=== PATIENT | female | born 1950 | race African-American/Black ===

== ENCOUNTER 2020-03-05 10:30 | Inpatient (IN) | payer MEDICARE ==
--- NOTE | 2020-03-06 10:52 | R.PREADM ---
SCREENING DATE AND TIME 03/05/2020 10:33 (CDT) ANTICIPATED REHAB ADMISSION DATE 03/07/2020 REFERRING FACILITY [facility] REFERRAL DATE AND TIME 03/04/2020 10:33 (CDT) REFERRAL ROOM# Z.SI02 ACUTE ADMIT DATE 02/15/2020 Previous Rehabilitation(s): No. 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 José Miguel Brennan M.D. [facility]# [id number] [id number] NAME SALINA SERRATO [address]ESS [address] [facility] [address] DATE OF 1950 AGE 69 SSN# [id number] GENDER female MARITAL STATUS RACE black PREF. LANGUAGE (IF NON-[place]) Telugu ADMIT FROM 01 - Home (private home/apt. board/care, assisted living, half-way, transitional living) PRE-HOSPITAL LIVING SETTING 01 - Home (private home/apt. board/care, assisted living, half-way, transitional living) HOME TYPE AND DETAILS Type of home: single family house # of steps within the residence: 0 # of levels in the residence: 1 # of steps to enter the residence: 0 PRE-HOSPITAL LIVING WITH Other FAMILY SUPPORT No PRIMARY FAMILY CONTACT NAME Idris Perez PRIMARY FAMILY CONTACT PHONE PRIMARY FAMILY CONTACT RELATIONSHIP u IS PRIMARY FAMILY CONTACT AUTH. REP.? no 1ST EMERGENCY CONTACT Idris Perez 1ST CONTACT PHONE 1ST CONTACT RELATIONSHIP u IS 1ST CONTACT AUTH. REP.? no PHONE 2ND CONTACT ON ADM.? no PATIENT EMPLOYMENT STATUS Retired (for age) PATIENT EMPLOYER No Employer PAYOR INFORMATION: 1ST PAYOR NAME [facility] Markus 1ST PAYOR PHONE 1ST PAYOR AUTHORIZATION# Pending #[id number] 1ST PAYOR INJURY/ILLNESS DUE TO ACCIDENT? No ANOTHER REPUBLICAN RESPONSIBLE? No PRIMARY REHAB/ACUTE DIAGNOSIS: CABG x 4 ONSET DATE 02/15/2020 REHAB IMPAIRMENT CATEGORY (ELLA): 14 Cardiac does NOT meet 60% rule PRIMARY DIAGNOSIS-RELATED SURGERIES: CABG X 4 SUMMARY OF ACUTE HOSPITALIZATION: Pt. is a 69 yo Right-handed black female. On 02/15/2020 she was admitted to [facility] with diagnosis CABG x 4. Her impairment category is Cardiac 09 - Cardiac Disorders (09). Pre-morbidly, Pt. was independent/mod-I in Transfers Control, Locomotion, and Self-Care; and she had good Balance, Social Cognition, Sphincter Control, and Communication. Currently, she has deficits of Transfers Control, Balance, Locomotion, Safety Awareness, and Self-Car e. Pt. is now referred to [facility] for acute in-patient rehabilitation in order to maximize patient's functional independence in activities of daily living, strength, ROM, and mobi lity. Patient has realistic goal of being discharged at assistance level 6-Geo to reside at Home with Nickolas katie. 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 Treatment - Per Physician's Orders. REVIEW OF SYSTEMS: - Gen Alert and awake Lying in bed No apparent distress Oriented to: person, time, and place - Vital Signs Vital signs stable, afebrile - CVS RRR VITAL SIGNS Temperature: 96.6 F SBP/DBP: 127/60 Pulse: 71 Resp: 11 Vital signs stable, afebrile MEDICATIONS/TREATMENT: Other- See attached MAR (Medication Administration Record). CURRENT SPHINCTER CONTROL: Pre-hospital bladder status: continent # of bladder accidents in the last 7 days prior to screenin Pre-hospital bowel status: continent # of bowel accidents in the last 7 days prior to screenin CURRENT LOCOMOTION STATUS: distance walked 20 feet DETAILED CURRENT FUNCTIONAL STATUS: - Walking score based on distance walked: 1(<=50ft) QI SCORES: - Self-Care A. Eating 05-Setup or clean-up assistance B. Oral hygiene 05-Setup or clean-up assistance C. Toileting hygiene 03-Partial/moderate assistance E. Shower/bathe self 10-Not attempted due to environmental limitations F. Upper body dressing 02-Substantial/maximal assistance G. Lower body dressing 01-Dependent H. Putting on/taking off footwear 01-Dependent - Mobility A. Roll left and right 02-Substantial/maximal assistance B. Sit to lying 02-Substantial/maximal assistance C. Lying to sitting on side of bed 02-Substantial/maximal assistance D. Sit to stand 04-Supervision or touching assistance E. Chair/mep-dw-cghbo transfer 04-Supervision or touching assistance F. Toilet transfer 04-Supervision or touching assistance G. Car transfer 88-Not attempted due to medical condition or safety concerns I. Walk 10 feet 02-Substantial/maximal assistance J. Walk 50 feet with two turns 88-Not attempted due to medical condition or safety concerns K. Walk 150 feet 88-Not attempted due to medical condition or safety concerns L. Walking 10 feet on uneven surfaces 88-Not attempted due to medical condition or safety concerns M. 1 step (curb) 88-Not attempted due to medical condition or safety concerns N. 4 steps 88-Not attempted due to medical condition or safety concerns O. 12 steps 88-Not attempted due to medical condition or safety concerns P. Picking up object 88-Not attempted due to medical condition or safety concerns R. Wheel 50 feet with two turns S. Wheel 150 feet - Bladder and Bowel Bladder continence 0-Always continent Bowel continence 0-Always continent - Endurance Poor - Balance Poor - Safety Awareness Poor CURRENT FUNC. DEFICITS: Self-Care, Mobility, Endurance, Balance, and Safety Awareness HISTORY OF FALLS. HAS THE PATIENT HAD TWO OR MORE FALLS IN THE PAST YEAR OR ANY FALL WITH INJURY IN T HE PAST YEAR?: No PRIOR SURGERY. DID THE PATIENT HAVE MAJOR SURGERY DURING THE 100 DAYS PRIOR TO ADMISSION?: No THERAPY NOTES FROM ACUTE CARE: Attached. SPECIAL NEEDS: - Safety Concerns Skin breakdown precautions needed due to skin breakdown risk PATIENT NEEDS ACTIVE AND ONGOING THERAPEUTIC INTERVENTION OF MULTIPLE THERAPY DISCIPLINES, INCLUDING: - Dietary and Nutrition Adequate Nutrition. Nutritional Education. Nutritional Supplements. PATIENT NEEDS CLOSE MEDICAL SUPERVISION BY A REHABILITATION PHYSICIAN FOR: Coordination of Treatment Team Wound Care PATIENT REQUIRES 24X7 REHAB NURSING FOR MEDICAL AND FUNCTIONAL MGT. OF THE FOLLOWING DEFICITS: Disease Management Medication Management Patient/Family Education Providing Safe Environment Skin Integrity PATIENT REQUIRES INTENSIVE, COORDINATED INTERDISCIPLINARY APPROACH TO REHAB: Arranging Home Equipment/Services Discharge Planning Family Intervention/Training Keg Varnisher/Case Management PATIENT REHAB POTENTIAL: Marshall SERRATO is able and expected to receive 3 hours of individualized therapy daily on at least 5 of ev casper 7 days Marshall SERRATO's prognosis for significant practical improvement within a reasonable period of time appear s Good Expected level of measurable improvement will be of a practical value to Marshall SERRATO's functional capac ity or adaptations to impairments Has a viable Discharge Plan Medically appropriate; condition is sufficiently stable to participate in intensive rehab program DISCHARGE PLAN: - Estimated Length of Stay (days) 10. - Consensus on plan Discharge plan has been discussed with primary caregiver. Patient/Family is in agreement with the sebastián n. - Patient/Family Goals Return home independently. RECOMMENDED CARE LEVEL: IRF RECOMMENDATION DETAILS: Recommended Admission to Comprehensive Rehabilitation Program to Increase Functional [place] SCREENER'S COMPLETENESS CONFIRMATION: - Screening Confirmation The patient data collection on this preadmission screening form is finished PHYSICIANS REVIEW AND ADMISSION DETERMINATION Admit - Based on my review of the Pre-Admission Screening results, in my medical judgment and experie nce, I concur with the findings and recommend admission to [facility], as this patient requires an IRF level of care. SIGNATURE PANEL: Elevator Pilot - [electronically] signed by Mavis Rubalcava Tip Bander on 03/05/2020 at 12:13 (CD T) Clinical Liaison - [electronically] signed by Audrey Talavera RN on 03/06/2020 at 10:48 (CDT) Physician Reviewer - [electronically] signed by Dr. José Miguel Brennan M.D. on 03/06/2020 at 10:51 (CDT )
[2020-03-06] MEDS ORDERED: D50W 25 GM/50 ML SYRINGE/VIAL IV PRN (20:56)
[2020-03-06] MEDS ORDERED: GLUCAGON 1 MG/VIAL IM PRN (20:56)
[2020-03-06] MEDS: INSULIN -REGULAR HUMAN 50 UNIT/0.5 ML ML SQ SCH (21:00)
--- OUTSIDE RECORDS SUMMARY | 2020-03-06 21:20 | XMS REPORT ---
:1950 Author Organization [facility] t Address [address] [place] [place] [address] Care Team Providers Name Role Phone Srinivas MACDONALD, Maxine Acosta Attending Clinician Pob, Lab Main Attending Clinician Unavailable Doctor Unassigned, Name Attending Clinician Unavailable Junior KERR M Attending Clinician Singer VELAZQUEZ Attending Clinician Aftab MACDONALD Attending Clinician Aftab MACDONALD Admitting Clinician Payers Payer Name Policy Type Policy Number Effective Date Expiration Date S ource Problems This patient has no known problems. Allergies, Adverse Reactions, Alerts Allergy Allergy Status Severity Reaction(s) Onset Inactive Treating Comm ents Source Name Type Date Date Clinician [place] DA Active SV 0 [facility] ins 02-27 [place] 00:00: [address] [place] DA Active SV [facility] ins 02-17 Clear 00:00: [address] [place] DA Active SV 2016-1 [facility] ins 10-12 Clear 00:00: [place] 00 [facility] ELECTROD DA Active U 2015- [facility] ES 10-12 Clear 00:00: [place] 00 [facility] FLU DA Active SV 2015-10 [facility] VACCINE 10-12 Clear 00:00: [place] 00 [facility] Medications This patient has no known medications. Procedures This patient has no known procedures. Encounters Start End Encounter Admission Attending Care Care Encounter Source Date/Time Date/Time Type Type Clinicians Facility Department ID 2020-02-14 2020-02-15 Emergency [facility] [id number] 19:56:15 00:58:00 Maxine Finn [id number] [place] 4.2.7.2.686 [place] [id number] [id number] 2019-12-13 2019-12-13 Exposure Machine Operator Margaux Quezada [facility] [id number] 13:20:41 13:35:41 Visit Lab Main Aakash [id number] [place] 4.2.7.2.686 Profess [id number] [address] 2019-12-13 2019-12-13 Orders Doctor JONY [id number] 00:00:00 00:00:00 Only Unassigned, KRISTINA [id number] [place] [facility] [id number] [id number] 2019-11-13 2019-11-13 Transition Bernardo Pacheco [id number] 00:00:00 00:00:00 of Care Delphine Vidal [id number] [place] 4.2.7.2.686 [id number] 2019-11-11 2019-11-11 Emergency Slade Sykes [facility] 1.2.840. [id number] 01:24:32 17:40:00 Pratima Ugalde 350.1.13.10 [place] 4.2.7.2.686 [place] [phone] [id number] Results Test Description Test Time Test Comments Results Result Comments Source GLUCOSE BEDSIDE TESTING 2020-03-06 16:36:00 Test Item Value Reference Range Interpretation Comme nts GLUCOSE BEDSIDE TESTING (test code = GLUBED) 158 MG/DL 60-99 H HGB [id number] 15:25:00 Test Item Value Reference Range Interpretation Comments HEMOGLOBIN (test code = HGB) 9.1 G/DL 11.2-14.9 L HEMATOCRIT (test code = HCT) 29.2 % 33.2-43.5 L Is this a LINE draw? NGLUCOSE BEDSIDE [id number] 12:18:00 Test Item Value Reference Range Interpretation Comments GLUCOSE BEDSIDE TESTING (test code 151 MG/DL 60-99 H = GLUBED) GLUCOSE BEDSIDE [id number] 12:18:00 Test Item Value Reference Range Interpretation Comments GLUCOSE BEDSIDE TESTING (test code 155 MG/DL 60-99 H = GLUBED) CBC W/AUTO [id number] 09:19:00 Test Item Value Reference Range Interpretation Comments WHITE BLOOD CELL (test code = 9.9 K/MM3 3.8-9.8 H WBC) RED BLOOD CELL (test code = 2.68 M/MM3 3.58-4.97 L RBC) HEMOGLOBIN (test code = HGB) 7.5 G/DL 11.2-14.9 L HEMATOCRIT (test code = HCT) 24.2 % 33.2-43.5 L MEAN CELL VOLUME (test code = 90 fL 80.7-99.1 N MCV) MEAN CELL HGB (test code = MCH) 28.0 pg 27.0-34.1 N MEAN CELL HGB CONCETRATION 31.0 % 32.2-35.7 L (test code = MCHC) RED CELL DISTRIBUTION WIDTH 15.1 % 12.1-15.2 N (test code = RDW) PLATELET COUNT (test code = 442 K/MM3 129-368 H PLT) MEAN PLATELET VOLUME (test code 9.0 fl 7.4-10.4 N = MPV) NEUTROPHIL % (test code = NT%) 80.4 % 43-75 H IMMATURE GRANULOCYTE % (test 0.7 % 0.0-2.0 N code = IG%) LYMPHOCYTE % (test code = LY%) 13.0 % 14-44 L MONOCYTE % (test code = MO%) 5.4 % 4-13 N EOSINOPHIL % (test code = EO%) 0.1 % 0-6 N BASOPHIL % (test code = BA%) 0.4 % 0-2 N NUCLEATED RBC % (test code = 0.0 % 0-1.0 N NRBC%) NEUTROPHIL # (test code = NT#) 7.97 K/mm3 2.0-7.6 H IMMATURE GRANULOCYTE # (test 0.07 x10 3/uL 0-0.03 H code = IG#) LYMPHOCYTE # (test code = LY#) 1.29 K/mm3 1.0-3.8 N MONOCYTE # (test code = MO#) 0.54 K/mm3 0.1-0.8 N EOSINOPHIL # (test code = EO#) 0.01 K/mm3 0.0-0.2 N BASOPHIL # (test code = BA#) 0.04 K/mm3 0.0-0.2 N NUCLEATED RBC # (test code = 0.00 K/mm3 0.0-0.1 N NRBC#) PATIENT IS A HARD STICK. UNABLE TO GET BLOOD SAMPLE.NOTIFIED PATIENT CARE STAFF: XENAON 03/06/20 AT 42 BY Z.LAB.MYJBASIC METABOLIC [id number] 09:06:00 Test Item Value Reference Range Interpretation Comments SODIUM (test code = 135 MMOL/L 137-145 L NA) POTASSIUM (test code = 4.3 MMOL/L 3.5-5.1 N K) CHLORIDE (test code = 102 MMOL/L 98-107 N CL) CARBON DIOXIDE (test 30 MMOL/L 22-30 N code = CO2) GLUCOSE (test code = 189 MG/DL 74-106 H GLU) BLOOD UREA NITROGEN 25 MG/DL 7-17 H (test code = BUN) GLOMERULAR FILTRATION 39 Report ing units: RATE (test code = GFR) ml/mi n/1.73 m2 (Modified MDRD Formula)Referen ce Range: > or = 6 0 ml/min/1.73 m2 CREATININE (test code 1.60 MG/DL 0.52-1.04 H = CREAT) CALCIUM (test code = 8.7 MG/DL 8.4-10.2 N CA) PATIENT IS A HARD STICK. UNABLE TO GET BLOOD SAMPLE.NOTIFIED PATIENT CARE STAFF: XENAON 03/06/20 AT 0742 BY Z.LAB.[id number] 09:06:00 Test Item Value Reference Range Interpretation Comments MAGNESIUM (test code = MAG) 1.9 MG/DL 1.6-2.3 N PATIENT IS A HARD STICK. UNABLE TO GET BLOOD SAMPLE.NOTIFIED PATIENT CARE STAFF: TEJA 03/06/20 AT 0742 BY Dee Dee.LAB.MYJBASI METABOLIC [id number] 09:05:00 Test Item Value Reference Range Interpretation Comments SODIUM (test code = 135 MMOL/L 137-145 L NA) POTASSIUM (test code = 4.3 MMOL/L 3.5-5.1 N K) CHLORIDE (test code = 102 MMOL/L 98-107 N CL) CARBON DIOXIDE (test MMOL/L 22-30 code = CO2) GLUCOSE (test code = MG/DL 74-106 GLU) BLOOD UREA NITROGEN MG/DL 7-17 (test code = BUN) GLOMERULAR FILTRATION 39 Report ing units: RATE (test code = GFR) ml/mi n/1.73 m2 (Modified MDRD Formula)Referen ce Range: > or = 6 0 ml/min/1.73 m2 CREATININE (test code 1.60 MG/DL 0.52-1.04 H = CREAT) CALCIUM (test code = MG/DL 8.7-9.7 CA) PATIENT IS A HARD STICK. UNABLE TO GET BLOOD SAMPLE.NOTIFIED PATIENT CARE STAFF: TEJA 03/06/20 AT 07 BY Z.LAB.[id number] 09:05:00 Test Item Value Reference Range Interpretation Comments MAGNESIUM (test code = MAG) MG/DL 1.6-2.3 PATIENT IS A HARD STICK. UNABLE TO GET BLOOD SAMPLE.NOTIFIED PATIENT CARE STAFF: TEJA 03/06/20 AT 0742 BY Z.LAB.MYJBASI METABOLIC [id number] 09:03:00 Test Item Value Reference Range Interpretation Comments SODIUM (test code = NA) 135 MMOL/L 137-145 L POTASSIUM (test code = K) 4.3 MMOL/L 3.5-5.1 N CHLORIDE (test code = CL) 102 MMOL/L 98-107 N CARBON DIOXIDE (test code = CO2) MMOL/L 22-30 GLUCOSE (test code = GLU) MG/DL 74-106 BLOOD UREA NITROGEN (test code = MG/DL 7-17 BUN) GLOMERULAR FILTRATION RATE (test code = GFR) CREATININE (test code = CREAT) MG/DL 0.52-1.04 CALCIUM (test code = CA) MG/DL 8.7-9.7 PATIENT IS A HARD STICK. UNABLE TO GET BLOOD SAMPLE.NOTIFIED PATIENT CARE STAFF: TEJA 03/06/20 AT 0742 BY Z.LAB.[id number] 09:03:00 Test Item Value Reference Range Interpretation Comments MAGNESIUM (test code = MAG) MG/DL 1.6-2.3 PATIENT IS A HARD STICK. UNABLE TO GET BLOOD SAMPLE.NOTIFIED PATIENT CARE STAFF: TEJA 03/06/20 AT 0742 BY Z.LAB.MYJGLUCOSE BEDSIDE [id number] 07:52:00 Test Item Value Reference Range Interpretation Comments GLUCOSE BEDSIDE TESTING (test code 156 MG/DL 60-99 H = GLUBED) GLUCOSE BEDSIDE [id number] 07:52:00 Test Item Value Reference Range Interpretation Comments GLUCOSE BEDSIDE TESTING (test code 258 MG/DL 60-99 H = GLUBED) GLUCOSE BEDSIDE [id number] 07:52:00 Test Item Value Reference Range Interpretation Comments GLUCOSE BEDSIDE TESTING (test code 169 MG/DL 60-99 H = GLUBED) GLUCOSE BEDSIDE [id number] 16:36:00 Test Item Value Reference Range Interpretation Comments GLUCOSE BEDSIDE TESTING (test code 169 MG/DL 60-99 H = GLUBED) GLUCOSE BEDSIDE [id number] 16:36:00 Test Item Value Reference Range Interpretation Comments GLUCOSE BEDSIDE TESTING (test code 137 MG/DL 60-99 H = GLUBED) COMPREHENSIVE METABOLIC [id number] 09:53:00 Test Item Value Reference Range Interpretation Comments SODIUM (test code = NA) 136 MMOL/L 137-145 L POTASSIUM (test code = 4.3 MMOL/L 3.5-5.1 N K) CHLORIDE (test code = 101 MMOL/L 98-107 N CL) CARBON DIOXIDE (test 29 MMOL/L 22-30 N code = CO2) GLUCOSE (test code = 172 MG/DL 74-106 H GLU) BLOOD UREA NITROGEN 24 MG/DL 7-17 H (test code = BUN) GLOMERULAR FILTRATION 42 Report ing units: RATE (test code = GFR) ml/mi n/1.73 m2 (Modified MDRD Formula)Referen ce Range: > or = 6 0 ml/min/1.73 m2 CREATININE (test code = 1.50 MG/DL 0.52-1.04 H CREAT) TOTAL PROTEIN (test 6.8 G/DL 6.3-8.2 N code = PROT) ALBUMIN (test code = 3.3 G/DL 3.5-5.0 L ALB) CALCIUM (test code = 8.9 MG/DL 8.4-10.2 N CA) BILIRUBIN TOTAL (test 0.7 MG/DL 0.2-1.3 N code = BILT) SGOT/AST (test code = 26 UNITS/L 14-36 N AST) SGPT/ALT (test code = 31 UNITS/L <35 ALT) ALKALINE PHOSPHATASE 84 UNITS/L 38-126 N (test code = ALKP) PATIENT IS A HARD STICK. UNABLE TO GET BLOOD SAMPLE.NOTIFIED PATIENT CARE STAFF: ATILIO 03/05/20 [id number] BY Z.LAB.[id number] 09:53:00 Test Item Value Reference Range Interpretation Comments MAGNESIUM (test code = MAG) 2.0 MG/DL 1.6-2.3 N PATIENT IS A HARD STICK. UNABLE TO GET BLOOD SAMPLE.NOTIFIED PATIENT CARE STAFF: ATILIO 03/05/20 [id number] BY Z.LAB.MYJCOMPREHENSIVE METABOLIC [id number] 09:30:00 Test Item Value Reference Range Interpretation Comments SODIUM (test code = NA) 136 MMOL/L 137-145 L POTASSIUM (test code = 4.3 MMOL/L 3.5-5.1 N K) CHLORIDE (test code = 101 MMOL/L 98-107 N CL) CARBON DIOXIDE (test 29 MMOL/L 22-30 N code = CO2) GLUCOSE (test code = MG/DL 74-106 GLU) BLOOD UREA NITROGEN MG/DL 7-17 (test code = BUN) GLOMERULAR FILTRATION 42 Report ing units: RATE (test code = GFR) ml/mi n/1.73 m2 (Modified MDRD Formula)Referen ce Range: > or = 6 0 ml/min/1.73 m2 CREATININE (test code = 1.50 MG/DL 0.52-1.04 H CREAT) TOTAL PROTEIN (test 6.8 G/DL 6.3-8.2 N code = PROT) ALBUMIN (test code = 3.3 G/DL 3.5-5.0 L ALB) CALCIUM (test code = MG/DL 8.7-9.7 CA) BILIRUBIN TOTAL (test 0.7 MG/DL 0.2-1.3 N code = BILT) SGOT/AST (test code = 26 UNITS/L 14-36 N AST) SGPT/ALT (test code = UNITS/L <35 ALT) ALKALINE PHOSPHATASE 84 UNITS/L 38-126 N (test code = ALKP) PATIENT IS A HARD STICK. UNABLE TO GET BLOOD SAMPLE.NOTIFIED PATIENT CARE STAFF: ATILIO 03/05/20 BY Z.LAB.[id number] 09:30:00 Test Item Value Reference Range Interpretation Comments MAGNESIUM (test code = MAG) MG/DL 1.6-2.3 PATIENT IS A HARD STICK. UNABLE TO GET BLOOD SAMPLE.NOTIFIED PATIENT CARE STAFF: ATILIO 03/05/20 BY Z.LAB.MYJCOMPREHENSIVE METABOLIC [id number] 09:28:00 Test Item Value Reference Range Interpretation Comments SODIUM (test code = NA) 136 MMOL/L 137-145 L POTASSIUM (test code = K) 4.3 MMOL/L 3.5-5.1 N CHLORIDE (test code = CL) 101 MMOL/L 98-107 N CARBON DIOXIDE (test code = CO2) MMOL/L 22-30 GLUCOSE (test code = GLU) MG/DL 74-106 BLOOD UREA NITROGEN (test code = MG/DL 7-17 BUN) GLOMERULAR FILTRATION RATE (test code = GFR) CREATININE (test code = CREAT) MG/DL 0.52-1.04 TOTAL PROTEIN (test code = PROT) G/DL 6.3-8.2 ALBUMIN (test code = ALB) 3.3 G/DL 3.5-5.0 L CALCIUM (test code = CA) MG/DL 8.7-9.7 BILIRUBIN TOTAL (test code = BILT) MG/DL 0.2-1.3 SGOT/AST (test code = AST) UNITS/L 15-37 SGPT/ALT (test code = ALT) UNITS/L <35 ALKALINE PHOSPHATASE (test code = UNITS/L 38-126 ALKP) PATIENT IS A HARD STICK. UNABLE TO GET BLOOD SAMPLE.NOTIFIED PATIENT CARE STAFF: ATILIO 03/05/20 BY Z.LAB.[id number] 09:28:00 Test Item Value Reference Range Interpretation Comments MAGNESIUM (test code = MAG) MG/DL 1.6-2.3 PATIENT IS A HARD STICK. UNABLE TO GET BLOOD SAMPLE.NOTIFIED PATIENT CARE STAFF: ATILIO 03/05/20 [id number] BY ShaqLAB.MYJCOMPREHENSIVE METABOLIC [id number] 09:27:00 Test Item Value Reference Range Interpretation Comments SODIUM (test code = NA) MMOL/L 137-145 POTASSIUM (test code = K) MMOL/L 3.5-5.1 CHLORIDE (test code = CL) MMOL/L 98-107 CARBON DIOXIDE (test code = CO2) MMOL/L 22-30 GLUCOSE (test code = GLU) MG/DL 74-106 BLOOD UREA NITROGEN (test code = MG/DL 7-17 BUN) GLOMERULAR FILTRATION RATE (test code = GFR) CREATININE (test code = CREAT) MG/DL 0.52-1.04 TOTAL PROTEIN (test code = PROT) G/DL 6.3-8.2 ALBUMIN (test code = ALB) 3.3 G/DL 3.5-5.0 L CALCIUM (test code = CA) MG/DL 8.7-9.7 BILIRUBIN TOTAL (test code = BILT) MG/DL 0.2-1.3 SGOT/AST (test code = AST) UNITS/L 15-37 SGPT/ALT (test code = ALT) UNITS/L <35 ALKALINE PHOSPHATASE (test code = UNITS/L 38-126 ALKP) PATIENT IS A HARD STICK. UNABLE TO GET BLOOD SAMPLE.NOTIFIED PATIENT CARE STAFF: ATILIO 03/05/20 [id number] BY Z.LAB.[id number] 09:27:00 Test Item Value Reference Range Interpretation Comments MAGNESIUM (test code = MAG) MG/DL 1.6-2.3 PATIENT IS A HARD STICK. UNABLE TO GET BLOOD SAMPLE.NOTIFIED PATIENT CARE STAFF: ATILIO 03/05/20 BY Z.LAB.MYJCBC W/AUTO [id number] 09:20:00 Test Item Value Reference Range Interpretation Comments WHITE BLOOD CELL (test code = 12.0 K/MM3 3.8-9.8 H WBC) RED BLOOD CELL (test code = 2.99 M/MM3 3.58-4.97 L RBC) HEMOGLOBIN (test code = HGB) 8.4 G/DL 11.2-14.9 L HEMATOCRIT (test code = HCT) 27.1 % 33.2-43.5 L MEAN CELL VOLUME (test code = 91 fL 80.7-99.1 N MCV) MEAN CELL HGB (test code = MCH) 28.1 pg 27.0-34.1 N MEAN CELL HGB CONCETRATION 31.0 % 32.2-35.7 L (test code = MCHC) RED CELL DISTRIBUTION WIDTH 15.2 % 12.1-15.2 N (test code = RDW) PLATELET COUNT (test code = 465 K/MM3 129-368 H PLT) MEAN PLATELET VOLUME (test code 9.0 fl 7.4-10.4 N = MPV) NEUTROPHIL % (test code = NT%) 80.7 % 43-75 H IMMATURE GRANULOCYTE % (test 0.4 % 0.0-2.0 N code = IG%) LYMPHOCYTE % (test code = LY%) 13.5 % 14-44 L MONOCYTE % (test code = MO%) 4.8 % 4-13 N EOSINOPHIL % (test code = EO%) 0.1 % 0-6 N BASOPHIL % (test code = BA%) 0.5 % 0-2 N NUCLEATED RBC % (test code = 0.0 % 0-1.0 N NRBC%) NEUTROPHIL # (test code = NT#) 9.71 K/mm3 2.0-7.6 H IMMATURE GRANULOCYTE # (test 0.05 x10 3/uL 0-0.03 H code = IG#) LYMPHOCYTE # (test code = LY#) 1.63 K/mm3 1.0-3.8 N MONOCYTE # (test code = MO#) 0.58 K/mm3 0.1-0.8 N EOSINOPHIL # (test code = EO#) 0.01 K/mm3 0.0-0.2 N BASOPHIL # (test code = BA#) 0.06 K/mm3 0.0-0.2 N NUCLEATED RBC # (test code = 0.00 K/mm3 0.0-0.1 N NRBC#) PATIENT IS A HARD STICK. UNABLE TO GET BLOOD SAMPLE.NOTIFIED PATIENT CARE STAFF: ATILIO 03/05/20 [id number] BY Z.LAB.MYNghiaGLUCOSE BEDSIDE [id number] 00:23:00 Test Item Value Reference Range Interpretation Comments GLUCOSE BEDSIDE TESTING (test code 195 MG/DL 60-99 H = GLUBED) GLUCOSE BEDSIDE [id number] 18:13:00 Test Item Value Reference Range Interpretation Comments GLUCOSE BEDSIDE TESTING (test code 164 MG/DL 60-99 H = GLUBED) GLUCOSE BEDSIDE [id number] 18:13:00 Test Item Value Reference Range Interpretation Comments GLUCOSE BEDSIDE TESTING (test code 150 MG/DL 60-99 H = GLUBED) GLUCOSE BEDSIDE [id number] 18:13:00 Test Item Value Reference Range Interpretation Comments GLUCOSE BEDSIDE TESTING (test code 148 MG/DL 60-99 H = GLUBED) - XR CHEST [id number] 08:19:00 Patient Name: SALINA SERRATO Unit No: [id number] EXAMS: CPT CODE: [id number] XR CHEST 1V [id number] REASON FOR EXAM: CABG. COMPARISON: February 28, 2020. C hest, portable single frontal view. The lungs are well-inflated with no acute infiltrates. Pulmonary vessels upper normal. CABG changes are seen. Trace effusions may be present. No detectable pneumothorax can be seen. Osseous structures appear to be intact. The right subclavian line has been removed. IMPRESSION: CABG changes with little change since the previous study. Pulmonary vessels appear to be intact. Location: 9 at 0819 Reported and signed by: ANURADHA NUÑEZ M.D. CC: Russel Hines; Sherri Ceja MD Technologist: RT Nithya(R) Transcrpt Date/Tm/Trnsp: 03/04/2020 (08) [email or web address] Orig Print D/T: S: 03/04/2020 (08) [facility] NAME: SALINA SERRATO [id number] PHYS: [place] [address] : 1950 AGE: 69 SEX: F LOC: Z.SI02 A PHONE #: [phone] EXAM DATE: 03/04/2020 STATUS: ADM IN FAX #: [phone] RADIOLOGY NO: PAGE 1 Signed ReportBASIC METABOLIC [id number] 06:39:00 Test Item Value Reference Range Interpretation Comments SODIUM (test code = 136 MMOL/L 137-145 L NA) POTASSIUM (test code = 4.0 MMOL/L 3.5-5.1 N K) CHLORIDE (test code = 102 MMOL/L 98-107 N CL) CARBON DIOXIDE (test 30 MMOL/L 22-30 N code = CO2) ANION GAP (test code = 8 MMOL/L 14-24 L GAP) GLUCOSE (test code = 162 MG/DL 74-106 H GLU) BLOOD UREA NITROGEN 26 MG/DL 7-17 H (test code = BUN) GLOMERULAR FILTRATION 42 Report ing units: RATE (test code = GFR) ml/mi n/1.73 m2 (Modified MDRD Formula)Referen ce Range: > or = 6 0 ml/min/1.73 m2 CREATININE (test code 1.50 MG/DL 0.52-1.04 H = CREAT) CALCIUM (test code = 8.3 MG/DL 8.4-10.2 L CA) [id number] 06:39:00 Test Item Value Reference Range Interpretation Comments MAGNESIUM (test code = MAG) 1.9 MG/DL 1.6-2.3 N BASIC METABOLIC [id number] 06:31:00 Test Item Value Reference Range Interpretation Comments SODIUM (test code = 136 MMOL/L 137-145 L NA) POTASSIUM (test code = 4.0 MMOL/L 3.5-5.1 N K) CHLORIDE (test code = 102 MMOL/L 98-107 N CL) CARBON DIOXIDE (test MMOL/L 22-30 code = CO2) GLUCOSE (test code = MG/DL 74-106 GLU) BLOOD UREA NITROGEN MG/DL 7-17 (test code = BUN) GLOMERULAR FILTRATION 42 Report ing units: RATE (test code = GFR) ml/mi n/1.73 m2 (Modified MDRD Formula)Referen ce Range: > or = 6 0 ml/min/1.73 m2 CREATININE (test code 1.50 MG/DL 0.52-1.04 H = CREAT) CALCIUM (test code = MG/DL 8.7-9.7 CA) [id number] 06:31:00 Test Item Value Reference Range Interpretation Comments MAGNESIUM (test code = MAG) MG/DL 1.6-2.3 BASIC METABOLIC [id number] 06:29:00 Test Item Value Reference Range Interpretation Comments SODIUM (test code = NA) 136 MMOL/L 137-145 L POTASSIUM (test code = K) 4.0 MMOL/L 3.5-5.1 N CHLORIDE (test code = CL) 102 MMOL/L 98-107 N CARBON DIOXIDE (test code = CO2) MMOL/L 22-30 GLUCOSE (test code = GLU) MG/DL 74-106 BLOOD UREA NITROGEN (test code = MG/DL 7-17 BUN) GLOMERULAR FILTRATION RATE (test code = GFR) CREATININE (test code = CREAT) MG/DL 0.52-1.04 CALCIUM (test code = CA) MG/DL 8.7-9.7 [id number] 06:29:00 Test Item Value Reference Range Interpretation Comments MAGNESIUM (test code = MAG) MG/DL 1.6-2.3 BASIC METABOLIC [id number] 06:28:00 Test Item Value Reference Range Interpretation Comments SODIUM (test code = NA) MMOL/L 137-145 POTASSIUM (test code = K) MMOL/L 3.5-5.1 CHLORIDE (test code = CL) 102 MMOL/L 98-107 N CARBON DIOXIDE (test code = CO2) MMOL/L 22-30 GLUCOSE (test code = GLU) MG/DL 74-106 BLOOD UREA NITROGEN (test code = MG/DL 7-17 BUN) GLOMERULAR FILTRATION RATE (test code = GFR) CREATININE (test code = CREAT) MG/DL 0.52-1.04 CALCIUM (test code = CA) MG/DL 8.7-9.7 [id number] 06:28:00 Test Item Value Reference Range Interpretation Comments MAGNESIUM (test code = MAG) MG/DL 1.6-2.3 CBC W/AUTO [id number] 06:17:00 Test Item Value Reference Range Interpretation Comments WHITE BLOOD CELL (test code = 10.6 K/MM3 3.8-9.8 H WBC) RED BLOOD CELL (test code = 2.74 M/MM3 3.58-4.97 L RBC) HEMOGLOBIN (test code = HGB) 7.7 G/DL 11.2-14.9 L HEMATOCRIT (test code = HCT) 24.5 % 33.2-43.5 L MEAN CELL VOLUME (test code = 89 fL 80.7-99.1 N MCV) MEAN CELL HGB (test code = MCH) 28.1 pg 27.0-34.1 N MEAN CELL HGB CONCETRATION 31.4 % 32.2-35.7 L (test code = MCHC) RED CELL DISTRIBUTION WIDTH 15.1 % 12.1-15.2 N (test code = RDW) PLATELET COUNT (test code = 399 K/MM3 129-368 H PLT) MEAN PLATELET VOLUME (test code 8.9 fl 7.4-10.4 N = MPV) NEUTROPHIL % (test code = NT%) 79.3 % 43-75 H IMMATURE GRANULOCYTE % (test 0.6 % 0.0-2.0 N code = IG%) LYMPHOCYTE % (test code = LY%) 13.4 % 14-44 L MONOCYTE % (test code = MO%) 6.2 % 4-13 N EOSINOPHIL % (test code = EO%) 0.0 % 0-6 N BASOPHIL % (test code = BA%) 0.5 % 0-2 N NUCLEATED RBC % (test code = 0.0 % 0-1.0 N NRBC%) NEUTROPHIL # (test code = NT#) 8.44 K/mm3 2.0-7.6 H IMMATURE GRANULOCYTE # (test 0.06 x10 3/uL 0-0.03 H code = IG#) LYMPHOCYTE # (test code = LY#) 1.43 K/mm3 1.0-3.8 N MONOCYTE # (test code = MO#) 0.66 K/mm3 0.1-0.8 N EOSINOPHIL # (test code = EO#) 0.00 K/mm3 0.0-0.2 N BASOPHIL # (test code = BA#) 0.05 K/mm3 0.0-0.2 N NUCLEATED RBC # (test code = 0.00 K/mm3 0.0-0.1 N NRBC#) GLUCOSE BEDSIDE [id number] 21:14:00 Test Item Value Reference Range Interpretation Comments GLUCOSE BEDSIDE TESTING (test code 172 MG/DL 60-99 H = GLUBED) GLUCOSE BEDSIDE [id number] 18:28:00 Test Item Value Reference Range Interpretation Comments GLUCOSE BEDSIDE TESTING (test code 196 MG/DL 60-99 H = GLUBED) GLUCOSE BEDSIDE [id number] 11:50:00 Test Item Value Reference Range Interpretation Comments GLUCOSE BEDSIDE TESTING (test code 176 MG/DL 60-99 H = GLUBED) GLUCOSE BEDSIDE [id number] 11:37:00 Test Item Value Reference Range Interpretation Comments GLUCOSE BEDSIDE TESTING (test code 137 MG/DL 60-99 H = GLUBED) GLUCOSE BEDSIDE [id number] 11:37:00 Test Item Value Reference Range Interpretation Comments GLUCOSE BEDSIDE TESTING (test code 132 MG/DL 60-99 H = GLUBED) GLUCOSE BEDSIDE [id number] 11:37:00 Test Item Value Reference Range Interpretation Comments GLUCOSE BEDSIDE TESTING (test code 123 MG/DL 60-99 H = GLUBED) GLUCOSE BEDSIDE [id number] 07:24:00 Test Item Value Reference Range Interpretation Comments GLUCOSE BEDSIDE TESTING (test code 127 MG/DL 60-99 H = GLUBED) GLUCOSE BEDSIDE [id number] 07:24:00 Test Item Value Reference Range Interpretation Comments GLUCOSE BEDSIDE TESTING (test code 147 MG/DL 60-99 H = GLUBED) GLUCOSE BEDSIDE [id number] 07:24:00 Test Item Value Reference Range Interpretation Comments GLUCOSE BEDSIDE TESTING (test code 122 MG/DL 60-99 H = GLUBED) GLUCOSE BEDSIDE [id number] 17:48:00 Test Item Value Reference Range Interpretation Comments GLUCOSE BEDSIDE TESTING (test code 224 MG/DL 60-99 H = GLUBED) GLUCOSE BEDSIDE [id number] 17:48:00 Test Item Value Reference Range Interpretation Comments GLUCOSE BEDSIDE TESTING (test code 159 MG/DL 60-99 H = GLUBED) BASIC METABOLIC [id number] 06:24:00 Test Item Value Reference Range Interpretation Comments SODIUM (test code = 135 MMOL/L 137-145 L NA) POTASSIUM (test code = 3.8 MMOL/L 3.5-5.1 N K) CHLORIDE (test code = 99 MMOL/L 98-107 N CL) CARBON DIOXIDE (test 30 MMOL/L 22-30 N code = CO2) ANION GAP (test code = 10 MMOL/L 14-24 L GAP) GLUCOSE (test code = 177 MG/DL 74-106 H GLU) BLOOD UREA NITROGEN 31 MG/DL 7-17 H (test code = BUN) GLOMERULAR FILTRATION 39 Report ing units: RATE (test code = GFR) ml/mi n/1.73 m2 (Modified MDRD Formula)Referen ce Range: > or = 6 0 ml/min/1.73 m2 CREATININE (test code 1.60 MG/DL 0.52-1.04 H = CREAT) CALCIUM (test code = 8.6 MG/DL 8.4-10.2 N CA) [id number] 06:24:00 Test Item Value Reference Range Interpretation Comments MAGNESIUM (test code = MAG) 1.9 MG/DL 1.6-2.3 N CBC W/AUTO [id number] 06:00:00 Test Item Value Reference Range Interpretation Comments WHITE BLOOD CELL (test code = 12.1 K/MM3 3.8-9.8 H WBC) RED BLOOD CELL (test code = 3.02 M/MM3 3.58-4.97 L RBC) HEMOGLOBIN (test code = HGB) 8.5 G/DL 11.2-14.9 L HEMATOCRIT (test code = HCT) 26.8 % 33.2-43.5 L MEAN CELL VOLUME (test code = 89 fL 80.7-99.1 N MCV) MEAN CELL HGB (test code = MCH) 28.1 pg 27.0-34.1 N MEAN CELL HGB CONCETRATION 31.7 % 32.2-35.7 L (test code = MCHC) RED CELL DISTRIBUTION WIDTH 15.2 % 12.1-15.2 N (test code = RDW) PLATELET COUNT (test code = 440 K/MM3 129-368 H PLT) MEAN PLATELET VOLUME (test code 9.0 fl 7.4-10.4 N = MPV) NEUTROPHIL % (test code = NT%) 82.3 % 43-75 H IMMATURE GRANULOCYTE % (test 0.8 % 0.0-2.0 N code = IG%) LYMPHOCYTE % (test code = LY%) 10.0 % 14-44 L MONOCYTE % (test code = MO%) 6.6 % 4-13 N EOSINOPHIL % (test code = EO%) 0.0 % 0-6 N BASOPHIL % (test code = BA%) 0.3 % 0-2 N NUCLEATED RBC % (test code = 0.0 % 0-1.0 N NRBC%) NEUTROPHIL # (test code = NT#) 9.92 K/mm3 2.0-7.6 H IMMATURE GRANULOCYTE # (test 0.10 x10 3/uL 0-0.03 H code = IG#) LYMPHOCYTE # (test code = LY#) 1.20 K/mm3 1.0-3.8 N MONOCYTE # (test code = MO#) 0.80 K/mm3 0.1-0.8 N EOSINOPHIL # (test code = EO#) 0.00 K/mm3 0.0-0.2 N BASOPHIL # (test code = BA#) 0.04 K/mm3 0.0-0.2 N NUCLEATED RBC # (test code = 0.00 K/mm3 0.0-0.1 N NRBC#) GLUCOSE BEDSIDE [id number] 21:30:00 Test Item Value Reference Range Interpretation Comments GLUCOSE BEDSIDE TESTING (test code 148 MG/DL 60-99 H = GLUBED) GLUCOSE BEDSIDE [id number] 17:30:00 Test Item Value Reference Range Interpretation Comments GLUCOSE BEDSIDE TESTING (test code 247 MG/DL 60-99 H = GLUBED) GLUCOSE BEDSIDE [id number] 21:14:00 Test Item Value Reference Range Interpretation Comments GLUCOSE BEDSIDE TESTING (test code 116 MG/DL 60-99 H = GLUBED) GLUCOSE BEDSIDE [id number] 13:31:00 Test Item Value Reference Range Interpretation Comments GLUCOSE BEDSIDE TESTING (test code 179 MG/DL 60-99 H = GLUBED) GLUCOSE BEDSIDE [id number] 07:38:00 Test Item Value Reference Range Interpretation Comments GLUCOSE BEDSIDE TESTING (test code = 66 MG/DL 60-99 N GLUBED) BASIC METABOLIC [id number] 07:12:00 Test Item Value Reference Range Interpretation Comments SODIUM (test code = 137 MMOL/L 137-145 N NA) POTASSIUM (test code = 3.8 MMOL/L 3.5-5.1 N K) CHLORIDE (test code = 99 MMOL/L 98-107 N CL) CARBON DIOXIDE (test 33 MMOL/L 22-30 H code = CO2) GLUCOSE (test code = 80 MG/DL 74-106 N GLU) BLOOD UREA NITROGEN 24 MG/DL 7-17 H (test code = BUN) GLOMERULAR FILTRATION 42 Report ing units: RATE (test code = GFR) ml/mi n/1.73 m2 (Modified MDRD Formula)Referen ce Range: > or = 6 0 ml/min/1.73 m2 CREATININE (test code 1.50 MG/DL 0.52-1.04 H = CREAT) CALCIUM (test code = 8.7 MG/DL 8.4-10.2 N CA) BASIC METABOLIC [id number] 07:11:00 Test Item Value Reference Range Interpretation Comments SODIUM (test code = 137 MMOL/L 137-145 N NA) POTASSIUM (test code = 3.8 MMOL/L 3.5-5.1 N K) CHLORIDE (test code = 99 MMOL/L 98-107 N CL) CARBON DIOXIDE (test MMOL/L 22-30 code = CO2) GLUCOSE (test code = MG/DL 74-106 GLU) BLOOD UREA NITROGEN MG/DL 7-17 (test code = BUN) GLOMERULAR FILTRATION 42 Report ing units: RATE (test code = GFR) ml/mi n/1.73 m2 (Modified MDRD Formula)Referen ce Range: > or = 6 0 ml/min/1.73 m2 CREATININE (test code 1.50 MG/DL 0.52-1.04 H = CREAT) CALCIUM (test code = MG/DL 8.7-9.7 CA) BASIC METABOLIC [id number] 07:09:00 Test Item Value Reference Range Interpretation Comments SODIUM (test code = NA) 137 MMOL/L 137-145 N POTASSIUM (test code = K) 3.8 MMOL/L 3.5-5.1 N CHLORIDE (test code = CL) 99 MMOL/L 98-107 N CARBON DIOXIDE (test code = CO2) MMOL/L 22-30 GLUCOSE (test code = GLU) MG/DL 74-106 BLOOD UREA NITROGEN (test code = MG/DL 7-17 BUN) GLOMERULAR FILTRATION RATE (test code = GFR) CREATININE (test code = CREAT) MG/DL 0.52-1.04 CALCIUM (test code = CA) MG/DL 8.7-9.7 BASIC METABOLIC [id number] 07:08:00 Test Item Value Reference Range Interpretation Comments SODIUM (test code = NA) MMOL/L 137-145 POTASSIUM (test code = K) MMOL/L 3.5-5.1 CHLORIDE (test code = CL) 99 MMOL/L 98-107 N CARBON DIOXIDE (test code = CO2) MMOL/L 22-30 GLUCOSE (test code = GLU) MG/DL 74-106 BLOOD UREA NITROGEN (test code = MG/DL 7-17 BUN) GLOMERULAR FILTRATION RATE (test code = GFR) CREATININE (test code = CREAT) MG/DL 0.52-1.04 CALCIUM (test code = CA) MG/DL 8.7-9.7 CBC W/AUTO [id number] 06:30:00 Test Item Value Reference Range Interpretation Comments WHITE BLOOD CELL (test code = 14.0 K/MM3 3.8-9.8 H WBC) RED BLOOD CELL (test code = 3.19 M/MM3 3.58-4.97 L RBC) HEMOGLOBIN (test code = HGB) 9.2 G/DL 11.2-14.9 L HEMATOCRIT (test code = HCT) 29.1 % 33.2-43.5 L MEAN CELL VOLUME (test code = 91 fL 80.7-99.1 N MCV) MEAN CELL HGB (test code = MCH) 28.8 pg 27.0-34.1 N MEAN CELL HGB CONCETRATION 31.6 % 32.2-35.7 L (test code = MCHC) RED CELL DISTRIBUTION WIDTH 15.5 % 12.1-15.2 H (test code = RDW) PLATELET COUNT (test code = 388 K/MM3 129-368 H PLT) MEAN PLATELET VOLUME (test code 9.2 fl 7.4-10.4 N = MPV) NEUTROPHIL % (test code = NT%) 81.3 % 43-75 H IMMATURE GRANULOCYTE % (test 0.9 % 0.0-2.0 N code = IG%) LYMPHOCYTE % (test code = LY%) 11.0 % 14-44 L MONOCYTE % (test code = MO%) 6.3 % 4-13 N EOSINOPHIL % (test code = EO%) 0.1 % 0-6 N BASOPHIL % (test code = BA%) 0.4 % 0-2 N NUCLEATED RBC % (test code = 0.0 % 0-1.0 N NRBC%) NEUTROPHIL # (test code = NT#) 11.42 K/mm3 2.0-7.6 H IMMATURE GRANULOCYTE # (test 0.12 x10 3/uL 0-0.03 H code = IG#) LYMPHOCYTE # (test code = LY#) 1.54 K/mm3 1.0-3.8 N MONOCYTE # (test code = MO#) 0.89 K/mm3 0.1-0.8 H EOSINOPHIL # (test code = EO#) 0.01 K/mm3 0.0-0.2 N BASOPHIL # (test code = BA#) 0.06 K/mm3 0.0-0.2 N NUCLEATED RBC # (test code = 0.00 K/mm3 0.0-0.1 N NRBC#) GLUCOSE BEDSIDE [id number] 00:02:00 Test Item Value Reference Range Interpretation Comments GLUCOSE BEDSIDE TESTING (test code = 94 MG/DL 60-99 N GLUBED) GLUCOSE BEDSIDE [id number] 00:02:00 Test Item Value Reference Range Interpretation Comments GLUCOSE BEDSIDE TESTING (test code 110 MG/DL 60-99 H = GLUBED) - XR CHEST [id number] 07:57:00 Patient Name: SALINA SERRATO Unit No: [id number] EXAMS: CPT CODE: [id number] XR CHEST 1V [id number] EXAMINATION: - XR CHEST 1V LOCATION: T18 INDICA TION/CLINICAL HISTORY: CABG - CHEST TUBE REMOVAL COMPARISON: 02/27/2020 TECHNIQUE: Frontal view of the chest. FINDINGS: Unchanged right subclavian central line. Cardiac silhouette is mildly enlarged. Postsurgical change of CABG are present. There is mild pulmonary venous congestion. There is unchanged left basilar atelectasis. Possible trace bilateral pleural effusions. Less than 5% right apical pneumothorax. IMPRESSION: No significant change including tiny right apical pneumothorax. at 0757 Reported and signed by: Jony Hernandez MD CC: Russel Hines; Sherri Ceja MD Technologist: Cecily Bill RT(R) Transcrpt Date/Tm/Trnsp: 02/28/2020 (075) [email or web address] Orig Print D/T: S: 02/28/2020 (0800) [facility] NAME: SALINA SERRATO [id number] [address] PHYS: [place] [address] : 1950 AGE: 69 SEX: F LOC: Z.SI02 A PHONE #: [phone] EXAM DATE: 02/28/2020 STATUS: ADM IN FAX #: [phone] RADIOLOGY NO: PAGE 1 Signed ReportGLUCOSE BEDSIDE [id number] 07:37:00 Test Item Value Reference Range Interpretation Comments GLUCOSE BEDSIDE TESTING (test code = 95 MG/DL 60-99 N GLUBED) BASIC METABOLIC [id number] 05:11:00 Test Item Value Reference Range Interpretation Comments SODIUM (test code = 136 MMOL/L 137-145 L NA) POTASSIUM (test code = 3.7 MMOL/L 3.5-5.1 N K) CHLORIDE (test code = 101 MMOL/L 98-107 N CL) CARBON DIOXIDE (test 33 MMOL/L 22-30 H code = CO2) GLUCOSE (test code = 124 MG/DL 74-106 H GLU) BLOOD UREA NITROGEN 27 MG/DL 7-17 H (test code = BUN) GLOMERULAR FILTRATION 50 Report ing units: RATE (test code = GFR) ml/mi n/1.73 m2 (Modified MDRD Formula)Referen ce Range: > or = 6 0 ml/min/1.73 m2 CREATININE (test code 1.30 MG/DL 0.52-1.04 H = CREAT) CALCIUM (test code = 8.5 MG/DL 8.4-10.2 N CA) [id number] 05:11:00 Test Item Value Reference Range Interpretation Comments MAGNESIUM (test code = MAG) 1.8 MG/DL 1.6-2.3 N BASIC METABOLIC [id number] 05:10:00 Test Item Value Reference Range Interpretation Comments SODIUM (test code = 136 MMOL/L 137-145 L NA) POTASSIUM (test code = 3.7 MMOL/L 3.5-5.1 N K) CHLORIDE (test code = 101 MMOL/L 98-107 N CL) CARBON DIOXIDE (test 33 MMOL/L 22-30 H code = CO2) GLUCOSE (test code = MG/DL 74-106 GLU) BLOOD UREA NITROGEN MG/DL 7-17 (test code = BUN) GLOMERULAR FILTRATION 50 Report ing units: RATE (test code = GFR) ml/mi n/1.73 m2 (Modified MDRD Formula)Referen ce Range: > or = 6 0 ml/min/1.73 m2 CREATININE (test code 1.30 MG/DL 0.52-1.04 H = CREAT) CALCIUM (test code = MG/DL 8.7-9.7 CA) [id number] 05:10:00 Test Item Value Reference Range Interpretation Comments MAGNESIUM (test code = MAG) MG/DL 1.6-2.3 BASIC METABOLIC [id number] 05:07:00 Test Item Value Reference Range Interpretation Comments SODIUM (test code = NA) 136 MMOL/L 137-145 L POTASSIUM (test code = K) 3.7 MMOL/L 3.5-5.1 N CHLORIDE (test code = CL) 101 MMOL/L 98-107 N CARBON DIOXIDE (test code = CO2) MMOL/L 22-30 GLUCOSE (test code = GLU) MG/DL 74-106 BLOOD UREA NITROGEN (test code = MG/DL 7-17 BUN) GLOMERULAR FILTRATION RATE (test code = GFR) CREATININE (test code = CREAT) MG/DL 0.52-1.04 CALCIUM (test code = CA) MG/DL 8.7-9.7 [id number] 05:07:00 Test Item Value Reference Range Interpretation Comments MAGNESIUM (test code = MAG) MG/DL 1.6-2.3 CBC W/AUTO [id number] 04:58:00 Test Item Value Reference Range Interpretation Comments WHITE BLOOD CELL (test code = 13.8 K/MM3 3.8-9.8 H WBC) RED BLOOD CELL (test code = 3.11 M/MM3 3.58-4.97 L RBC) HEMOGLOBIN (test code = HGB) 8.8 G/DL 11.2-14.9 L HEMATOCRIT (test code = HCT) 27.9 % 33.2-43.5 L MEAN CELL VOLUME (test code = 90 fL 80.7-99.1 N MCV) MEAN CELL HGB (test code = MCH) 28.3 pg 27.0-34.1 N MEAN CELL HGB CONCETRATION 31.5 % 32.2-35.7 L (test code = MCHC) RED CELL DISTRIBUTION WIDTH 15.4 % 12.1-15.2 H (test code = RDW) PLATELET COUNT (test code = 310 K/MM3 129-368 N PLT) MEAN PLATELET VOLUME (test code 9.7 fl 7.4-10.4 N = MPV) NEUTROPHIL % (test code = NT%) 81.6 % 43-75 H IMMATURE GRANULOCYTE % (test 0.7 % 0.0-2.0 N code = IG%) LYMPHOCYTE % (test code = LY%) 9.7 % 14-44 L MONOCYTE % (test code = MO%) 7.7 % 4-13 N EOSINOPHIL % (test code = EO%) 0.1 % 0-6 N BASOPHIL % (test code = BA%) 0.2 % 0-2 N NUCLEATED RBC % (test code = 0.0 % 0-1.0 N NRBC%) NEUTROPHIL # (test code = NT#) 11.24 K/mm3 2.0-7.6 H IMMATURE GRANULOCYTE # (test 0.10 x10 3/uL 0-0.03 H code = IG#) LYMPHOCYTE # (test code = LY#) 1.34 K/mm3 1.0-3.8 N MONOCYTE # (test code = MO#) 1.06 K/mm3 0.1-0.8 H EOSINOPHIL # (test code = EO#) 0.01 K/mm3 0.0-0.2 N BASOPHIL # (test code = BA#) 0.03 K/mm3 0.0-0.2 N NUCLEATED RBC # (test code = 0.00 K/mm3 0.0-0.1 N NRBC#) GLUCOSE BEDSIDE [id number] 21:14:00 Test Item Value Reference Range Interpretation Comments GLUCOSE BEDSIDE TESTING (test code 158 MG/DL 60-99 H = GLUBED) GLUCOSE BEDSIDE [id number] 16:49:00 Test Item Value Reference Range Interpretation Comments GLUCOSE BEDSIDE TESTING (test code 210 MG/DL 60-99 H = GLUBED) BASIC METABOLIC [id number] 12:16:00 Test Item Value Reference Range Interpretation Comments SODIUM (test code = 136 MMOL/L 137-145 L NA) POTASSIUM (test code = 3.6 MMOL/L 3.5-5.1 N K) CHLORIDE (test code = 100 MMOL/L 98-107 N CL) CARBON DIOXIDE (test 33 MMOL/L 22-30 H code = CO2) ANION GAP (test code = 7 MMOL/L 14-24 L GAP) GLUCOSE (test code = 128 MG/DL 74-106 H GLU) BLOOD UREA NITROGEN 28 MG/DL 7-17 H (test code = BUN) GLOMERULAR FILTRATION 42 Report ing units: RATE (test code = GFR) ml/mi n/1.73 m2 (Modified MDRD Formula)Referen ce Range: > or = 6 0 ml/min/1.73 m2 CREATININE (test code 1.50 MG/DL 0.52-1.04 H = CREAT) CALCIUM (test code = 8.9 MG/DL 8.4-10.2 N CA) GLUCOSE BEDSIDE [id number] 12:11:00 Test Item Value Reference Range Interpretation Comments GLUCOSE BEDSIDE TESTING (test code 113 MG/DL 60-99 H = GLUBED) BASIC METABOLIC [id number] 12:10:00 Test Item Value Reference Range Interpretation Comments SODIUM (test code = NA) 136 MMOL/L 137-145 L POTASSIUM (test code = K) 3.6 MMOL/L 3.5-5.1 N CHLORIDE (test code = CL) 100 MMOL/L 98-107 N CARBON DIOXIDE (test code = CO2) MMOL/L 22-30 GLUCOSE (test code = GLU) MG/DL 74-106 BLOOD UREA NITROGEN (test code = MG/DL 7-17 BUN) GLOMERULAR FILTRATION RATE (test code = GFR) CREATININE (test code = CREAT) MG/DL 0.52-1.04 CALCIUM (test code = CA) MG/DL 8.7-9.7 CBC W/AUTO [id number] 12:03:00 Test Item Value Reference Range Interpretation Comments WHITE BLOOD CELL (test code = 14.4 K/MM3 3.8-9.8 H WBC) RED BLOOD CELL (test code = 3.15 M/MM3 3.58-4.97 L RBC) HEMOGLOBIN (test code = HGB) 9.0 G/DL 11.2-14.9 L HEMATOCRIT (test code = HCT) 28.0 % 33.2-43.5 L MEAN CELL VOLUME (test code = 89 fL 80.7-99.1 N MCV) MEAN CELL HGB (test code = MCH) 28.6 pg 27.0-34.1 N MEAN CELL HGB CONCETRATION 32.1 % 32.2-35.7 L (test code = MCHC) RED CELL DISTRIBUTION WIDTH 15.6 % 12.1-15.2 H (test code = RDW) PLATELET COUNT (test code = 295 K/MM3 129-368 PLT) MEAN PLATELET VOLUME (test code 9.5 fl 7.4-10.4 N = MPV) NEUTROPHIL % (test code = NT%) 81.7 % 43-75 H IMMATURE GRANULOCYTE % (test 0.8 % 0.0-2.0 N code = IG%) LYMPHOCYTE % (test code = LY%) 8.8 % 14-44 L MONOCYTE % (test code = MO%) 8.2 % 4-13 N EOSINOPHIL % (test code = EO%) 0.2 % 0-6 N BASOPHIL % (test code = BA%) 0.3 % 0-2 N NUCLEATED RBC % (test code = 0.2 % 0-1.0 N NRBC%) NEUTROPHIL # (test code = NT#) 11.79 K/mm3 2.0-7.6 H IMMATURE GRANULOCYTE # (test 0.12 x10 3/uL 0-0.03 H code = IG#) LYMPHOCYTE # (test code = LY#) 1.27 K/mm3 1.0-3.8 N MONOCYTE # (test code = MO#) 1.18 K/mm3 0.1-0.8 H EOSINOPHIL # (test code = EO#) 0.03 K/mm3 0.0-0.2 N BASOPHIL # (test code = BA#) 0.04 K/mm3 0.0-0.2 N NUCLEATED RBC # (test code = 0.03 K/mm3 0.0-0.1 N NRBC#) GLUCOSE BEDSIDE [id number] 08:53:00 Test Item Value Reference Range Interpretation Comments GLUCOSE BEDSIDE TESTING (test code 121 MG/DL 60-99 H = GLUBED) - XR CHEST [id number] 06:10:00 Patient Name: SALINA SERRATO Unit No: [id number] EXAMS: CPT CODE: [id number] XR CHEST 1V [id number] EXAMINATION: - XR CHEST 1V LOCATION: H61 INDICAT ION/CLINICAL HISTORY: CABG - CHEST TUBE REMOVAL COMPARISON: 02/26/2020 TECHNIQUE: Frontal view of the chest. FINDINGS: Unchanged right subclavian centralline. Cardiac silhouette is mildly enlarged. Postsurgical change of CABG are present. Thereis mild pulmonary venous congestion. There is unchanged left basilar atelectasis. Possible trace bilateral pleural effusions. Right apical pneumothorax is less apparent. IMPRESSION: Less apparent small right apical pneumothorax. ElectronicallySigned by Ada Shankar MD on 02/27/2020 at 0610 Reported and signed by: Khai MACDONALD CC: Russel Hines; Sherri Ceja MD Technologist: Cecily Bill, RT(R) Transcrpt Date/Tm/Trnsp: 02/27/2020 (0610) [email or web address] Orig Print D/T: S: 02/27/2020 (0613) [facility] NAME: SALINA SERRATO [id number] [address] PHYS: [place] [address] : 1950 AGE: 69 SEX: F LOC: Z.SI02 A PHONE #: [phone] EXAM DATE: 02/27/2020 STATUS: ADM IN FAX #: [phone] RADIOLOGY NO: PAGE 1 Signed ReportGLUCOSE BEDSIDE [id number] 20:55:00 Test Item Value Reference Range Interpretation Comments GLUCOSE BEDSIDE TESTING (test code 291 MG/DL 60-99 H = GLUBED) GLUCOSE BEDSIDE [id number] 17:45:00 Test Item Value Reference Range Interpretation Comments GLUCOSE BEDSIDE TESTING (test code 162 MG/DL 60-99 H = GLUBED) GLUCOSE BEDSIDE [id number] 17:45:00 Test Item Value Reference Range Interpretation Comments GLUCOSE BEDSIDE TESTING (test code 145 MG/DL 60-99 H = GLUBED) GLUCOSE BEDSIDE [id number] 17:45:00 Test Item Value Reference Range Interpretation Comments GLUCOSE BEDSIDE TESTING (test code 154 MG/DL 60-99 H = GLUBED) GLUCOSE BEDSIDE [id number] 11:22:00 Test Item Value Reference Range Interpretation Comments GLUCOSE BEDSIDE TESTING (test code 222 MG/DL 60-99 H = GLUBED) - XR CHEST [id number] 08:02:00 Patient Name: SALINA SERRATO Unit No: [id number] EXAMS: CPT CODE: [id number] XR CHEST 1V [id number] EXAMINATION: - XR CHEST 1V. LOCATION: B2. HISTORY: CABG. COMPARISON: 02/25/2020. TECHNIQUE: Single AP view of the chest was obtained. FINDINGS: Right subclavian line is unchanged in position. Stable enlarged cardiac size. Trace right apical pneumothorax is unchanged. Mild persistent central pulmonary congestion and left basilar airspace disease. No large effusion or acute osseous abnormality is identified. IMPRESSION: Trace right apical pneumothorax, unchanged. Cardiomegaly with central pulmonary congestion and left airspace disease, edema or developing infiltrate. at 0802 Reported and signed by: Romana Rock MD CC: Russel Hines; Sherri Ceja MD Technologist: Cecily Bill, RT(R) Transcrpt Date/Tm/Trnsp: 02/26/2020 (801) [email or web address] Orig Print D/T: S: 02/26/2020 (804) [facility] NAME: SALINA SERRATO [id number] [address] PHYS: Anuradha Shelley MD [place], [place] [address]DYB: 1950 AGE: 69 SEX: F LOC:Z.SI02 A PHONE #: [phone] EXAM DATE: 02/26/2020 STATUS: ADM IN FAX #: [phone] RADIOLOGY NO: PAGE 1 Signed ReportCOMPREHENSIVE METABOLIC PANEL 2020-02-26 06:01:00 Test Item Value Reference Range Interpretation Comments SODIUM (test code = NA) 136 MMOL/L 137-145 L POTASSIUM (test code = 3.7 MMOL/L 3.5-5.1 N K) CHLORIDE (test code = 102 MMOL/L 98-107 N CL) CARBON DIOXIDE (test 30 MMOL/L 22-30 N code = CO2) GLUCOSE (test code = 169 MG/DL 74-106 H GLU) BLOOD UREA NITROGEN 37 MG/DL 7-17 H (test code = BUN) GLOMERULAR FILTRATION 39 Report ing units: RATE (test code = GFR) ml/mi n/1.73 m2 (Modified MDRD Formula)Referen ce Range: > or = 6 0 ml/min/1.73 m2 CREATININE (test code = 1.60 MG/DL 0.52-1.04 H CREAT) TOTAL PROTEIN (test 6.4 G/DL 6.3-8.2 N code = PROT) ALBUMIN (test code = 3.1 G/DL 3.5-5.0 L ALB) CALCIUM (test code = 8.4 MG/DL 8.4-10.2 N CA) BILIRUBIN TOTAL (test 0.7 MG/DL 0.2-1.3 N code = BILT) SGOT/AST (test code = 49 UNITS/L 14-36 H AST) SGPT/ALT (test code = 63 UNITS/L <35 ALT) ALKALINE PHOSPHATASE 84 UNITS/L 38-126 N (test code = ALKP) COMPREHENSIVE METABOLIC [id number] 06:00:00 Test Item Value Reference Range Interpretation Comments SODIUM (test code = NA) 136 MMOL/L 137-145 L POTASSIUM (test code = 3.7 MMOL/L 3.5-5.1 N K) CHLORIDE (test code = 102 MMOL/L 98-107 N CL) CARBON DIOXIDE (test 30 MMOL/L 22-30 N code = CO2) GLUCOSE (test code = MG/DL 74-106 GLU) BLOOD UREA NITROGEN MG/DL 7-17 (test code = BUN) GLOMERULAR FILTRATION 39 Report ing units: RATE (test code = GFR) ml/mi n/1.73 m2 (Modified MDRD Formula)Referen ce Range: > or = 6 0 ml/min/1.73 m2 CREATININE (test code = 1.60 MG/DL 0.52-1.04 H CREAT) TOTAL PROTEIN (test 6.4 G/DL 6.3-8.2 N code = PROT) ALBUMIN (test code = 3.1 G/DL 3.5-5.0 L ALB) CALCIUM (test code = MG/DL 8.7-9.7 CA) BILIRUBIN TOTAL (test 0.7 MG/DL 0.2-1.3 N code = BILT) SGOT/AST (test code = 49 UNITS/L 14-36 H AST) SGPT/ALT (test code = UNITS/L <35 ALT) ALKALINE PHOSPHATASE 84 UNITS/L 38-126 N (test code = ALKP) COMPREHENSIVE METABOLIC [id number] 05:58:00 Test Item Value Reference Range Interpretation Comments SODIUM (test code = NA) 136 MMOL/L 137-145 L POTASSIUM (test code = K) 3.7 MMOL/L 3.5-5.1 N CHLORIDE (test code = CL) 102 MMOL/L 98-107 N CARBON DIOXIDE (test code = CO2) MMOL/L 22-30 GLUCOSE (test code = GLU) MG/DL 74-106 BLOOD UREA NITROGEN (test code = MG/DL 7-17 BUN) GLOMERULAR FILTRATION RATE (test code = GFR) CREATININE (test code = CREAT) MG/DL 0.52-1.04 TOTAL PROTEIN (test code = PROT) G/DL 6.3-8.2 ALBUMIN (test code = ALB) 3.1 G/DL 3.5-5.0 L CALCIUM (test code = CA) MG/DL 8.7-9.7 BILIRUBIN TOTAL (test code = BILT) MG/DL 0.2-1.3 SGOT/AST (test code = AST) UNITS/L 15-37 SGPT/ALT (test code = ALT) UNITS/L <35 ALKALINE PHOSPHATASE (test code = UNITS/L 38-126 ALKP) COMPREHENSIVE METABOLIC [id number] 05:57:00 Test Item Value Reference Range Interpretation Comments SODIUM (test code = NA) MMOL/L 137-145 POTASSIUM (test code = K) MMOL/L 3.5-5.1 CHLORIDE (test code = CL) MMOL/L 98-107 CARBON DIOXIDE (test code = CO2) MMOL/L 22-30 GLUCOSE (test code = GLU) MG/DL 74-106 BLOOD UREA NITROGEN (test code = MG/DL 7-17 BUN) GLOMERULAR FILTRATION RATE (test code = GFR) CREATININE (test code = CREAT) MG/DL 0.52-1.04 TOTAL PROTEIN (test code = PROT) G/DL 6.3-8.2 ALBUMIN (test code = ALB) 3.1 G/DL 3.5-5.0 L CALCIUM (test code = CA) MG/DL 8.7-9.7 BILIRUBIN TOTAL (test code = BILT) MG/DL 0.2-1.3 SGOT/AST (test code = AST) UNITS/L 15-37 SGPT/ALT (test code = ALT) UNITS/L <35 ALKALINE PHOSPHATASE (test code = UNITS/L 38-126 ALKP) CBC W/AUTO [id number] 05:46:00 Test Item Value Reference Range Interpretation Comments WHITE BLOOD CELL (test code = 11.8 K/MM3 3.8-9.8 H WBC) RED BLOOD CELL (test code = 3.20 M/MM3 3.58-4.97 L RBC) HEMOGLOBIN (test code = HGB) 9.1 G/DL 11.2-14.9 L HEMATOCRIT (test code = HCT) 28.5 % 33.2-43.5 L MEAN CELL VOLUME (test code = 89 fL 80.7-99.1 N MCV) MEAN CELL HGB (test code = MCH) 28.4 pg 27.0-34.1 N MEAN CELL HGB CONCETRATION 31.9 % 32.2-35.7 L (test code = MCHC) RED CELL DISTRIBUTION WIDTH 15.7 % 12.1-15.2 H (test code = RDW) PLATELET COUNT (test code = 228 K/MM3 129-368 PLT) MEAN PLATELET VOLUME (test code 9.9 fl 7.4-10.4 N = MPV) NEUTROPHIL % (test code = NT%) 79.8 % 43-75 H IMMATURE GRANULOCYTE % (test 1.0 % 0.0-2.0 N code = IG%) LYMPHOCYTE % (test code = LY%) 10.7 % 14-44 L MONOCYTE % (test code = MO%) 7.1 % 4-13 N EOSINOPHIL % (test code = EO%) 1.1 % 0-6 N BASOPHIL % (test code = BA%) 0.3 % 0-2 N NUCLEATED RBC % (test code = 0.4 % 0-1.0 N NRBC%) NEUTROPHIL # (test code = NT#) 9.41 K/mm3 2.0-7.6 H IMMATURE GRANULOCYTE # (test 0.12 x10 3/uL 0-0.03 H code = IG#) LYMPHOCYTE # (test code = LY#) 1.26 K/mm3 1.0-3.8 N MONOCYTE # (test code = MO#) 0.84 K/mm3 0.1-0.8 H EOSINOPHIL # (test code = EO#) 0.13 K/mm3 0.0-0.2 N BASOPHIL # (test code = BA#) 0.04 K/mm3 0.0-0.2 N NUCLEATED RBC # (test code = 0.05 K/mm3 0.0-0.1 N NRBC#) GLUCOSE BEDSIDE [id number] 18:10:00 Test Item Value Reference Range Interpretation Comments GLUCOSE BEDSIDE TESTING (test code 148 MG/DL 60-99 H = GLUBED) GLUCOSE BEDSIDE [id number] 17:13:00 Test Item Value Reference Range Interpretation Comments GLUCOSE BEDSIDE TESTING (test code 186 MG/DL 60-99 H = GLUBED) ARTERIAL BLOOD [id number] 15:48:00 Test Item Value Reference Range Interpretation Comments ARTERIAL BLOOD GAS PH 7.35 mmHg 7.35-7.45 N (test code = PHA) ARTERIAL BLOOD GAS 38.6 mmHg 35.0-45.0 N PCO2 (test code = PCO2A) ARTERIAL BLOOD GAS PO2 61.4 mmol/L 80.0-100.0 L (test code = PO2A) BICARBONATE TOTAL HCO3 20.8 mmol/L 20.0-26.0 N (test code = HCO3) BASE EXCESS (test code -4.3 mmol/L -3.0-3.0 L = SRAVANI) ABG O2 SATURATION 90.6 % 95.0-100.0 L (test code = SATA) ABG DELIVERY (test VENTIMSK Previousl y reported code = JOHN) result: ABDON/SISI E dited by: CHRISTOPHEBGG o n 02/25/20:[id number] 0 1548: DELIVE RY previously repo rted as: VM/NC ABG TEMPERATURE (test 37.0 C >37 code = TEMPA) ABG SITE (test code = AL SITEA) ALLENS TEST (test code NA CHECK = ALLENS) FIO2 (test code = 28 % COHBGFFIO2) - XR CHEST [id number] 13:14:00 Patient Name: SALINA SERRATO Unit No: [id number] EXAMS: CPT CODE: [id number] XR CHEST 1V 04931 EXAMINATION: - XR CHEST 1V. LOCATION: B2. HISTORY: CHEST TUBE REMOVAL. COMPARISON: Radiograph of same day at 0525 hours.TECHNIQUE: Single AP view of the chest was obtained. FINDINGS: Right subclavian line is unchanged in position. There has been interval removal of the mediastinal drain and left chest tube. The heart is enlarged in size. Trace right apical pneumothorax isunchanged. There has been interval increase of central pulmonary congestion. No new osseous abnormality is identified. IMPRESSION: Trace right apical pneumothorax, unchanged. Cardiomegaly with interval increase of central pulmonary congestion. at 1314 Reportedand signed by: Lucía Rojas MD CC: Russel Hines; Sherri Ceja MD Technologist: Cinthya Carbajal, RT(R) Transcrpt Date/Tm/Trnsp: 02/25/2020(0914) [email or web address] Orig Print D/T: S: 02/25/2020 ([id number]) [facility] NAME: SALINA SERRATO [id number] PHYS: [place] [address] : 1950 AGE: 69 SEX: F LOC: [id number].[id number] A PHONE #: [phone] EXAM DATE: 02/25/2020 STATUS: ADM IN FAX #: [phone] RADIOLOGY NO: PAGE 1 Signed ReportGLUCOSE BEDSIDE [id number] 11:20:00 Test Item Value Reference Range Interpretation Comments GLUCOSE BEDSIDE TESTING (test code 342 MG/DL 60-99 HH = GLUBED) GLUCOSE BEDSIDE [id number] 11:20:00 Test Item Value Reference Range Interpretation Comments GLUCOSE BEDSIDE TESTING (test code 369 MG/DL 60-99 HH = GLUBED) ARTERY,[id number] 11:19:00 RUN DATE: 02/25/20 [facility] [place] [facility] RUN TIME: 1119 Specimen Inquiry RUN USER: INTERFACE PATIENT: SALINA SERRATO LOC: [facility] U #: [id number] AGE/SX: 69/F [facility]: Russel Hines MD : 54 BED: A DIS: STATUS: ADM IN TLOC: SPEC #: [id number] RECD: 02/22/20 STATUS: PASCUAL RE #: [id number] JARAD: 02/21/[address] [facility] [address]: Vanna Lockhart MD ENTERED: 02/22/20 SP TYPE: ARTERY, PL OTHR DR: Russel Hines MD, Salim F MD Garrett, Brett MD R1 Sabrina Rojas MD,Chandler Farah,Anuradha Larry,Brody MACDONALD R1 Fred Griggs MDORDERED: DECAL, SURG PATH LVL 3 CODES: [id number] - ARTERY, NOS [id number] - ARTERY, NOS PLAQUE, NOS [id number] - ARTERY, NOS ATHEROSCLEROSIS COPIES [place]: [place] [address] [place] [address] [email or web address] Sherri Ceja MD [address] [place] [address] [address] [place] [address] [email or web address] Cook MD R1 [address] [place] [address] Sabrina Rojas MD [address] [place] [address] [place] [address] [address] [id number] Chandler Espinoza MD [address] [facility] [address] [place] [address] CONTINUED ON NEXT PAGE RUN DATE: 02/25/20 [place] - LAB PAGE 2 RUN TIME: 1119 Specimen Inquiry RUN USER: INTERFACE SPEC #: [id number] PATIENT: SALINA SERRATO #[id number] (Continued)------- ----- COPIES TO: (Continued) [place] [address] [facility] [address] [place] [address] Brody Larry MD R1 [address] [place] [address] [place] [address] [facility] [address] [place] [address] ICD CODES: 440 - PROCEDURES: DECAL (02/22/20-1247) SURG PATH LVL 3 (02/22/20) TISSUES: A. ARTERY, NOS - RC PLAQUE CLINICAL HISTORY UNSTABLE ANGINA, MILD TROP LEAK CPT CODES CPT CODE(S): 11946 , 78372 , , , , , FINAL DIAGNOSIS Plaque, "RCA," enda rterectomy: SEVERE ATHEROSCLEROSIS, CALCIFIC AND OCCLUSIVE GROSS DESCRIPTION Right carotid artery plaque. Received is a segment of yellow plaque, measuring 4 x 0.3 x 0.2 cm. Sections submitted for decalcification as A1. /tc/nr MICROSCOPIC DESCRIPTION Right carotid artery plaque. Heavily calcified ovoid sclerotic nodule with foci of reorganization and stromal hemorrhage. No atypical features. /pdb CONTINUED ON NEXT PAGE --------- ---RUN DATE: 02/25/20 Sx[facility] PAGE 3 RUN TIME: 1119 Specimen Inquiry RUN USER: INTERFACE SPEC #: [id number] PATIENT: ROJELIOSALINA #[id number] ( Continued) Signed SIGNATURE ON FILE Se Moise 02/25/20 1119 END OF REPORT - XR CHEST [id number] 08:01:00 Patient Name: SALINA SERRATO Unit No: [id number] EXAMS: CPT CODE: [id number] XR CHEST 1V 91271 Clinical Information: Chest tube placement. CABG. Dictation Location: COMPARISON: I 2019 reported as stable. FINDINGS: Portable f rontal view of the chest taken at 0525 hours upright shows monitoring electrodes overlying thechest wall. Sternal wire sutures. Right subclavian central line. The heart is within normal limits in size. Mild central vascular interstitial prominence. No new consolidation or effusion. Degenerative change in the spine and shoulders. IMPRESSION: Similarto previous. at 0801 Reported and signed by: Damien Mauricio M.D. CC: Russel Hines; Sherri Ceja MD Technologist: Fran Ambrose, RT(R) Transcrpt Date/Tm/Trnsp: 02/25/2020 (800) [id number] Orig Print D/T: S: 02/25/2020 (803) [facility] NAME: SALINA SERRATO [id number] PHYS:[place] [address] : 1950 AGE: 69 SEX: F LOC: Z.SI02 A PHONE #: [phone] EXAM DATE: 02/25/2020 STATUS: ADM IN FAX #: [phone] RADIOLOGY NO: PAGE 1 Signed ReportGLUCOSE BEDSIDE [id number] 07:40:00 Test Item Value Reference Range Interpretation Comments GLUCOSE BEDSIDE TESTING (test code 175 MG/DL 60-99 H = GLUBED) BASIC METABOLIC [id number] 06:42:00 Test Item Value Reference Range Interpretation Comments SODIUM (test code = 137 MMOL/L 137-145 N NA) POTASSIUM (test code = 3.6 MMOL/L 3.5-5.1 N K) CHLORIDE (test code = 103 MMOL/L 98-107 N CL) CARBON DIOXIDE (test 29 MMOL/L 22-30 N code = CO2) GLUCOSE (test code = MG/DL 74-106 GLU) BLOOD UREA NITROGEN MG/DL 7-17 (test code = BUN) GLOMERULAR FILTRATION 39 Report ing units: RATE (test code = GFR) ml/mi n/1.73 m2 (Modified MDRD Formula)Referen ce Range: > or = 6 0 ml/min/1.73 m2 CREATININE (test code 1.60 MG/DL 0.52-1.04 H = CREAT) CALCIUM (test code = MG/DL 8.7-9.7 CA) [id number] 06:42:00 Test Item Value Reference Range Interpretation Comments MAGNESIUM (test code = MAG) MG/DL 1.6-2.3 BASIC METABOLIC [id number] 06:42:00 Test Item Value Reference Range Interpretation Comments SODIUM (test code = 137 MMOL/L 137-145 N NA) POTASSIUM (test code = 3.6 MMOL/L 3.5-5.1 N K) CHLORIDE (test code = 103 MMOL/L 98-107 N CL) CARBON DIOXIDE (test 29 MMOL/L 22-30 N code = CO2) GLUCOSE (test code = 85 MG/DL 74-106 N GLU) BLOOD UREA NITROGEN 39 MG/DL 7-17 H (test code = BUN) GLOMERULAR FILTRATION 39 Report ing units: RATE (test code = GFR) ml/mi n/1.73 m2 (Modified MDRD Formula)Referen ce Range: > or = 6 0 ml/min/1.73 m2 CREATININE (test code 1.60 MG/DL 0.52-1.04 H = CREAT) CALCIUM (test code = 8.2 MG/DL 8.4-10.2 L CA) [id number] 06:42:00 Test Item Value Reference Range Interpretation Comments MAGNESIUM (test code = MAG) 2.6 MG/DL 1.6-2.3 H BASIC METABOLIC [id number] 06:39:00 Test Item Value Reference Range Interpretation Comments SODIUM (test code = NA) 137 MMOL/L 137-145 N POTASSIUM (test code = K) MMOL/L 3.5-5.1 CHLORIDE (test code = CL) 103 MMOL/L 98-107 N CARBON DIOXIDE (test code = CO2) MMOL/L 22-30 GLUCOSE (test code = GLU) MG/DL 74-106 BLOOD UREA NITROGEN (test code = MG/DL 7-17 BUN) GLOMERULAR FILTRATION RATE (test code = GFR) CREATININE (test code = CREAT) MG/DL 0.52-1.04 CALCIUM (test code = CA) MG/DL 8.7-9.7 [id number] 06:39:00 Test Item Value Reference Range Interpretation Comments MAGNESIUM (test code = MAG) MG/DL 1.6-2.3 BASIC METABOLIC [id number] 06:39:00 Test Item Value Reference Range Interpretation Comments SODIUM (test code = NA) 137 MMOL/L 137-145 N POTASSIUM (test code = K) 3.6 MMOL/L 3.5-5.1 N CHLORIDE (test code = CL) 103 MMOL/L 98-107 N CARBON DIOXIDE (test code = CO2) MMOL/L 22-30 GLUCOSE (test code = GLU) MG/DL 74-106 BLOOD UREA NITROGEN (test code = MG/DL 7-17 BUN) GLOMERULAR FILTRATION RATE (test code = GFR) CREATININE (test code = CREAT) MG/DL 0.52-1.04 CALCIUM (test code = CA) MG/DL 8.7-9.7 [id number] 06:39:00 Test Item Value Reference Range Interpretation Comments MAGNESIUM (test code = MAG) MG/DL 1.6-2.3 PROTHROMBIN [id number] 05:49:00 Test Item Value Reference Range Interpretation Comments PROTHROMBIN TIME 12.4 SECONDS 9.4-12.5 N PATIENT (test code = PTP) INTERNATIONAL NORMAL 1.1 The INR is to be RATIO (test code = used only for INR) monitoring oral anticoagulantth erap y. INDICATION I NR VALUE ---- ---- ---- -------1. Prophylaxis, de ep venous thrombos is, including hig h risk surgery. 2.0 - 3.0 2. Prophylaxis, de ep venous thrombos is, hip surgery, treatment for d eep venous thrombosis or pulmonary prevention of systemic emboli sm in patients wit h valvular heart disease, atrial fibrillation, tissue heart va lve, or acute myocar dial infarction. 2.0 - 3 .0 3. Mechanical prosthesis hear t valves, recurrent syste rodriguez embolism. 3.0 - 4.5 PTT [id number] 05:49:00 Test Item Value Reference Range Interpretation Comments PTT ACTIVATED (test code = APTT) 29.6 SECONDS 25.1-36.5 N CBC W/AUTO [id number] 05:40:00 Test Item Value Reference Range Interpretation Comments WHITE BLOOD CELL (test code = 13.7 K/MM3 3.8-9.8 H WBC) RED BLOOD CELL (test code = 3.14 M/MM3 3.58-4.97 L RBC) HEMOGLOBIN (test code = HGB) 8.9 G/DL 11.2-14.9 L HEMATOCRIT (test code = HCT) 28.0 % 33.2-43.5 L MEAN CELL VOLUME (test code = 89 fL 80.7-99.1 N MCV) MEAN CELL HGB (test code = MCH) 28.3 pg 27.0-34.1 N MEAN CELL HGB CONCETRATION 31.8 % 32.2-35.7 L (test code = MCHC) RED CELL DISTRIBUTION WIDTH 15.7 % 12.1-15.2 H (test code = RDW) PLATELET COUNT (test code = 169 K/MM3 129-368 PLT) MEAN PLATELET VOLUME (test code 10.3 fl 7.4-10.4 N = MPV) NEUTROPHIL % (test code = NT%) 80.0 % 43-75 H IMMATURE GRANULOCYTE % (test 0.9 % 0.0-2.0 N code = IG%) LYMPHOCYTE % (test code = LY%) 10.4 % 14-44 L MONOCYTE % (test code = MO%) 6.9 % 4-13 N EOSINOPHIL % (test code = EO%) 1.5 % 0-6 N BASOPHIL % (test code = BA%) 0.3 % 0-2 N NUCLEATED RBC % (test code = 0.6 % 0-1.0 N NRBC%) NEUTROPHIL # (test code = NT#) 10.95 K/mm3 2.0-7.6 H IMMATURE GRANULOCYTE # (test 0.12 x10 3/uL 0-0.03 H code = IG#) LYMPHOCYTE # (test code = LY#) 1.43 K/mm3 1.0-3.8 N MONOCYTE # (test code = MO#) 0.94 K/mm3 0.1-0.8 H EOSINOPHIL # (test code = EO#) 0.21 K/mm3 0.0-0.2 H BASOPHIL # (test code = BA#) 0.04 K/mm3 0.0-0.2 N NUCLEATED RBC # (test code = 0.08 K/mm3 0.0-0.1 N NRBC#) GLUCOSE BEDSIDE [id number] 17:32:00 Test Item Value Reference Range Interpretation Comments GLUCOSE BEDSIDE TESTING (test code 270 MG/DL 60-99 H = GLUBED) GLUCOSE BEDSIDE [id number] 12:25:00 Test Item Value Reference Range Interpretation Comments GLUCOSE BEDSIDE TESTING (test code 185 MG/DL 60-99 H = GLUBED) GLUCOSE BEDSIDE [id number] 08:15:00 Test Item Value Reference Range Interpretation Comments GLUCOSE BEDSIDE TESTING (test code 151 MG/DL 60-99 H = GLUBED) GLUCOSE BEDSIDE [id number] 08:12:00 Test Item Value Reference Range Interpretation Comments GLUCOSE BEDSIDE TESTING 325 MG/DL 60-99 HH Noti fied Physician~ (test code = GLUBED) - XR CHEST [id number] 07:50:00 Patient Name: SALINA SERRATO Unit No: [id number] EXAMS: CPT CODE: [id number] XR CHEST 1V 82564 Single View Chest. Location: H9 Clinical Indication: 69-year-old with CABG Comparison: February 23, 2020 Findings: An AP view of the chest was obtained. A right subclavian central line is present. There is atelectasis ofthe right midlung. A mediastinal drain and left chest drain are again noted. No pneumothorax. Heart size is normal. No acute osseous abnormality. Impression: No significant interval change. at 0750 Reported and signed by: Anuradha Combs M.D. CC: Russel Hines; Sherri Ceja MD; Berta Tapia [employer] Technologist: Fran Ambrose, RT(R) Transcrpt Date/Tm/Trnsp: 02/24/2020 (0750) [id number].RB24 Orig Print D/T: S: 02/24/2020 (0754) [facility] NAME: SALINA SERRATO [address] PHYS: JASON. - Reg[place] [address] : [birth year] AGE: 69 SEX: F LOC: Z.SI02 A PHONE #: [phone] EXAM DATE: 02/24/2020 STATUS: ADM IN FAX #: [phone] RADIOLOGY NO: PAGE 1 Signed ReportBASIC METABOLIC PANEL 2020-02-24 06:02:00 Test Item Value Reference Range Interpretation Comments SODIUM (test code = 135 MMOL/L 137-145 L NA) POTASSIUM (test code = 4.3 MMOL/L 3.5-5.1 N K) CHLORIDE (test code = 103 MMOL/L 98-107 N CL) CARBON DIOXIDE (test 28 MMOL/L 22-30 N code = CO2) ANION GAP (test code = 8 MMOL/L 14-24 L GAP) GLUCOSE (test code = 187 MG/DL 74-106 H GLU) BLOOD UREA NITROGEN 38 MG/DL 7-17 H (test code = BUN) GLOMERULAR FILTRATION 36 Report ing units: RATE (test code = GFR) ml/mi n/1.73 m2 (Modified MDRD Formula)Referen ce Range: > or = 6 0 ml/min/1.73 m2 CREATININE (test code 1.70 MG/DL 0.52-1.04 H = CREAT) CALCIUM (test code = 8.5 MG/DL 8.4-10.2 N CA) [id number] 06:02:00 Test Item Value Reference Range Interpretation Comments MAGNESIUM (test code = MAG) 2.6 MG/DL 1.6-2.3 H BASIC METABOLIC [id number] 05:52:00 Test Item Value Reference Range Interpretation Comments SODIUM (test code = NA) 135 MMOL/L 137-145 L POTASSIUM (test code = K) MMOL/L 3.5-5.1 CHLORIDE (test code = CL) 103 MMOL/L 98-107 N CARBON DIOXIDE (test code = CO2) MMOL/L 22-30 GLUCOSE (test code = GLU) MG/DL 74-106 BLOOD UREA NITROGEN (test code = MG/DL 7-17 BUN) GLOMERULAR FILTRATION RATE (test code = GFR) CREATININE (test code = CREAT) MG/DL 0.52-1.04 CALCIUM (test code = CA) MG/DL 8.7-9.7 [id number] 05:52:00 Test Item Value Reference Range Interpretation Comments MAGNESIUM (test code = MAG) MG/DL 1.6-2.3 BASIC METABOLIC [id number] 05:52:00 Test Item Value Reference Range Interpretation Comments SODIUM (test code = NA) 135 MMOL/L 137-145 L POTASSIUM (test code = K) 4.3 MMOL/L 3.5-5.1 N CHLORIDE (test code = CL) 103 MMOL/L 98-107 N CARBON DIOXIDE (test code = CO2) MMOL/L 22-30 GLUCOSE (test code = GLU) MG/DL 74-106 BLOOD UREA NITROGEN (test code = MG/DL 7-17 BUN) GLOMERULAR FILTRATION RATE (test code = GFR) CREATININE (test code = CREAT) MG/DL 0.52-1.04 CALCIUM (test code = CA) MG/DL 8.7-9.7 [id number] 05:52:00 Test Item Value Reference Range Interpretation Comments MAGNESIUM (test code = MAG) MG/DL 1.6-2.3 PROTHROMBIN [id number] 05:48:00 Test Item Value Reference Range Interpretation Comments PROTHROMBIN TIME 12.0 SECONDS 9.4-12.5 N PATIENT (test code = PTP) INTERNATIONAL NORMAL 1.1 The INR is to be RATIO (test code = used only for INR) monitoring oral anticoagulantth erap y. INDICATION I NR VALUE ---- ---- ---- -------1. Prophylaxis, de ep venous thrombos is, including hig h risk surgery. 2.0 - 3.0 2. Prophylaxis, de ep venous thrombos is, hip surgery, treatment for d eep venous thrombosis or pulmonary prevention of systemic emboli sm in patients wit h valvular heart disease, atrial fibrillation, tissue heart va lve, or acute myocar dial infarction. 2.0 - 3 .0 3. Mechanical prosthesis hear t valves, recurrent syste rodriguez embolism. 3.0 - 4.5 PTT [id number] 05:48:00 Test Item Value Reference Range Interpretation Comments PTT ACTIVATED (test code = APTT) 26.9 SECONDS 25.1-36.5 N CBC W/AUTO [id number] 05:29:00 Test Item Value Reference Range Interpretation Comments WHITE BLOOD CELL (test code = 14.9 K/MM3 3.8-9.8 H WBC) RED BLOOD CELL (test code = 3.17 M/MM3 3.58-4.97 L RBC) HEMOGLOBIN (test code = HGB) 9.0 G/DL 11.2-14.9 L HEMATOCRIT (test code = HCT) 28.4 % 33.2-43.5 L MEAN CELL VOLUME (test code = 90 fL 80.7-99.1 N MCV) MEAN CELL HGB (test code = MCH) 28.4 pg 27.0-34.1 N MEAN CELL HGB CONCETRATION 31.7 % 32.2-35.7 L (test code = MCHC) RED CELL DISTRIBUTION WIDTH 15.7 % 12.1-15.2 H (test code = RDW) PLATELET COUNT (test code = 129 K/MM3 129-368 N PLT) MEAN PLATELET VOLUME (test code 10.6 fl 7.4-10.4 H = MPV) NEUTROPHIL % (test code = NT%) 83.4 % 43-75 H IMMATURE GRANULOCYTE % (test 0.7 % 0.0-2.0 N code = IG%) LYMPHOCYTE % (test code = LY%) 6.8 % 14-44 L MONOCYTE % (test code = MO%) 8.3 % 4-13 N EOSINOPHIL % (test code = EO%) 0.7 % 0-6 N BASOPHIL % (test code = BA%) 0.1 % 0-2 N NUCLEATED RBC % (test code = 0.2 % 0-1.0 N NRBC%) NEUTROPHIL # (test code = NT#) 12.41 K/mm3 2.0-7.6 H IMMATURE GRANULOCYTE # (test 0.11 x10 3/uL 0-0.03 H code = IG#) LYMPHOCYTE # (test code = LY#) 1.02 K/mm3 1.0-3.8 N MONOCYTE # (test code = MO#) 1.23 K/mm3 0.1-0.8 H EOSINOPHIL # (test code = EO#) 0.11 K/mm3 0.0-0.2 N BASOPHIL # (test code = BA#) 0.02 K/mm3 0.0-0.2 N NUCLEATED RBC # (test code = 0.03 K/mm3 0.0-0.1 N NRBC#) HGB [id number] 19:36:00 Test Item Value Reference Range Interpretation Comments HEMOGLOBIN (test code = HGB) 9.1 G/DL 11.2-14.9 L HEMATOCRIT (test code = HCT) 28.0 % 33.2-43.5 L GLUCOSE BEDSIDE [id number] 11:21:00 Test Item Value Reference Range Interpretation Comments GLUCOSE BEDSIDE TESTING 365 MG/DL 60-99 HH Noti fied Physician~ (test code = GLUBED) - XR CHEST [id number] 09:21:00 Patient Name: SALINA SERRATO Unit No: [id number] EXAMS: CPT CODE: [id number] XR CHEST 1V 14436 Single View Chest. Location: H9 Clinical Indication: 69-year-old with CABG Comparison: Prior day Findings: An AP view of the chest was obtained. The Beloit-Zuly catheter has been removed. Right subclavian central lineremains. Prior sternotomy. Enlargement of the cardiac silhouette is stable. There is p rominence of the central vasculature and there is some atelectasis of the right midlung, stable. No pneumothorax. No acute osseous abnormality. Mediastinal and left chest drains remain. Impression: Interval removal of the Beloit-Zuly catheter. Exam is otherwise unchanged. at 09 Reported and signed by: Anuradha Combs M.D. CC: Russel Hines; Sherri Ceja MD; Berta Tapia [employer] Technologist: Fran Ambrose, RT(R) Transcrpt Date/Tm/Trnsp: 02/23/2020 (920) [id number] Orig Print D/T: S: 02/23/2020 (924) [facility] NAME: SALINA SERRATO [id number] PHYS: [place] [address] : 1950 AGE: 69 SEX: F LOC: Z.SI02 A PHONE #: [phone] EXAM DATE: 02/23/2020 STATUS: ADM IN FAX #: [phone] RADIOLOGY NO: PAGE 1 Signed Report GLUCOSE BEDSIDE [id number] 07:57:00 Test Item Value Reference Range Interpretation Comments GLUCOSE BEDSIDE TESTING (test code 205 MG/DL 60-99 H = GLUBED) GLUCOSE BEDSIDE [id number] 07:56:00 Test Item Value Reference Range Interpretation Comments GLUCOSE BEDSIDE TESTING (test code 253 MG/DL 60-99 H = GLUBED) BASIC METABOLIC [id number] 06:54:00 Test Item Value Reference Range Interpretation Comments SODIUM (test code = 137 MMOL/L 137-145 N NA) POTASSIUM (test code = 4.4 MMOL/L 3.5-5.1 N K) CHLORIDE (test code = 107 MMOL/L 98-107 N CL) CARBON DIOXIDE (test 27 MMOL/L 22-30 N code = CO2) ANION GAP (test code = 7 MMOL/L 14-24 L GAP) GLUCOSE (test code = 228 MG/DL 74-106 H GLU) BLOOD UREA NITROGEN 33 MG/DL 7-17 H (test code = BUN) GLOMERULAR FILTRATION 36 Report ing units: RATE (test code = GFR) ml/mi n/1.73 m2 (Modified MDRD Formula)Referen ce Range: > or = 6 0 ml/min/1.73 m2 CREATININE (test code 1.70 MG/DL 0.52-1.04 H = CREAT) CALCIUM (test code = 8.6 MG/DL 8.4-10.2 N CA) [id number] 06:54:00 Test Item Value Reference Range Interpretation Comments MAGNESIUM (test code = MAG) 2.7 MG/DL 1.6-2.3 H PROTHROMBIN [id number] 06:45:00 Test Item Value Reference Range Interpretation Comments PROTHROMBIN TIME 11.9 SECONDS 9.4-12.5 N PATIENT (test code = PTP) INTERNATIONAL NORMAL 1.1 The INR is to be RATIO (test code = used only for INR) monitoring oral anticoagulantth erap y. INDICATION I NR VALUE ---- ---- ---- -------1. Prophylaxis, de ep venous thrombos is, including hig h risk surgery. 2.0 - 3.0 2. Prophylaxis, de ep venous thrombos is, hip surgery, treatment for d eep venous thrombosis or pulmonary prevention of systemic emboli sm in patients wit h valvular heart disease, atrial fibrillation, tissue heart va lve, or acute myocar dial infarction. 2.0 - 3 .0 3. Mechanical prosthesis hear t valves, recurrent syste rodriguez embolism. 3.0 - 4.5 PTT [id number] 06:45:00 Test Item Value Reference Range Interpretation Comments PTT ACTIVATED (test code = APTT) 27.2 SECONDS 25.1-36.5 N BASIC METABOLIC [id number] 06:38:00 Test Item Value Reference Range Interpretation Comments SODIUM (test code = 137 MMOL/L 137-145 N NA) POTASSIUM (test code = 4.4 MMOL/L 3.5-5.1 N K) CHLORIDE (test code = 107 MMOL/L 98-107 N CL) CARBON DIOXIDE (test MMOL/L 22-30 code = CO2) GLUCOSE (test code = MG/DL 74-106 GLU) BLOOD UREA NITROGEN MG/DL 7-17 (test code = BUN) GLOMERULAR FILTRATION 36 Report ing units: RATE (test code = GFR) ml/mi n/1.73 m2 (Modified MDRD Formula)Referen ce Range: > or = 6 0 ml/min/1.73 m2 CREATININE (test code 1.70 MG/DL 0.52-1.04 H = CREAT) CALCIUM (test code = MG/DL 8.7-9.7 CA) [id number] 06:38:00 Test Item Value Reference Range Interpretation Comments MAGNESIUM (test code = MAG) MG/DL 1.6-2.3 BASIC METABOLIC [id number] 06:36:00 Test Item Value Reference Range Interpretation Comments SODIUM (test code = NA) 137 MMOL/L 137-145 N POTASSIUM (test code = K) 4.4 MMOL/L 3.5-5.1 N CHLORIDE (test code = CL) 107 MMOL/L 98-107 N CARBON DIOXIDE (test code = CO2) MMOL/L 22-30 GLUCOSE (test code = GLU) MG/DL 74-106 BLOOD UREA NITROGEN (test code = MG/DL 7-17 BUN) GLOMERULAR FILTRATION RATE (test code = GFR) CREATININE (test code = CREAT) MG/DL 0.52-1.04 CALCIUM (test code = CA) MG/DL 8.7-9.7 [id number] 06:36:00 Test Item Value Reference Range Interpretation Comments MAGNESIUM (test code = MAG) MG/DL 1.6-2.3 CBC W/AUTO [id number] 06:29:00 Test Item Value Reference Range Interpretation Comments WHITE BLOOD CELL (test code = 13.8 K/MM3 3.8-9.8 H WBC) RED BLOOD CELL (test code = 2.67 M/MM3 3.58-4.97 L RBC) HEMOGLOBIN (test code = HGB) 7.5 G/DL 11.2-14.9 L HEMATOCRIT (test code = HCT) 24.2 % 33.2-43.5 L MEAN CELL VOLUME (test code = 91 fL 80.7-99.1 N MCV) MEAN CELL HGB (test code = MCH) 28.1 pg 27.0-34.1 N MEAN CELL HGB CONCETRATION 31.0 % 32.2-35.7 L (test code = MCHC) RED CELL DISTRIBUTION WIDTH 16.1 % 12.1-15.2 H (test code = RDW) PLATELET COUNT (test code = 117 K/MM3 129-368 L PLT) MEAN PLATELET VOLUME (test code 10.5 fl 7.4-10.4 H = MPV) NEUTROPHIL % (test code = NT%) 84.1 % 43-75 H IMMATURE GRANULOCYTE % (test 0.6 % 0.0-2.0 N code = IG%) LYMPHOCYTE % (test code = LY%) 6.5 % 14-44 L MONOCYTE % (test code = MO%) 8.3 % 4-13 N EOSINOPHIL % (test code = EO%) 0.3 % 0-6 N BASOPHIL % (test code = BA%) 0.2 % 0-2 N NUCLEATED RBC % (test code = 0.1 % 0-1.0 N NRBC%) NEUTROPHIL # (test code = NT#) 11.60 K/mm3 2.0-7.6 H IMMATURE GRANULOCYTE # (test 0.08 x10 3/uL 0-0.03 H code = IG#) LYMPHOCYTE # (test code = LY#) 0.90 K/mm3 1.0-3.8 L MONOCYTE # (test code = MO#) 1.14 K/mm3 0.1-0.8 H EOSINOPHIL # (test code = EO#) 0.04 K/mm3 0.0-0.2 N BASOPHIL # (test code = BA#) 0.03 K/mm3 0.0-0.2 N NUCLEATED RBC # (test code = 0.02 K/mm3 0.0-0.1 N NRBC#) GLUCOSE BEDSIDE [id number] 18:42:00 Test Item Value Reference Range Interpretation Comments GLUCOSE BEDSIDE TESTING 318 MG/DL 60-99 HH Noti fied Nurse~ (test code = GLUBED) ARTERIAL BLOOD [id number] 18:10:00 Test Item Value Reference Range Interpretation Comments ARTERIAL BLOOD GAS PH (test code 7.33 mmHg 7.35-7.45 L = PHA) ARTERIAL BLOOD GAS PCO2 (test 40.8 mmHg 35.0-45.0 N code = PCO2A) ARTERIAL BLOOD GAS PO2 (test code 74.6 mmol/L 80.0-100.0 L = PO2A) BICARBONATE TOTAL HCO3 (test code 20.9 mmol/L 20.0-26.0 N = HCO3) BASE EXCESS (test code = SRAVANI) -4.7 mmol/L -3.0-3.0 L ABG O2 SATURATION (test code = 94.1 % 95.0-100.0 L SATA) ABG DELIVERY (test code = JOHN) VENTIMSK ABG TEMPERATURE (test code = 37.0 C >37 TEMPA) ABG SITE (test code = SITEA) AL ALLENS TEST (test code = ALLENS) NA CHECK FIO2 (test code = COHBGFFIO2) 50 % GLUCOSE BEDSIDE [id number] 17:41:00 Test Item Value Reference Range Interpretation Comments GLUCOSE BEDSIDE TESTING (test code 206 MG/DL 60-99 H = GLUBED) GLUCOSE BEDSIDE [id number] 14:25:00 Test Item Value Reference Range Interpretation Comments GLUCOSE BEDSIDE TESTING (test code 101 MG/DL 60-99 H = GLUBED) GLUCOSE BEDSIDE [id number] 14:25:00 Test Item Value Reference Range Interpretation Comments GLUCOSE BEDSIDE TESTING (test code 186 MG/DL 60-99 H = GLUBED) GLUCOSE BEDSIDE [id number] 14:25:00 Test Item Value Reference Range Interpretation Comments GLUCOSE BEDSIDE TESTING (test code 148 MG/DL 60-99 H = GLUBED) GLUCOSE BEDSIDE [id number] 12:16:00 Test Item Value Reference Range Interpretation Comments GLUCOSE BEDSIDE TESTING (test code 314 MG/DL 60-99 HH = GLUBED) GLUCOSE BEDSIDE [id number] 12:14:00 Test Item Value Reference Range Interpretation Comments GLUCOSE BEDSIDE TESTING (test code 136 MG/DL 60-99 H = GLUBED) GLUCOSE BEDSIDE [id number] 12:14:00 Test Item Value Reference Range Interpretation Comments GLUCOSE BEDSIDE TESTING (test code 145 MG/DL 60-99 H = GLUBED) GLUCOSE BEDSIDE [id number] 12:13:00 Test Item Value Reference Range Interpretation Comments GLUCOSE BEDSIDE TESTING (test code 130 MG/DL 60-99 H = GLUBED) GLUCOSE BEDSIDE [id number] 12:13:00 Test Item Value Reference Range Interpretation Comments GLUCOSE BEDSIDE TESTING (test code 263 MG/DL 60-99 H = GLUBED) ARTERIAL BLOOD [id number] 08:42:00 Test Item Value Reference Range Interpretation Comments ARTERIAL BLOOD GAS PH (test code 7.35 mmHg 7.35-7.45 N = PHA) ARTERIAL BLOOD GAS PCO2 (test 38.6 mmHg 35.0-45.0 N code = PCO2A) ARTERIAL BLOOD GAS PO2 (test code 61.4 mmol/L 80.0-100.0 L = PO2A) BICARBONATE TOTAL HCO3 (test code 20.8 mmol/L 20.0-26.0 N = HCO3) BASE EXCESS (test code = SRAVANI) -4.3 mmol/L -3.0-3.0 L ABG O2 SATURATION (test code = 90.6 % 95.0-100.0 L SATA) ABG DELIVERY (test code = JOHN) VM/NC ABG TEMPERATURE (test code = 37.0 C >37 TEMPA) ABG SITE (test code = SITEA) AL ALLENS TEST (test code = ALLENS) NA CHECK FIO2 (test code = COHBGFFIO2) 28 % - XR CHEST [id number] 07:57:00 Patient Name: SALINA SERRATO Unit No: [id number] EXAMS: CPT CODE: [id number] XR CHEST 1V [id number] Clinical Information: Status post CABG. Unstable angina Dictation Location: J9 COMPARISON: 02/21/2020 reported pulmonary vascular congestion. FINDINGS: Portable frontal view of the chest taken at 0511 hours semierect shows monitoring electrodes overlying the chest wall. Sternal wire sutures. Cardiomegaly with central vascular interstitial prominence and midlung atelectasis. No new consolidation or effusion.Support tubes and lines appear stable and unchanged. No apparent pneumothorax. Bones unchanged. IMPRESSION: Changes in the chest could be from cardiac decompensation or fluid overload, and are essentially unchanged. at 0757 Reported and signed by: Damien Mauricio M.D. CC: Russel Hines; Sherri Ceja MD; Berta Tapia NP Technologist: RT Mike(R) Transcrpt Date/Tm/Trnsp: 02/22/2020 (0757) [email or web address] Orig Print D/T: S: 02/22/2020 (0801) [facility] NAME: SALINA SERRATO [id number] [address] PHYS: [email or web address] [place] [address] : 1950 AGE: 69 SEX: F LOC: [id number] Raina PHONE #: [phone] EXAM DATE: 02/22/2020 STATUS: ADM IN FAX #: [phone] RADIOLOGY NO: PAGE 1 Signed ReportGLUCOSE BEDSIDE [id number] 07:55:00 Test Item Value Reference Range Interpretation Comments GLUCOSE BEDSIDE TESTING (test code 118 MG/DL 60-99 H = GLUBED) ARTERIAL BLOOD [id number] 05:15:00 Test Item Value Reference Range Interpretation Comments ARTERIAL BLOOD GAS PH 7.40 mmHg 7.35-7.45 N (test code = PHA) ARTERIAL BLOOD GAS PCO2 40.5 mmHg 35.0-45.0 N (test code = PCO2A) ARTERIAL BLOOD GAS PO2 61.6 mmol/L 80.0-100.0 L (test code = PO2A) BICARBONATE TOTAL HCO3 24.5 mmol/L 20.0-26.0 N (test code = HCO3) BASE EXCESS (test code -0.2 mmol/L -3.0-3.0 N = SRAVANI) ABG O2 SATURATION (test 91.7 % 95.0-100.0 L All critical values code = SATA) report to and readback by Ivonne GUILLAUME by CHRISTOPHE VICTOR at 02/22/2020 5:11:52 AM ABG L/M (test code = 6 L/MIN L/M) ABG DELIVERY (test code N/C = JOHN) ABG TEMPERATURE (test 37.0 C >37 code = TEMPA) ABG SITE (test code = AL SITEA) ALLENS TEST (test code NA CHECK = ALLENS) FIO2 (test code = 44 % COHBGFFIO2) PROTHROMBIN [id number] 04:56:00 Test Item Value Reference Range Interpretation Comments PROTHROMBIN TIME 12.3 SECONDS 9.4-12.5 N PATIENT (test code = PTP) INTERNATIONAL NORMAL 1.1 The INR is to be RATIO (test code = used only for INR) monitoring oral anticoagulantth erap y. INDICATION I NR VALUE ---- ---- ---- -------1. Prophylaxis, de ep venous thrombos is, including hig h risk surgery. 2.0 - 3.0 2. Prophylaxis, de ep venous thrombos is, hip surgery, treatment for d eep venous thrombosis or pulmonary prevention of systemic emboli sm in patients wit h valvular heart disease, atrial fibrillation, tissue heart va lve, or acute myocar dial infarction. 2.0 - 3 .0 3. Mechanical prosthesis hear t valves, recurrent syste rodriguez embolism. 3.0 - 4.5 PTT [id number] 04:56:00 Test Item Value Reference Range Interpretation Comments PTT ACTIVATED (test code = APTT) 28.1 SECONDS 25.1-36.5 N GLUCOSE BEDSIDE [id number] 04:50:00 Test Item Value Reference Range Interpretation Comments GLUCOSE BEDSIDE TESTING (test code 130 MG/DL 60-99 H = GLUBED) BASIC METABOLIC [id number] 04:50:00 Test Item Value Reference Range Interpretation Comments SODIUM (test code = 139 MMOL/L 137-145 N NA) POTASSIUM (test code = 4.8 MMOL/L 3.5-5.1 N K) CHLORIDE (test code = 111 MMOL/L 98-107 H CL) CARBON DIOXIDE (test 28 MMOL/L 22-30 N code = CO2) ANION GAP (test code = 5 MMOL/L 14-24 L GAP) GLUCOSE (test code = 125 MG/DL 74-106 H GLU) BLOOD UREA NITROGEN 28 MG/DL 7-17 H (test code = BUN) GLOMERULAR FILTRATION 50 Report ing units: RATE (test code = GFR) ml/mi n/1.73 m2 (Modified MDRD Formula)Referen ce Range: > or = 6 0 ml/min/1.73 m2 CREATININE (test code 1.30 MG/DL 0.52-1.04 H = CREAT) CALCIUM (test code = 8.4 MG/DL 8.4-10.2 N CA) [id number] 04:50:00 Test Item Value Reference Range Interpretation Comments MAGNESIUM (test code = MAG) 2.9 MG/DL 1.6-2.3 H GLUCOSE BEDSIDE [id number] 04:50:00 Test Item Value Reference Range Interpretation Comments GLUCOSE BEDSIDE TESTING (test code 149 MG/DL 60-99 H = GLUBED) GLUCOSE BEDSIDE [id number] 04:50:00 Test Item Value Reference Range Interpretation Comments GLUCOSE BEDSIDE TESTING (test code 194 MG/DL 60-99 H = GLUBED) GLUCOSE BEDSIDE [id number] 04:50:00 Test Item Value Reference Range Interpretation Comments GLUCOSE BEDSIDE TESTING (test code 264 MG/DL 60-99 H = GLUBED) GLUCOSE BEDSIDE [id number] 04:50:00 Test Item Value Reference Range Interpretation Comments GLUCOSE BEDSIDE TESTING (test code 278 MG/DL 60-99 H = GLUBED) GLUCOSE BEDSIDE [id number] 04:50:00 Test Item Value Reference Range Interpretation Comments GLUCOSE BEDSIDE TESTING 322 MG/DL 60-99 HH Noti fied Nurse~ (test code = GLUBED) BASIC METABOLIC [id number] 04:49:00 Test Item Value Reference Range Interpretation Comments SODIUM (test code = 139 MMOL/L 137-145 N NA) POTASSIUM (test code = 4.8 MMOL/L 3.5-5.1 N K) CHLORIDE (test code = 111 MMOL/L 98-107 H CL) CARBON DIOXIDE (test MMOL/L 22-30 code = CO2) GLUCOSE (test code = MG/DL 74-106 GLU) BLOOD UREA NITROGEN MG/DL 7-17 (test code = BUN) GLOMERULAR FILTRATION 50 Report ing units: RATE (test code = GFR) ml/mi n/1.73 m2 (Modified MDRD Formula)Referen ce Range: > or = 6 0 ml/min/1.73 m2 CREATININE (test code 1.30 MG/DL 0.52-1.04 H = CREAT) CALCIUM (test code = MG/DL 8.7-9.7 CA) [id number] 04:49:00 Test Item Value Reference Range Interpretation Comments MAGNESIUM (test code = MAG) MG/DL 1.6-2.3 BASIC METABOLIC [id number] 04:47:00 Test Item Value Reference Range Interpretation Comments SODIUM (test code = NA) 139 MMOL/L 137-145 N POTASSIUM (test code = K) 4.8 MMOL/L 3.5-5.1 N CHLORIDE (test code = CL) 111 MMOL/L 98-107 H CARBON DIOXIDE (test code = CO2) MMOL/L 22-30 GLUCOSE (test code = GLU) MG/DL 74-106 BLOOD UREA NITROGEN (test code = MG/DL 7-17 BUN) GLOMERULAR FILTRATION RATE (test code = GFR) CREATININE (test code = CREAT) MG/DL 0.52-1.04 CALCIUM (test code = CA) MG/DL 8.7-9.7 [id number] 04:47:00 Test Item Value Reference Range Interpretation Comments MAGNESIUM (test code = MAG) MG/DL 1.6-2.3 BASIC METABOLIC [id number] 04:46:00 Test Item Value Reference Range Interpretation Comments SODIUM (test code = NA) MMOL/L 137-145 POTASSIUM (test code = K) MMOL/L 3.5-5.1 CHLORIDE (test code = CL) 111 MMOL/L 98-107 H CARBON DIOXIDE (test code = CO2) MMOL/L 22-30 GLUCOSE (test code = GLU) MG/DL 74-106 BLOOD UREA NITROGEN (test code = MG/DL 7-17 BUN) GLOMERULAR FILTRATION RATE (test code = GFR) CREATININE (test code = CREAT) MG/DL 0.52-1.04 CALCIUM (test code = CA) MG/DL 8.7-9.7 [id number] 04:46:00 Test Item Value Reference Range Interpretation Comments MAGNESIUM (test code = MAG) MG/DL 1.6-2.3 CBC W/AUTO [id number] 04:45:00 Test Item Value Reference Range Interpretation Comments WHITE BLOOD CELL (test code = 12.3 K/MM3 3.8-9.8 H WBC) RED BLOOD CELL (test code = 3.07 M/MM3 3.58-4.97 L RBC) HEMOGLOBIN (test code = HGB) 8.7 G/DL 11.2-14.9 L HEMATOCRIT (test code = HCT) 26.6 % 33.2-43.5 L MEAN CELL VOLUME (test code = 87 fL 80.7-99.1 N MCV) MEAN CELL HGB (test code = MCH) 28.3 pg 27.0-34.1 N MEAN CELL HGB CONCETRATION 32.7 % 32.2-35.7 N (test code = MCHC) RED CELL DISTRIBUTION WIDTH 15.6 % 12.1-15.2 H (test code = RDW) PLATELET COUNT (test code = 113 K/MM3 129-368 L PLT) MEAN PLATELET VOLUME (test code 10.1 fl 7.4-10.4 N = MPV) NEUTROPHIL % (test code = NT%) 88.3 % 43-75 H IMMATURE GRANULOCYTE % (test 0.3 % 0.0-2.0 N code = IG%) LYMPHOCYTE % (test code = LY%) 4.8 % 14-44 L MONOCYTE % (test code = MO%) 6.4 % 4-13 N EOSINOPHIL % (test code = EO%) 0.0 % 0-6 N BASOPHIL % (test code = BA%) 0.2 % 0-2 N NUCLEATED RBC % (test code = 0.0 % 0-1.0 N NRBC%) NEUTROPHIL # (test code = NT#) 10.83 K/mm3 2.0-7.6 H IMMATURE GRANULOCYTE # (test 0.04 x10 3/uL 0-0.03 H code = IG#) LYMPHOCYTE # (test code = LY#) 0.59 K/mm3 1.0-3.8 L MONOCYTE # (test code = MO#) 0.78 K/mm3 0.1-0.8 N EOSINOPHIL # (test code = EO#) 0.00 K/mm3 0.0-0.2 N BASOPHIL # (test code = BA#) 0.02 K/mm3 0.0-0.2 N NUCLEATED RBC # (test code = 0.00 K/mm3 0.0-0.1 N NRBC#) ARTERIAL BLOOD [id number] 04:44:00 Test Item Value Reference Range Interpretation Comments ARTERIAL BLOOD GAS PH 7.37 mmHg 7.35-7.45 N (test code = PHA) ARTERIAL BLOOD GAS PCO2 44.6 mmHg 35.0-45.0 N (test code = PCO2A) ARTERIAL BLOOD GAS PO2 63.5 mmol/L 80.0-100.0 L (test code = PO2A) BICARBONATE TOTAL HCO3 24.9 mmol/L 20.0-26.0 N (test code = HCO3) BASE EXCESS (test code -0.7 mmol/L -3.0-3.0 N = SRAVANI) ABG O2 SATURATION (test 91.5 % 95.0-100.0 L All critical values code = SATA) report to and readback by Ivonne GUILLAUME by CHRISTOPHE VICTOR at 02/22/2020 4:28:34 AM ABG DELIVERY (test code N/C = JOHN) ABG TEMPERATURE (test 37.0 C >37 code = TEMPA) ABG SITE (test code = AL SITEA) ALLENS TEST (test code NA CHECK = ALLENS) FIO2 (test code = 36 % COHBGFFIO2) BASIC METABOLIC [id number] 20:31:00 Test Item Value Reference Range Interpretation Comments SODIUM (test code = 139 MMOL/L 137-145 N NA) POTASSIUM (test code = 4.7 MMOL/L 3.5-5.1 N K) CHLORIDE (test code = 110 MMOL/L 98-107 H CL) CARBON DIOXIDE (test 27 MMOL/L 22-30 N code = CO2) ANION GAP (test code = 7 MMOL/L 14-24 L GAP) GLUCOSE (test code = 248 MG/DL 74-106 H GLU) BLOOD UREA NITROGEN 25 MG/DL 7-17 H (test code = BUN) GLOMERULAR FILTRATION 50 Report ing units: RATE (test code = GFR) ml/mi n/1.73 m2 (Modified MDRD Formula)Referen ce Range: > or = 6 0 ml/min/1.73 m2 CREATININE (test code 1.30 MG/DL 0.52-1.04 H = CREAT) CALCIUM (test code = 9.0 MG/DL 8.4-10.2 CA) [id number] 20:31:00 Test Item Value Reference Range Interpretation Comments MAGNESIUM (test code = MAG) 3.2 MG/DL 1.6-2.3 H BASIC METABOLIC [id number] 20:25:00 Test Item Value Reference Range Interpretation Comments SODIUM (test code = NA) 139 MMOL/L 137-145 N POTASSIUM (test code = K) 4.7 MMOL/L 3.5-5.1 N CHLORIDE (test code = CL) 110 MMOL/L 98-107 H CARBON DIOXIDE (test code = CO2) MMOL/L 22-30 GLUCOSE (test code = GLU) MG/DL 74-106 BLOOD UREA NITROGEN (test code = MG/DL 7-17 BUN) GLOMERULAR FILTRATION RATE (test code = GFR) CREATININE (test code = CREAT) MG/DL 0.52-1.04 CALCIUM (test code = CA) MG/DL 8.7-9.7 [id number] 20:25:00 Test Item Value Reference Range Interpretation Comments MAGNESIUM (test code = MAG) MG/DL 1.6-2.3 PLATELET [id number] 19:05:00 Test Item Value Reference Range Interpretation Comments PLATELET COUNT (test code = PLT) 86 K/MM3 129-368 L PROTHROMBIN [id number] 18:24:00 Test Item Value Reference Range Interpretation Comments PROTHROMBIN TIME 13.9 SECONDS 9.4-12.5 H PATIENT (test code = PTP) INTERNATIONAL NORMAL 1.3 The INR is to be RATIO (test code = used only for INR) monitoring oral anticoagulantth erap y. INDICATION I NR VALUE ---- ---- ---- -------1. Prophylaxis, de ep venous thrombos is, including hig h risk surgery. 2.0 - 3.0 2. Prophylaxis, de ep venous thrombos is, hip surgery, treatment for d eep venous thrombosis or pulmonary prevention of systemic emboli sm in patients wit h valvular heart disease, atrial fibrillation, tissue heart va lve, or acute myocar dial infarction. 2.0 - 3 .0 3. Mechanical prosthesis hear t valves, recurrent syste rodriguez embolism. 3.0 - 4.5 PTT [id number] 18:24:00 Test Item Value Reference Range Interpretation Comments PTT ACTIVATED (test code = APTT) 31.1 SECONDS 25.1-36.5 N HGB [id number] 18:15:00 Test Item Value Reference Range Interpretation Comments HEMOGLOBIN (test code = HGB) 8.5 G/DL 11.2-14.9 L HEMATOCRIT (test code = HCT) 25.8 % 33.2-43.5 L CBC W/AUTO [id number] 17:39:00 Test Item Value Reference Range Interpretation Comments WHITE BLOOD CELL (test 7.9 K/MM3 3.8-9.8 N code = WBC) RED BLOOD CELL (test 2.27 M/MM3 3.58-4.97 L code = RBC) HEMOGLOBIN (test code 6.5 G/DL 11.2-14.9 LL CALLED TO ROZ Mistry = HGB) & READBACK ON 02/21/20 AT 162 7 BY Isacc Gallego HEMATOCRIT (test code 20.7 % 33.2-43.5 L = HCT) MEAN CELL VOLUME (test 91 fL 80.7-99.1 N code = MCV) MEAN CELL HGB (test 28.6 pg 27.0-34.1 code = MCH) MEAN CELL HGB 31.4 % 32.2-35.7 L CONCETRATION (test code = MCHC) RED CELL DISTRIBUTION 15.9 % 12.1-15.2 H WIDTH (test code = RDW) PLATELET COUNT (test 28 K/MM3 129-368 LL CALLED TO ROZ Mistry code = PLT) & READBACK ON 02/21/20 AT 162 7 BY Isacc Gallego MEAN PLATELET VOLUME 9.3 fl 7.4-10.4 N (test code = MPV) NEUTROPHIL % (test 81.1 % 43-75 H code = NT%) IMMATURE GRANULOCYTE % 0.6 % 0.0-2.0 N (test code = IG%) LYMPHOCYTE % (test 14.2 % 14-44 N code = LY%) MONOCYTE % (test code 2.9 % 4-13 L = MO%) EOSINOPHIL % (test 0.9 % 0-6 N code = EO%) BASOPHIL % (test code 0.3 % 0-2 N = BA%) NUCLEATED RBC % (test 0.6 % 0-1.0 N code = NRBC%) NEUTROPHIL # (test 6.43 K/mm3 2.0-7.6 N code = NT#) IMMATURE GRANULOCYTE # 0.05 x10 3/uL 0-0.03 H (test code = IG#) LYMPHOCYTE # (test 1.13 K/mm3 1.0-3.8 N code = LY#) MONOCYTE # (test code 0.23 K/mm3 0.1-0.8 N = MO#) EOSINOPHIL # (test 0.07 K/mm3 0.0-0.2 N code = EO#) BASOPHIL # (test code 0.02 K/mm3 0.0-0.2 N = BA#) NUCLEATED RBC # (test 0.05 K/mm3 0.0-0.1 N code = NRBC#) NUCLEATED RED BLOOD 1 0-0 H CELL (test code = NRBC) DIFFERENTIAL [id number] 17:39:00 Test Item Value Reference Range Interpretation Comments RBC MORPHOLOGY REQUIRED (test code NORMAL = RBCM) POIKILOCYTOSIS (test code = POIK) FEW NONE PLATELET ESTIMATE (test code = DECREASED ADEQUATE PLTEST) PLATELET MORPHOLOGY (test code = NORMAL NORMAL PLTMORPH) PROTHROMBIN [id number] 17:21:00 Test Item Value Reference Range Interpretation Comments PROTHROMBIN TIME 21.3 SECONDS 9.4-12.5 H PATIENT (test code = PTP) INTERNATIONAL NORMAL 1.9 The INR is to be RATIO (test code = used only for INR) monitoring oral anticoagulantth erap y. INDICATION I NR VALUE ---- ---- ---- -------1. Prophylaxis, de ep venous thrombos is, including hig h risk surgery. 2.0 - 3.0 2. Prophylaxis, de ep venous thrombos is, hip surgery, treatment for d eep venous thrombosis or pulmonary prevention of systemic emboli sm in patients wit h valvular heart disease, atrial fibrillation, tissue heart va lve, or acute myocar dial infarction. 2.0 - 3 .0 3. Mechanical prosthesis hear t valves, recurrent syste rodriguez embolism. 3.0 - 4.5 PTT [id number] 17:21:00 Test Item Value Reference Range Interpretation Comments PTT ACTIVATED (test code = APTT) 60.3 SECONDS 25.1-36.5 H BASIC METABOLIC [id number] 17:16:00 Test Item Value Reference Range Interpretation Comments SODIUM (test code = 134 MMOL/L 137-145 L NA) POTASSIUM (test code = 5.5 MMOL/L 3.5-5.1 H K) CHLORIDE (test code = 114 MMOL/L 98-107 H CL) CARBON DIOXIDE (test 21 MMOL/L 22-30 L code = CO2) ANION GAP (test code = 5 MMOL/L 14-24 L GAP) GLUCOSE (test code = 312 MG/DL 74-106 HH CALLED TO ROZ EDenia DIEHL) READBACK ON AT 1716 BY Vianey Briseno BLOOD UREA NITROGEN 25 MG/DL 7-17 H (test code = BUN) GLOMERULAR FILTRATION 60 Report ing units: RATE (test code = GFR) ml/mi n/1.73 m2 (Modified MDRD Formula)Referen ce Range: > or = 6 0 ml/min/1.73 m2 CREATININE (test code 1.10 MG/DL 0.52-1.04 H = CREAT) CALCIUM (test code = 7.8 MG/DL 8.4-10.2 L CA) [id number] 17:16:00 Test Item Value Reference Range Interpretation Comments MAGNESIUM (test code = MAG) MG/DL 1.6-2.3 BASIC METABOLIC [id number] 17:16:00 Test Item Value Reference Range Interpretation Comments SODIUM (test code = 134 MMOL/L 137-145 L NA) POTASSIUM (test code = 5.5 MMOL/L 3.5-5.1 H K) CHLORIDE (test code = 114 MMOL/L 98-107 H CL) CARBON DIOXIDE (test 21 MMOL/L 22-30 L code = CO2) ANION GAP (test code = 5 MMOL/L 14-24 L GAP) GLUCOSE (test code = 312 MG/DL 74-106 HH CALLED TO ROZ E& GLU) READBACK ON AT 1716 BY Vianey Briseno BLOOD UREA NITROGEN 25 MG/DL 7-17 H (test code = BUN) GLOMERULAR FILTRATION 60 Report ing units: RATE (test code = GFR) ml/mi n/1.73 m2 (Modified MDRD Formula)Referen ce Range: > or = 6 0 ml/min/1.73 m2 CREATININE (test code 1.10 MG/DL 0.52-1.04 H = CREAT) CALCIUM (test code = 7.8 MG/DL 8.4-10.2 L CA) [id number] 17:16:00 Test Item Value Reference Range Interpretation Comments MAGNESIUM (test code = MAG) 3.2 MG/DL 1.6-2.3 H BASIC METABOLIC [id number] 17:15:00 Test Item Value Reference Range Interpretation Comments SODIUM (test code = NA) 134 MMOL/L 137-145 L POTASSIUM (test code = K) 5.5 MMOL/L 3.5-5.1 H CHLORIDE (test code = CL) 114 MMOL/L 98-107 H CARBON DIOXIDE (test code = CO2) MMOL/L 22-30 GLUCOSE (test code = GLU) MG/DL 74-106 BLOOD UREA NITROGEN (test code = MG/DL 7-17 BUN) GLOMERULAR FILTRATION RATE (test code = GFR) CREATININE (test code = CREAT) MG/DL 0.52-1.04 CALCIUM (test code = CA) 7.8 MG/DL 8.4-10.2 L [id number] 17:15:00 Test Item Value Reference Range Interpretation Comments MAGNESIUM (test code = MAG) MG/DL 1.6-2.3 CBC W/AUTO [id number] 17:15:00 Test Item Value Reference Range Interpretation Comments WHITE BLOOD CELL (test 17.8 K/MM3 3.8-9.8 H code = WBC) RED BLOOD CELL (test 3.52 M/MM3 3.58-4.97 L code = RBC) HEMOGLOBIN (test code 10.0 G/DL 11.2-14.9 L = HGB) HEMATOCRIT (test code 31.1 % 33.2-43.5 L = HCT) MEAN CELL VOLUME (test 88 fL 80.7-99.1 N code = MCV) MEAN CELL HGB (test 28.4 pg 27.0-34.1 N code = MCH) MEAN CELL HGB 32.2 % 32.2-35.7 N CONCETRATION (test code = MCHC) RED CELL DISTRIBUTION 15.9 % 12.1-15.2 H WIDTH (test code = RDW) PLATELET COUNT (test 28 K/MM3 129-368 LL CALLED TO GIL code = PLT) M & READBACK ON 02/21/20 AT 171 3 BY Isacc Gallego MEAN PLATELET VOLUME 10.8 fl 7.4-10.4 H (test code = MPV) NEUTROPHIL % (test 74.0 % 43-75 N code = NT%) IMMATURE GRANULOCYTE % 1.0 % 0.0-2.0 N (test code = IG%) LYMPHOCYTE % (test 16.3 % 14-44 N code = LY%) MONOCYTE % (test code 7.1 % 4-13 N = MO%) EOSINOPHIL % (test 1.3 % 0-6 N code = EO%) BASOPHIL % (test code 0.3 % 0-2 N = BA%) NUCLEATED RBC % (test 0.4 % 0-1.0 N code = NRBC%) NEUTROPHIL # (test 13.18 K/mm3 2.0-7.6 H code = NT#) IMMATURE GRANULOCYTE # 0.17 x10 3/uL 0-0.03 H (test code = IG#) LYMPHOCYTE # (test 2.90 K/mm3 1.0-3.8 N code = LY#) MONOCYTE # (test code 1.26 K/mm3 0.1-0.8 H = MO#) EOSINOPHIL # (test 0.24 K/mm3 0.0-0.2 H code = EO#) BASOPHIL # (test code 0.06 K/mm3 0.0-0.2 N = BA#) NUCLEATED RBC # (test 0.08 K/mm3 0.0-0.1 N code = NRBC#) BASIC METABOLIC [id number] 17:12:00 Test Item Value Reference Range Interpretation Comments SODIUM (test code = NA) 134 MMOL/L 137-145 L POTASSIUM (test code = K) 5.5 MMOL/L 3.5-5.1 H CHLORIDE (test code = CL) 114 MMOL/L 98-107 H CARBON DIOXIDE (test code = CO2) MMOL/L 22-30 GLUCOSE (test code = GLU) MG/DL 74-106 BLOOD UREA NITROGEN (test code = MG/DL 7-17 BUN) GLOMERULAR FILTRATION RATE (test code = GFR) CREATININE (test code = CREAT) MG/DL 0.52-1.04 CALCIUM (test code = CA) MG/DL 8.7-9.7 [id number] 17:12:00 Test Item Value Reference Range Interpretation Comments MAGNESIUM (test code = MAG) MG/DL 1.6-2.3 - XR CHEST [id number] 16:59:00 Patient Name: SALINA SERRATO Unit No: [id number] EXAMS: CPT CODE: [id number] XR CHEST 1V [id number] EXAM: - XR CHEST 1V Location code:B2 HISTORY: Sta tus post CABG COMPARISON: 02/21/2020 FINDINGS: Frontal viewof the chest is submitted. Patient is rotated to the left, thus limiting evaluation. Lines and tubes: An ET tube is present with tip approximately 1 centimeter above the level of the chris. A right IJ CVC is present with tip overlying the cavoatrial junction. Right approach Beloit-Zuly catheter is present with tip overlying the pulmonary outflow tract. Mediastinal drain are present. Stable cardiomediastinal silhouette with post mediansternotomy changes noted. There is mild pulmonary vascular congestion. No appreciable pneumothorax or large effusion. No acute osseous pathology. IMPRESSION Status post CABG with moderate pulmonary vascular congestion. Lines and tubes as above. ETT is slightly low in position, approximately 1 cm above the chris. at 1659 Reported and signed by: Romana Rock MD CC: Russel Hines; Sherri Ceja MD; Berta Tapia NP Technologist: RT Sandrine(R) Transcrpt Date/Tm/Trnsp: 02/21/2020 (1658) [id number] Orig Print D/T: S: 02/21/2020 (170) [facility] NAME: SALINA SERRATO [id number] PHYS: JASON.[place] [address] : 1950 AGE: 69 SEX: F LOC: [id number] A PHONE #: [phone] EXAM DATE: 02/21/2020 STATUS: ADM IN FAX #: [phone] RADIOLOGY NO: PAGE 1 S[facility] W/AUTO [id number] 16:29:00 Test Item Value Reference Range Interpretation Comments WHITE BLOOD CELL (test 7.9 K/MM3 3.8-9.8 N code = WBC) RED BLOOD CELL (test 2.27 M/MM3 3.58-4.97 L code = RBC) HEMOGLOBIN (test code 6.5 G/DL 11.2-14.9 LL CALLED TO ROZ Mistry = HGB) & READBACK ON 02/21/20 AT 162 7 BY Isacc Gallego HEMATOCRIT (test code 20.7 % 33.2-43.5 L = HCT) MEAN CELL VOLUME (test 91 fL 80.7-99.1 N code = MCV) MEAN CELL HGB (test 28.6 pg 27.0-34.1 code = MCH) MEAN CELL HGB 31.4 % 32.2-35.7 L CONCETRATION (test code = MCHC) RED CELL DISTRIBUTION 15.9 % 12.1-15.2 H WIDTH (test code = RDW) PLATELET COUNT (test 28 K/MM3 129-368 LL CALLED TO ROZ Mistry code = PLT) & READBACK ON 02/21/20 AT 162 7 BY Isacc Gallego MEAN PLATELET VOLUME 9.3 fl 7.4-10.4 N (test code = MPV) NEUTROPHIL % (test 81.1 % 43-75 H code = NT%) IMMATURE GRANULOCYTE % 0.6 % 0.0-2.0 N (test code = IG%) LYMPHOCYTE % (test 14.2 % 14-44 N code = LY%) MONOCYTE % (test code 2.9 % 4-13 L = MO%) EOSINOPHIL % (test 0.9 % 0-6 N code = EO%) BASOPHIL % (test code 0.3 % 0-2 N = BA%) NUCLEATED RBC % (test 0.6 % 0-1.0 N code = NRBC%) NEUTROPHIL # (test 6.43 K/mm3 2.0-7.6 N code = NT#) IMMATURE GRANULOCYTE # 0.05 x10 3/uL 0-0.03 H (test code = IG#) LYMPHOCYTE # (test 1.13 K/mm3 1.0-3.8 N code = LY#) MONOCYTE # (test code 0.23 K/mm3 0.1-0.8 N = MO#) EOSINOPHIL # (test 0.07 K/mm3 0.0-0.2 N code = EO#) BASOPHIL # (test code 0.02 K/mm3 0.0-0.2 N = BA#) NUCLEATED RBC # (test 0.05 K/mm3 0.0-0.1 N code = NRBC#) DIFFERENTIAL [id number] 16:29:00 Test Item Value Reference Range Interpretation Comments RBC MORPHOLOGY REQUIRED (test code = RBCM) PLATELET ESTIMATE (test code = PLTEST) ADEQUATE PLATELET MORPHOLOGY (test code = NORMAL PLTMORPH) CBC W/AUTO [id number] 16:29:00 Test Item Value Reference Range Interpretation Comments WHITE BLOOD CELL (test 7.9 K/MM3 3.8-9.8 N code = WBC) RED BLOOD CELL (test 2.27 M/MM3 3.58-4.97 L code = RBC) HEMOGLOBIN (test code 6.5 G/DL 11.2-14.9 LL CALLED TO ROZ Mistry = HGB) & READBACK ON 02/21/20 AT 162 7 BY Isacc Gallego HEMATOCRIT (test code 20.7 % 33.2-43.5 L = HCT) MEAN CELL VOLUME (test 91 fL 80.7-99.1 N code = MCV) MEAN CELL HGB (test 28.6 pg 27.0-34.1 code = MCH) MEAN CELL HGB 31.4 % 32.2-35.7 L CONCETRATION (test code = MCHC) RED CELL DISTRIBUTION 15.9 % 12.1-15.2 H WIDTH (test code = RDW) PLATELET COUNT (test 28 K/MM3 129-368 LL CALLED TO ROZ Mistry code = PLT) & READBACK ON 02/21/20 AT 162 7 BY Isacc Gallego MEAN PLATELET VOLUME 9.3 fl 7.4-10.4 N (test code = MPV) NEUTROPHIL % (test 81.1 % 43-75 H code = NT%) IMMATURE GRANULOCYTE % 0.6 % 0.0-2.0 N (test code = IG%) LYMPHOCYTE % (test 14.2 % 14-44 N code = LY%) MONOCYTE % (test code 2.9 % 4-13 L = MO%) EOSINOPHIL % (test 0.9 % 0-6 N code = EO%) BASOPHIL % (test code 0.3 % 0-2 N = BA%) NUCLEATED RBC % (test 0.6 % 0-1.0 N code = NRBC%) NEUTROPHIL # (test 6.43 K/mm3 2.0-7.6 N code = NT#) IMMATURE GRANULOCYTE # 0.05 x10 3/uL 0-0.03 H (test code = IG#) LYMPHOCYTE # (test 1.13 K/mm3 1.0-3.8 N code = LY#) MONOCYTE # (test code 0.23 K/mm3 0.1-0.8 N = MO#) EOSINOPHIL # (test 0.07 K/mm3 0.0-0.2 N code = EO#) BASOPHIL # (test code 0.02 K/mm3 0.0-0.2 N = BA#) NUCLEATED RBC # (test 0.05 K/mm3 0.0-0.1 N code = NRBC#) DIFFERENTIAL [id number] 16:29:00 Test Item Value Reference Range Interpretation Comments RBC MORPHOLOGY REQUIRED (test code = RBCM) PLATELET ESTIMATE (test code = PLTEST) ADEQUATE PLATELET MORPHOLOGY (test code = NORMAL PLTMORPH) PROTHROMBIN [id number] 16:22:00 Test Item Value Reference Range Interpretation Comments PROTHROMBIN TIME 28.2 SECONDS 9.4-12.5 H PATIENT (test code = PTP) INTERNATIONAL NORMAL 2.5 The INR is to be RATIO (test code = used only for INR) monitoring oral anticoagulantth erap y. INDICATION I NR VALUE ---- ---- ---- -------1. Prophylaxis, de ep venous thrombos is, including hig h risk surgery. 2.0 - 3.0 2. Prophylaxis, de ep venous thrombos is, hip surgery, treatment for d eep venous thrombosis or pulmonary prevention of systemic emboli sm in patients wit h valvular heart disease, atrial fibrillation, tissue heart va lve, or acute myocar dial infarction. 2.0 - 3 .0 3. Mechanical prosthesis hear t valves, recurrent syste rodriguez embolism. 3.0 - 4.5 PTT [id number] 16:22:00 Test Item Value Reference Range Interpretation Comments PTT ACTIVATED (test 64.5 SECONDS 25.1-36.5 CALLED Ofe Mistry & code = APTT) READBACK ON AT 1620 BY Fede Gallego ARTERIAL BLOOD [id number] 16:20:00 Test Item Value Reference Range Interpretation Comments ARTERIAL BLOOD GAS PH (test code 7.34 mmHg 7.35-7.45 L = PHA) ARTERIAL BLOOD GAS PCO2 (test 38.3 mmHg 35.0-45.0 N code = PCO2A) ARTERIAL BLOOD GAS PO2 (test 131.5 mmol/L 80.0-100.0 H code = PO2A) BICARBONATE TOTAL HCO3 (test 20.4 mmol/L 20.0-26.0 N code = HCO3) BASE EXCESS (test code = SRAVANI) -4.8 mmol/L -3.0-3.0 L ABG O2 SATURATION (test code = 98.5 % 95.0-100.0 N SATA) ABG DELIVERY (test code = JOHN) VENT ABG VENT MODE (test code = A/C MODEA) ABG VENT RESP RATE (test code = 16.0 /MIN RRA) ABG TIDAL VOLUME (test code = 500 ml TVA) ABG PEEP (test code = PEEPA) 5.0 cmH2O ABG TEMPERATURE (test code = 37.0 C >37 TEMPA) ABG SITE (test code = SITEA) AL ALLENS TEST (test code = ALLENS) N CHECK FIO2 (test code = COHBGFFIO2) 50 % BASIC METABOLIC [id number] 15:52:00 Test Item Value Reference Range Interpretation Comments SODIUM (test code = 135 MMOL/L 137-145 L NA) POTASSIUM (test code = 5.5 MMOL/L 3.5-5.1 H K) CHLORIDE (test code = 112 MMOL/L 98-107 H CL) CARBON DIOXIDE (test 22 MMOL/L 22-30 N code = CO2) ANION GAP (test code = 7 MMOL/L 14-24 L GAP) GLUCOSE (test code = 310 MG/DL 74-[address] FARAH GLU) & READBACK ON 02/21/20 AT 155 1 BY Vianey Briseno BLOOD UREA NITROGEN 25 MG/DL 7-17 H (test code = BUN) GLOMERULAR FILTRATION 60 Report ing units: RATE (test code = GFR) ml/mi n/1.73 m2 (Modified MDRD Formula)Referen ce Range: > or = 6 0 ml/min/1.73 m2 CREATININE (test code 1.10 MG/DL 0.52-1.04 H = CREAT) CALCIUM (test code = 6.8 MG/DL 8.4-10.2 L CA) BASIC METABOLIC [id number] 15:49:00 Test Item Value Reference Range Interpretation Comments SODIUM (test code = 135 MMOL/L 137-145 L NA) POTASSIUM (test code = 5.5 MMOL/L 3.5-5.1 H K) CHLORIDE (test code = 112 MMOL/L 98-107 H CL) CARBON DIOXIDE (test 22 MMOL/L 22-30 N code = CO2) ANION GAP (test code = 7 MMOL/L 14-24 L GAP) GLUCOSE (test code = MG/DL 74-106 GLU) BLOOD UREA NITROGEN MG/DL 7-17 (test code = BUN) GLOMERULAR FILTRATION 60 Report ing units: RATE (test code = GFR) ml/mi n/1.73 m2 (Modified MDRD Formula)Referen ce Range: > or = 6 0 ml/min/1.73 m2 CREATININE (test code 1.10 MG/DL 0.52-1.04 H = CREAT) CALCIUM (test code = MG/DL 8.7-9.7 CA) BASIC METABOLIC [id number] 15:49:00 Test Item Value Reference Range Interpretation Comments SODIUM (test code = 135 MMOL/L 137-145 L NA) POTASSIUM (test code = 5.5 MMOL/L 3.5-5.1 H K) CHLORIDE (test code = 112 MMOL/L 98-107 H CL) CARBON DIOXIDE (test 22 MMOL/L 22-30 N code = CO2) ANION GAP (test code = 7 MMOL/L 14-24 L GAP) GLUCOSE (test code = MG/DL 74-106 GLU) BLOOD UREA NITROGEN 25 MG/DL 7-17 H (test code = BUN) GLOMERULAR FILTRATION 60 Report ing units: RATE (test code = GFR) ml/mi n/1.73 m2 (Modified MDRD Formula)Referen ce Range: > or = 6 0 ml/min/1.73 m2 CREATININE (test code 1.10 MG/DL 0.52-1.04 H = CREAT) CALCIUM (test code = MG/DL 8.7-9.7 CA) BASIC METABOLIC [id number] 15:47:00 Test Item Value Reference Range Interpretation Comments SODIUM (test code = NA) 135 MMOL/L 137-145 L POTASSIUM (test code = K) 5.5 MMOL/L 3.5-5.1 H CHLORIDE (test code = CL) 112 MMOL/L 98-107 H CARBON DIOXIDE (test code = CO2) MMOL/L 22-30 GLUCOSE (test code = GLU) MG/DL 74-106 BLOOD UREA NITROGEN (test code = MG/DL 7-17 BUN) GLOMERULAR FILTRATION RATE (test code = GFR) CREATININE (test code = CREAT) MG/DL 0.52-1.04 CALCIUM (test code = CA) MG/DL 8.7-9.7 BASIC METABOLIC [id number] 15:46:00 Test Item Value Reference Range Interpretation Comments SODIUM (test code = NA) MMOL/L 137-145 POTASSIUM (test code = K) MMOL/L 3.5-5.1 CHLORIDE (test code = CL) 112 MMOL/L 98-107 H CARBON DIOXIDE (test code = CO2) MMOL/L 22-30 GLUCOSE (test code = GLU) MG/DL 74-106 BLOOD UREA NITROGEN (test code = MG/DL 7-17 BUN) GLOMERULAR FILTRATION RATE (test code = GFR) CREATININE (test code = CREAT) MG/DL 0.52-1.04 CALCIUM (test code = CA) MG/DL 8.7-9.7 [id number] 13:59:00 Test Item Value Reference Range Interpretation Comments POTASSIUM (test code = K) 5.6 MMOL/L 3.5-5.1 H PLEASE CALL RESULTS TO PHONE #: [phone] [id number] 13:59:00 Test Item Value Reference Range Interpretation Comments GLUCOSE (test code = GLU) 265 MG/DL 74-106 H PLEASE CALL RESULTS TO PHONE #: [phone] [id number] 13:56:00 Test Item Value Reference Range Interpretation Comments POTASSIUM (test code = K) 5.6 MMOL/L 3.5-5.1 H PLEASE CALL RESULTS TO PHONE #: [phone] [id number] 13:56:00 Test Item Value Reference Range Interpretation Comments GLUCOSE (test code = GLU) MG/DL 74-106 PLEASE CALL RESULTS TO PHONE #: [phone] STATHGB [id number] 13:42:00 Test Item Value Reference Range Interpretation Comments HEMOGLOBIN (test code = 6.4 G/DL 11.2-14.9 LL CALL ED TO [facility] H & HGB) READBACK ON AT 1342 BY Fede Gallego HEMATOCRIT (test code = 20.1 % 33.2-43.5 L CALL ED TO [facility] H & HCT) READBACK ON AT 1342 BY Fede Gallego PLEASE CALL RESULTS TO PHONE #: [phone] [id number] 13:09:00 Test Item Value Reference Range Interpretation Comments POTASSIUM (test code = K) 4.9 MMOL/L 3.5-5.1 [place] [id number] 13:09:00 Test Item Value Reference Range Interpretation Comments GLUCOSE (test code = GLU) 257 MG/DL 74-106 H [place] X [id number] ASAPDIFFERENTIAL [id number] 13:06:00 Test Item Value Reference Range Interpretation Comments RBC MORPHOLOGY REQUIRED (test code = RBCM) PLATELET ESTIMATE (test code = PLTEST) ADEQUATE PLATELET MORPHOLOGY (test code = NORMAL PLTMORPH) [place] X 41928 ASAPHGB [id number] 13:06:00 Test Item Value Reference Range Interpretation Comments HEMOGLOBIN (test code = 4.3 G/DL 11.2-14.9 LL CALL ED TO [place] S & HGB) READBACK ON AT 1302 BY Fede Gallego carmen HEMATOCRIT (test code = 14.2 % 33.2-43.5 LL CALL ED TO [place] S & HCT) READBACK ON AT 1302 BY Fede Gallego carmen [place] X [address] ASAPDIFFERENTIAL [id number] 13:06:00 Test Item Value Reference Range Interpretation Comments RBC MORPHOLOGY REQUIRED (test code = RBCM) PLATELET ESTIMATE (test code = PLTEST) ADEQUATE PLATELET MORPHOLOGY (test code = NORMAL PLTMORPH) [place] X [address]13 ASAPHGB [id number] 13:06:00 Test Item Value Reference Range Interpretation Comments HEMOGLOBIN (test code = 4.3 G/DL 11.2-14.9 LL CALL ED TO [place] S & HGB) READBACK ON AT 1302 BY Fede Gallego carmen HEMATOCRIT (test code = 14.2 % 33.2-43.5 LL CALL ED TO [place] S & HCT) READBACK ON AT 1302 BY Fede Gallego car[place] [address] [id number] 13:01:00 Test Item Value Reference Range Interpretation Comments POTASSIUM (test code = K) 4.9 MMOL/L 3.5-5.1 N CALL RESULTS X 19992 [id number] 13:01:00 Test Item Value Reference Range Interpretation Comments GLUCOSE (test code = GLU) MG/DL 74-106 [place] X [id number] ASAPGLUCOSE BEDSIDE [id number] 12:17:00 Test Item Value Reference Range Interpretation Comments GLUCOSE BEDSIDE TESTING (test code 185 MG/DL 60-99 H = GLUBED) BASIC METABOLIC [id number] 10:13:00 Test Item Value Reference Range Interpretation Comments SODIUM (test code = NA) 135 MMOL/L 137-145 L POTASSIUM (test code = K) 4.1 MMOL/L 3.5-5.1 N CHLORIDE (test code = CL) 102 MMOL/L 98-107 N CARBON DIOXIDE (test code = CO2) MMOL/L 22-30 GLUCOSE (test code = GLU) 208 MG/DL 74-106 H BLOOD UREA NITROGEN (test code = MG/DL 7-17 BUN) GLOMERULAR FILTRATION RATE (test code = GFR) CREATININE (test code = CREAT) MG/DL 0.52-1.04 CALCIUM (test code = CA) 10.2 MG/DL 8.4-10.2 N BASIC METABOLIC [id number] 10:13:00 Test Item Value Reference Range Interpretation Comments SODIUM (test code = 135 MMOL/L 137-145 L NA) POTASSIUM (test code = 4.1 MMOL/L 3.5-5.1 N K) CHLORIDE (test code = 102 MMOL/L 98-107 N CL) CARBON DIOXIDE (test 31 MMOL/L 22-30 H code = CO2) ANION GAP (test code = 6 MMOL/L 14-24 L GAP) GLUCOSE (test code = 208 MG/DL 74-106 H GLU) BLOOD UREA NITROGEN 35 MG/DL 7-17 H (test code = BUN) GLOMERULAR FILTRATION 39 Report ing units: RATE (test code = GFR) ml/mi n/1.73 m2 (Modified MDRD Formula)Referen ce Range: > or = 6 0 ml/min/1.73 m2 CREATININE (test code 1.60 MG/DL 0.52-1.04 H = CREAT) CALCIUM (test code = 10.2 MG/DL 8.4-10.2 N CA) CBC W/AUTO [id number] 10:12:00 Test Item Value Reference Range Interpretation Comments WHITE BLOOD CELL (test code = 12.5 K/MM3 3.8-9.8 H WBC) RED BLOOD CELL (test code = 3.21 M/MM3 3.58-4.97 L RBC) HEMOGLOBIN (test code = HGB) 8.2 G/DL 11.2-14.9 L HEMATOCRIT (test code = HCT) 26.5 % 33.2-43.5 L MEAN CELL VOLUME (test code = 83 fL 80.7-99.1 N MCV) MEAN CELL HGB (test code = MCH) 25.5 pg 27.0-34.1 L MEAN CELL HGB CONCETRATION 30.9 % 32.2-35.7 L (test code = MCHC) RED CELL DISTRIBUTION WIDTH 16.7 % 12.1-15.2 H (test code = RDW) PLATELET COUNT (test code = 270 K/MM3 129-368 N PLT) MEAN PLATELET VOLUME (test code 9.6 fl 7.4-10.4 N = MPV) NEUTROPHIL % (test code = NT%) 62.5 % 43-75 N IMMATURE GRANULOCYTE % (test 0.9 % 0.0-2.0 N code = IG%) LYMPHOCYTE % (test code = LY%) 25.2 % 14-44 N MONOCYTE % (test code = MO%) 6.6 % 4-13 N EOSINOPHIL % (test code = EO%) 4.2 % 0-6 N BASOPHIL % (test code = BA%) 0.6 % 0-2 N NUCLEATED RBC % (test code = 0.3 % 0-1.0 N NRBC%) NEUTROPHIL # (test code = NT#) 7.82 K/mm3 2.0-7.6 H IMMATURE GRANULOCYTE # (test 0.11 x10 3/uL 0-0.03 H code = IG#) LYMPHOCYTE # (test code = LY#) 3.16 K/mm3 1.0-3.8 N MONOCYTE # (test code = MO#) 0.83 K/mm3 0.1-0.8 H EOSINOPHIL # (test code = EO#) 0.53 K/mm3 0.0-0.2 H BASOPHIL # (test code = BA#) 0.07 K/mm3 0.0-0.2 N NUCLEATED RBC # (test code = 0.04 K/mm3 0.0-0.1 N NRBC#) BASIC METABOLIC [id number] 10:10:00 Test Item Value Reference Range Interpretation Comments SODIUM (test code = NA) 135 MMOL/L 137-145 L POTASSIUM (test code = K) 4.1 MMOL/L 3.5-5.1 N CHLORIDE (test code = CL) 102 MMOL/L 98-107 N CARBON DIOXIDE (test code = CO2) MMOL/L 22-30 GLUCOSE (test code = GLU) MG/DL 74-106 BLOOD UREA NITROGEN (test code = MG/DL 7-17 BUN) GLOMERULAR FILTRATION RATE (test code = GFR) CREATININE (test code = CREAT) MG/DL 0.52-1.04 CALCIUM (test code = CA) MG/DL 8.7-9.7 - XR CHEST [id number] 07:22:00 Patient Name: SALINA SERRATO Unit No: [id number] EXAMS: CPT CODE: [id number] XR CHEST 1V [id number] HISTORY: Cardiac surgery Location: C3 COMPARISON:02/19/2020 FINDINGS: Aortic calcifications are noted. Heart size and vascularity are within normal limits. The lungs are clear of focal consolidation. No effusion, pneumothorax, or acute osseous abnormality. IMPRESSION: 1. No focal consolidation. No other acute abnormalities. at 0722 Reported and signed by: Anuradha Portillo MD CC: Russel Hines; Sherri Ceja MD; Berta Tapia [employer] Technologist: Mary Page RT(R) Transcrpt Date/Tm/Trnsp: 02/21/2020 (0722) [id number] Print D/T: S: 02/21/2020 (0725) [facility] NAME: SALINA SERRATO [id number] [address] PHYS: [place] [address] : 1950 AGE: 69 SEX: F LOC: [id number].[id number] PHONE #: [phone] EXAM DATE: 02/21/2020 STATUS: ADM IN FAX #: [phone] RADIOLOGY NO: PAGE 1 Signed Report PROTHROMBIN [id number] 04:55:00 Test Item Value Reference Range Interpretation Comments PROTHROMBIN TIME 11.2 SECONDS 9.4-12.5 N PATIENT (test code = PTP) INTERNATIONAL NORMAL 1.0 The INR is to be RATIO (test code = used only for INR) monitoring oral anticoagulantth erap y. INDICATION I NR VALUE ---- ---- ---- -------1. Prophylaxis, de ep venous thrombos is, including hig h risk surgery. 2.0 - 3.0 2. Prophylaxis, de ep venous thrombos is, hip surgery, treatment for d eep venous thrombosis or pulmonary prevention of systemic emboli sm in patients wit h valvular heart disease, atrial fibrillation, tissue heart va lve, or acute myocar dial infarction. 2.0 - 3 .0 3. Mechanical prosthesis hear t valves, recurrent syste rodriguez embolism. 3.0 - 4.5 PTT [id number] 04:55:00 Test Item Value Reference Range Interpretation Comments PTT ACTIVATED (test code = APTT) 33.8 SECONDS 25.1-36.5 N CBC W/AUTO [id number] 04:53:00 Test Item Value Reference Range Interpretation Comments WHITE BLOOD CELL (test code = 11.4 K/MM3 3.8-9.8 H WBC) RED BLOOD CELL (test code = 3.78 M/MM3 3.58-4.97 RBC) HEMOGLOBIN (test code = HGB) 9.7 G/DL 11.2-14.9 L HEMATOCRIT (test code = HCT) 31.5 % 33.2-43.5 L MEAN CELL VOLUME (test code = 83 fL 80.7-99.1 N MCV) MEAN CELL HGB (test code = MCH) 25.7 pg 27.0-34.1 L MEAN CELL HGB CONCETRATION 30.8 % 32.2-35.7 L (test code = MCHC) RED CELL DISTRIBUTION WIDTH 16.5 % 12.1-15.2 H (test code = RDW) PLATELET COUNT (test code = 226 K/MM3 129-368 N PLT) MEAN PLATELET VOLUME (test code 9.2 fl 7.4-10.4 N = MPV) NEUTROPHIL % (test code = NT%) 66.5 % 43-75 N IMMATURE GRANULOCYTE % (test 0.6 % 0.0-2.0 N code = IG%) LYMPHOCYTE % (test code = LY%) 22.2 % 14-44 N MONOCYTE % (test code = MO%) 6.7 % 4-13 N EOSINOPHIL % (test code = EO%) 3.6 % 0-6 N BASOPHIL % (test code = BA%) 0.4 % 0-2 N NUCLEATED RBC % (test code = 0.3 % 0-1.0 N NRBC%) NEUTROPHIL # (test code = NT#) 7.59 K/mm3 2.0-7.6 N IMMATURE GRANULOCYTE # (test 0.07 x10 3/uL 0-0.03 H code = IG#) LYMPHOCYTE # (test code = LY#) 2.54 K/mm3 1.0-3.8 N MONOCYTE # (test code = MO#) 0.77 K/mm3 0.1-0.8 N EOSINOPHIL # (test code = EO#) 0.41 K/mm3 0.0-0.2 H BASOPHIL # (test code = BA#) 0.05 K/mm3 0.0-0.2 N NUCLEATED RBC # (test code = 0.04 K/mm3 0.0-0.1 N NRBC#) BASIC METABOLIC [id number] 04:52:00 Test Item Value Reference Range Interpretation Comments SODIUM (test code = 137 MMOL/L 137-145 N NA) POTASSIUM (test code = 4.0 MMOL/L 3.5-5.1 N K) CHLORIDE (test code = 99 MMOL/L 98-107 N CL) CARBON DIOXIDE (test 35 MMOL/L 22-30 H code = CO2) ANION GAP (test code = 7 MMOL/L 14-24 L GAP) GLUCOSE (test code = 189 MG/DL 74-106 H GLU) BLOOD UREA NITROGEN 40 MG/DL 7-17 H (test code = BUN) GLOMERULAR FILTRATION 36 Report ing units: RATE (test code = GFR) ml/mi n/1.73 m2 (Modified MDRD Formula)Referen ce Range: > or = 6 0 ml/min/1.73 m2 CREATININE (test code 1.70 MG/DL 0.52-1.04 H = CREAT) CALCIUM (test code = 9.4 MG/DL 8.4-10.2 N CA) [id number] 04:52:00 Test Item Value Reference Range Interpretation Comments MAGNESIUM (test code = MAG) 2.1 MG/DL 1.6-2.3 N BASIC METABOLIC [id number] 04:51:00 Test Item Value Reference Range Interpretation Comments SODIUM (test code = 137 MMOL/L 137-145 N NA) POTASSIUM (test code = 4.0 MMOL/L 3.5-5.1 N K) CHLORIDE (test code = 99 MMOL/L 98-107 N CL) CARBON DIOXIDE (test MMOL/L 22-30 code = CO2) GLUCOSE (test code = MG/DL 74-106 GLU) BLOOD UREA NITROGEN MG/DL 7-17 (test code = BUN) GLOMERULAR FILTRATION 36 Report ing units: RATE (test code = GFR) ml/mi n/1.73 m2 (Modified MDRD Formula)Referen ce Range: > or = 6 0 ml/min/1.73 m2 CREATININE (test code 1.70 MG/DL 0.52-1.04 H = CREAT) CALCIUM (test code = MG/DL 8.7-9.7 CA) [id number] 04:51:00 Test Item Value Reference Range Interpretation Comments MAGNESIUM (test code = MAG) MG/DL 1.6-2.3 BASIC METABOLIC [id number] 04:49:00 Test Item Value Reference Range Interpretation Comments SODIUM (test code = NA) 137 MMOL/L 137-145 N POTASSIUM (test code = K) 4.0 MMOL/L 3.5-5.1 N CHLORIDE (test code = CL) 99 MMOL/L 98-107 N CARBON DIOXIDE (test code = CO2) MMOL/L 22-30 GLUCOSE (test code = GLU) MG/DL 74-106 BLOOD UREA NITROGEN (test code = MG/DL 7-17 BUN) GLOMERULAR FILTRATION RATE (test code = GFR) CREATININE (test code = CREAT) MG/DL 0.52-1.04 CALCIUM (test code = CA) MG/DL 8.7-9.7 [id number] 04:49:00 Test Item Value Reference Range Interpretation Comments MAGNESIUM (test code = MAG) MG/DL 1.6-2.3 BASIC METABOLIC [id number] 04:48:00 Test Item Value Reference Range Interpretation Comments SODIUM (test code = NA) MMOL/L 137-145 POTASSIUM (test code = K) MMOL/L 3.5-5.1 CHLORIDE (test code = CL) 99 MMOL/L 98-107 N CARBON DIOXIDE (test code = CO2) MMOL/L 22-30 GLUCOSE (test code = GLU) MG/DL 74-106 BLOOD UREA NITROGEN (test code = MG/DL 7-17 BUN) GLOMERULAR FILTRATION RATE (test code = GFR) CREATININE (test code = CREAT) MG/DL 0.52-1.04 CALCIUM (test code = CA) MG/DL 8.7-9.7 [id number] 04:48:00 Test Item Value Reference Range Interpretation Comments MAGNESIUM (test code = MAG) MG/DL 1.6-2.3 GLUCOSE BEDSIDE [id number] 22:40:00 Test Item Value Reference Range Interpretation Comments GLUCOSE BEDSIDE TESTING (test code 214 MG/DL 60-99 H = GLUBED) PROTHROMBIN [id number] 22:34:00 Test Item Value Reference Range Interpretation Comments PROTHROMBIN TIME 11.8 SECONDS 9.4-12.5 N PATIENT (test code = PTP) INTERNATIONAL NORMAL 1.1 The INR is to be RATIO (test code = used only for INR) monitoring oral anticoagulantth erap y. INDICATION I NR VALUE ---- ---- ---- -------1. Prophylaxis, de ep venous thrombos is, including hig h risk surgery. 2.0 - 3.0 2. Prophylaxis, de ep venous thrombos is, hip surgery, treatment for d eep venous thrombosis or pulmonary prevention of systemic emboli sm in patients wit h valvular heart disease, atrial fibrillation, tissue heart va lve, or acute myocar dial infarction. 2.0 - 3 .0 3. Mechanical prosthesis hear t valves, recurrent syste rodriguez embolism. 3.0 - 4.5 Comments to Lan/Wan Engineer:HGB [id number] 21:00:00 Test Item Value Reference Range Interpretation Comments HEMOGLOBIN (test code = HGB) 8.8 G/DL 11.2-14.9 L HEMATOCRIT (test code = HCT) 29.0 % 33.2-43.5 L GLUCOSE BEDSIDE [id number] 17:08:00 Test Item Value Reference Range Interpretation Comments GLUCOSE BEDSIDE TESTING (test code 239 MG/DL 60-99 H = GLUBED) CBC W/AUTO [id number] 16:40:00 Test Item Value Reference Range Interpretation Comments WHITE BLOOD CELL (test code = 9.7 K/MM3 3.8-9.8 N WBC) RED BLOOD CELL (test code = 3.13 M/MM3 3.58-4.97 L RBC) HEMOGLOBIN (test code = HGB) 7.8 G/DL 11.2-14.9 L HEMATOCRIT (test code = HCT) 26.0 % 33.2-43.5 L MEAN CELL VOLUME (test code = 83 fL 80.7-99.1 N MCV) MEAN CELL HGB (test code = MCH) 24.9 pg 27.0-34.1 L MEAN CELL HGB CONCETRATION 30.0 % 32.2-35.7 L (test code = MCHC) RED CELL DISTRIBUTION WIDTH 17.1 % 12.1-15.2 H (test code = RDW) PLATELET COUNT (test code = 235 K/MM3 129-368 N PLT) MEAN PLATELET VOLUME (test code 9.3 fl 7.4-10.4 N = MPV) NEUTROPHIL % (test code = NT%) 66.9 % 43-75 N IMMATURE GRANULOCYTE % (test 0.6 % 0.0-2.0 N code = IG%) LYMPHOCYTE % (test code = LY%) 21.1 % 14-44 N MONOCYTE % (test code = MO%) 7.1 % 4-13 N EOSINOPHIL % (test code = EO%) 3.9 % 0-6 N BASOPHIL % (test code = BA%) 0.4 % 0-2 N NUCLEATED RBC % (test code = 0.0 % 0-1.0 N NRBC%) NEUTROPHIL # (test code = NT#) 6.50 K/mm3 2.0-7.6 N IMMATURE GRANULOCYTE # (test 0.06 x10 3/uL 0-0.03 H code = IG#) LYMPHOCYTE # (test code = LY#) 2.05 K/mm3 1.0-3.8 N MONOCYTE # (test code = MO#) 0.69 K/mm3 0.1-0.8 N EOSINOPHIL # (test code = EO#) 0.38 K/mm3 0.0-0.2 H BASOPHIL # (test code = BA#) 0.04 K/mm3 0.0-0.2 N NUCLEATED RBC # (test code = 0.00 K/mm3 0.0-0.1 N NRBC#) GLUCOSE BEDSIDE [id number] 15:34:00 Test Item Value Reference Range Interpretation Comments GLUCOSE BEDSIDE TESTING (test code 258 MG/DL 60-99 H = GLUBED) GLUCOSE BEDSIDE [id number] 12:15:00 Test Item Value Reference Range Interpretation Comments GLUCOSE BEDSIDE TESTING (test code 256 MG/DL 60-99 H = GLUBED) PROTHROMBIN [id number] 11:06:00 Test Item Value Reference Range Interpretation Comments PROTHROMBIN TIME 11.8 SECONDS 9.4-12.5 N PATIENT (test code = PTP) INTERNATIONAL NORMAL 1.1 The INR is to be RATIO (test code = used only for INR) monitoring oral anticoagulantth erap y. INDICATION I NR VALUE ---- ---- ---- -------1. Prophylaxis, de ep venous thrombos is, including hig h risk surgery. 2.0 - 3.0 2. Prophylaxis, de ep venous thrombos is, hip surgery, treatment for d eep venous thrombosis or pulmonary prevention of systemic emboli sm in patients wit h valvular heart disease, atrial fibrillation, tissue heart va lve, or acute myocar dial infarction. 2.0 - 3 .0 3. Mechanical prosthesis hear t valves, recurrent syste rodriguez embolism. 3.0 - 4.5 Comments to Lan/Wan Engineer: ALREADY COLLECTED BY LABARTERIAL BLOOD [id number] 08:13:00 Test Item Value Reference Range Interpretation Comments ARTERIAL BLOOD GAS PH 7.36 mmHg 7.35-7.45 N (test code = PHA) ARTERIAL BLOOD GAS PCO2 58.6 mmHg 35.0-45.0 HH (test code = PCO2A) ARTERIAL BLOOD GAS PO2 86.3 mmol/L 80.0-100.0 N (test code = PO2A) BICARBONATE TOTAL HCO3 32.3 mmol/L 20.0-26.0 H (test code = HCO3) BASE EXCESS (test code 5.0 mmol/L -3.0-3.0 H = SRAVANI) ABG O2 SATURATION (test 96.0 % 95.0-100.0 N All critical values code = SATA) report to and readback by NIKO JUAREZ RN by DAVID at 02/20/2020 8:13: 12 AM ABG DELIVERY (test code N/C = JOHN) ABG TEMPERATURE (test 37.0 C >37 code = TEMPA) ABG SITE (test code = AL SITEA) ALLENS TEST (test code NA CHECK = ALLENS) FIO2 (test code = 26 % COHBGFFIO2) - CT HEAD/BRAIN W/O [id number] 07:17:00 Patient Name: SALINA SERRATO Unit No: [id number] EXAMS: CPT CODE: [id number] CT HEAD/BRAIN W/O CONT [id number] EXAM: - CT HEAD/BRAIN W/O CONT Location code:C3 HISTORY: 69 years -old Female with Altered mental status/confusion TECHNIQUE: Axial CT images from the skull base to the vertex without intravenous contrast. Coronal and sagittal reformatted images were created from the data set. One or more of the following dose red uction techniques were used: Automated exposure control, adjustment of the mA and/or kV according to patient size, and/or utilization of iterative reconstruction technique. 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 No evidence of acute infarction, intracranial hemorrhage, mass or mass effect,or abnormal extra-axial fluid collection. The ventricular system and sulci are mildly prominent compatible cerebral volume loss. There is mild diminished attenuation involving the periventricular and subcortical white matter compatible with mild microvascular chronicischemic changes. The density in the larger dural sinuses is grossly normal. Vascular calcifications are present. Bones: There is no evidence of acute displaced calvarial fracture. Sinuses: The visualized portions of the paranasal sinuses demonstrate no significant opacification.The mastoid air cells are clear. Orbits/Soft Tissues: The visualized orbits show no significant abnormalities. The visualized soft tissues are unre markable. IMPRESSION: 1. No intracranial hemorrhage. No acute intracranial abnormality. at 0717 Reported and signed by: Anuradha Portillo MD CC: Russel Hines; Sherri corral MD; [facility] Laron MACDONALD Technologist: Librado Rosales, RT(R)(CT) CTDI: DLP: Trnscrpt: 02/20/2020 (0717) [email or web address] RAMIRO Quezada NAME: SALINA SERRATO [id number] PHYS: [place] [address] : 1950 AGE: 69 SEX: F LOC: [id number] A PHONE #: [phone] EXAM DATE: 02/20/2020 STATUS: ADM IN FAX #: [phone] RAD #: D/C DT PAGE 1 Signed Report Patient Name: SALINA SERRATO Unit No: [id number] EXAMS: CPT CODE: [id number] CT HEAD/BRAIN W/O CONT [id number] <Continued> Orig Print D/T: S: 02/20/2020 (0720) RAMIRO Quezada NAME: SALINA SERRATO PHYS: [place] [address] : 1950 AGE: 69 SEX: F LOC: [id number] A PHONE #: [phone] EXAM DATE: 02/20/2020 STATUS: ADM IN FAX #: [phone] RAD #: D/C DT PAGE 2 Signed ReportPROTHROMBIN [id number] 06:42:00 Test Item Value Reference Range Interpretation Comments PROTHROMBIN TIME 11.0 SECONDS 9.4-12.5 N PATIENT (test code = PTP) INTERNATIONAL NORMAL 1.0 The INR is to be RATIO (test code = used only for INR) monitoring oral anticoagulantth erap y. INDICATION I NR VALUE ---- ---- ---- -------1. Prophylaxis, de ep venous thrombos is, including hig h risk surgery. 2.0 - 3.0 2. Prophylaxis, de ep venous thrombos is, hip surgery, treatment for d eep venous thrombosis or pulmonary prevention of systemic emboli sm in patients wit h valvular heart disease, atrial fibrillation, tissue heart va lve, or acute myocar dial infarction. 2.0 - 3 .0 3. Mechanical prosthesis hear t valves, recurrent syste rodriguez embolism. 3.0 - 4.5 Comments to Lan/Wan Engineer: ALREADY COLLECTED BY LABCOMPREHENSIVE METABOLIC PANEL 2020-02-20 06:20:00 Test Item Value Reference Range Interpretation Comments SODIUM (test code = NA) 136 MMOL/L 137-145 L POTASSIUM (test code = 3.8 MMOL/L 3.5-5.1 N K) CHLORIDE (test code = 98 MMOL/L 98-107 N CL) CARBON DIOXIDE (test 33 MMOL/L 22-30 H code = CO2) GLUCOSE (test code = 245 MG/DL 74-106 H GLU) BLOOD UREA NITROGEN 46 MG/DL 7-17 H (test code = BUN) GLOMERULAR FILTRATION 32 Report ing units: RATE (test code = GFR) ml/mi n/1.73 m2 (Modified MDRD Formula)Referen ce Range: > or = 6 0 ml/min/1.73 m2 CREATININE (test code = 1.90 MG/DL 0.52-1.04 H CREAT) TOTAL PROTEIN (test 7.2 G/DL 6.3-8.2 N code = PROT) ALBUMIN (test code = 3.6 G/DL 3.5-5.0 N ALB) CALCIUM (test code = 8.9 MG/DL 8.4-10.2 N CA) BILIRUBIN TOTAL (test 0.3 MG/DL 0.2-1.3 N code = BILT) SGOT/AST (test code = 27 UNITS/L 14-36 N AST) SGPT/ALT (test code = 15 UNITS/L <35 ALT) ALKALINE PHOSPHATASE 78 UNITS/L 38-126 N (test code = ALKP) Specimen comments: if not done in the last 72 hoursCOMPREHENSIVE METABOLIC [id number] 06:19:00 Test Item Value Reference Range Interpretation Comments SODIUM (test code = NA) 136 MMOL/L 137-145 L POTASSIUM (test code = 3.8 MMOL/L 3.5-5.1 N K) CHLORIDE (test code = 98 MMOL/L 98-107 N CL) CARBON DIOXIDE (test 33 MMOL/L 22-30 H code = CO2) GLUCOSE (test code = MG/DL 74-106 GLU) BLOOD UREA NITROGEN MG/DL 7-17 (test code = BUN) GLOMERULAR FILTRATION 32 Report ing units: RATE (test code = GFR) ml/mi n/1.73 m2 (Modified MDRD Formula)Referen ce Range: > or = 6 0 ml/min/1.73 m2 CREATININE (test code = 1.90 MG/DL 0.52-1.04 H CREAT) TOTAL PROTEIN (test G/DL 6.3-8.2 code = PROT) ALBUMIN (test code = 3.6 G/DL 3.5-5.0 N ALB) CALCIUM (test code = MG/DL 8.7-9.7 CA) BILIRUBIN TOTAL (test 0.3 MG/DL 0.2-1.3 N code = BILT) SGOT/AST (test code = UNITS/L 15-37 AST) SGPT/ALT (test code = UNITS/L <35 ALT) ALKALINE PHOSPHATASE UNITS/L 38-126 (test code = ALKP) Specimen comments: if not done in the last 72 hoursCOMPREHENSIVE METABOLIC [id number] 06:17:00 Test Item Value Reference Range Interpretation Comments SODIUM (test code = NA) 136 MMOL/L 137-145 L POTASSIUM (test code = K) 3.8 MMOL/L 3.5-5.1 N CHLORIDE (test code = CL) 98 MMOL/L 98-107 N CARBON DIOXIDE (test code = CO2) MMOL/L 22-30 GLUCOSE (test code = GLU) MG/DL 74-106 BLOOD UREA NITROGEN (test code = MG/DL 7-17 BUN) GLOMERULAR FILTRATION RATE (test code = GFR) CREATININE (test code = CREAT) MG/DL 0.52-1.04 TOTAL PROTEIN (test code = PROT) G/DL 6.3-8.2 ALBUMIN (test code = ALB) 3.6 G/DL 3.5-5.0 N CALCIUM (test code = CA) MG/DL 8.7-9.7 BILIRUBIN TOTAL (test code = BILT) MG/DL 0.2-1.3 SGOT/AST (test code = AST) UNITS/L 15-37 SGPT/ALT (test code = ALT) UNITS/L <35 ALKALINE PHOSPHATASE (test code = UNITS/L 38-126 ALKP) Specimen comments: if not done in the [facility] [id number] 06:12:00 Test Item Value Reference Range Interpretation Comments WHITE BLOOD CELL (test code = 12.2 K/MM3 3.8-9.8 H WBC) RED BLOOD CELL (test code = 3.23 M/MM3 3.58-4.97 L RBC) HEMOGLOBIN (test code = HGB) 8.0 G/DL 11.2-14.9 L HEMATOCRIT (test code = HCT) 26.6 % 33.2-43.5 L MEAN CELL VOLUME (test code = 82 fL 80.7-99.1 N MCV) MEAN CELL HGB (test code = MCH) 24.8 pg 27.0-34.1 L MEAN CELL HGB CONCETRATION 30.1 % 32.2-35.7 L (test code = MCHC) RED CELL DISTRIBUTION WIDTH 16.9 % 12.1-15.2 H (test code = RDW) PLATELET COUNT (test code = 270 K/MM3 129-368 PLT) MEAN PLATELET VOLUME (test code 9.8 fl 7.4-10.4 N = MPV) NEUTROPHIL % (test code = NT%) 67.0 % 43-75 N IMMATURE GRANULOCYTE % (test 0.6 % 0.0-2.0 N code = IG%) LYMPHOCYTE % (test code = LY%) 22.5 % 14-44 N MONOCYTE % (test code = MO%) 6.5 % 4-13 N EOSINOPHIL % (test code = EO%) 2.9 % 0-6 N BASOPHIL % (test code = BA%) 0.5 % 0-2 N NUCLEATED RBC % (test code = 0.0 % 0-1.0 N NRBC%) NEUTROPHIL # (test code = NT#) 8.18 K/mm3 2.0-7.6 H IMMATURE GRANULOCYTE # (test 0.07 x10 3/uL 0-0.03 H code = IG#) LYMPHOCYTE # (test code = LY#) 2.75 K/mm3 1.0-3.8 N MONOCYTE # (test code = MO#) 0.79 K/mm3 0.1-0.8 N EOSINOPHIL # (test code = EO#) 0.35 K/mm3 0.0-0.2 H BASOPHIL # (test code = BA#) 0.06 K/mm3 0.0-0.2 N NUCLEATED RBC # (test code = 0.00 K/mm3 0.0-0.1 N NRBC#) Specimen comments: if not done in the last 72 hoursPROTHROMBIN TIME 2020-02-19 22:53:00 Test Item Value Reference Range Interpretation Comments PROTHROMBIN TIME 11.3 SECONDS 9.4-12.5 N PATIENT (test code = PTP) INTERNATIONAL NORMAL 1.0 The INR is to be RATIO (test code = used only for INR) monitoring oral anticoagulantth erap y. INDICATION I NR VALUE ---- ---- ---- -------1. Prophylaxis, de ep venous thrombos is, including hig h risk surgery. 2.0 - 3.0 2. Prophylaxis, de ep venous thrombos is, hip surgery, treatment for d eep venous thrombosis or pulmonary prevention of systemic emboli sm in patients wit h valvular heart disease, atrial fibrillation, tissue heart va lve, or acute myocar dial infarction. 2.0 - 3 .0 3. Mechanical prosthesis hear t valves, recurrent syste rodriguez embolism. 3.0 - 4.5 GLUCOSE BEDSIDE [id number] 19:55:00 Test Item Value Reference Range Interpretation Comments GLUCOSE BEDSIDE TESTING (test code 281 MG/DL 60-99 H = GLUBED) URINALYSIS [id number] 19:06:00 Test Item Value Reference Range Interpretation Comments UA COLOR (test code = YELLOW YELLOW COLU) UA APPEARANCE (test code CLEAR CLEAR = APPU) UA GLUCOSE DIPSTICK (test 100 MG/DL NORMAL A code = DGLUU) UA BILIRUBIN DIPSTICK NEGATIVE MG/DL NEGATIVE (test code = BILU) UA KETONE DIPSTICK (test NEGATIVE MG/DL NEGATIVE code = KETU) UA SPECIFIC GRAVITY (test 1.030 1.003-1.030 N code = SGU) UA BLOOD DIPSTICK (test NEGATIVE Tito/mm3 NEGATIVE code = DENISE) UA PH DIPSTICK (test code 5.0 5.0-9.0 N = ESTEBAN) UA PROTEIN DIPSTICK (test 100 MG/DL NEGATIVE A code = PROU) UA UROBILINIOGEN DIPSTICK NORMAL MG/DL NORMAL (test code = URO) UA NITRITE DIPSTICK (test NEGATIVE NEGATIVE code = TIBURCIO) UA LEUKOCYTE ESTERASE NEGATIVE /mm3 NEGATIVE DIPSTICK (test code = LEUU) UA CULTURE NEEDED? (test NEGATIVE, NO CULTURE Culture Chk code = UACULT) Criteria SOURCE OF URINE: CLEAN CATCHUA [id number] 19:06:00 Test Item Value Reference Range Interpretation Comments UA RBC (test code = RBCU) 0-3 RBC/HPF 0-3 UA WBC (test code = XWBCU) NONE WBC/HPF 0-5 UA GLITTER CELLS (test code = NONE #/HPF NONE GLITU) UA EPITHELIAL CELLS (test code = FEW EPI/HPF FEW EPIU) UA SQUAMOUS CELLS (test code = NONE #/HPF FEW/HPF SQU) UA TRANSITIONAL CELLS (test code NONE #/HPF FEW/HPF = TRANU) UA RENAL CELLS (test code = NONE #/HPF RARE/HPF SONIA) UA CRYSTALS OTHER (test code = NONE #/HPF 0-3 CRYU) UA CALCIUM OXALATE CRYSTALS NONE #/HPF NONE (test code = CAOXU) UA URIC ACID CRYSTALS (test code NONE #/HPF NONE = URIU) UA TRIPLE PHOSPHATE CRYSTALS NONE #/HPF NONE (test code = TRPHOSU) UA BACTERIA (test code = XBACU) FEW NONE UA CASTS OTHER (test code = NONE #/LPF NONE CASTU) UA HYALINE CAST (test code = NONE 0-2/HPF HYALU) UA FINE GRANULAR CAST (test code NONE /LPF NONE = FINEU) UA COARSE GRANULAR CAST (test NONE /LPF NONE code = CGU) UA WAXY CAST (test code = WAXYU) NONE #/LPF NONE UA RED BLOOD CELL CAST (test NONE #/LPF NONE code = RBCCU) UA WHITE BLOOD CELL CAST (test NONE #/LPF NONE code = WBCCU) UA MUCUS (test code = MUCU) NONE #/LPF NONE UA AMORPHOUS SEDIMENT (test code FEW NONE A = AMORU) UA OTHER (test code = OTHERU) NONE UA TRICHOMONAS (test code = NONE NONE TRICHU) UA YEAST (test code = YEASTU) NONE #/HPF NONE UA SPERM (test code = SPERMU) NONE NONE UA OVAL FAT BODY (test code = NONE #/HPF NONE OFBU) SOURCE OF URINE: CLEAN CATCHURINALYSIS [id number] 18:33:00 Test Item Value Reference Range Interpretation Comments UA COLOR (test code = COLU) YELLOW YELLOW UA APPEARANCE (test code = CLEAR CLEAR APPU) UA GLUCOSE DIPSTICK (test 100 MG/DL NORMAL A code = DGLUU) UA BILIRUBIN DIPSTICK (test NEGATIVE MG/DL NEGATIVE code = BILU) UA KETONE DIPSTICK (test NEGATIVE MG/DL NEGATIVE code = KETU) UA SPECIFIC GRAVITY (test 1.030 1.003-1.030 N code = SGU) UA BLOOD DIPSTICK (test code NEGATIVE Tito/mm3 NEGATIVE = DENISE) UA PH DIPSTICK (test code = 5.0 5.0-9.0 N ESTEBAN) UA PROTEIN DIPSTICK (test 100 MG/DL NEGATIVE A code = PROU) UA UROBILINIOGEN DIPSTICK NORMAL MG/DL NORMAL (test code = URO) UA NITRITE DIPSTICK (test NEGATIVE NEGATIVE code = TIBURCIO) UA LEUKOCYTE ESTERASE NEGATIVE /mm3 NEGATIVE DIPSTICK (test code = LEUU) UA CULTURE NEEDED? (test Criteria Culture Chk code = UACULT) SOURCE OF URINE: CLEAN CATCHUA [id number] 18:33:00 Test Item Value Reference Range Interpretation Comments UA RBC (test code = RBCU) RBC/HPF 0-3 UA WBC (test code = XWBCU) WBC/HPF 0-5 UA EPITHELIAL CELLS (test code = EPI/HPF FEW EPIU) UA BACTERIA (test code = XBACU) NONE SOURCE OF URINE: CLEAN CATCHURINALYSIS [id number] 18:33:00 Test Item Value Reference Range Interpretation Comments UA COLOR (test code = COLU) YELLOW YELLOW UA APPEARANCE (test code = CLEAR CLEAR APPU) UA GLUCOSE DIPSTICK (test 100 MG/DL NORMAL A code = DGLUU) UA BILIRUBIN DIPSTICK (test NEGATIVE MG/DL NEGATIVE code = BILU) UA KETONE DIPSTICK (test NEGATIVE MG/DL NEGATIVE code = KETU) UA SPECIFIC GRAVITY (test 1.030 1.003-1.030 N code = SGU) UA BLOOD DIPSTICK (test code NEGATIVE Tito/mm3 NEGATIVE = DENISE) UA PH DIPSTICK (test code = 5.0 5.0-9.0 N ESTEBAN) UA PROTEIN DIPSTICK (test 100 MG/DL NEGATIVE A code = PROU) UA UROBILINIOGEN DIPSTICK NORMAL MG/DL NORMAL (test code = URO) UA NITRITE DIPSTICK (test NEGATIVE NEGATIVE code = TIBURCIO) UA LEUKOCYTE ESTERASE NEGATIVE /mm3 NEGATIVE DIPSTICK (test code = LEUU) UA CULTURE NEEDED? (test Criteria Culture Chk code = UACULT) SOURCE OF URINE: CLEAN CATCHUA [id number] 18:33:00 Test Item Value Reference Range Interpretation Comments UA RBC (test code = RBCU) RBC/HPF 0-3 UA WBC (test code = XWBCU) WBC/HPF 0-5 UA EPITHELIAL CELLS (test code = EPI/HPF FEW EPIU) UA BACTERIA (test code = XBACU) NONE SOURCE OF URINE: CLEAN CATCHPROTHROMBIN [id number] 17:16:00 Test Item Value Reference Range Interpretation Comments PROTHROMBIN TIME 11.9 SECONDS 9.4-12.5 N PATIENT (test code = PTP) INTERNATIONAL NORMAL 1.1 The INR is to be RATIO (test code = used only for INR) monitoring oral anticoagulantth erap y. INDICATION I NR VALUE ---- ---- ---- -------1. Prophylaxis, de ep venous thrombos is, including hig h risk surgery. 2.0 - 3.0 2. Prophylaxis, de ep venous thrombos is, hip surgery, treatment for d eep venous thrombosis or pulmonary prevention of systemic emboli sm in patients wit h valvular heart disease, atrial fibrillation, tissue heart va lve, or acute myocar dial infarction. 2.0 - 3 .0 3. Mechanical prosthesis hear t valves, recurrent syste rodriguez embolism. 3.0 - 4.5 Comments to Lan/Wan Engineer: ALREADY COLLECTED BY LABPLT RESPONSE TO PLAVIX 2020-02-19 16:38:00 Test Item Value Reference Range Interpretation Comments PLT RESPONSE TO 407 PRU 194-418 N P2Y12 Result s PLAVIX (test code = Interpre tation: Test PLAVRES) results are in P2Y12 Reaction Units (PRU). Pre-Drug Refe rence Range is 194-41 8. Pre-drug platel et function estima robin the total possible platelet aggregation independent of P2Y12 inhibitor drugs . Values <194 cou ld be due to low HCT, low platelet count, or p resence of IIb/IIIa inhibi tors. Post-Drug Resu lts: Lower PRU levels are associated with expec amelie antiplatelet ef fect. Values may be b elow the stated refe rence range. Studies show that patients wi th <230 PRU had fewer a dverse events. UNABLE TO DRAW BLOOD, REASON: PAT GETTING ULTRASONDNOTIFIED PATIENT CARE STAFF: CAMILLA 02/19/20 AT 1407 BY Amna Nowak- US RETROPERITONEAL COM 2020-02-19 15:08:00 Patient Name: SALINA SERRATO Unit No: [id number] EXAMS: CPT CODE: [id number] US RETROPERITONEAL COM [id number] EXAMINATION: - US RETROPERITONEAL COM. LOCATION: B2. HISTORY: CKD. COMPARISON: None. TECHNIQUE: Routine renal ultrasoundwas performed. FINDINGS: The right kidney measures 9.5 cm, and the left kidney measures 8.4 cm in length. Cortical echogenicity is increased bilaterally. There is no evidence of renal mass, hydronephrosis or urolithiasis. The urinary bladder appears normal for degree of distention. IMPRESSION: Increased bilateral renal cortical echogenicity consistent with medical renal disease. Small-sized left kidney. at 1508 Reported and signed by: Lucía Rojas MD CC: Russel Hines; Sherri Ceja MD; Sabrina Rojas Technologist: Adrienne Claros RDMS(AB) Transcrpt Date/Tm/Trnsp: 02/19/2020 (1508) t.SDR.PR7 Orig Print D/T: S: 02/19/2020 (1511) [facility] NAME: SALINA SERRATO [id number] PHYS: [place] [address] : 1949 AGE: 69 SEX: F LOC: Z.SI07 A PHONE #: [phone] EXAM DATE: 02/19/2020 STATUS: ADM IN FAX #: [phone] RADIOLOGY NO: PAGE 1 Signed ReportHIV 12 AB DIFFERENTIATION 2020-02-19 12:59:00 Test Item Value Reference Range Interpretation Comments HIV 1 2 COMBO AG/AB SCREEN AB/AG NON REACTIVE NONREACTIVE (test code = [id number]) GLUCOSE BEDSIDE [id number] 12:46:00 Test Item Value Reference Range Interpretation Comments GLUCOSE BEDSIDE TESTING (test code 265 MG/DL 60-99 H = GLUBED) LIPID PROFILE (CORONARY RISK)2020-02-19 12:31:00 Test Item Value Reference Range Interpretation Comments TRIGLYCERIDES (test 154 MG/DL TRIGLYCE RIDES code = TRIG) REFERENCE RANGE:Normal: < 150 mg/dLBorderline High: 150-199 mg/dLHi gh: 200-499 mg/dLVe ry High: >=500 mg/ dL CHOLESTEROL (test code 168 MG/DL <200 = CHOL) HDL CHOLESTEROL (test 48 MG/DL 40-59 N code = HDL) LIPOPROTEIN LDL (test 88 MG/DL 0-99 N code = LDL) OPTIMAL........ .<100 mg/dLNEAR OPTIMAL/ABOVE OPTIMAL........ .100-12 9 mg/dL BORDERLINE HIGH.........13 0-159 mg/dL HIGH.........16 0-189 mg/dL VERY HIGH...... ...>/= 190 mg/dL GLYCOSYLATED HEMOGLOBIN [id number] 12:17:00 Test Item Value Reference Range Interpretation Comments GLYCOSYLATED 10.8 % 4.8-5.9 H Any condition t hat HEMOGLOBIN (HA1C) shortens e rythocyte (test code = survival or dec reasesmean GLYHGB) erythrocyte age (e.g., recovery from a cute blood loss,hemolytic anemia) will falsely lo wer HGBA1c resultsregardle ss of the method used. H GBA1c results from [facility] HbSS, HbCC, and HbSc must be interpreted with cautiongiven th e pathological pr ocesses, including anemia,increase d red cell turnover, trans fusion requirements, thatadversely i mpact HGBA1c as a mar ker of long-term glycemiccontrol . Alternative for ms of testing such as fructosaminesho uld be considered for these patients. MEAN BLOOD GLUCOSE 263 MG/DL 70-110 H (test code = MBG) GLUCOSE BEDSIDE [id number] 12:10:00 Test Item Value Reference Range Interpretation Comments GLUCOSE BEDSIDE TESTING (test code 307 MG/DL 60-99 HH = GLUBED) GLUCOSE BEDSIDE [id number] 12:09:00 Test Item Value Reference Range Interpretation Comments GLUCOSE BEDSIDE TESTING (test code 255 MG/DL 60-99 H = GLUBED) LIPID PROFILE (CORONARY RISK)2020-02-19 12:09:00 Test Item Value Reference Range Interpretation Comments TRIGLYCERIDES (test 154 MG/DL TRIGLYCE RIDES code = TRIG) REFERENCE RANGE:Normal: < 150 mg/dLBorderline High: 150-199 mg/dLHi gh: 200-499 mg/dLVe ry High: >=500 mg/ dL CHOLESTEROL (test code 168 MG/DL <200 = CHOL) HDL CHOLESTEROL (test 48 MG/DL 40-59 N code = HDL) LIPOPROTEIN LDL (test MG/DL 0-99 code = LDL) GLUCOSE BEDSIDE [id number] 12:09:00 Test Item Value Reference Range Interpretation Comments GLUCOSE BEDSIDE TESTING (test code 275 MG/DL 60-99 H = GLUBED) - XR CHEST [id number] 10:49:00 Patient Name: SALINA SERRATO Unit No: [id number] EXAMS: CPT CODE: [id number] XR CHEST 1V 14525 Location of dictation: B2 Portable chest one view. HISTORY: Cardiac/Heart Surgery COMMENT: Compared to one day prior. Lung volumes remain low. There is mild diffuse interstitial prominence with no new consolidation, pneumothorax or effusion. Visualized soft tissues and skeletal structures are unremarkable. There has been no significant changes. IMPRESSION: No active disease in the chest. at 1049 Reported and signed by: Meagan Potter M.D. CC: Russel Hines; Sherri Ceja MD; Berta Tapia NP Technologist: Chante Hawkins RT (R) Transcrpt Date/Tm/Trnsp: 02/19/2020 (1446) t.SDR.PXC Orig Print D/T: S: 02/19/2020 (1059) [facility] NAME: SALINA SERRATO [address] PHYS: [place] [address] : 1950 AGE: 69 SEX: F LOC: [place] PHONE #: [phone] EXAM DATE: 02/19/2020 STATUS: ADM IN FAX #: [phone] RADIOLOGY NO: PAGE 1 Signed ReportPTT [id number] 08:34:00 Test Item Value Reference Range Interpretation Comments PTT ACTIVATED (test 93.7 SECONDS 25.1-36.5 HH CALLED T O JOHN B& code = APTT) READBACK ON 09/28 AT 0834 BY James Nash not sent. informed babita. of lab - rb PATIENT IS A HARD STICK. UNABLE TO GET BLOOD SAMPLE.NOTIFIED PATIENT CARE STAFF: DOMINGO 02/19/20 AT 0706 [facility] [id number] 06:13:00 Test Item Value Reference Range Interpretation Comments SODIUM (test code = 132 MMOL/L 137-145 L NA) POTASSIUM (test code = 4.4 MMOL/L 3.5-5.1 N K) CHLORIDE (test code = 98 MMOL/L 98-107 N CL) CARBON DIOXIDE (test 27 MMOL/L 22-30 N code = CO2) ANION GAP (test code = 11 MMOL/L 14-24 L GAP) GLUCOSE (test code = 245 MG/DL 74-106 H GLU) BLOOD UREA NITROGEN 48 MG/DL 7-17 H (test code = BUN) GLOMERULAR FILTRATION 28 Report ing units: RATE (test code = GFR) ml/mi n/1.73 m2 (Modified MDRD Formula)Referen ce Range: > or = 6 0 ml/min/1.73 m2 CREATININE (test code 2.10 MG/DL 0.52-1.04 H = CREAT) CALCIUM (test code = 8.5 MG/DL 8.4-10.2 N CA) [id number] 06:13:00 Test Item Value Reference Range Interpretation Comments PHOSPHOROUS (test code = PHOS) 3.6 MG/DL 2.5-4.5 N [id number] 06:13:00 Test Item Value Reference Range Interpretation Comments MAGNESIUM (test code = MAG) 2.0 MG/DL 1.6-2.3 N BASIC METABOLIC [id number] 06:12:00 Test Item Value Reference Range Interpretation Comments SODIUM (test code = 132 MMOL/L 137-145 L NA) POTASSIUM (test code = 4.4 MMOL/L 3.5-5.1 N K) CHLORIDE (test code = 98 MMOL/L 98-107 N CL) CARBON DIOXIDE (test 27 MMOL/L 22-30 N code = CO2) ANION GAP (test code = 11 MMOL/L 14-24 L GAP) GLUCOSE (test code = 245 MG/DL 74-106 H GLU) BLOOD UREA NITROGEN 48 MG/DL 7-17 H (test code = BUN) GLOMERULAR FILTRATION 28 Report ing units: RATE (test code = GFR) ml/mi n/1.73 m2 (Modified MDRD Formula)Referen ce Range: > or = 6 0 ml/min/1.73 m2 CREATININE (test code 2.10 MG/DL 0.52-1.04 H = CREAT) CALCIUM (test code = 8.5 MG/DL 8.4-10.2 N CA) [id number] 06:12:00 Test Item Value Reference Range Interpretation Comments PHOSPHOROUS (test code = PHOS) 3.6 MG/DL 2.5-4.5 N [id number] 06:12:00 Test Item Value Reference Range Interpretation Comments MAGNESIUM (test code = MAG) MG/DL 1.6-2.3 BASIC METABOLIC [id number] 06:11:00 Test Item Value Reference Range Interpretation Comments SODIUM (test code = 132 MMOL/L 137-145 L NA) POTASSIUM (test code = 4.4 MMOL/L 3.5-5.1 N K) CHLORIDE (test code = 98 MMOL/L 98-107 N CL) CARBON DIOXIDE (test MMOL/L 22-30 code = CO2) GLUCOSE (test code = MG/DL 74-106 GLU) BLOOD UREA NITROGEN MG/DL 7-17 (test code = BUN) GLOMERULAR FILTRATION 28 Report ing units: RATE (test code = GFR) ml/mi n/1.73 m2 (Modified MDRD Formula)Referen ce Range: > or = 6 0 ml/min/1.73 m2 CREATININE (test code 2.10 MG/DL 0.52-1.04 H = CREAT) CALCIUM (test code = MG/DL 8.7-9.7 CA) [id number] 06:11:00 Test Item Value Reference Range Interpretation Comments PHOSPHOROUS (test code = PHOS) MG/DL 2.5-4.5 [id number] 06:11:00 Test Item Value Reference Range Interpretation Comments MAGNESIUM (test code = MAG) MG/DL 1.6-2.3 BASIC METABOLIC [id number] 06:09:00 Test Item Value Reference Range Interpretation Comments SODIUM (test code = NA) 132 MMOL/L 137-145 L POTASSIUM (test code = K) 4.4 MMOL/L 3.5-5.1 N CHLORIDE (test code = CL) 98 MMOL/L 98-107 N CARBON DIOXIDE (test code = CO2) MMOL/L 22-30 GLUCOSE (test code = GLU) MG/DL 74-106 BLOOD UREA NITROGEN (test code = MG/DL 7-17 BUN) GLOMERULAR FILTRATION RATE (test code = GFR) CREATININE (test code = CREAT) MG/DL 0.52-1.04 CALCIUM (test code = CA) MG/DL 8.7-9.7 [id number] 06:09:00 Test Item Value Reference Range Interpretation Comments PHOSPHOROUS (test code = PHOS) MG/DL 2.5-4.5 [id number] 06:09:00 Test Item Value Reference Range Interpretation Comments MAGNESIUM (test code = MAG) MG/DL 1.6-2.3 CBC W/AUTO [id number] 06:01:00 Test Item Value Reference Range Interpretation Comments WHITE BLOOD CELL (test code = 11.7 K/MM3 3.8-9.8 H WBC) RED BLOOD CELL (test code = 3.35 M/MM3 3.58-4.97 L RBC) HEMOGLOBIN (test code = HGB) 8.3 G/DL 11.2-14.9 L HEMATOCRIT (test code = HCT) 27.2 % 33.2-43.5 L MEAN CELL VOLUME (test code = 81 fL 80.7-99.1 N MCV) MEAN CELL HGB (test code = MCH) 24.8 pg 27.0-34.1 L MEAN CELL HGB CONCETRATION 30.5 % 32.2-35.7 L (test code = MCHC) RED CELL DISTRIBUTION WIDTH 16.7 % 12.1-15.2 H (test code = RDW) PLATELET COUNT (test code = 167 K/MM3 129-368 PLT) MEAN PLATELET VOLUME (test code 10.4 fl 7.4-10.4 N = MPV) NEUTROPHIL % (test code = NT%) 77.8 % 43-75 H IMMATURE GRANULOCYTE % (test 0.9 % 0.0-2.0 N code = IG%) LYMPHOCYTE % (test code = LY%) 14.0 % 14-44 N MONOCYTE % (test code = MO%) 5.4 % 4-13 N EOSINOPHIL % (test code = EO%) 1.6 % 0-6 N BASOPHIL % (test code = BA%) 0.3 % 0-2 N NUCLEATED RBC % (test code = 0.0 % 0-1.0 N NRBC%) NEUTROPHIL # (test code = NT#) 9.15 K/mm3 2.0-7.6 H IMMATURE GRANULOCYTE # (test 0.10 x10 3/uL 0-0.03 H code = IG#) LYMPHOCYTE # (test code = LY#) 1.64 K/mm3 1.0-3.8 N MONOCYTE # (test code = MO#) 0.63 K/mm3 0.1-0.8 N EOSINOPHIL # (test code = EO#) 0.19 K/mm3 0.0-0.2 N BASOPHIL # (test code = BA#) 0.03 K/mm3 0.0-0.2 N NUCLEATED RBC # (test code = 0.00 K/mm3 0.0-0.1 N NRBC#) GLUCOSE BEDSIDE [id number] 05:27:00 Test Item Value Reference Range Interpretation Comments GLUCOSE BEDSIDE TESTING (test code 232 MG/DL 60-99 H = GLUBED) PTT [id number] 23:14:00 Test Item Value Reference Range Interpretation Comments PTT ACTIVATED (test 94.5 SECONDS 25.1-36.5 HH CALLED Ofe LEYVA code = APTT) B.& READBACK ON 02/18/20 AT 231 4 BY Mildred Caldera Comments to Lan/Wan Engineer: USE RIGHT HANDUNABLE TO DRAW BLOOD, REASON: HARDSTICKNOTIFIED PATIENT CARESTAFF: SATHYA 02/18/20 AT 1934 BY Amna Nowak AnGLYCOSYLATED HEMOGLOBIN [id number] 16:54:00 Test Item Value Reference Range Interpretation Comments GLYCOSYLATED 10.2 % 4.8-5.9 H Any condition t hat HEMOGLOBIN (HA1C) shortens e rythocyte (test code = survival or dec reasesmean GLYHGB) erythrocyte age (e.g., recovery from a cute blood loss,hemolytic anemia) will falsely lo wer HGBA1c resultsregardle ss of the method used. H GBA1c results from [facility] HbSS, HbCC, and HbSc must be interpreted with cautiongiven th e pathological pr ocesses, including anemia,increase d red cell turnover, trans fusion requirements, thatadversely i mpact HGBA1c as a mar ker of long-term glycemiccontrol . Alternative for ms of testing such as fructosaminesho uld be considered for these patients. MEAN BLOOD GLUCOSE 246 MG/DL 70-110 H (test code = MBG) Comments to Lan/Wan Engineer: on blood in labPLT RESPONSE TO [id number] 14:00:00 Test Item Value Reference Range Interpretation Comments PLT RESPONSE TO 307 PRU 194-418 N P2Y12 Result s PLAVIX (test code = Interpre tation: Test PLAVRES) results are in P2Y12 Reaction Units (PRU). Pre-Drug Refe rence Range is 194-41 8. Pre-drug platel et function estima robin the total possible platelet aggregation independent of P2Y12 inhibitor drugs . Values <194 cou ld be due to low HCT, low platelet count, or p resence of IIb/IIIa inhibi tors. Post-Drug Resu lts: Lower PRU levels are associated with expec amelie antiplatelet ef fect. Values may be b elow the stated refe rence range. Studies show that patients wi th <230 PRU had fewer a dverse events. IS PATIENT ON ANTICOAGULANTS: YLIST ANTICOAGULANTS: HeparinPROTHROMBIN TIME 2020-02-18 13:35:00 Test Item Value Reference Range Interpretation Comments PROTHROMBIN TIME 11.9 SECONDS 9.4-12.5 N PATIENT (test code = PTP) INTERNATIONAL NORMAL 1.1 The INR is to be RATIO (test code = used only for INR) monitoring oral anticoagulantth erap y. INDICATION I NR VALUE ---- ---- ---- -------1. Prophylaxis, de ep venous thrombos is, including hig h risk surgery. 2.0 - 3.0 2. Prophylaxis, de ep venous thrombos is, hip surgery, treatment for d eep venous thrombosis or pulmonary prevention of systemic emboli sm in patients wit h valvular heart disease, atrial fibrillation, tissue heart va lve, or acute myocar dial infarction. 2.0 - 3 .0 3. Mechanical prosthesis hear t valves, recurrent syste rodriguez embolism. 3.0 - 4.5 PTT [id number] 13:35:00 Test Item Value Reference Range Interpretation Comments PTT ACTIVATED (test 127.5 SECONDS 25.1-36.5 HH CALLED TO MUMTAZ Gallegos& code = APTT) READBACK ON 02/18/20 AT 133 5 BY Isacc Gallego BASIC METABOLIC [id number] 13:34:00 Test Item Value Reference Range Interpretation Comments SODIUM (test code = 133 MMOL/L 137-145 L NA) POTASSIUM (test code = 4.3 MMOL/L 3.5-5.1 N K) CHLORIDE (test code = 95 MMOL/L 98-107 L CL) CARBON DIOXIDE (test 32 MMOL/L 22-30 H code = CO2) ANION GAP (test code = 10 MMOL/L 14-24 L GAP) GLUCOSE (test code = 326 MG/DL 74-106 HH CALLED TO BRENNON.B& GLU) READBACK ON 08/29 AT 1334 BY Lynnette Tam BLOOD UREA NITROGEN 42 MG/DL 7-17 H (test code = BUN) GLOMERULAR FILTRATION 22 Report ing units: RATE (test code = GFR) ml/mi n/1.73 m2 (Modified MDRD Formula)Referen ce Range: > or = 6 0 ml/min/1.73 m2 CREATININE (test code 2.60 MG/DL 0.52-1.04 H = CREAT) CALCIUM (test code = 8.5 MG/DL 8.4-10.2 N CA) [id number] 13:34:00 Test Item Value Reference Range Interpretation Comments MAGNESIUM (test code = MAG) 2.1 MG/DL 1.6-2.3 N BASIC METABOLIC [id number] 13:24:00 Test Item Value Reference Range Interpretation Comments SODIUM (test code = 133 MMOL/L 137-145 L NA) POTASSIUM (test code = 4.3 MMOL/L 3.5-5.1 N K) CHLORIDE (test code = 95 MMOL/L 98-107 L CL) CARBON DIOXIDE (test MMOL/L 22-30 code = CO2) GLUCOSE (test code = MG/DL 74-106 GLU) BLOOD UREA NITROGEN MG/DL 7-17 (test code = BUN) GLOMERULAR FILTRATION 22 Report ing units: RATE (test code = GFR) ml/mi n/1.73 m2 (Modified MDRD Formula)Referen ce Range: > or = 6 0 ml/min/1.73 m2 CREATININE (test code 2.60 MG/DL 0.52-1.04 H = CREAT) CALCIUM (test code = MG/DL 8.7-9.7 CA) [id number] 13:24:00 Test Item Value Reference Range Interpretation Comments MAGNESIUM (test code = MAG) MG/DL 1.6-2.3 BASIC METABOLIC [id number] 13:22:00 Test Item Value Reference Range Interpretation Comments SODIUM (test code = NA) 133 MMOL/L 137-145 L POTASSIUM (test code = K) 4.3 MMOL/L 3.5-5.1 N CHLORIDE (test code = CL) 95 MMOL/L 98-107 L CARBON DIOXIDE (test code = CO2) MMOL/L 22-30 GLUCOSE (test code = GLU) MG/DL 74-106 BLOOD UREA NITROGEN (test code = MG/DL 7-17 BUN) GLOMERULAR FILTRATION RATE (test code = GFR) CREATININE (test code = CREAT) MG/DL 0.52-1.04 CALCIUM (test code = CA) MG/DL 8.7-9.7 [id number] 13:22:00 Test Item Value Reference Range Interpretation Comments MAGNESIUM (test code = MAG) MG/DL 1.6-2.3 BASIC METABOLIC [id number] 13:21:00 Test Item Value Reference Range Interpretation Comments SODIUM (test code = NA) MMOL/L 137-145 POTASSIUM (test code = K) MMOL/L 3.5-5.1 CHLORIDE (test code = CL) 95 MMOL/L 98-107 L CARBON DIOXIDE (test code = CO2) MMOL/L 22-30 GLUCOSE (test code = GLU) MG/DL 74-106 BLOOD UREA NITROGEN (test code = MG/DL 7-17 BUN) GLOMERULAR FILTRATION RATE (test code = GFR) CREATININE (test code = CREAT) MG/DL 0.52-1.04 CALCIUM (test code = CA) MG/DL 8.7-9.7 [id number] 13:21:00 Test Item Value Reference Range Interpretation Comments MAGNESIUM (test code = MAG) MG/DL 1.6-2.3 CBC W/AUTO [id number] 13:05:00 Test Item Value Reference Range Interpretation Comments WHITE BLOOD CELL (test code = 14.6 K/MM3 3.8-9.8 H WBC) RED BLOOD CELL (test code = 3.70 M/MM3 3.58-4.97 N RBC) HEMOGLOBIN (test code = HGB) 9.3 G/DL 11.2-14.9 L HEMATOCRIT (test code = HCT) 32.0 % 33.2-43.5 L MEAN CELL VOLUME (test code = 87 fL 80.7-99.1 N MCV) MEAN CELL HGB (test code = MCH) 25.1 pg 27.0-34.1 L MEAN CELL HGB CONCETRATION 29.1 % 32.2-35.7 L (test code = MCHC) RED CELL DISTRIBUTION WIDTH 17.1 % 12.1-15.2 H (test code = RDW) PLATELET COUNT (test code = 235 K/MM3 129-368 N PLT) MEAN PLATELET VOLUME (test code 9.9 fl 7.4-10.4 N = MPV) NEUTROPHIL % (test code = NT%) 76.2 % 43-75 H IMMATURE GRANULOCYTE % (test 0.6 % 0.0-2.0 N code = IG%) LYMPHOCYTE % (test code = LY%) 14.1 % 14-44 N MONOCYTE % (test code = MO%) 6.5 % 4-13 N EOSINOPHIL % (test code = EO%) 2.3 % 0-6 N BASOPHIL % (test code = BA%) 0.3 % 0-2 N NUCLEATED RBC % (test code = 0.0 % 0-1.0 N NRBC%) NEUTROPHIL # (test code = NT#) 11.11 K/mm3 2.0-7.6 H IMMATURE GRANULOCYTE # (test 0.09 x10 3/uL 0-0.03 H code = IG#) LYMPHOCYTE # (test code = LY#) 2.06 K/mm3 1.0-3.8 N MONOCYTE # (test code = MO#) 0.95 K/mm3 0.1-0.8 H EOSINOPHIL # (test code = EO#) 0.33 K/mm3 0.0-0.2 H BASOPHIL # (test code = BA#) 0.05 K/mm3 0.0-0.2 N NUCLEATED RBC # (test code = 0.00 K/mm3 0.0-0.1 N NRBC#) - XR CHEST [id number] 12:38:00 Patient Name: SALINA SERRATO Unit No: [id number] EXAMS: CPT CODE: [id number] XR CHEST 1V [id number] EXAM: Portable chest one view. Location code:J9 DE STORY: CABG preoperative COMPARISON: None available. COMMENT: . Mildly prominent interstitial lung markings. No focal consolidation. No pleural effusion or pneumothorax. The aorta, pulmonary vasculature and mediastinum are within normal limits. Cardiac silhouette is normal in size and contour. Visualized skeletal structures are unremarkable. IMPRESSION: No active disease in the chest. at 1238 Reported and signed by: Nikos Castro M.D. CC: Russel Hines; Sherri Ceja MD Technologist: Hugo Rodrigez, RT(R) Transcrpt Date/Tm/Trnsp: 02/18/2020 (1238) [id number] Print D/T: S: 02/18/2020 (4237) [facility] NAME: SALINA SERRATO [id number] [address] PHYS: [place] [address] : 1950 AGE: 69 SEX: F LOC: Z.SI06 A PHONE #: [phone] EXAM DATE: 02/18/2020 STATUS: ADM IN FAX #: [phone] RADIOLOGY NO: PAGE 1 Signed ReportGLUCOSE BEDSIDE [id number] 12:37:00 Test Item Value Reference Range Interpretation Comments GLUCOSE BEDSIDE TESTING (test code 234 MG/DL 60-99 H = GLUBED) GLUCOSE BEDSIDE [id number] 12:37:00 Test Item Value Reference Range Interpretation Comments GLUCOSE BEDSIDE TESTING (test code 247 MG/DL 60-99 H = GLUBED) GLUCOSE BEDSIDE [id number] 12:36:00 Test Item Value Reference Range Interpretation Comments GLUCOSE BEDSIDE TESTING (test code 201 MG/DL 60-99 H = GLUBED) GLUCOSE BEDSIDE [id number] 12:36:00 Test Item Value Reference Range Interpretation Comments GLUCOSE BEDSIDE TESTING (test code 288 MG/DL 60-99 H = GLUBED) GLUCOSE BEDSIDE [id number] 12:36:00 Test Item Value Reference Range Interpretation Comments GLUCOSE BEDSIDE TESTING (test code 130 MG/DL 60-99 H = GLUBED) GLUCOSE BEDSIDE [id number] 11:27:00 Test Item Value Reference Range Interpretation Comments GLUCOSE BEDSIDE TESTING (test code 215 MG/DL 60-99 H = GLUBED) GLUCOSE BEDSIDE [id number] 11:27:00 Test Item Value Reference Range Interpretation Comments GLUCOSE BEDSIDE TESTING 335 MG/DL 60-99 HH Noti fied Nurse~ (test code = GLUBED) GLUCOSE BEDSIDE [id number] 11:27:00 Test Item Value Reference Range Interpretation Comments GLUCOSE BEDSIDE TESTING (test code 243 MG/DL 60-99 H = GLUBED) Novel Coronavirus 2019 [id number] 06:26:00 Test Item Value Reference Range Interpretation Comments Novel Coronavirus 2019 Inhouse (test Negative Negative code = COVNONPUI) Novel Coronavirus 2019 [id number] 06:25:00 Test Item Value Reference Range Interpretation Comments Novel Coronavirus 2019 Inhouse (test Negative Negative code = COVNONPUI) PTT [id number] 02:44:00 Test Item Value Reference Range Interpretation Comments PTT ACTIVATED (test 135.0 SECONDS 25.1-36.5 HH CALLED TO CHERRIE Hyman& code = APTT) READBACK ON 02/18/20 AT 024 4 BY Roberto [id number] 16:24:00 Test Item Value Reference Range Interpretation Comments TROPONIN-I (test 0.748 NG/ML 0.012-0.033 HH CALLED TO Patricia Gonzalez& code = TROPI) READBACK ON AT 1624 BY Nghia Caldera [id number] 16:24:00 Test Item Value Reference Range Interpretation Comments TROPONIN-I (test 0.625 NG/ML 0.012-0.033 HH CALLED TO Patricia Gonzalez& code = TROPI) READBACK ON AT 1624 BY Nghia Caldera PTT [id number] 15:57:00 Test Item Value Reference Range Interpretation Comments PTT ACTIVATED (test code = APTT) 56.2 SECONDS 25.1-36.5 H [id number] 14:11:00 Test Item Value Reference Range Interpretation Comments TROPONIN-I (test 0.614 NG/ML 0.012-0.033 HH CALLED TO ISELA Flowers& code = TROPI) READBACK ON AT 1411 BY Tiny Morrison BASIC METABOLIC [id number] 09:19:00 Test Item Value Reference Range Interpretation Comments SODIUM (test code = 137 MMOL/L 137-145 N NA) POTASSIUM (test code = 4.4 MMOL/L 3.5-5.1 N K) CHLORIDE (test code = 97 MMOL/L 98-107 L CL) CARBON DIOXIDE (test 35 MMOL/L 22-30 H code = CO2) ANION GAP (test code = 9 MMOL/L 14-24 L GAP) GLUCOSE (test code = 321 MG/DL 74-106 HH CALLED TO ISAAC Watson GLU) READBACK ON 07/29 AT 0919 BY Tiny Morrison BLOOD UREA NITROGEN 32 MG/DL 7-17 H (test code = BUN) GLOMERULAR FILTRATION 28 Report ing units: RATE (test code = GFR) ml/mi n/1.73 m2 (Modified MDRD Formula)Referen ce Range: > or = 6 0 ml/min/1.73 m2 CREATININE (test code 2.10 MG/DL 0.52-1.04 H = CREAT) CALCIUM (test code = 9.0 MG/DL 8.4-10.2 N CA) PLT RESPONSE TO [id number] 08:27:00 Test Item Value Reference Range Interpretation Comments PLT RESPONSE TO 309 PRU 194-418 N P2Y12 Result s PLAVIX (test code = Interpre tation: Test PLAVRES) results are in P2Y12 Reaction Units (PRU). Pre-Drug Refe rence Range is 194-41 8. Pre-drug platel et function estima robin the total possible platelet aggregation independent of P2Y12 inhibitor drugs . Values <194 cou ld be due to low HCT, low platelet count, or p resence of IIb/IIIa inhibi tors. Post-Drug Resu lts: Lower PRU levels are associated with expec amelie antiplatelet ef fect. Values may be b elow the stated refe rence range. Studies show that patients wi th <230 PRU had fewer a dverse events. IS PATIENT ON ANTICOAGULANTS: YCBC W/AUTO [id number] 08:03:00 Test Item Value Reference Range Interpretation Comments WHITE BLOOD CELL (test code = 11.8 K/MM3 3.8-9.8 H WBC) RED BLOOD CELL (test code = 3.88 M/MM3 3.58-4.97 N RBC) HEMOGLOBIN (test code = HGB) 9.6 G/DL 11.2-14.9 L HEMATOCRIT (test code = HCT) 32.7 % 33.2-43.5 L MEAN CELL VOLUME (test code = 84 fL 80.7-99.1 N MCV) MEAN CELL HGB (test code = MCH) 24.7 pg 27.0-34.1 L MEAN CELL HGB CONCETRATION 29.4 % 32.2-35.7 L (test code = MCHC) RED CELL DISTRIBUTION WIDTH 17.1 % 12.1-15.2 H (test code = RDW) PLATELET COUNT (test code = 278 K/MM3 129-368 N PLT) MEAN PLATELET VOLUME (test code 9.2 fl 7.4-10.4 N = MPV) NEUTROPHIL % (test code = NT%) 76.4 % 43-75 H IMMATURE GRANULOCYTE % (test 0.6 % 0.0-2.0 N code = IG%) LYMPHOCYTE % (test code = LY%) 15.5 % 14-44 N MONOCYTE % (test code = MO%) 4.9 % 4-13 N EOSINOPHIL % (test code = EO%) 2.3 % 0-6 N BASOPHIL % (test code = BA%) 0.3 % 0-2 N NUCLEATED RBC % (test code = 0.0 % 0-1.0 N NRBC%) NEUTROPHIL # (test code = NT#) 9.05 K/mm3 2.0-7.6 H IMMATURE GRANULOCYTE # (test 0.07 x10 3/uL 0-0.03 H code = IG#) LYMPHOCYTE # (test code = LY#) 1.83 K/mm3 1.0-3.8 N MONOCYTE # (test code = MO#) 0.58 K/mm3 0.1-0.8 N EOSINOPHIL # (test code = EO#) 0.27 K/mm3 0.0-0.2 H BASOPHIL # (test code = BA#) 0.04 K/mm3 0.0-0.2 N NUCLEATED RBC # (test code = 0.00 K/mm3 0.0-0.1 N NRBC#) BASIC METABOLIC [id number] 07:57:00 Test Item Value Reference Range Interpretation Comments SODIUM (test code = 137 MMOL/L 137-145 N NA) POTASSIUM (test code = 4.4 MMOL/L 3.5-5.1 N K) CHLORIDE (test code = 97 MMOL/L 98-107 L CL) CARBON DIOXIDE (test MMOL/L 22-30 code = CO2) GLUCOSE (test code = MG/DL 74-106 GLU) BLOOD UREA NITROGEN MG/DL 7-17 (test code = BUN) GLOMERULAR FILTRATION 28 Report ing units: RATE (test code = GFR) ml/mi n/1.73 m2 (Modified MDRD Formula)Referen ce Range: > or = 6 0 ml/min/1.73 m2 CREATININE (test code 2.10 MG/DL 0.52-1.04 H = CREAT) CALCIUM (test code = MG/DL 8.7-9.7 CA) GLUCOSE BEDSIDE [id number] 22:32:00 Test Item Value Reference Range Interpretation Comments GLUCOSE BEDSIDE TESTING (test code 227 MG/DL 60-99 H = GLUBED) PTT [id number] 21:50:00 Test Item Value Reference Range Interpretation Comments PTT ACTIVATED (test code = APTT) 36.9 SECONDS 25.1-36.5 H PROTHROMBIN [id number] 14:26:00 Test Item Value Reference Range Interpretation Comments PROTHROMBIN TIME 11.3 SECONDS 9.4-12.5 N PATIENT (test code = PTP) INTERNATIONAL NORMAL 1.0 The INR is to be RATIO (test code = used only for INR) monitoring oral anticoagulantth erap y. INDICATION I NR VALUE ---- ---- ---- -------1. Prophylaxis, de ep venous thrombos is, including hig h risk surgery. 2.0 - 3.0 2. Prophylaxis, de ep venous thrombos is, hip surgery, treatment for d eep venous thrombosis or pulmonary prevention of systemic emboli sm in patients wit h valvular heart disease, atrial fibrillation, tissue heart va lve, or acute myocar dial infarction. 2.0 - 3 .0 3. Mechanical prosthesis hear t valves, recurrent syste rodriguez embolism. 3.0 - 4.5 PATIENT IS A HARD STICK. UNABLE TO GET BLOOD SAMPLE.NOTIFIED PATIENT CARE STAFF: ISELA STEWART 02/16/20 AT 1113 BY [facility].PTT [id number] 14:26:00 Test Item Value Reference Range Interpretation Comments PTT ACTIVATED (test code = APTT) 36.6 SECONDS 25.1-36.5 H PATIENT IS A HARD STICK. UNABLE TO GET BLOOD SAMPLE.NOTIFIED PATIENT CARE STAFF: ISELA STEWART 02/16/20 AT 1113 BY [facility].[id number] 14:26:00 Test Item Value Reference Range Interpretation Comments FIBRINOGEN (test code = FIB) 532 mg/dL 200-393 H PATIENT IS A HARD STICK. UNABLE TO GET BLOOD SAMPLE.NOTIFIED PATIENT CARE STAFF: ISELA STEWART 02/16/20 AT 1113 BY [facility].TBS-[id number] 14:26:00 Test Item Value Reference Range Interpretation Comments D-DIMER (test 863 ng/mLFEU 0-499 H Negative Predi ctive Value code = DDIMER) cutoff for DV T & PE: < 500 ng/mL FEUInterp retation: A value of < 500 ng/mL FEU has a NegativeP redictive Value in ruling out a DVT or PE diagnosis .A value of 500 ng/mL or gr eater is considered Positive.Positi ve result cannot be used for the diagnosis of DV T andPE without using o f standard radiological pr ocedures. PATIENT IS A HARD STICK. UNABLE TO GET BLOOD SAMPLE.NOTIFIED PATIENT CARE STAFF: ISELA STEWART 02/16/20 AT 1113 [facility] [id number] 14:21:00 Test Item Value Reference Range Interpretation Comments WHITE BLOOD CELL (test code = 12.4 K/MM3 3.8-9.8 H WBC) RED BLOOD CELL (test code = 3.89 M/MM3 3.58-4.97 N RBC) HEMOGLOBIN (test code = HGB) 9.7 G/DL 11.2-14.9 L HEMATOCRIT (test code = HCT) 32.5 % 33.2-43.5 L MEAN CELL VOLUME (test code = 84 fL 80.7-99.1 N MCV) MEAN CELL HGB (test code = MCH) 24.9 pg 27.0-34.1 L MEAN CELL HGB CONCETRATION 29.8 % 32.2-35.7 L (test code = MCHC) RED CELL DISTRIBUTION WIDTH 17.2 % 12.1-15.2 H (test code = RDW) PLATELET COUNT (test code = 294 K/MM3 129-368 N PLT) NEUTROPHIL # (test code = NT#) 9.91 K/mm3 2.0-7.6 H IMMATURE GRANULOCYTE # (test 0.06 x10 3/uL 0-0.03 H code = IG#) LYMPHOCYTE # (test code = LY#) 1.60 K/mm3 1.0-3.8 N MONOCYTE # (test code = MO#) 0.69 K/mm3 0.1-0.8 N EOSINOPHIL # (test code = EO#) 0.07 K/mm3 0.0-0.2 N BASOPHIL # (test code = BA#) 0.04 K/mm3 0.0-0.2 N NUCLEATED RBC # (test code = 0.00 K/mm3 0.0-0.1 N NRBC#) [id number] 13:10:00 Test Item Value Reference Range Interpretation Comments TROPONIN-I (test 1.240 NG/ML 0.012-0.033 HH CALLED TO Patricia Gonzalez & code = TROPI) READBACK ON AT 1309 Jaky Lopez PATIENT IS A HARD STICK. UNABLE TO GET BLOOD SAMPLE.NOTIFIED PATIENT CARE STAFF: ISELA STEWART 02/16/20 AT 1112 BY ShaqLABDenisseCOMPREHENSIVE METABOLIC [id number] 12:24:00 Test Item Value Reference Range Interpretation Comments SODIUM (test code = NA) 135 MMOL/L 137-145 L POTASSIUM (test code = 4.4 MMOL/L 3.5-5.1 N K) CHLORIDE (test code = 97 MMOL/L 98-107 L CL) CARBON DIOXIDE (test 29 MMOL/L 22-30 N code = CO2) GLUCOSE (test code = 307 MG/DL 74-106 HH CALLED TO ISELA Gonzalez & GLU) READBACK ON 06/29 AT 1224 Jaky Lopez BLOOD UREA NITROGEN 30 MG/DL 7-17 H (test code = BUN) GLOMERULAR FILTRATION 32 Report ing units: RATE (test code = GFR) ml/mi n/1.73 m2 (Modified MDRD Formula)Referen ce Range: > or = 6 0 ml/min/1.73 m2 CREATININE (test code = 1.90 MG/DL 0.52-1.04 H CREAT) TOTAL PROTEIN (test 7.3 G/DL 6.3-8.2 N code = PROT) ALBUMIN (test code = 4.0 G/DL 3.5-5.0 N ALB) CALCIUM (test code = 8.8 MG/DL 8.4-10.2 N CA) BILIRUBIN TOTAL (test 0.3 MG/DL 0.2-1.3 N code = BILT) SGOT/AST (test code = 22 UNITS/L 14-36 N AST) SGPT/ALT (test code = 14 UNITS/L <35 ALT) ALKALINE PHOSPHATASE 83 UNITS/L 38-126 N (test code = ALKP) PATIENT IS A HARD STICK. UNABLE TO GET BLOOD SAMPLE.NOTIFIED PATIENT CARE STAFF: ISELA STEWART 02/16/20 AT 1112 BY [facility].[id number] 12:24:00 Test Item Value Reference Range Interpretation Comments PHOSPHOROUS (test code = PHOS) 5.7 MG/DL 2.5-4.5 H PATIENT IS A HARD STICK. UNABLE TO GET BLOOD SAMPLE.NOTIFIED PATIENT CARE STAFF: ISELA STEWART 02/16/20 AT 1112 BY Z.LAB.[id number] 12:24:00 Test Item Value Reference Range Interpretation Comments MAGNESIUM (test code = MAG) 1.7 MG/DL 1.6-2.3 N PATIENT IS A HARD STICK. UNABLE TO GET BLOOD SAMPLE.NOTIFIED PATIENT CARE STAFF: ISELA STEWART 02/16/20 AT 1112 BY Z.LAB.DHCOMPREHENSIVE METABOLIC [id number] 12:12:00 Test Item Value Reference Range Interpretation Comments SODIUM (test code = NA) 135 MMOL/L 137-145 L POTASSIUM (test code = 4.4 MMOL/L 3.5-5.1 N K) CHLORIDE (test code = 97 MMOL/L 98-107 L CL) CARBON DIOXIDE (test 29 MMOL/L 22-30 N code = CO2) GLUCOSE (test code = MG/DL 74-106 GLU) BLOOD UREA NITROGEN 30 MG/DL 7-17 H (test code = BUN) GLOMERULAR FILTRATION 32 Report ing units: RATE (test code = GFR) ml/mi n/1.73 m2 (Modified MDRD Formula)Referen ce Range: > or = 6 0 ml/min/1.73 m2 CREATININE (test code = 1.90 MG/DL 0.52-1.04 H CREAT) TOTAL PROTEIN (test 7.3 G/DL 6.3-8.2 N code = PROT) ALBUMIN (test code = 4.0 G/DL 3.5-5.0 N ALB) CALCIUM (test code = MG/DL 8.7-9.7 CA) BILIRUBIN TOTAL (test 0.3 MG/DL 0.2-1.3 N code = BILT) SGOT/AST (test code = 22 UNITS/L 14-36 N AST) SGPT/ALT (test code = 14 UNITS/L <35 ALT) ALKALINE PHOSPHATASE 83 UNITS/L 38-126 N (test code = ALKP) PATIENT IS A HARD STICK. UNABLE TO GET BLOOD SAMPLE.NOTIFIED PATIENT CARE STAFF: ISELA STEWART 02/16/20 AT 1112 BY Z.LAB.[id number] 12:12:00 Test Item Value Reference Range Interpretation Comments PHOSPHOROUS (test code = PHOS) MG/DL 2.5-4.5 PATIENT IS A HARD STICK. UNABLE TO GET BLOOD SAMPLE.NOTIFIED PATIENT CARE STAFF: ISELA STEWART 02/16/20 AT 1112 BY Z.LAB.[id number] 12:12:00 Test Item Value Reference Range Interpretation Comments MAGNESIUM (test code = MAG) MG/DL 1.6-2.3 PATIENT IS A HARD STICK. UNABLE TO GET BLOOD SAMPLE.NOTIFIED PATIENT CARE STAFF: ISELA STEWART 02/16/20 AT 1112 BY Z.LAB.COMPREHENSIVE METABOLIC [id number] 12:10:00 Test Item Value Reference Range Interpretation Comments SODIUM (test code = NA) 135 MMOL/L 137-145 L POTASSIUM (test code = K) 4.4 MMOL/L 3.5-5.1 N CHLORIDE (test code = CL) 97 MMOL/L 98-107 L CARBON DIOXIDE (test code = CO2) MMOL/L 22-30 GLUCOSE (test code = GLU) MG/DL 74-106 BLOOD UREA NITROGEN (test code = MG/DL 7-17 BUN) GLOMERULAR FILTRATION RATE (test code = GFR) CREATININE (test code = CREAT) MG/DL 0.52-1.04 TOTAL PROTEIN (test code = PROT) G/DL 6.3-8.2 ALBUMIN (test code = ALB) 4.0 G/DL 3.5-5.0 N CALCIUM (test code = CA) MG/DL 8.7-9.7 BILIRUBIN TOTAL (test code = BILT) MG/DL 0.2-1.3 SGOT/AST (test code = AST) UNITS/L 15-37 SGPT/ALT (test code = ALT) UNITS/L <35 ALKALINE PHOSPHATASE (test code = UNITS/L 38-126 ALKP) PATIENT IS A HARD STICK. UNABLE TO GET BLOOD SAMPLE.NOTIFIED PATIENT CARE STAFF: ISELA STEWART 02/16/20 AT 1112 BY Z.LAB.[id number] 12:10:00 Test Item Value Reference Range Interpretation Comments PHOSPHOROUS (test code = PHOS) MG/DL 2.5-4.5 PATIENT IS A HARD STICK. UNABLE TO GET BLOOD SAMPLE.NOTIFIED PATIENT CARE STAFF: ISELA KERRLEILANI 02/16/20 AT 1112 BY Z.LAB.[id number] 12:10:00 Test Item Value Reference Range Interpretation Comments MAGNESIUM (test code = MAG) MG/DL 1.6-2.3 PATIENT IS A HARD STICK. UNABLE TO GET BLOOD SAMPLE.NOTIFIED PATIENT CARE STAFF: ISELA PAT 02/16/20 AT 1112 BY Z.LAB.COMPREHENSIVE METABOLIC [id number] 12:09:00 Test Item Value Reference Range Interpretation Comments SODIUM (test code = NA) MMOL/L 137-145 POTASSIUM (test code = K) MMOL/L 3.5-5.1 CHLORIDE (test code = CL) MMOL/L 98-107 CARBON DIOXIDE (test code = CO2) MMOL/L 22-30 GLUCOSE (test code = GLU) MG/DL 74-106 BLOOD UREA NITROGEN (test code = MG/DL 7-17 BUN) GLOMERULAR FILTRATION RATE (test code = GFR) CREATININE (test code = CREAT) MG/DL 0.52-1.04 TOTAL PROTEIN (test code = PROT) G/DL 6.3-8.2 ALBUMIN (test code = ALB) 4.0 G/DL 3.5-5.0 N CALCIUM (test code = CA) MG/DL 8.7-9.7 BILIRUBIN TOTAL (test code = BILT) MG/DL 0.2-1.3 SGOT/AST (test code = AST) UNITS/L 15-37 SGPT/ALT (test code = ALT) UNITS/L <35 ALKALINE PHOSPHATASE (test code = UNITS/L 38-126 ALKP) PATIENT IS A HARD STICK. UNABLE TO GET BLOOD SAMPLE.NOTIFIED PATIENT CARE STAFF: ISELA STEWART 02/16/20 AT 1112 BY Z.LAB.[id number] 12:09:00 Test Item Value Reference Range Interpretation Comments PHOSPHOROUS (test code = PHOS) MG/DL 2.5-4.5 PATIENT IS A HARD STICK. UNABLE TO GET BLOOD SAMPLE.NOTIFIED PATIENT CARE STAFF: ISELA PAT 02/16/20 AT 1112 BY Z.LAB.[id number] 12:09:00 Test Item Value Reference Range Interpretation Comments MAGNESIUM (test code = MAG) MG/DL 1.6-2.3 PATIENT IS A HARD STICK. UNABLE TO GET BLOOD SAMPLE.NOTIFIED PATIENT CARE STAFF: ISELA STEWART 02/16/20 AT 1112 BY ShaqLABDenisseDHCREATINE KINASE (CK)2020-02-16 10:49:00 Test Item Value Reference Range Interpretation Comments CREATINE KINASE (CK) (test code = 114 UNITS/L 30-135 N CK) ADD ONBASIC METABOLIC [id number] 09:15:00 Test Item Value Reference Range Interpretation Comments SODIUM (test code = 134 MMOL/L 137-145 L NA) POTASSIUM (test code = 4.7 MMOL/L 3.5-5.1 N K) CHLORIDE (test code = 94 MMOL/L 98-107 L CL) CARBON DIOXIDE (test 34 MMOL/L 22-30 H code = CO2) ANION GAP (test code = 11 MMOL/L 14-24 L GAP) GLUCOSE (test code = 327 MG/DL 74-106 HH CALLED TO ISELA Gonzalez & GLU) READBACK ON 06/29 AT 0906 BYJaky Alas BLOOD UREA NITROGEN 31 MG/DL 7-17 H (test code = BUN) GLOMERULAR FILTRATION 34 Report ing units: RATE (test code = GFR) ml/mi n/1.73 m2 (Modified MDRD Formula)Referen ce Range: > or = 6 0 ml/min/1.73 m2 CREATININE (test code 1.80 MG/DL 0.52-1.04 H = CREAT) CALCIUM (test code = 9.1 MG/DL 8.4-10.2 N CA) RECOLLECTION NEEDED ON 02/16/20 AT 0648 BY ShaqLABDenisseCKREASON: SPECIMEN HEMOLYZEDNOTIFIED PATIENT CARE STAFF: NARGIS HymanLIPID PROFILE (CORONARY RISK) 2020-02-16 09:15:00 Test Item Value Reference Range Interpretation Comments TRIGLYCERIDES (test 152 MG/DL TRIGLYCE RIDES code = TRIG) REFERENCE RANGE:Normal: < 150 mg/dLBorderline High: 150-199 mg/dLHi gh: 200-499 mg/dLVe ry High: >=500 mg/ dL CHOLESTEROL (test code 210 MG/DL <200 = CHOL) HDL CHOLESTEROL (test 47 MG/DL 40-59 N code = HDL) LIPOPROTEIN LDL (test 116 MG/DL 0-99 H code = LDL) OPTIMAL........ .<100 mg/dLNEAR OPTIMAL/ABOVE OPTIMAL........ .100-12 9 mg/dL BORDERLINE HIGH.........13 0-159 mg/dL HIGH.........16 0-189 mg/dL VERY HIGH...... ...>/= 190 mg/dL RECOLLECTION NEEDED ON 02/16/20 AT 0648 BY SAIMACKREASON: SPECIMEN HEMOLYZEDNOTIFIED PATIENT CARE STAFF: NARGIS [id number] 09:15:00 Test Item Value Reference Range Interpretation Comments TROPONIN-I (test 1.380 NG/ML 0.012-0.033 HH CALLED TO Patricia Gonzalez & code = TROPI) READBACK ON AT 0914 Jaky Lopez RECOLLECTION NEEDED ON 02/16/20 AT 0648 BY SAIMACKREASON: SPECIMEN HEMOLYZEDNOTIFIED PATIENT CARE STAFF: NARGIS HymanBASIC METABOLIC [id number] 09:09:00 Test Item Value Reference Range Interpretation Comments SODIUM (test code = 134 MMOL/L 137-145 L NA) POTASSIUM (test code = 4.7 MMOL/L 3.5-5.1 N K) CHLORIDE (test code = 94 MMOL/L 98-107 L CL) CARBON DIOXIDE (test 34 MMOL/L 22-30 H code = CO2) ANION GAP (test code = 11 MMOL/L 14-24 L GAP) GLUCOSE (test code = 327 MG/DL 74-106 HH CALLED TO ISELA Gonzalez & GLU) READBACK ON 06/29 AT 0906 Jaky Lopez BLOOD UREA NITROGEN 31 MG/DL 7-17 H (test code = BUN) GLOMERULAR FILTRATION 34 Report ing units: RATE (test code = GFR) ml/mi n/1.73 m2 (Modified MDRD Formula)Referen ce Range: > or = 6 0 ml/min/1.73 m2 CREATININE (test code 1.80 MG/DL 0.52-1.04 H = CREAT) CALCIUM (test code = 9.1 MG/DL 8.4-10.2 N CA) RECOLLECTION NEEDED ON 02/16/20 AT 0648 BY Z.LAB.CKREASON: SPECIMEN HEMOLYZEDNOTIFIED PATIENT CARE STAFF: NARGIS HymanLIPID PROFILE (CORONARY RISK) 2020-02-16 09:09:00 Test Item Value Reference Range Interpretation Comments TRIGLYCERIDES (test 152 MG/DL TRIGLYCE RIDES code = TRIG) REFERENCE RANGE:Normal: < 150 mg/dLBorderline High: 150-199 mg/dLHi gh: 200-499 mg/dLVe ry High: >=500 mg/ dL CHOLESTEROL (test code 210 MG/DL <200 = CHOL) HDL CHOLESTEROL (test 47 MG/DL 40-59 N code = HDL) LIPOPROTEIN LDL (test 116 MG/DL 0-99 H code = LDL) OPTIMAL........ .<100 mg/dLNEAR OPTIMAL/ABOVE OPTIMAL........ .100-12 9 mg/dL BORDERLINE HIGH.........13 0-159 mg/dL HIGH.........16 0-189 mg/dL VERY HIGH...... ...>/= 190 mg/dL RECOLLECTION NEEDED ON 02/16/20 AT 0648 BY Z.LAB.CKREASON: SPECIMEN HEMOLYZEDNOTIFIED PATIENT CARE STAFF: NARGIS [id number] 09:09:00 Test Item Value Reference Range Interpretation Comments TROPONIN-I (test code = TROPI) NG/ML 0.0-0.045 RECOLLECTION NEEDED ON 02/16/20 AT 0648 BY Z.LAB.CKREASON: SPECIMEN HEMOLYZEDNOTIFIED PATIENT CARE STAFF: NARGIS HymanBASIC METABOLIC [id number] 09:07:00 Test Item Value Reference Range Interpretation Comments SODIUM (test code = 134 MMOL/L 137-145 L NA) POTASSIUM (test code = 4.7 MMOL/L 3.5-5.1 N K) CHLORIDE (test code = 94 MMOL/L 98-107 L CL) CARBON DIOXIDE (test 34 MMOL/L 22-30 H code = CO2) ANION GAP (test code = 11 MMOL/L 14-24 L GAP) GLUCOSE (test code = 327 MG/DL 74-106 HH CALLED TO ISELA Gonzalez & SHANITA) READBACK ON 06/29 AT 0906 BYJaky Alas BLOOD UREA NITROGEN 31 MG/DL 7-17 H (test code = BUN) GLOMERULAR FILTRATION 34 Report ing units: RATE (test code = GFR) ml/mi n/1.73 m2 (Modified MDRD Formula)Referen ce Range: > or = 6 0 ml/min/1.73 m2 CREATININE (test code 1.80 MG/DL 0.52-1.04 H = CREAT) CALCIUM (test code = 9.1 MG/DL 8.4-10.2 N CA) RECOLLECTION NEEDED ON 02/16/20 AT 0648 BY Z.LAB.CKREASON: SPECIMEN HEMOLYZEDNOTIFIED PATIENT CARE STAFF: NARGIS HymanLIPID PROFILE (CORONARY RISK) 2020-02-16 09:07:00 Test Item Value Reference Range Interpretation Comments TRIGLYCERIDES (test 152 MG/DL TRIGLYCE RIDES code = TRIG) REFERENCE RANGE:Normal: < 150 mg/dLBorderline High: 150-199 mg/dLHi gh: 200-499 mg/dLVe ry High: >=500 mg/ dL CHOLESTEROL (test code 210 MG/DL <200 = CHOL) HDL CHOLESTEROL (test 47 MG/DL 40-59 N code = HDL) LIPOPROTEIN LDL (test MG/DL 0-99 code = LDL) RECOLLECTION NEEDED ON 02/16/20 AT 0648 BY Z.LAB.CKREASON: SPECIMEN HEMOLYZEDNOTIFIED PATIENT CARE STAFF: NARGIS HymanUWYWSLLS-[id number] 09:07:00 Test Item Value Reference Range Interpretation Comments TROPONIN-I (test code = TROPI) NG/ML 0.0-0.045 RECOLLECTION NEEDED ON 02/16/20 AT 0648 BY FAREED.CKREASON: SPECIMEN HEMOLYZEDNOTIFIED PATIENT CARE STAFF: NARGIS HymanBASIC METABOLIC [id number] 08:58:00 Test Item Value Reference Range Interpretation Comments SODIUM (test code = 134 MMOL/L 137-145 L NA) POTASSIUM (test code = 4.7 MMOL/L 3.5-5.1 N K) CHLORIDE (test code = 94 MMOL/L 98-107 L CL) CARBON DIOXIDE (test 34 MMOL/L 22-30 H code = CO2) ANION GAP (test code = 11 MMOL/L 14-24 L GAP) GLUCOSE (test code = MG/DL 74-106 GLU) BLOOD UREA NITROGEN 31 MG/DL 7-17 H (test code = BUN) GLOMERULAR FILTRATION 34 Report ing units: RATE (test code = GFR) ml/mi n/1.73 m2 (Modified MDRD Formula)Referen ce Range: > or = 6 0 ml/min/1.73 m2 CREATININE (test code 1.80 MG/DL 0.52-1.04 H = CREAT) CALCIUM (test code = MG/DL 8.7-9.7 CA) RECOLLECTION NEEDED ON 02/16/20 AT 0648 BY Z.LAB.CKREASON: SPECIMEN HEMOLYZEDNOTIFIED PATIENT CARE STAFF: NARGIS HymanLIPID PROFILE (CORONARY RISK) 2020-02-16 08:58:00 Test Item Value Reference Range Interpretation Comments TRIGLYCERIDES (test code = TRIG) MG/DL CHOLESTEROL (test code = CHOL) 210 MG/DL <200 HDL CHOLESTEROL (test code = HDL) MG/DL 40-59 LIPOPROTEIN LDL (test code = LDL) MG/DL 0-99 RECOLLECTION NEEDED ON 02/16/20 AT 0648 BY Z.LAB.CKREASON: SPECIMEN HEMOLYZEDNOTIFIED PATIENT CARE STAFF: NARGIS [id number] 08:58:00 Test Item Value Reference Range Interpretation Comments TROPONIN-I (test code = TROPI) NG/ML 0.0-0.045 RECOLLECTION NEEDED ON 02/16/20 AT 0648 BY Z.LAB.CKREASON: SPECIMEN HEMOLYZEDNOTIFIED PATIENT CARE STAFF: NARGIS HymanBASIC METABOLIC [id number] 08:55:00 Test Item Value Reference Range Interpretation Comments SODIUM (test code = NA) 134 MMOL/L 137-145 L POTASSIUM (test code = K) 4.7 MMOL/L 3.5-5.1 N CHLORIDE (test code = CL) 94 MMOL/L 98-107 L CARBON DIOXIDE (test code = CO2) MMOL/L 22-30 GLUCOSE (test code = GLU) MG/DL 74-106 BLOOD UREA NITROGEN (test code = MG/DL 7-17 BUN) GLOMERULAR FILTRATION RATE (test code = GFR) CREATININE (test code = CREAT) MG/DL 0.52-1.04 CALCIUM (test code = CA) MG/DL 8.7-9.7 RECOLLECTION NEEDED ON 02/16/20 AT 0648 BY Z.LAB.CKREASON: SPECIMEN HEMOLYZEDNOTIFIED PATIENT CARE STAFF: NARGIS HymanLIPID PROFILE (CORONARY RISK) 2020-02-16 08:55:00 Test Item Value Reference Range Interpretation Comments TRIGLYCERIDES (test code = TRIG) MG/DL CHOLESTEROL (test code = CHOL) MG/DL <200 HDL CHOLESTEROL (test code = HDL) MG/DL 40-59 LIPOPROTEIN LDL (test code = LDL) MG/DL 0-99 RECOLLECTION NEEDED ON 02/16/20 AT 0648 BY ShaqLAB.CKREASON: SPECIMEN HEMOLYZEDNOTIFIED PATIENT CARE STAFF: NARGIS HymanSOTYDQGA-[id number] 08:55:00 Test Item Value Reference Range Interpretation Comments TROPONIN-I (test code = TROPI) NG/ML 0.0-0.045 RECOLLECTION NEEDED ON 02/16/20 AT 0648 BY FAREED.CKREASON: SPECIMEN HEMOLYZEDNOTIFIED PATIENT CARE STAFF: NARGIS HymanBASIC METABOLIC [id number] 01:23:00 Test Item Value Reference Range Interpretation Comments SODIUM (test code = 137 MMOL/L 137-145 N NA) POTASSIUM (test code = 3.7 MMOL/L 3.5-5.1 N K) CHLORIDE (test code = 96 MMOL/L 98-107 L CL) CARBON DIOXIDE (test 34 MMOL/L 22-30 H code = CO2) ANION GAP (test code = 11 MMOL/L 14-24 L GAP) GLUCOSE (test code = 337 MG/DL 74-106 HH CALLED TO NARGIS Hyman& GLU) READBACK ON 06/29 AT 0115 BY Adonis Matos er BLOOD UREA NITROGEN 28 MG/DL 7-17 H (test code = BUN) GLOMERULAR FILTRATION 34 Report ing units: RATE (test code = GFR) ml/mi n/1.73 m2 (Modified MDRD Formula)Referen ce Range: > or = 6 0 ml/min/1.73 m2 CREATININE (test code 1.80 MG/DL 0.52-1.04 H = CREAT) CALCIUM (test code = 9.4 MG/DL 8.4-10.2 N CA) [id number] 01:23:00 Test Item Value Reference Range Interpretation Comments MAGNESIUM (test code = MAG) 1.6 MG/DL 1.6-2.3 N [id number] 01:23:00 Test Item Value Reference Range Interpretation Comments TROPONIN-I (test 1.460 NG/ML 0.012-0.033 HH CALLED TO Samra Hyman& code = TROPI) READBACK ON AT 0123 BY Adonis Matos BASIC METABOLIC [id number] 01:15:00 Test Item Value Reference Range Interpretation Comments SODIUM (test code = 137 MMOL/L 137-145 N NA) POTASSIUM (test code = 3.7 MMOL/L 3.5-5.1 N K) CHLORIDE (test code = 96 MMOL/L 98-107 L CL) CARBON DIOXIDE (test 34 MMOL/L 22-30 H code = CO2) ANION GAP (test code = 11 MMOL/L 14-24 L GAP) GLUCOSE (test code = 337 MG/DL 74-106 HH CALLED TO NARGIS Hyman& GLU) READBACK ON 06/29 AT 0115 BY Adonis Matos er BLOOD UREA NITROGEN 28 MG/DL 7-17 H (test code = BUN) GLOMERULAR FILTRATION 34 Report ing units: RATE (test code = GFR) ml/mi n/1.73 m2 (Modified MDRD Formula)Referen ce Range: > or = 6 0 ml/min/1.73 m2 CREATININE (test code 1.80 MG/DL 0.52-1.04 H = CREAT) CALCIUM (test code = 9.4 MG/DL 8.4-10.2 N CA) [id number] 01:15:00 Test Item Value Reference Range Interpretation Comments MAGNESIUM (test code = MAG) 1.6 MG/DL 1.6-2.3 N [id number] 01:15:00 Test Item Value Reference Range Interpretation Comments TROPONIN-I (test code = TROPI) NG/ML 0.0-0.045 PTT [id number] 01:15:00 Test Item Value Reference Range Interpretation Comments PTT ACTIVATED (test 66.0 SECONDS 25.1-36.5 HH CALLED T Jaden Hyman & code = APTT) READBACK ON 06/29 AT 0114 BY Roberto Covington CBC W/AUTO [id number] 01:02:00 Test Item Value Reference Range Interpretation Comments WHITE BLOOD CELL (test code = 12.3 K/MM3 3.8-9.8 H WBC) RED BLOOD CELL (test code = 4.47 M/MM3 3.58-4.97 N RBC) HEMOGLOBIN (test code = HGB) 11.1 G/DL 11.2-14.9 L HEMATOCRIT (test code = HCT) 36.4 % 33.2-43.5 N MEAN CELL VOLUME (test code = 81 fL 80.7-99.1 N MCV) MEAN CELL HGB (test code = MCH) 24.8 pg 27.0-34.1 L MEAN CELL HGB CONCETRATION 30.5 % 32.2-35.7 L (test code = MCHC) RED CELL DISTRIBUTION WIDTH 17.1 % 12.1-15.2 H (test code = RDW) PLATELET COUNT (test code = 325 K/MM3 129-368 N PLT) MEAN PLATELET VOLUME (test code 9.3 fl 7.4-10.4 N = MPV) NEUTROPHIL % (test code = NT%) 76.3 % 43-75 H IMMATURE GRANULOCYTE % (test 0.4 % 0.0-2.0 N code = IG%) LYMPHOCYTE % (test code = LY%) 15.0 % 14-44 N MONOCYTE % (test code = MO%) 5.0 % 4-13 N EOSINOPHIL % (test code = EO%) 2.9 % 0-6 N BASOPHIL % (test code = BA%) 0.4 % 0-2 N NUCLEATED RBC % (test code = 0.0 % 0-1.0 N NRBC%) NEUTROPHIL # (test code = NT#) 9.38 K/mm3 2.0-7.6 H IMMATURE GRANULOCYTE # (test 0.05 x10 3/uL 0-0.03 H code = IG#) LYMPHOCYTE # (test code = LY#) 1.84 K/mm3 1.0-3.8 N MONOCYTE # (test code = MO#) 0.62 K/mm3 0.1-0.8 N EOSINOPHIL # (test code = EO#) 0.36 K/mm3 0.0-0.2 H BASOPHIL # (test code = BA#) 0.05 K/mm3 0.0-0.2 N NUCLEATED RBC # (test code = 0.00 K/mm3 0.0-0.1 N NRBC#) BASIC METABOLIC [id number] 01:01:00 Test Item Value Reference Range Interpretation Comments SODIUM (test code = NA) 137 MMOL/L 137-145 N POTASSIUM (test code = K) 3.7 MMOL/L 3.5-5.1 N CHLORIDE (test code = CL) 96 MMOL/L 98-107 L CARBON DIOXIDE (test code = CO2) MMOL/L 22-30 GLUCOSE (test code = GLU) MG/DL 74-106 BLOOD UREA NITROGEN (test code = MG/DL 7-17 BUN) GLOMERULAR FILTRATION RATE (test code = GFR) CREATININE (test code = CREAT) MG/DL 0.52-1.04 CALCIUM (test code = CA) MG/DL 8.7-9.7 [id number] 01:01:00 Test Item Value Reference Range Interpretation Comments MAGNESIUM (test code = MAG) MG/DL 1.6-2.3 [id number] 01:01:00 Test Item Value Reference Range Interpretation Comments TROPONIN-I (test code = TROPI) NG/ML 0.0-0.045 GLUCOSE BEDSIDE [id number] 21:29:00 Test Item Value Reference Range Interpretation Comments GLUCOSE BEDSIDE TESTING (test code 255 MG/DL 60-99 H = GLUBED) [id number] 19:17:00 Test Item Value Reference Range Interpretation Comments TROPONIN-I (test 3.080 NG/ML 0.012-0.033 HH CALLED TO Yari Sanchez& code = TROPI) READBACK ON AT 1917 BY Nghia Caldera PTT [id number] 19:04:00 Test Item Value Reference Range Interpretation Comments PTT ACTIVATED (test code = APTT) 59.1 SECONDS 25.1-36.5 H [id number] 15:25:00 Test Item Value Reference Range Interpretation Comments TROPONIN-I (test 3.080 NG/ML 0.012-0.033 HH CALLED TO Yari PIMENTEL& code = TROPI) READBACK ON AT 1525 BY Lynnette Tam LIPOPROTEIN LDL [id number] 13:05:00 Test Item Value Reference Range Interpretation Comments LIPOPROTEIN LDL DIRECT 141 mg/dL 100-129 H ===== (test code = LDLDIR) ======= ====R eference Interv al: mg/dL mmol/L-------- ----- ----- ----- ------Optimal < 100 <2.6Near/above optimal 100-129 2.6-3.3Borderli ne High 130-159 3.4-4.1High 160-189 4.1-4.9Very Hig h >=190 >=4.9========= This LDL result is a direct measurement.=== ===== = [id number] 13:05:00 Test Item Value Reference Range Interpretation Comments TROPONIN-I (test 2.370 NG/ML 0.012-0.033 HH CALLED TO Patricia VILLAR& code = TROPI) READBACK ON AT 1228 BY Mohinder Wilkinson GLUCOSE BEDSIDE [id number] 12:46:00 Test Item Value Reference Range Interpretation Comments GLUCOSE BEDSIDE TESTING (test code 285 MG/DL 60-99 H = GLUBED) LIPOPROTEIN LDL [id number] 12:28:00 Test Item Value Reference Range Interpretation Comments LIPOPROTEIN LDL DIRECT (test code = mg/dL 100-129 LDLDIR) [id number] 12:28:00 Test Item Value Reference Range Interpretation Comments TROPONIN-I (test 2.370 NG/ML 0.012-0.033 HH CALLED TO Patricia VILLAR& code = TROPI) READBACK ON AT 1228 BY Mohinder Wilkinson BASIC METABOLIC [id number] 07:31:00 Test Item Value Reference Range Interpretation Comments SODIUM (test code = 137 MMOL/L 137-145 N NA) POTASSIUM (test code = 4.1 MMOL/L 3.5-5.1 N K) CHLORIDE (test code = 100 MMOL/L 98-107 N CL) CARBON DIOXIDE (test 32 MMOL/L 22-30 H code = CO2) GLUCOSE (test code = 245 MG/DL 74-106 H GLU) BLOOD UREA NITROGEN 19 MG/DL 7-17 H (test code = BUN) GLOMERULAR FILTRATION 42 Report ing units: RATE (test code = GFR) ml/mi n/1.73 m2 (Modified MDRD Formula)Referen ce Range: > or = 6 0 ml/min/1.73 m2 CREATININE (test code 1.50 MG/DL 0.52-1.04 H = CREAT) CALCIUM (test code = 9.2 MG/DL 8.4-10.2 N CA) BASIC METABOLIC [id number] 07:30:00 Test Item Value Reference Range Interpretation Comments SODIUM (test code = 137 MMOL/L 137-145 N NA) POTASSIUM (test code = 4.1 MMOL/L 3.5-5.1 N K) CHLORIDE (test code = 100 MMOL/L 98-107 N CL) CARBON DIOXIDE (test 32 MMOL/L 22-30 H code = CO2) GLUCOSE (test code = 245 MG/DL 74-106 H GLU) BLOOD UREA NITROGEN 19 MG/DL 7-17 H (test code = BUN) GLOMERULAR FILTRATION 42 Report ing units: RATE (test code = GFR) ml/mi n/1.73 m2 (Modified MDRD Formula)Referen ce Range: > or = 6 0 ml/min/1.73 m2 CREATININE (test code 1.50 MG/DL 0.52-1.04 H = CREAT) CALCIUM (test code = MG/DL 8.7-9.7 CA) BASIC METABOLIC [id number] 07:27:00 Test Item Value Reference Range Interpretation Comments SODIUM (test code = NA) 137 MMOL/L 137-145 N POTASSIUM (test code = K) 4.1 MMOL/L 3.5-5.1 N CHLORIDE (test code = CL) 100 MMOL/L 98-107 N CARBON DIOXIDE (test code = CO2) MMOL/L 22-30 GLUCOSE (test code = GLU) MG/DL 74-106 BLOOD UREA NITROGEN (test code = MG/DL 7-17 BUN) GLOMERULAR FILTRATION RATE (test code = GFR) CREATININE (test code = CREAT) MG/DL 0.52-1.04 CALCIUM (test code = CA) MG/DL 8.7-9.7 PROTHROMBIN [id number] 06:44:00 Test Item Value Reference Range Interpretation Comments PROTHROMBIN TIME 11.3 SECONDS 9.4-12.5 N PATIENT (test code = PTP) INTERNATIONAL NORMAL 1.0 The INR is to be RATIO (test code = used only for INR) monitoring oral anticoagulantth erap y. INDICATION I NR VALUE ---- ---- ---- -------1. Prophylaxis, de ep venous thrombos is, including hig h risk surgery. 2.0 - 3.0 2. Prophylaxis, de ep venous thrombos is, hip surgery, treatment for d eep venous thrombosis or pulmonary prevention of systemic emboli sm in patients wit h valvular heart disease, atrial fibrillation, tissue heart va lve, or acute myocar dial infarction. 2.0 - 3 .0 3. Mechanical prosthesis hear t valves, recurrent syste rodriguez embolism. 3.0 - 4.5 PTT [id number] 06:44:00 Test Item Value Reference Range Interpretation Comments PTT ACTIVATED (test code = APTT) 35.7 SECONDS 25.1-36.5 N CBC W/AUTO [id number] 06:38:00 Test Item Value Reference Range Interpretation Comments WHITE BLOOD CELL (test code = 10.2 K/MM3 3.8-9.8 H WBC) RED BLOOD CELL (test code = 4.21 M/MM3 3.58-4.97 N RBC) HEMOGLOBIN (test code = HGB) 10.3 G/DL 11.2-14.9 L HEMATOCRIT (test code = HCT) 34.5 % 33.2-43.5 N MEAN CELL VOLUME (test code = 82 fL 80.7-99.1 N MCV) MEAN CELL HGB (test code = MCH) 24.5 pg 27.0-34.1 L MEAN CELL HGB CONCETRATION 29.9 % 32.2-35.7 L (test code = MCHC) RED CELL DISTRIBUTION WIDTH 17.2 % 12.1-15.2 H (test code = RDW) PLATELET COUNT (test code = 275 K/MM3 129-368 N PLT) MEAN PLATELET VOLUME (test code 8.8 fl 7.4-10.4 N = MPV) NEUTROPHIL % (test code = NT%) 70.4 % 43-75 N IMMATURE GRANULOCYTE % (test 0.4 % 0.0-2.0 N code = IG%) LYMPHOCYTE % (test code = LY%) 19.7 % 14-44 N MONOCYTE % (test code = MO%) 5.5 % 4-13 N EOSINOPHIL % (test code = EO%) 3.3 % 0-6 N BASOPHIL % (test code = BA%) 0.7 % 0-2 N NUCLEATED RBC % (test code = 0.0 % 0-1.0 N NRBC%) NEUTROPHIL # (test code = NT#) 7.14 K/mm3 2.0-7.6 N IMMATURE GRANULOCYTE # (test 0.04 x10 3/uL 0-0.03 H code = IG#) LYMPHOCYTE # (test code = LY#) 2.00 K/mm3 1.0-3.8 N MONOCYTE # (test code = MO#) 0.56 K/mm3 0.1-0.8 N EOSINOPHIL # (test code = EO#) 0.34 K/mm3 0.0-0.2 H BASOPHIL # (test code = BA#) 0.07 K/mm3 0.0-0.2 N NUCLEATED RBC # (test code = 0.00 K/mm3 0.0-0.1 N NRBC#) GLUCOSE BEDSIDE [id number] 04:03:00 Test Item Value Reference Range Interpretation Comments GLUCOSE BEDSIDE TESTING (test code 201 MG/DL 60-99 H = GLUBED)
--- OUTSIDE RECORDS SUMMARY | 2020-03-06 21:21 | XMS REPORT | Summary of Care ---
:1950 Author Organization [facility] Address [address] [place] [id number] Care Team Providers Name Role Phone MD Johnny Primary Care Provider Reason for Referral (Routine) Status Reason Specialty Diagnoses / Referred By Referred To Procedures Contact Contact New Request Procedures Maxine Espino UNILATERAL VENOUS DUPLEX UPPER BY [address] [facility] [place] [id number] Radiology Services (STAT) Status Reason Specialty Diagnoses / Referred By Referred To Procedures Contact Contact New Request Diagnostic Diagnoses Chest pain, unspecified type Maxine Espino Radiology Procedures XR CHEST 1 LETI Acosta MD [address] [place] [id number] Reason for Visit Reason Comments Chest Pain Auth/Cert Status Reason Specialty Diagnoses / Referred By Referred To Procedures Contact Contact Emergency Medicine [facility] [address] [place] [address] [place] [phone] Fax: Encounter Details Date Type Department Care Team Description 02/14/2020 - Emergency [facility] Maxine Espino NSTEMI (n on-ST elevated myocardial infarction) (Primary Dx); 02/15/2020 Department Chest pain, unspecified type; [address] Edema, unspecified type; [place] [address] [id number] Uncontrolled type 2 diabetes mellitus wi th hyperglycemia; [phone] JESSICAJESS SIMPSON Chronic kidney disease, unspecified CKD stage; [address] Chronic anemia; [phone] Abnormal serum lipase level Allergies Active Allergy Reactions Severity Noted Date Comments Influenza Virus Vaccine [facility] 2011- Other - See comments Medium 04/23/2015 Blisters (18+) Cell Micky Penicillins Hives 06/02/2015 documented as of this encounter (statuses as of 02/15/2020) Medications Medication Sig Dispensed Refills Start Date End Date Status CLOPIDOGREL 75 MG ORAL 1 Tab Oral 30 2 02/16/2006 Active TAB DAILY HYDROCHLOROTHIAZIDE 25 1 Tab Oral 30 2 02/16/2006 Active MG ORAL TAB DAILY ASPIRIN 81 MG ORAL CHEW 1 Tab Oral 30 2 02/16/2006 Active DAILY ENALAPRIL MALEATE 20 MG 1 Tab Oral 1 month 2 02/16/2006 Active ORAL TAB bid amitriptyline (ELAVIL) Take 50 mg 0 Active 50 mg tablet by mouth at bedtime. baclofen (LIORESAL) 10 Take 10 mg 0 Active mg tablet by mouth daily. carvedilol (COREG) 25 mg Take 25 mg 0 Active tablet by mouth 2 (two) times daily. cloniDINE (CATAPRES) 0.1 Take 0.1 mg 0 Active mg tablet by mouth 3 (three) times daily. insulin lispro (HUMALOG inject 5 0 Active KWIKPEN) 100 unit/mL pen Units under injector the skin 3 (three) times daily. hydralAZINE (APRESOLINE) Take 25 mg 0 Active 25 mg tablet by mouth 3 (three) times daily. Insulin Glargine (LANTUS inject 40 0 Active SOLOSTAR) 100 unit/mL (3 Units under mL) InPn the skin at bedtime. LORazepam (ATIVAN) 1 mg Take 1 mg by 0 Active tablet mouth daily. losartan (COZAAR) 100 mg Take 100 mg 0 Active tablet by mouth daily. pravastatin (PRAVACHOL) Take 40 mg 0 Active 40 mg tablet by mouth daily. linagliptin (TRADJENTA) Take 5 mg by 0 Active 5 mg Tab mouth daily. zolpidem (AMBIEN) 10 mg Take 10 mg 0 Active tablet by mouth at bedtime. famotidine (PEPCID) 20 Take 1 Tab 30 Tab 2 06/04/2015 Active mg tablet by mouth at bedtime. isosorbide dinitrate Take 1 Tab 60 Tab 2 06/04/2015 Active (ISORDIL) 20 mg tablet by mouth 2 (two) times daily. METFORMIN 500 MG ORAL 1 Tab Oral 60 2 02/16/2006 Discontinued TAB BID MEALS 20 Ferrous Sulfate, Dried Take 1 Tab 0 Discontinued (SLOW RELEASE IRON) 160 by mouth 20 mg (50 mg iron) TbSR daily. nystatin-triamcinolone Apply to 0 0 Discontinued (MYCOLOG) cream area(s) at [address] 1 Tab 25 Bottle 3 06/04/2015 02/14/20 Dis continued (NITROSTAT) 0.4 mg under the 20 sublingual tablet tongue every 5 (five) minutes as needed for Chest pain. documented as of this encounter (statuses as of 02/15/2020) Active Problems Problem Noted Date Altered mental status 11/11/2019 Morbid obesity with body mass index of 40.0-49.9 11/11 Morbid obesity with body mass index of 50 or higher Diabetes 11/11/2016 Chest pain at rest 06/03/2015 documented as of this encounter (statuses as of 02/15/2020) Social History Tobacco Use Types Packs/Day Years Used Date Passive Smoke Exposure - Never Smoker Smokeless Tobacco: Never Used Alcohol Use Drinks/Week oz/Week Comments No Sex Assigned at Date Recorded Not on file Job Start Date Occupation Industry Not on file Not on file Not on file Travel History Travel Start Travel End No recent travel history available. COVID-19 Exposure Response Date Recorded In the last month, have you been in contact with No / Unsure 02/14/2020 8:59 PM CDT someone who was confirmed or suspected to have Coronavirus / COVID-19? documented as of this encounter Last Filed Vital Signs Vital Sign Reading Time Taken Comments Blood Pressure 194/81 02/14/2020 11:00 PM CDT Pulse 73 02/14/2020 11:00 PM CDT Temperature 37 C (98.6 F) 02/14/2020 7:59 PM CDT Respiratory Rate 17 02/14/2020 11:00 PM CDT Oxygen Saturation 100% 02/14/2020 11:00 PM CDT Inhaled Oxygen Concentration - - Weight 104.3 kg (230 lb) 02/14/2020 7:59 PM CDT Height 157.5 cm (5' 2") 02/14/2020 7:59 PM CDT Body Mass Index 42.07 02/14/2020 7:59 PM CDT documented in this encounter Plan of Treatment Health Maintenance Due Date Last Done Comments HEPATITIS C (HCV) SCREEN 1950 EYE EXAM 1962 DTaP,Tdap,and Td Vaccines (1 - 1963 Tdap) FOOT EXAM 1970 COLONOSCOPY 2002 Zoster Recombinant Vaccine 2002 (SHINGRIX) (1 of 2) URINE MICROALBUMIN 05/13/2005 05/13/2004 LDL-C 05/29/2016 05/29/2015, 02/21/2006, 05/13/2004 Medicare Wellness Visit 2017 PNEUMOCOCCAL VACCINES 65+ (1 of 2 2017 - PCV13) Breast Cancer Screening 04/09/2020 04/09/2019 (MAMMOGRAM) HgA1C 05/11/2020 11/11/2019, 05/29/2015, 02/21/2006 INFLUENZA VACCINE (Season Ended) 2020 CREATININE (SERUM) 12/12/2020 12/13/2019, 11/11/2019, 11/12/2016, Additional history exists Osteoporosis Screening 04/09/2029 04/09/2019 documented as of this encounter Implants Implanted Type Area Cane Weigher Helper Device Shelf Model / Serial Identifier Expiration / Lot Date Lens LENS Right: Javier 09/08/2019 [id number] / Implanted: Qty: 1 on 05/01/2015 by Hugo Laguerre MD at [facility] Eye 7 [id number] / [id number] Lens LENS Left: Eye Javier 02/07/2019 [id number] / Implanted: Qty: 1 on 07/24/2015 by Hugo Laguerre MD at [facility] 3 [id number] / [id number] documented as of this encounter Procedures Procedure Name Priority Date/Time Associated Diagnosis Comme nts CRITICAL CARE Routine 02/14/2020 11:29 Results fo r this PM CDT procedure are i n the results section. TROPONIN I STAT 02/14/2020 9:46 Chest pain, Results for this PM CDT unspecified type procedure a re in the results section. UNILATERAL VENOUS Routine 02/14/2020 9:11 DUPLEX UPPER BY PM CDT VASCULAR LAB XR CHEST 1 VW STAT 02/14/2020 8:43 Chest pain, Results fo r this PM CDT unspecified type procedure a re in the results section. CORONAVIRUS COVID-19 STAT 02/14/2020 8:07 Chest pain, Res ults for this TESTING PM CDT unspecified type procedure a re in the results section. CBC WITH DIFFERENTIAL STAT 02/14/2020 8:03 Chest pain, Re sults for this PM CDT unspecified type procedure a re in the results section. N-TERMINAL PRO-BNP STAT 02/14/2020 8:03 Chest pain, Resul ts for this PM CDT unspecified type procedure a re in the results section. PROTHROMBIN TIME / STAT 02/14/2020 8:03 Chest pain, Resul ts for this INR PM CDT unspecified type procedure a re in the results section. CBC WITH DIFFERENTIAL STAT 02/14/2020 8:03 Chest pain, Re sults for this PM CDT unspecified type procedure a re in the results section. COMP. METABOLIC PANEL STAT 02/14/2020 8:03 Chest pain, Re sults for this (40162) PM CDT unspecified type procedure a re in the results section. TROPONIN I STAT 02/14/2020 8:03 Chest pain, Results for this PM CDT unspecified type procedure a re in the results section. LIPASE STAT 02/14/2020 8:03 Chest pain, Results for this PM CDT unspecified type procedure a re in the results section. EKG-12 LEAD Routine 02/14/2020 8:01 PM CDT documented in this encounter Results Critical Care (02/14/2020 11:29 PM CDT) Narrative Performed At Maxine Espino MD 02/14/2020 11:3 0 PM Critical Care Performed by: Maxine Espino MD Authorized by: Maxine Espino MD Critical care provider statement: Critical care end time: 02/14/2020 11 :29 PM Critical care time was exclusive of: Separately b illable procedures and treating other patients and teaching maverick florentino Critical care was necessary to treat or prevent imminent or life-threatening deterioration of the fo llowing conditions: Cardiac failure Critical care was time spent personal ly by me on the following activities: Development of treatment p janessa with patient or surrogate, discussions with consultants, evaluation of patient's response to treatment, examination of patient, inter pretation of cardiac output measurements, obtaining history from pat ient or surrogate, ordering and performing treatments and interventions, ordering and review of laboratory studies, ordering and review of radiogra phic studies, pulse oximetry, re-evaluation of patient's condition and review of old charts I assumed direction of critical care for this patient from another provider in my specialty: no TROPONIN I (02/14/2020 9:46 PM CDT) Pathologist Sig nature TROPONIN I 0.071 (H) <=0.034 ng/mL [facility] Specimen Blood - VENOUS Narrative Performed At Equal or Less than 0.034 ng/ml---Normal [facility] Note: Cardiac troponin begins to rise 3-4 hours after the onset of ischemia. Repeat in 4-6 hours if the sample was drawn within 3-4 hours of the onset of the symptom and found normal. Between 0.035 and 0.120 ng/mL--- Borderline. Questionable myocardial injury or necros is Note: Serial measurement may be necessary to confirm or exclude the diagnosis of myocardial injury or necrosis; Clinical correlation (symptoms, EKGs, imaging studies, and others) required; Repeat in 4-6 hours if clinically indicated. Equal or Higher than 0.121 ng/mL---Abnormal. Myocardial Injury or Necrosis Likely Biotin has been reported to cause a negative bias, interpret results relative to patient's use of biotin. Performing Organization Address City/State/Zipcode Phone Number [facility] CLIA: [id number], [address] [place], [place] [address] XR CHEST 1 VW (02/14/2020 8:43 PM CDT) Specimen Impressions Performed At PACS/VR/DOSE Mild cardiomegaly. Mild pulmonary vascular congestion. Preliminary Report Dictated by Resident: nAdreas Chung I, Sherif Stephens MD., have reviewed thi s study and agree with the above report. Narrative Performed At EXAM: XR CHEST 1 VW PACS/VR/DOSE HISTORY: Chest Pain COMPARISON: Chest radiograph 11/11/2019 FINDINGS: Mild pulmonary vascular congestion is present. Subsegm ental atelectasis in the left lung base is noted. No pleural effusion or pneumothorax is identified. The heart is mildly enlarged. Atheroscle rotic calcifications are seen in the aortic arc. No acute bony abnormalities are noted. Degenerative ch anges are seen in the thoracic spine. Procedure Note [facility], Radiant Results Inft User - 2019 9:25 PM CDT EXAM: XR CHEST 1 VW HISTORY: Chest Pain COMPARISON: Chest radiograph 11/11/2019 FINDINGS: Mild pulmonary vascular congestion is pr esent. Subsegmental atelectasis in the left lung base is noted. No pleural effusion or pneumothorax is identified. The heart is mildly enlarged. Atheroscle rotic calcifications are seen in the aortic arc. No acute bony abnormalities are noted. D egenerative changes are seen in the thoracic spine. IMPRESSION Mild cardiomegaly. Mild pulmonary vascular congestion. Preliminary Report Dictated by Resident: Andreas Chung I, Sherif Stephens MD., have reviewed this study and agree with the above report. Performing Organization Address [facility] Phone Number PACS/VR/DOSE CORONAVIRUS COVID-19 TESTING (02/14/2020 8:07 PM CDT) Pathologist Sig nature SARS-CoV-2 Not Detected Not Detected [facility] Specimen Swab - NASOPHARYNGEAL SWAB Narrative Performed At ID NOW COVID-19 Assay is an isothermal nucleic [facility] acid amplification test intended for the qualitative detection of nucleic acid from SARS-CoV-2 viral RNA in nasopharyngeal (FIELD SERVICE TECHNICIAN) specimens. It is used under Emergency Use Authorization (EUA) by FDA. The limit of detection (LOD) of the assay is 125 Genome Equivalents/mL. A positive result is indicative of the presence of SARS-CoV-2 RNA. Clinical correlation with patient history and other diagnostic information is necessary to determine patient infection status. A negative (Not Detected) result does not preclude SARS-CoV-2 infection. Clinical correlation with patient history and other diagnostic information should be used in patient management decisions. Invalid: Please collect a new specimen for repeat patient testing if clinically indicated. Performing Organization Address [facility]/Zipcode Phone Number [facility] CLIA: [id number], [address] [place] [address] CBC WITH DIFFERENTIAL (02/14/2020 8:03 PM CDT) [facility] WBC 9.26 4.30 - 11.10 [facility] 10*3/L [facility] RBC 4.29 3.93 - 5.25 [facility] 10*6/L [facility] HGB 10.8 (L) 11.6 - 15.0 [facility] g/dL [facility] HCT 34.5 (L) 35.7 - 45.2 % [facility] MCV 80.4 (L) 80.6 - 95.5 fL [facility] MCH 25.2 (L) 25.9 - 32.8 pg [facility] MCHC 31.3 (L) 31.6 - 35.1 [facility] g/dL [facility] RDW-SD 48.4 39.0 - 49.9 fL [facility] RDW-CV 16.9 (H) 12.0 - 15.5 % [facility] PLT 316 166 - 358 [facility] 10*3/L [facility] MPV 8.9 (L) 9.5 - 12.9 fL [facility] NRBC/100 WBC 0.0 0.0 - 10.0 /100 [facility] WBCs [facility] NRBC x10^3 <0.01 10*3/L [facility] GRAN MAT (NEUT) % 69.5 % [facility] IMM GRAN % 0.60 % [facility] LYMPH % 20.5 % [facility] MONO % 5.2 % [facility] EOS % 3.8 % [facility] BASO % 0.4 % [facility] GRAN MAT x10^3(ANC) 6.43 1.88 - 7.09 [facility] 10*3/uL [facility] IMM GRAN x10^3 0.06 0.00 - 0.06 [facility] 10*3/uL HOSPITAL LABORATORY LYMPH x10^3 1.90 1.32 - 3.29 [facility] 10*3/uL HOSPITAL LABORATORY MONO x10^3 0.48 0.33 - 0.92 [facility] 10*3/uL HOSPITAL LABORATORY EOS x10^3 0.35 0.03 - 0.39 [facility] 10*3/uL HOSPITAL LABORATORY BASO x10^3 0.04 0.01 - 0.07 [facility] 10*3/uL [facility] Specimen Blood - ARM, RIGHT Performing Organization Address [facility] Phone Number [facility] CLIA: [id number], [address] [place] [address] N-TERMINAL PRO-BNP (02/14/2020 8:03 PM CDT) Pathologist Sig nature NT-proBNP 961 (H) <=125 pg/mL [facility] Specimen Blood - ARM, RIGHT Narrative Performed At Biotin has been reported to cause a negative [facility] bias, interpret results relative to patient's use of biotin. Performing Organization Address [facility] Phone Number [facility] CLIA: [id number], [address] [place] [address] PROTHROMBIN TIME / INR (02/14/2020 8:03 PM CDT) PROTIME PATIENT 12.6 12.0 - 14.7 [facility] LABORATORY INR 1.0Comment: Normal [facility] INR <1.1; Warfarin [facility] Therapeutic range LABORATORY 2.0 to 3.0 or 2.5 to 3.5, depending upon the indications. Specimen Blood - ARM, RIGHT Performing Organization Address [facility] Phone Number [facility] CLIA: [id number], [address] [place] [address] TROPONIN I (02/14/2020 8:03 PM CDT) Pathologist Sig nature TROPONIN I <0.012 <=0.034 ng/mL [facility] Specimen Blood - ARM, RIGHT Narrative Performed At Equal or Less than 0.034 ng/ml---Normal [facility] Note: Cardiac troponin begins to rise 3-4 hours after the onset of ischemia. Repeat in 4-6 hours if the sample was drawn within 3-4 hours of the onset of the symptom and found normal. Between 0.035 and 0.120 ng/mL--- Borderline. Questionable myocardial injury or necros is Note: Serial measurement may be necessary to confirm or exclude the diagnosis of myocardial injury or necrosis; Clinical correlation (symptoms, EKGs, imaging studies, and others) required; Repeat in 4-6 hours if clinically indicated. Equal or Higher than 0.121 ng/mL---Abnormal. Myocardial Injury or Necrosis Likely Biotin has been reported to cause a negative bias, interpret results relative to patient's use of biotin. Performing Organization Address City/[facility] Phone Number [facility] CLIA: [id number], [address] [place], [place] [address] LIPASE (02/14/2020 8:03 PM CDT) Pathologist Sig nature LIPASE 587 (H) 0 - 220 U/L [facility] Specimen Blood - ARM, RIGHT Performing Organization Address [facility] Phone Number [facility] CLIA: [id number], [address] [place] [address] COMP. METABOLIC PANEL (59450) (02/14/2020 8:03 PM CDT) NA 142 135 - 145 [facility] mmol/L [facility] K 4.2 3.5 - 5.0 [facility] mmol/L [facility] CL 101 98 - 108 mmol/L [facility] CO2 TOTAL 31 23 - 31 mmol/L [facility] AGAP 10 2 - 16 [facility] BUN 22 7 - 23 mg/dL [facility] GLUCOSE 188 (H) 70 - 110 mg/dL [facility] CREATININE 1.51 (H) 0.50 - 1.04 [facility] mg/dL [facility] TOTAL BILI 0.3 0.1 - 1.1 mg/dL [facility] CALCIUM 10.0 8.6 - 10.6 [facility] mg/dL [facility] T PROTEIN 8.3 (H) 6.3 - 8.2 g/dL [facility] ALBUMIN 4.6 3.5 - 5.0 g/dL [facility] ALK PHOS 117 34 - 122 U/L [facility] ALTv 14 5 - 35 U/L [facility] AST(SGOT) 24 13 - 40 U/L [facility] eGFR Calculation 34.4 mL/min/1.73m2 [facility] [place]) eGFR Calculation 41.7 mL/min/1.73m2 [facility] () [facility] Specimen Blood - ARM, RIGHT Narrative Performed At [facility] of Glomerular Filtration Rate (GFR) [facility] LAB[facility] and Staging of Kidney Disease* + + +- + | GFR (mL/min/1.73 m2) | With Kidney Damage | Without Kidney Damage + + +- + | >90 | Stage one | Normal + + +- + | 60-89 | Stage two | Decreased GFR + + +- + | 30-59 | Stage three | Stage three + + +- + | 15-29 | Stage four | Stage four + + +- + | <15 (or dialysis) | Stage five | Stage five + + +- + *Each stage assumes the associated GFR level has been in effect for at least three months. Stages 1 to 5, with or without kidney disease, indicate chronic kidney disease. Notes: Determination of stages one and two (with eGFR >59mL/min/1.73 m2) requires estimation of kidney damage for at least three months as defined by structural or functional abnormalities of the kidney, manifested by either: Pathological abnormalities or Markers of kidney damage (including abnormalities in the composition of the blood or urine or abnormalities in imaging tests). Performing Organization Address City/State/Zipcode Phone Number [facility] CLIA: [id number], [address] [place], [place] [address] documented in this encounter Visit Diagnoses Diagnosis NSTEMI (non-ST elevated myocardial infar ction) - Primary Acute myocardial infarction, subendocard ial infarction, episode of care unspecified Chest pain, unspecified type Edema, unspecified type Uncontrolled type 2 diabetes mellitus wi th hyperglycemia Chronic kidney disease, unspecified CKD stage Chronic anemia Anemia, unspecified Abnormal serum lipase level Other nonspecific abnormal serum enzyme levels documented in this encounter Administered Medications Medication Order MAR Action Action Date Dose Rate Site aspirin chewable tablet 162 mg Given 02/14/2020 8:27 PM CDT 162 mg 162 mg, Oral, DAILY, First dose on Tue02/15/20 at 0900, Until Discontinued, Routine heparin (1,000 unit/mL, 10 mL vial) for Rebolusing FOR REBOLUSING, Starting Katie 02/14/20 at 2 306, Until Discontinued, Routine, Dosing based on aPTT testing parameters (refer to continuous heparin drip order)., heparin 25,000 unit/250 mL New Bag 02/14/2020 11:10 PM CDT 1,0 00 Units/hr 10 mL/hr (Premixed Bag) in NaCl 0.45 % weight based dosing ACS protocol 1,000 Units/hr (10 mL/hr), IV Infusion, CONTINUOUS, Starting Tue02/15/20 at 0015, Until Discontinued Medication Order MAR Action Action Date Dose Rate Site FENTanyl PF (SUBLIMAZE (PF)) Given 02/14/2020 8:28 PM CDT 50 mc g injection 50 mcg 50 mcg, Slow IV Push, ONCE, 1 dose, Katie 02/14/20 at 2130, Routine heparin 1000 unit/mL injection Soln Given 02/14/2020 11:11 PM CD T 4,000 Units 4,000 Units 4,000 Units, IV Push, ONCE, 1 dose, Katie 02/14/20 at 2315, Routine nitroglycerin (NITROSTAT) sublingual tablet Given 04/2020 8:27 PM CDT 0.4 mg 0.4 mg 0.4 mg, Sublingual, ONCE, 1 dose, Katie 02/14/20 at 2130, JUSTYNA ondansetron (ZOFRAN (PF)) injection 4 mg Given 02/14/2020 8:28 PM CDT 4 mg 4 mg, Slow IV Push, ONCE, 1 dose, Katie 02/14/20 at 2130, JUSTYNA documented in this encounter Insurance Payer Benefit Plan / Subscriber ID Effective Phone Address T ype Group Dates [facility] [id number] 2019-[place] Formerly [facility] - MEDICARE HMO MANAGED MEDICARE ADVANTAGE [phone] [id number] (Work) documented as of this encounter
[2020-03-06] MEDS: cloNIDine HCL 0.1 MG TAB PO SCH (21:53)
[2020-03-06] MEDS: GABAPENTIN 100 MG CAP PO SCH (21:53)
[2020-03-06] MEDS: HYDROCODONE/APAP 5/325 MG TAB PO PRN (21:54)
[2020-03-06] MEDS: ATORVASTATIN 40 MG TAB PO SCH (21:54)
[2020-03-07 02:04] LABS: Urine Appearance CLOUDY; Urine Bilirubin NEGATIVE (NEG); Urine Blood NEGATIVE (NEG); Urine Color YELLOW; Urine Glucose NEGATIVE (NEG); Urine Protein 3+ (NEG); Urine pH 6.5 (5.0-7.0)
[2020-03-07 02:54] LABS: Urine Bacteria 20-50 /HPF (<20)
[2020-03-07 02:55] LABS: Urine Culture Reflex Order NOT NEEDED; Urine Mucus 1+ /HPF (NONE SEEN)
[2020-03-07] MEDS: cloNIDine HCL 0.1 MG TAB PO SCH ×3 (05:17→19:59)
[2020-03-07 06:07] LABS: Absolute Lymphocytes (CBC) 1.2 K/uL (0.7-4.9); Basophils % 0.8 % (0-1.3); Lymphocytes % 12.7 % (15.3-44.8); RBC Red Blood Cell Count 3.34 M/uL (3.86-4.86)
[2020-03-07 06:52] LABS: Albumin 2.6 g/dL (3.4-5.0); Magnesium 2.1 mg/dL (1.8-2.4); Potassium 4.1 mmol/L (3.5-5.1); Prealbumin 14.9 mg/dL (20-40)
[2020-03-07] MEDS: INSULIN -REGULAR HUMAN 50 UNIT/0.5 ML ML SQ SCH ×4 (07:11→20:25)
[2020-03-07] MEDS ORDERED: RANITIDINE 150 MG TABLET PO SCH (08:00)
[2020-03-07] MEDS: LOSARTAN POTASSIUM 50 MG TABLET PO SCH ×2 (08:20→20:00)
[2020-03-07] MEDS: FUROSEMIDE 20 MG/ 2ML VIAL IV SCH (08:20)
[2020-03-07] MEDS: HYDROCODONE/APAP 5/325 MG TAB PO PRN ×2 (08:21→22:51)
[2020-03-07] MEDS: INSULIN GLARGINE 100 UNITS/ML SQ SCH (08:22)
[2020-03-07] MEDS: GABAPENTIN 100 MG CAP PO SCH ×2 (08:23→13:07)
[2020-03-07] MEDS: FERROUS SULFATE 325 MG TAB PO SCH (08:23)
[2020-03-07] MEDS: DOCUSATE NA 100 MG CAP PO SCH ×2 (08:23→19:59)
[2020-03-07] MEDS: ASPIRIN EC 81 MG TAB PO SCH (08:23)
[2020-03-07] MEDS: NIFEDIPINE XL 30 MG TABLET PO SCH ×2 (08:23→20:00)
[2020-03-07] MEDS: CLOPIDOGREL 75 MG TABLET PO SCH (08:24)
[2020-03-07] MEDS: ENOXAPARIN 30 MG/0.3 ML SQ SCH (08:24)
[2020-03-07] MEDS: VITAMIN D 5,000 UNIT CAP PO SCH (08:26)
[2020-03-07] MEDS: carvediloL 12.5 MG TAB PO SCH ×2 (09:26→19:59)
--- NOTE | 2020-03-07 09:43 | P.RH.PN ---
Estimated Length of Stay: 14 Expected Discharge Date: 02/22/20 Discharge Disposition Plan: Home Family Support: Yes Alf Goal: Mobility, Transfers, Self Care Vital Signs: Last Vital Signs Temp 97.0 F 03/07/20 07:08 Pulse 72 03/07/20 09:26 Resp 18 03/07/20 09:21 BP 134/62 03/07/20 09:26 Pulse Ox 95 03/07/20 09:21 Laboratory: Laboratory Last Values WBC 9.2 K/uL (4.3-10.9) 03/07/20 05:39 RBC 3.34 M/uL (3.86-4.86) L 03/07/20 05:39 Hgb 9.5 g/dL (12.0-15.0) L 03/07/20 05:39 Hct 28.0 % (36.0-45.0) L 03/07/20 05:39 MCV 83.9 fL (80-100) D 03/07/20 05:39 MCH 28.5 pg (27.0-35.0) D 03/07/20 05:39 MCHC 33.9 g/dL (32.0-36.0) 03/07/20 05:39 RDW 16.0 % (12.1-15.2) H 03/07/20 05:39 Plt Count 488 K/uL (152-406) H 03/07/20 05:39 MPV 7.0 fL (7.6-11.3) L 03/07/20 05:39 Neutrophils % 79.5 % (41.7-73.7) H 03/07/20 05:39 Lymphocytes % 12.7 % (15.3-44.8) L 03/07/20 05:39 Monocytes % 6.9 % (3.3-12.3) 03/07/20 05:39 Eosinophils % 0.1 % (0-4.4) 03/07/20 05:39 Basophils % 0.8 % (0-1.3) 03/07/20 05:39 Absolute Neutrophils 7.4 K/uL (1.8-8.0) 03/07/20 05:39 Absolute Lymphocytes 1.2 K/uL (0.7-4.9) 03/07/20 05:39 Absolute Monocytes 0.6 K/uL (0.1-1.3) 03/07/20 05:39 Absolute Eosinophils 0.0 K/uL (0-0.5) 03/07/20 05:39 Absolute Basophils 0.1 K/uL (0-0.5) 03/07/20 05:39 Sodium 141 mmol/L (136-145) 03/07/20 05:39 Potassium 4.1 mmol/L (3.5-5.1) 03/07/20 05:39 Chloride 106 mmol/L (98-107) 03/07/20 05:39 Carbon Dioxide 27 mmol/L (21-32) 03/07/20 05:39 BUN 20 mg/dL (7-18) H 03/07/20 05:39 Creatinine 1.54 mg/dL (0.55-1.3) H 03/07/20 05:39 Estimated GFR 41 mL/min (=/>90) L 03/07/20 05:39 Glucose 163 mg/dL (74-106) H 03/07/20 05:39 POC Glucose 146 mg/dL (65-120) H 03/07/20 07:01 Calcium 8.5 mg/dL (8.5-10.1) 03/07/20 05:39 Magnesium 2.1 mg/dL (1.8-2.4) 03/07/20 05:39 Albumin 2.6 g/dL (3.4-5.0) L 03/07/20 05:39 Prealbumin 14.9 mg/dL (20-40) L 03/07/20 05:39 Urine Color Yellow 03/07/20 01:07 Urine Appearance Cloudy 03/07/20 01:07 Urine pH 6.5 (5.0-7.0) 03/07/20 01:07 Ur Specific [place] 1.020 (1.005-1.030) 03/07/20 01:07 Glucose (UA)(Auto) Negative (NEG) 03/07/20 01:07 Urine Ketones Negative (NEG) 03/07/20 01:07 Urine Blood Negative (NEG) 03/07/20 01:07 Urine Nitrite Negative (NEG) 03/07/20 01:07 Urine Bilirubin Negative (NEG) 03/07/20 01:07 Urine Urobilinogen 1.0 mg/dL (0.2-1.0) 03/07/20 01:07 Ur Leukocyte Esterase Negative (NEG) 03/07/20 01:07 Urine RBC 5-10 /HPF (NONE SEEN) H 03/07/20 01:07 Urine WBC 10-20 /HPF (<5) H 03/07/20 01:07 Ur Squamous Epith Cells 10-20 /HPF (NONE SEEN) H 03/07/20 01:07 Urine Bacteria 20-50 /HPF (<20) H 03/07/20 01:07 Urine Mucus 1+ /HPF (NONE SEEN) 03/07/20 01:07 Urine Culture Reflexed Not needed 03/07/20 01:07 Urine Total Protein 3+ (NEG) H 03/07/20 01:07 Weight: 224 lb 6.4 oz Physician Update: 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 She walked 40' feet minimum assistance. She has a lot of pain at the chest and legs. Hgb 9.5 after receiving 2 units of PRBCs. She is on hemocyte plus and ferrous sulfate. Will repeat Hgb on Tuesday. Summary: Patient's care plan and shelter goals have been reviewed and revised as necessary. Please see the Rehabilitation Signature page for all necessary signatures.
--- NOTE | 2020-03-07 12:26 | FAST ---
SHIFT START DATE/TIME: 03/07/2020 07:00 (CDT) SHIFT END DATE/TIME: 03/07/2020 19:00 (CDT) NAME SALINA SERRATO DATE OF : 1950 DATE OF ADMISSION: 03/06/2020 18:55 (CDT) PHONE: AGE: 69 N# [id number] GENDER: Female ENCOUNTER PHYSICIAN: Dr. José Miguel Brennan M.D. ADMISSION DIAGNOSIS: - Cardiac 09 - Cardiac Disorders (09) CABG x 4. EATING: EATING - STEP 1: Does the patient complete the activity by him/herself with no assistance (physical, verbal/nonverbal cueing, setup/clean-up)? No. EATING - STEP 2: Does the patient need only setup/clean-up assistance from one helper? No. EATING - STEP 3: Does the patient need only verbal/nonverbal cueing or touching/steadying/contact guard assistance fro m one helper? Yes. 1. [id number] ADMISSION PERFORMANCE: Supervision or touching assistance CODE: 04 ORAL HYGIENE: ORAL HYGIENE - STEP 1: Does the patient complete the activity by him/herself with no assistance (physical, verbal/nonverbal cueing, setup/clean-up)? No. ORAL HYGIENE - STEP 2: Does the patient need only setup/clean-up assistance from one helper? No. ORAL HYGIENE - STEP 3: Does the patient need only verbal/nonverbal cueing or touching/steadying/contact guard assistance fro m one helper? Yes. 1. [id number] ADMISSION PERFORMANCE: Supervision or touching assistance CODE: 04 TOILETING HYGIENE: TOILETING HYGIENE - STEP 1: Does the patient complete the activity by him/herself with no assistance (physical, verbal/nonverbal cueing, setup/clean-up)? No. TOILETING HYGIENE - STEP 2: Does the patient need only setup/clean-up assistance from one helper? No. TOILETING HYGIENE - STEP 3: Does the patient need only verbal/nonverbal cueing or touching/steadying/contact guard assistance fro m one helper? Yes. 1. [id number] ADMISSION PERFORMANCE: Supervision or touching assistance CODE: 04 BATHING: SHOWER/BATHE SELF - STEP 1: Does the patient complete the activity by him/herself with no assistance (physical, verbal/nonverbal cueing, setup/clean-up)? No. SHOWER/BATHE SELF - STEP 2: Does the patient need only setup/clean-up assistance from one helper? No. SHOWER/BATHE SELF - STEP 3: Does the patient need only verbal/nonverbal cueing or touching/steadying/contact guard assistance fro m one helper? Yes. 1. [id number] ADMISSION PERFORMANCE: Supervision or touching assistance CODE: 04 DRESSING - UPPER BODY: Not assessed/no information CODE: - DRESSING - LOWER BODY: Not assessed/no information CODE: - PUTTING ON/TAKING OFF FOOTWEAR: Not assessed/no information CODE: - ROLL LEFT AND RIGHT: Not assessed/no information CODE: - SIT TO LYING: Not assessed/no information CODE: - LYING TO SITTING: Not assessed/no information CODE: - SIT TO STAND: SIT TO STAND - STEP 1: Does the patient complete the activity by him/herself with no assistance (physical, verbal/nonverbal cueing, setup/clean-up)? No. SIT TO STAND - STEP 2: Does the patient need only setup/clean-up assistance from one helper? No. SIT TO STAND - STEP 3: Does the patient need only verbal/nonverbal cueing or touching/steadying/contact guard assistance fro m one helper? Yes. 1. [id number] ADMISSION PERFORMANCE: Supervision or touching assistance CODE: 04 TRANSFERS: BED, CHAIR: CHAIR/[id number] TRANSFER - STEP 1: Does the patient complete the activity by him/herself with no assistance (physical, verbal/nonverbal cueing, setup/clean-up)? No. CHAIR/[id number] TRANSFER - STEP 2: Does the patient need only setup/clean-up assistance from one helper? No. CHAIR/[id number] TRANSFER - STEP 3: Does the patient need only verbal/nonverbal cueing or touching/steadying/contact guard assistance fro m one helper? No. CHAIR/[id number] TRANSFER - STEP 4: Does the patient need physical assistance - for example lifting or trunk support from one helper - wi th the helper providing less than half of the effort? Yes. 1. [id number] ADMISSION PERFORMANCE: Partial/moderate assistance CODE: 03 TRANSFER TOILET: TOILET TRANSFER - STEP 1: Does the patient complete the activity by him/herself with no assistance (physical, verbal/nonverbal cueing, setup/clean-up)? No. TOILET TRANSFER - STEP 2: Does the patient need only setup/clean-up assistance from one helper? No. TOILET TRANSFER - STEP 3: Does the patient need only verbal/nonverbal cueing or touching/steadying/contact guard assistance fro m one helper? No. TOILET TRANSFER - STEP 4: Does the patient need physical assistance - for example lifting or trunk support from one helper - wi th the helper providing less than half of the effort? Yes. 1. [id number] ADMISSION PERFORMANCE: Partial/moderate assistance CODE: 03 TRANSFERS: CAR: Not assessed/no information CODE: - WALK 10 FEET: Not assessed/no information CODE: - 1 STEP (CURB): Not assessed/no information CODE: - PICKING UP OBJECT: Not assessed/no information CODE: - DOES THE PATIENT USE A WHEELCHAIR/SCOOTER? CODE: EXPR WHEEL 50 FEET WITH TWO TURNS: Not assessed/no information CODE: - INDICATE THE TYPE OF WHEELCHAIR/SCOOTER USED: CODE: EXPR WHEEL 150 FEET: Not assessed/no information CODE: - INDICATE THE TYPE OF WHEELCHAIR/SCOOTER USED: CODE: EXPR BLADDER AND BOWEL: H350. BLADDER CONTINENCE (3-DAY ASSESSMENT PERIOD): Always continent (no documented incontinence) CODE: 0 H400. BOWEL CONTINENCE (3-DAY ASSESSMENT PERIOD): Always continent CODE: 0 SIGNATURE PANEL: The following modified sections: 1. [id number] Admission Performance, 1. [id number] Admission Performance, 1. [id number] Admission Performance, 1. [id number] Admission Performance, 1. [id number] Admission Performance, 1. [id number] Admission Performance, 1. [id number] Admission Performance, 1. [id number] Admission Performance , 1. [id number] Admission Performance, Code, H350. Bladder Continence (3-day assessment period), H400. B owel Continence (3-day assessment period) were [electronically] signed by Will Nickerson on TueMarch 07 20 20 12:26:04 GMT-0500 (Central Daylight Time)
[2020-03-07] MEDS: LIDOCAINE 4% PATCH TOP SCH (13:07)
[2020-03-07] MEDS ORDERED: GABAPENTIN 300 MG CAP PO SCH ×2 (14:00→21:00)
--- NOTE | 2020-03-07 14:20 | RAD REPORT ---
EXAM DESCRIPTION: USExtrem Venous W Compress Bil03/07/2020 2:08 pm CLINICAL HISTORY: Leg pain COMPARISON: none FINDINGS: The common femoral, superficial femoral, popliteal and left posterior tibial veins bilater ally are compressible and demonstrate augmentation. Right posterior tibial vein was not imaged Doppler demonstrates good flow. Two fluid collections are present within the inter right thigh largest measuring 4.5 centimeters IMPRESSION: No evidence of deep venous thrombosis involving either lower extremity. Two fluid collections within the inner right thigh probably hematomas
[2020-03-07] MEDS ORDERED: GABAPENTIN 100 MG CAP PO SCH (15:00)
--- NOTE | 2020-03-07 15:18 | R.HP ---
FACILITY: [facility] ENCOUNTER DATE AND TIME: 03/07/2020 15:06 (CDT) MR#: [id number] NAME SALINA SERRATO ADDRESS: [address] [place] [address]: [place] ZIP [address] PHONE: DATE OF : 1950 AGE: 69 SSN# [id number] GENDER: Female DEXTERITY Right-handed MARITAL STATUS RACE Black PRE-HOSPITAL LIVING SETTING 01 - Home (private home/apt. board/care, assisted living, custodial, transitional living) PRE-HOSPITAL LIVING WITH Other ENCOUNTER PHYSICIAN: Dr. José Miguel Brennan M.D. REFERRING DOCTOR: Dr Russel Hinse DATE OF ADMISSION: 03/06/2020 18:55 (CDT) REFERRING FACILITY [facility] HOME TYPE AND DETAILS: Type of home: single family house # of steps within the residence: 0 # of levels in the residence: 1 # of steps to enter the residence: 0 ONSET DATE: 02/15/2020 PRIMARY DIAGNOSIS-RELATED SURGERIES: CABG X 4 HISTORY OF PRESENT ILLNESS (HPI): Pt. is a 69 yo Right-handed black female. On 02/15/2020 she was admitted to [facility] with diagnosis CABG x 4. Her impairment category is Cardiac 09 - Cardiac Disorders (09). Pre-morbidly, Pt. was independent/mod-I in Transfers Control, Locomotion, and Self-Care; and she had good Balance, Social Cognition, Sphincter Control, and Communication. Currently, she has deficits of Transfers Control, Balance, Locomotion, Safety Awareness, and Self-Car e. Pt. is now referred to [facility] for acute in-patient rehabilitation in order to maximize patient's functional independence in activities of daily living, strength, ROM, and mobi lity. Patient has realistic goal of being discharged at assistance level 6-Geo to reside at Home with Nickolas wilson. 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 REVIEW OF SYSTEMS: - Gen No Chills Fatigue No Fever - Eyes No Double Vision No itchiness - ENMT No Difficulty Swallowing - CVS No Chest Discomfort No Chest Pain Fatigue No Weight Gain - Resp No Cough No Shortness of Breath - GI Continent No Abdominal Pain No Constipation No Diarrhea - Continent No Kidney Pain No Painful Urination No Urinary Urgency - MSK No Joint Pain Muscle Cramps Stiffness - Skin No Itching No Rash No Suspicious Lesions - Neuro Coordination Difficulty No Difficulty with Concentration No Memory Loss No Seizures Weakness - Psych No Anxiety No Depression No HIV Exposure No Persistent Infections No Seasonal Allergies - Endo No Cold/Heat Intolerance No Excessive Hunger No Excessive Thirst No Excessive Urination PHYSICAL EXAM - Gen Alert and awake Lying in bed No apparent distress Oriented to: person, time, and place - Skin Right and left medial leg vein harvest sites have good hemostasis without drainage. Will apply wet to dry dressing changes 2-3 times daily as needed. Normacephalic - Eyes No abnormalities - ENMT No abnormalities - Neck No abnormalities - CVS RRR - Chest Chest incision is healing with good hemostasis. - Resp Clear to auscultation - Abd Soft - GI Non distended Deferred - No abnormalities - Ext No significant edema - MSK 4+/5 weakness in both lower extremities. - Neuro 4/5 strength bilaterally lower extremities. - Psych No abnormalities VITAL SIGNS Temperature: 97.0 F SBP/DBP: 143/64 Pulse: 70 Resp: 14 NURSING: - Shower allowing shower ACTIVITIES OOB only with supervision QI SCORES: - Self-Care A. Eating 05-Setup or clean-up assistance B. Oral hygiene 05-Setup or clean-up assistance C. Toileting hygiene 03-Partial/moderate assistance E. Shower/bathe self 10-Not attempted due to environmental limitations F. Upper body dressing 02-Substantial/maximal assistance G. Lower body dressing 01-Dependent H. Putting on/taking off footwear 01-Dependent - Mobility A. Roll left and right 02-Substantial/maximal assistance B. Sit to lying 02-Substantial/maximal assistance C. Lying to sitting on side of bed 02-Substantial/maximal assistance D. Sit to stand 04-Supervision or touching assistance E. Chair/prt-hx-eykwf transfer 04-Supervision or touching assistance F. Toilet transfer 04-Supervision or touching assistance G. Car transfer 88-Not attempted due to medical condition or safety concerns I. Walk 10 feet 02-Substantial/maximal assistance J. Walk 50 feet with two turns 88-Not attempted due to medical condition or safety concerns K. Walk 150 feet 88-Not attempted due to medical condition or safety concerns L. Walking 10 feet on uneven surfaces 88-Not attempted due to medical condition or safety concerns M. 1 step (curb) 88-Not attempted due to medical condition or safety concerns N. 4 steps 88-Not attempted due to medical condition or safety concerns O. 12 steps 88-Not attempted due to medical condition or safety concerns P. Picking up object 88-Not attempted due to medical condition or safety concerns R. Wheel 50 feet with two turns S. Wheel 150 feet - Bladder and Bowel Bladder continence 0-Always continent Bowel continence 0-Always continent - Endurance Poor - Balance Poor - Safety Awareness Poor CURRENT FUNC. DEFICITS: Self-Care, Mobility, Endurance, Balance, and Safety Awareness MEDICATIONS: - Other See attached MAR (Medication Administration Record) ASSESSMENT: Pt. is a 69 yo Right-handed black female.On 02/15/2020 she was admitted to [facility] with diagnosis CABG x 4.Her impairment category is Cardiac 09 - Cardiac Disorders (09).Pre-morbidly, Pt. was independent/m od-I in Transfers Control, Locomotion, and Self-Care; and she had good Balance, Social Cognition, Sph incter Control, and Communication.Currently, she has deficits of Transfers Control, Balance, Locomoti on, Safety Awareness, and Self-Care.Pt. is now referred to [facility] for acut e in-patient rehabilitation in order to maximize patient's functional independence in activities of d aily living, strength, ROM, and mobility.- Rehab Goal Patient has realistic goal of being discharged at assistance level 6-Geo to reside at Home with Nickolas wilson. REHAB PLAN: - Physical Therapy Gait dysfunction - to improve, our physical therapists will perform initial evaluation of pt's status upon admission and devise an individualized program for Gait Training, and Wheel Chair mobility Inability to transfer - to improve, our physical therapists will perform initial evaluation of pt's s tatus upon admission and devise an individualized program for Bed mobility Need for home safety evaluation - to improve, our physical therapists will perform initial evaluation of pt's status upon admission and devise an individualized program for Home Evaluation Need in caregiver upon discharge - to improve, our physical therapists will perform initial evaluatio n of pt's status upon admission and devise an individualized program for Caregiver Training Edema - to improve, our physical therapists will perform initial evaluation of pt's status upon admi ssion and devise an individualized program for Elevation Training, and Lymphedema Therapy New precaution - to improve, our physical therapists will perform initial evaluation of pt's status u pernell admission and devise an individualized program for Patient precaution education Poor balance - to improve, our physical therapists will perform initial evaluation of pt's status upo n admission and devise an individualized program for Balance Training Weakness - to improve, our physical therapists will perform initial evaluation of pt's status upon ad mission and devise an individualized program for Aquatic Therapy, Neuromuscular Reeducation, and Stre ngthening Achieving independence - to improve, our physical therapists will perform initial evaluation of pt's status upon admission and devise an individualized program for Community Reintegration Activities - Occupational Therapy ADL deficits - to improve, our occupation therapists will perform initial evaluation of pt's status u pernell admission and devise an individualized program for Bathing, Bed mobility, Community Reintegration , Cooking, Dressing, Eating, Fine Motor Skills, Grooming, Homemaking, Kitchen Mobility, Laundry, Yoko ent Education, Safety Awareness, Splinting - Positioning, Transfers(Toilet, Tub, Shower), and Wheel C hair Management Need for care team coordinator scheduler - to improve, our occupation therapists will perform initial evaluation of pt's s tatus upon admission and devise an individualized program for Caregiver Training Weakness - to improve, our occupation therapists will perform initial evaluation of pt's status upon admission and devise an individualized program for Aquatic Therapy, Balance, Endurance, UE ROM, and U E strengthening MEDICAL PLAN: - Diet Type Start Regular - Diet - Liquid Texture Start Regular - Tube Feed Start N/A - Other See attached MAR (Medication Administration Record) - Diet - Solid Texture Regular - Shower shower DISCHARGE PLAN: - Estimated Length of Stay (days) 10. - Consensus on plan Discharge plan has been discussed with primary caregiver. Patient/Family is in agreement with the sebastián n. - Patient/Family Goals Return home independently. SIGNATURE PANEL: (CDT)
--- NOTE | 2020-03-07 15:19 | PAPE ---
PATIENT: [facility] MR# [id number] REFERRING DOCTOR Dr Russel Hines EVALUATION DATE AND TIME 03/07/2020 15:18 (CDT) NAME SALINA SERRATO DATE OF 1950 AGE 69 PHONE SSN# [id number] GENDER female EVALUATING PHYSICIAN Dr. José Miguel Brennan M.D. ADMISSION DIAGNOSIS: CABG x 4 ONSET DATE 02/15/2020 POST-ADMISSION FUNCTIONAL/MEDICAL STATUS: - Walking Same score based on distance walked: 1(<=50ft) - Wheelchair Same STATUS CHANGE EVALUATION: No change in Functional or Medical Status is identified compared with Pre-Admission screening. PATIENT NEEDS CLOSE MEDICAL SUPERVISION BY A REHABILITATION PHYSICIAN FOR: Coordination of Treatment Team Wound Care PATIENT REQUIRES 24X7 REHAB NURSING FOR MEDICAL AND FUNCTIONAL MGT. OF THE FOLLOWING DEFICITS: Disease Management Medication Management Patient/Family Education Providing Safe Environment Skin Integrity PATIENT REQUIRES INTENSIVE, COORDINATED INTERDISCIPLINARY APPROACH TO REHAB: Arranging Home Equipment/Services Discharge Planning Family Intervention/Training Barrel Finisher/Case Management LIST OF IDENTIFIED AND POTENTIAL PROBLEMS: Alteration in leisure activities Infection, Actual or Potential Mobility Impaired Pain, Alteration in Comfort Self Care Deficit Skin Integrity, Actual or Potential Urinary Tract Infection (UTI), Actual or Potential PATIENT COULD BE AT RISK FOR COMPLICATIONS FROM ADVERSE MEDICAL CONDITIONS DUE TO HIS/HER COMORBIDITI ES AND THE RIGORS OF THE INTENSIVE REHABILLITATION PROGRAM. METHODS OR INTERVENTIONS TO AVOID COMPLIC ATIONS INCLUDE: - Bleeding Assess lab values and manage abnormalities. Nursing to teach precautions for anti-coagulation therapy . Wound to be assessed every shift. - Infection Clinical staff to assess and manage the signs and symptoms of infection including fever, redness, war mth, etc. - Urinary Tract Infection - Falls Patient will be evaluated for Fall Precautions and will be placed on Fall Precautions as indicated pe r protocol. - Skin Breakdown Nursing will assess skin daily using assessment tool and will place on Skin Breakdown Precautions as indicated per protocol. - Pain Clinical staff may employ non-medication methods such as massage, distraction, decrease stimulus, etc . as needed. Clinical staff will assess patient's pain level every shift per protocol to assess and e nsure pain management effectiveness. Medications will be given and the pain level re-assessed. PRELIMINARY PLAN OF CARE: - Physical Therapy Patient needs Physical Therapy for a daily minimum of 1.5 hours at least 5 out of 7 days, to improve: Mobility, Strengthening, Transfers, Stretching, ROM, Endurance, Ability to manage stairs, Gait, and Balance. - Speech Therapy Patient needs Speech Therapy for a daily minimum of 0.5 hours at least 5 out of 7 days, to improve: S wallowing, Cognition, Language Skills, and Compensatory Strategies. - Rehabilitation Nursing Patient requires 24x7 Rehabilitation Nursing for: Pain Issues, Identifying and preventing risk factor s, Monitoring and reporting current medical conditions, Assisting with ambulation and transfer, Yoav ting with all ADL-s, Teaching patients about disease process and medications, Family teaching, Provid ing safe environment, Bowel and Bladder Issues, Skin Integrity, and Medication Management. Patient needs Barrel Finisher and/or Case Management for: Discharge Planning, Arranging Home Equipmen t or Services, and Family Interventions. - Dietary and Nutrition Services Patient needs Dietary and Nutrition Services for: Adequate Nutrition, Nutritional Supplements, and Nu tritional Education. - Occupational Therapy Patient needs Occupational Therapy for a daily minimum of 1.5 hours at least 5 out of 7 days, to impr ove Activities of Daily Living, including: Eating, Grooming, Bathing, Dressing, Toileting, Toilet Tra nsfers, Community Reintegration, Higher functional activities, Adaptive Equipment, Splinting, Househo ld Tasks, and Other activities as determined. QI SCORES: - Self-Care A. Eating 05-Setup or clean-up assistance B. Oral hygiene 05-Setup or clean-up assistance C. Toileting hygiene 03-Partial/moderate assistance E. Shower/bathe self 10-Not attempted due to environmental limitations F. Upper body dressing 02-Substantial/maximal assistance G. Lower body dressing 01-Dependent H. Putting on/taking off footwear 01-Dependent - Mobility A. Roll left and right 02-Substantial/maximal assistance B. Sit to lying 02-Substantial/maximal assistance C. Lying to sitting on side of bed 02-Substantial/maximal assistance D. Sit to stand 04-Supervision or touching assistance E. Chair/[id number] transfer 04-Supervision or touching assistance F. Toilet transfer 04-Supervision or touching assistance G. Car transfer 88-Not attempted due to medical condition or safety concerns I. Walk 10 feet 02-Substantial/maximal assistance J. Walk 50 feet with two turns 88-Not attempted due to medical condition or safety concerns K. Walk 150 feet 88-Not attempted due to medical condition or safety concerns L. Walking 10 feet on uneven surfaces 88-Not attempted due to medical condition or safety concerns M. 1 step (curb) 88-Not attempted due to medical condition or safety concerns N. 4 steps 88-Not attempted due to medical condition or safety concerns O. 12 steps 88-Not attempted due to medical condition or safety concerns P. Picking up object 88-Not attempted due to medical condition or safety concerns R. Wheel 50 feet with two turns S. Wheel 150 feet - Bladder and Bowel Bladder continence 0-Always continent Bowel continence 0-Always continent - Endurance Poor - Balance Poor - Safety Awareness Poor POTENTIAL FUNCTIONAL GOALS FOR PATIENT TO ACHIEVE BY DISCHARGE: - Safety Precaution Patient will remain free from falls or injury at time of discharge. - Bed Mobility Patient will perform bed mobility at 4-Camila level of assistance. - Transfers Patient will complete transfers from bed to chair at 4-Camila level of assistance. - Mobility Patient will ambulate 150 ft with 4-Camila level of assistance with RW. PATIENT REHAB POTENTIAL Marshall SERRATO is able and expected to receive 3 hours of individualized therapy daily on at least 5 of ev casper 7 days Marshall SERRATO's prognosis for significant practical improvement within a reasonable period of time appear s Good Expected level of measurable improvement will be of a practical value to Marshall SERRATO's functional capac ity or adaptations to impairments Has a viable Discharge Plan Medically appropriate; condition is sufficiently stable to participate in intensive rehab program DISCHARGE PLAN: - Estimated Length of Stay (days) 10. - Consensus on plan Discharge plan has been discussed with primary caregiver. Patient/Family is in agreement with the sebastián n. - Patient/Family Goals Return home independently. CONCLUSION ON REHABILITATION NECESSITY: I have evaluated patient's pre-admission functional status and, comparing it to the patient's post-ad mission functional status now, I conclude that the pre-admission assessment was accurate. Patient's c ondition on admission supports the medical necessity of admission to IRF. It is safe to proceed with patient's therapy program. SIGNATURE PANEL: (CDT)
[2020-03-07] MEDS: GABAPENTIN 300 MG CAP PO SCH (20:00)
[2020-03-07] MEDS: CRANBERRY FRUIT EXTRACT 200 MG CAP PO SCH (20:00)
[2020-03-07] MEDS: ATORVASTATIN 40 MG TAB PO SCH (20:00)
[2020-03-07] MEDS: NYSTATIN PWDR 100000 UNIT/GM TOP SCH (20:01)
[2020-03-07] MEDS: PROMOD 30 ML DOSE PO SCH (20:01)
--- NOTE | 2020-03-08 02:06 | FAST ---
SHIFT START DATE/TIME: 03/07/2020 19:00 (CDT) SHIFT END DATE/TIME: 03/08/2020 07:00 (CDT) NAME SALINA SERRATO DATE OF : 1950 DATE OF ADMISSION: 03/06/2020 18:55 (CDT) PHONE: AGE: 69 N# [id number] GENDER: Female ENCOUNTER PHYSICIAN: Dr. José Miguel Brennan M.D. ADMISSION DIAGNOSIS: - Cardiac 09 - Cardiac Disorders (09) CABG x 4. EATING: Not assessed/no information CODE: - ORAL HYGIENE: Not assessed/no information CODE: - TOILETING HYGIENE: TOILETING HYGIENE - STEP 1: Does the patient complete the activity by him/herself with no assistance (physical, verbal/nonverbal cueing, setup/clean-up)? No. TOILETING HYGIENE - STEP 2: Does the patient need only setup/clean-up assistance from one helper? No. TOILETING HYGIENE - STEP 3: Does the patient need only verbal/nonverbal cueing or touching/steadying/contact guard assistance fro m one helper? Yes. 1. [id number] ADMISSION PERFORMANCE: Supervision or touching assistance CODE: 04 BATHING: Not assessed/no information CODE: - DRESSING - UPPER BODY: Not assessed/no information CODE: - DRESSING - LOWER BODY: Not assessed/no information CODE: - PUTTING ON/TAKING OFF FOOTWEAR: Not assessed/no information CODE: - ROLL LEFT AND RIGHT: ROLL LEFT AND RIGHT - STEP 1: Does the patient complete the activity by him/herself with no assistance (physical, verbal/nonverbal cueing, setup/clean-up)? No. ROLL LEFT AND RIGHT - STEP 2: Does the patient need only setup/clean-up assistance from one helper? No. ROLL LEFT AND RIGHT - STEP 3: Does the patient need only verbal/nonverbal cueing or touching/steadying/contact guard assistance fro m one helper? Yes. 1. [id number] ADMISSION PERFORMANCE: Supervision or touching assistance CODE: 04 SIT TO LYING: SIT TO LYING - STEP 1: Does the patient complete the activity by him/herself with no assistance (physical, verbal/nonverbal cueing, setup/clean-up)? No. SIT TO LYING - STEP 2: Does the patient need only setup/clean-up assistance from one helper? No. SIT TO LYING - STEP 3: Does the patient need only verbal/nonverbal cueing or touching/steadying/contact guard assistance fro m one helper? No. SIT TO LYING - STEP 4: Does the patient need physical assistance - for example lifting or trunk support from one helper - wi th the helper providing less than half of the effort? Yes. 1. [id number] ADMISSION PERFORMANCE: Partial/moderate assistance CODE: 03 LYING TO SITTING: LYING TO SITTING ON SIDE OF BED - STEP 1: Does the patient complete the activity by him/herself with no assistance (physical, verbal/nonverbal cueing, setup/clean-up)? No. LYING TO SITTING ON SIDE OF BED - STEP 2: Does the patient need only setup/clean-up assistance from one helper? No. LYING TO SITTING ON SIDE OF BED - STEP 3: Does the patient need only verbal/nonverbal cueing or touching/steadying/contact guard assistance fro m one helper? No. LYING TO SITTING ON SIDE OF BED - STEP 4: Does the patient need physical assistance - for example lifting or trunk support from one helper - wi th the helper providing less than half of the effort? Yes. 1. [id number] ADMISSION PERFORMANCE: Partial/moderate assistance CODE: 03 SIT TO STAND: SIT TO STAND - STEP 1: Does the patient complete the activity by him/herself with no assistance (physical, verbal/nonverbal cueing, setup/clean-up)? No. SIT TO STAND - STEP 2: Does the patient need only setup/clean-up assistance from one helper? No. SIT TO STAND - STEP 3: Does the patient need only verbal/nonverbal cueing or touching/steadying/contact guard assistance fro m one helper? Yes. 1. [id number] ADMISSION PERFORMANCE: Supervision or touching assistance CODE: 04 TRANSFERS: BED, CHAIR: CHAIR/[id number] TRANSFER - STEP 1: Does the patient complete the activity by him/herself with no assistance (physical, verbal/nonverbal cueing, setup/clean-up)? No. CHAIR/[id number] TRANSFER - STEP 2: Does the patient need only setup/clean-up assistance from one helper? No. CHAIR/[id number] TRANSFER - STEP 3: Does the patient need only verbal/nonverbal cueing or touching/steadying/contact guard assistance fro m one helper? Yes. 1. [id number] ADMISSION PERFORMANCE: Supervision or touching assistance CODE: 04 TRANSFER TOILET: TOILET TRANSFER - STEP 1: Does the patient complete the activity by him/herself with no assistance (physical, verbal/nonverbal cueing, setup/clean-up)? No. TOILET TRANSFER - STEP 2: Does the patient need only setup/clean-up assistance from one helper? No. TOILET TRANSFER - STEP 3: Does the patient need only verbal/nonverbal cueing or touching/steadying/contact guard assistance fro m one helper? Yes. 1. [id number] ADMISSION PERFORMANCE: Supervision or touching assistance CODE: 04 TRANSFERS: CAR: Not assessed/no information CODE: - WALK 10 FEET: Not assessed/no information CODE: - 1 STEP (CURB): Not assessed/no information CODE: - PICKING UP OBJECT: Not assessed/no information CODE: - DOES THE PATIENT USE A WHEELCHAIR/SCOOTER? CODE: EXPR WHEEL 50 FEET WITH TWO TURNS: Not assessed/no information CODE: - INDICATE THE TYPE OF WHEELCHAIR/SCOOTER USED: CODE: EXPR WHEEL 150 FEET: Not assessed/no information CODE: - INDICATE THE TYPE OF WHEELCHAIR/SCOOTER USED: CODE: EXPR BLADDER AND BOWEL: H350. BLADDER CONTINENCE (3-DAY ASSESSMENT PERIOD): Always continent (no documented incontinence) CODE: 0 H400. BOWEL CONTINENCE (3-DAY ASSESSMENT PERIOD): Always continent CODE: 0
[2020-03-08] MEDS: cloNIDine HCL 0.1 MG TAB PO SCH ×3 (04:44→21:47)
[2020-03-08] MEDS: ENOXAPARIN 30 MG/0.3 ML SQ SCH (07:16)
[2020-03-08] MEDS: INSULIN -REGULAR HUMAN 50 UNIT/0.5 ML ML SQ SCH ×4 (07:30→21:46)
[2020-03-08] MEDS: HYDROCODONE/APAP 5/325 MG TAB PO PRN ×2 (08:59→23:35)
[2020-03-08] MEDS: CRANBERRY FRUIT EXTRACT 200 MG CAP PO SCH ×2 (09:01→19:56)
[2020-03-08] MEDS: LIDOCAINE 4% PATCH TOP SCH (09:01)
[2020-03-08] MEDS: GABAPENTIN 300 MG CAP PO SCH ×2 (09:02→19:59)
[2020-03-08] MEDS: FERROUS SULFATE 325 MG TAB PO SCH (09:03)
[2020-03-08] MEDS: LOSARTAN POTASSIUM 50 MG TABLET PO SCH ×2 (09:03→19:58)
[2020-03-08] MEDS: ASPIRIN EC 81 MG TAB PO SCH (09:03)
[2020-03-08] MEDS: CLOPIDOGREL 75 MG TABLET PO SCH (09:03)
[2020-03-08] MEDS: VITAMIN D 5,000 UNIT CAP PO SCH (09:04)
[2020-03-08] MEDS: DOCUSATE NA 100 MG CAP PO SCH ×2 (09:04→19:57)
[2020-03-08] MEDS: FAMOTIDINE 20 MG TAB PO SCH (09:04)
[2020-03-08] MEDS: INSULIN GLARGINE 100 UNITS/ML SQ SCH (09:04)
[2020-03-08] MEDS: NIFEDIPINE XL 30 MG TABLET PO SCH (09:42)
[2020-03-08] MEDS: NYSTATIN PWDR 100000 UNIT/GM TOP SCH ×2 (09:43→19:59)
[2020-03-08] MEDS: carvediloL 12.5 MG TAB PO SCH ×2 (11:00→19:59)
[2020-03-08] MEDS: PROMOD 30 ML DOSE PO SCH ×2 (11:01→20:00)
[2020-03-08] MEDS: FUROSEMIDE 20 MG/ 2ML VIAL IV SCH (12:08)
--- NOTE | 2020-03-08 16:37 | FAST ---
SHIFT START DATE/TIME: 03/08/2020 07:00 (CDT) SHIFT END DATE/TIME: 03/08/2020 19:00 (CDT) NAME SALINA SERRATO DATE OF : 1950 DATE OF ADMISSION: 03/06/2020 18:55 (CDT) PHONE: AGE: 69 N# [id number] GENDER: Female ENCOUNTER PHYSICIAN: Dr. José Miguel Brennan M.D. ADMISSION DIAGNOSIS: - Cardiac 09 - Cardiac Disorders (09) CABG x 4. EATING: EATING - STEP 1: Does the patient complete the activity by him/herself with no assistance (physical, verbal/nonverbal cueing, setup/clean-up)? No. EATING - STEP 2: Does the patient need only setup/clean-up assistance from one helper? Yes. 1. [id number] ADMISSION PERFORMANCE: Setup or clean-up assistance CODE: 05 ORAL HYGIENE: ORAL HYGIENE - STEP 1: Does the patient complete the activity by him/herself with no assistance (physical, verbal/nonverbal cueing, setup/clean-up)? No. ORAL HYGIENE - STEP 2: Does the patient need only setup/clean-up assistance from one helper? No. ORAL HYGIENE - STEP 3: Does the patient need only verbal/nonverbal cueing or touching/steadying/contact guard assistance fro m one helper? Yes. 1. [id number] ADMISSION PERFORMANCE: Supervision or touching assistance CODE: 04 TOILETING HYGIENE: TOILETING HYGIENE - STEP 1: Does the patient complete the activity by him/herself with no assistance (physical, verbal/nonverbal cueing, setup/clean-up)? No. TOILETING HYGIENE - STEP 2: Does the patient need only setup/clean-up assistance from one helper? No. TOILETING HYGIENE - STEP 3: Does the patient need only verbal/nonverbal cueing or touching/steadying/contact guard assistance fro m one helper? Yes. 1. [id number] ADMISSION PERFORMANCE: Supervision or touching assistance CODE: 04 BATHING: Not assessed/no information CODE: - DRESSING - UPPER BODY: Not assessed/no information CODE: - DRESSING - LOWER BODY: Not assessed/no information CODE: - PUTTING ON/TAKING OFF FOOTWEAR: Not assessed/no information CODE: - ROLL LEFT AND RIGHT: ROLL LEFT AND RIGHT - STEP 1: Does the patient complete the activity by him/herself with no assistance (physical, verbal/nonverbal cueing, setup/clean-up)? No. ROLL LEFT AND RIGHT - STEP 2: Does the patient need only setup/clean-up assistance from one helper? No. ROLL LEFT AND RIGHT - STEP 3: Does the patient need only verbal/nonverbal cueing or touching/steadying/contact guard assistance fro m one helper? Yes. 1. [id number] ADMISSION PERFORMANCE: Supervision or touching assistance CODE: 04 SIT TO LYING: SIT TO LYING - STEP 1: Does the patient complete the activity by him/herself with no assistance (physical, verbal/nonverbal cueing, setup/clean-up)? No. SIT TO LYING - STEP 2: Does the patient need only setup/clean-up assistance from one helper? No. SIT TO LYING - STEP 3: Does the patient need only verbal/nonverbal cueing or touching/steadying/contact guard assistance fro m one helper? No. SIT TO LYING - STEP 4: Does the patient need physical assistance - for example lifting or trunk support from one helper - wi th the helper providing less than half of the effort? Yes. 1. [id number] ADMISSION PERFORMANCE: Partial/moderate assistance CODE: 03 LYING TO SITTING: LYING TO SITTING ON SIDE OF BED - STEP 1: Does the patient complete the activity by him/herself with no assistance (physical, verbal/nonverbal cueing, setup/clean-up)? No. LYING TO SITTING ON SIDE OF BED - STEP 2: Does the patient need only setup/clean-up assistance from one helper? No. LYING TO SITTING ON SIDE OF BED - STEP 3: Does the patient need only verbal/nonverbal cueing or touching/steadying/contact guard assistance fro m one helper? No. LYING TO SITTING ON SIDE OF BED - STEP 4: Does the patient need physical assistance - for example lifting or trunk support from one helper - wi th the helper providing less than half of the effort? Yes. 1. [id number] ADMISSION PERFORMANCE: Partial/moderate assistance CODE: 03 SIT TO STAND: SIT TO STAND - STEP 1: Does the patient complete the activity by him/herself with no assistance (physical, verbal/nonverbal cueing, setup/clean-up)? No. SIT TO STAND - STEP 2: Does the patient need only setup/clean-up assistance from one helper? No. SIT TO STAND - STEP 3: Does the patient need only verbal/nonverbal cueing or touching/steadying/contact guard assistance fro m one helper? Yes. 1. [id number] ADMISSION PERFORMANCE: Supervision or touching assistance CODE: 04 TRANSFERS: BED, CHAIR: CHAIR/[id number] TRANSFER - STEP 1: Does the patient complete the activity by him/herself with no assistance (physical, verbal/nonverbal cueing, setup/clean-up)? No. CHAIR/[id number] TRANSFER - STEP 2: Does the patient need only setup/clean-up assistance from one helper? No. CHAIR/[id number] TRANSFER - STEP 3: Does the patient need only verbal/nonverbal cueing or touching/steadying/contact guard assistance fro m one helper? Yes. 1. [id number] ADMISSION PERFORMANCE: Supervision or touching assistance CODE: TRANSFER TOILET: TOILET TRANSFER - STEP 1: Does the patient complete the activity by him/herself with no assistance (physical, verbal/nonverbal cueing, setup/clean-up)? No. TOILET TRANSFER - STEP 2: Does the patient need only setup/clean-up assistance from one helper? No. TOILET TRANSFER - STEP 3: Does the patient need only verbal/nonverbal cueing or touching/steadying/contact guard assistance fro m one helper? Yes. 1. [id number] ADMISSION PERFORMANCE: Supervision or touching assistance CODE: 04 TRANSFERS: CAR: Not assessed/no information CODE: - WALK 10 FEET: Not assessed/no information CODE: - 1 STEP (CURB): Not assessed/no information CODE: - PICKING UP OBJECT: Not assessed/no information CODE: - DOES THE PATIENT USE A WHEELCHAIR/SCOOTER? CODE: EXPR WHEEL 50 FEET WITH TWO TURNS: Not assessed/no information CODE: - INDICATE THE TYPE OF WHEELCHAIR/SCOOTER USED: RR1. INDICATE THE TYPE OF WHEELCHAIR/SCOOTER USED.: Manual CODE: 1 WHEEL 150 FEET: Not assessed/no information CODE: - INDICATE THE TYPE OF WHEELCHAIR/SCOOTER USED: SS1. INDICATE THE TYPE OF WHEELCHAIR/SCOOTER USED.: Manual CODE: 1 BLADDER AND BOWEL: H350. BLADDER CONTINENCE (3-DAY ASSESSMENT PERIOD): Always continent (no documented incontinence) CODE: 0 H400. BOWEL CONTINENCE (3-DAY ASSESSMENT PERIOD): Always continent CODE: 0 SIGNATURE PANEL: The following modified sections: 1. [id number] Admission Performance, 1. [id number] Admission Performance, 1. [id number] Admission Performance, 1. [id number] Admission Performance, 1. [id number] Admission Performance, 1. [id number] Admission Performance, 1. [id number] Admission Performance, 1. [id number] Admission Performance , 1. [id number] Admission Performance, 1. [id number] Admission Performance, RR1. Indicate the type of wheel chair/scooter used., Code, SS1. Indicate the type of wheelchair/scooter used., H350. Bladder Continen ce (3-day assessment period), H400. Bowel Continence (3-day assessment period) were [electronically] signed by Joelle Carl C.N.ADenisse on TueMar 08 2020 16:35:57 [facility]-0500 (Central Daylight Time)
[2020-03-08] MEDS: DOCUSATE NA/SENNA CONC 1 TAB PO PRN (19:57)
[2020-03-08] MEDS: ATORVASTATIN 40 MG TAB PO SCH (19:57)
[2020-03-08] MEDS ORDERED: NIFEDIPINE XL 30 MG TABLET PO SCH (20:00)
[2020-03-09] MEDS: cloNIDine HCL 0.1 MG TAB PO SCH ×3 (05:00→21:00)
[2020-03-09 06:22] LABS: Potassium 4.2 mmol/L (3.5-5.1)
[2020-03-09] MEDS: ENOXAPARIN 30 MG/0.3 ML SQ SCH (08:01)
[2020-03-09] MEDS: NIFEDIPINE XL 30 MG TABLET PO SCH (08:02)
[2020-03-09] MEDS: LOSARTAN POTASSIUM 50 MG TABLET PO SCH ×2 (08:05→19:41)
[2020-03-09] MEDS: DOCUSATE NA 100 MG CAP PO SCH ×2 (08:06→19:43)
[2020-03-09] MEDS: ASPIRIN EC 81 MG TAB PO SCH (08:06)
[2020-03-09] MEDS: VITAMIN D 5,000 UNIT CAP PO SCH (08:06)
[2020-03-09] MEDS: FUROSEMIDE 20 MG TABLET PO SCH (08:06)
[2020-03-09] MEDS: FERROUS SULFATE 325 MG TAB PO SCH (08:07)
[2020-03-09] MEDS: CLOPIDOGREL 75 MG TABLET PO SCH (08:07)
[2020-03-09] MEDS: GABAPENTIN 300 MG CAP PO SCH ×2 (08:07→19:42)
[2020-03-09] MEDS: FAMOTIDINE 20 MG TAB PO SCH (08:07)
[2020-03-09] MEDS: NYSTATIN PWDR 100000 UNIT/GM TOP SCH ×2 (08:08→19:43)
[2020-03-09] MEDS: CRANBERRY FRUIT EXTRACT 200 MG CAP PO SCH ×2 (08:08→19:41)
[2020-03-09] MEDS: INSULIN -REGULAR HUMAN 50 UNIT/0.5 ML ML SQ SCH ×4 (08:09→21:00)
[2020-03-09] MEDS: LIDOCAINE 4% PATCH TOP SCH (08:10)
[2020-03-09] MEDS: INSULIN GLARGINE 100 UNITS/ML SQ SCH (08:10)
[2020-03-09] MEDS: carvediloL 12.5 MG TAB PO SCH ×2 (10:15→19:39)
[2020-03-09] MEDS: PROMOD 30 ML DOSE PO SCH ×2 (10:16→19:43)
[2020-03-09] MEDS ORDERED: BISACODYL E.C. 5 MG TAB PO PRN (10:53)
[2020-03-09] MEDS ORDERED: POLYETHYL GLY 3350 17 GM/DOSE PO PRN (10:53)
[2020-03-09] MEDS: MAGNESIUM HYDROXIDE 8% 30 ML PO PRN (12:14)
[2020-03-09] MEDS ORDERED: FLEET ENEMA ADULT PR PRN (13:12)
[2020-03-09] MEDS: DOCUSATE NA/SENNA CONC 1 TAB PO PRN (19:42)
[2020-03-09] MEDS: ATORVASTATIN 40 MG TAB PO SCH (19:42)
[2020-03-10] MEDS: cloNIDine HCL 0.1 MG TAB PO SCH ×3 (05:00→20:29)
[2020-03-10 05:56] LABS: Absolute Lymphocytes (CBC) 1.4 K/uL (0.7-4.9); Basophils % 1.1 % (0-1.3); Lymphocytes % 18.5 % (15.3-44.8); MPV 7.1 fL (7.6-11.3); RBC Red Blood Cell Count 3.21 M/uL (3.86-4.86)
[2020-03-10] MEDS: ENOXAPARIN 30 MG/0.3 ML SQ SCH (07:08)
[2020-03-10] MEDS: LOSARTAN POTASSIUM 50 MG TABLET PO SCH ×2 (07:55→20:29)
[2020-03-10] MEDS: FAMOTIDINE 20 MG TAB PO SCH (07:56)
[2020-03-10] MEDS: NIFEDIPINE XL 30 MG TABLET PO SCH (07:56)
[2020-03-10] MEDS: CRANBERRY FRUIT EXTRACT 200 MG CAP PO SCH ×2 (07:56→20:28)
[2020-03-10] MEDS: ASPIRIN EC 81 MG TAB PO SCH (07:57)
[2020-03-10] MEDS: GABAPENTIN 300 MG CAP PO SCH ×2 (07:58→20:28)
[2020-03-10] MEDS: CLOPIDOGREL 75 MG TABLET PO SCH (07:58)
[2020-03-10] MEDS: FERROUS SULFATE 325 MG TAB PO SCH (07:58)
[2020-03-10] MEDS: FUROSEMIDE 20 MG TABLET PO SCH (07:58)
[2020-03-10] MEDS: VITAMIN D 5,000 UNIT CAP PO SCH (07:58)
[2020-03-10] MEDS: DOCUSATE NA 100 MG CAP PO SCH ×2 (07:58→20:28)
[2020-03-10] MEDS: INSULIN -REGULAR HUMAN 50 UNIT/0.5 ML ML SQ SCH ×4 (07:59→20:30)
[2020-03-10] MEDS: INSULIN GLARGINE 100 UNITS/ML SQ SCH (07:59)
[2020-03-10] MEDS: PROMOD 30 ML DOSE PO SCH ×2 (08:00→20:29)
[2020-03-10] MEDS: carvediloL 12.5 MG TAB PO SCH ×2 (09:53→20:32)
[2020-03-10] MEDS: LIDOCAINE 4% PATCH TOP SCH (10:26)
[2020-03-10] MEDS: NYSTATIN PWDR 100000 UNIT/GM TOP SCH ×2 (10:26→20:30)
[2020-03-10] MEDS: TRAMADOL HCL 50 MG TAB PO PRN (17:09)
--- NOTE | 2020-03-10 18:59 | R.PN ---
ENCOUNTER DATE AND TIME: 03/10/2020 18:44 (CDT) NAME SALINA SERRATO DATE OF : 1950 DATE OF ADMISSION: 03/06/2020 18:55 (CDT) CABG x 4CHIEF COMPLAINT: Cardiac debility, status post 4 vessel CABG. SUBJECTIVE: Pt denied any Shortness of Breath. Pt denied any depression. She ambulated 250' with contact guard assistance without an assistive device. WBC 7.7, Hgb 8.8, PLT 467, glucose 166 to 219. Will increase Lantus insulin to 25 units in the mornni ng. 5 VITAL SIGNS Temperature: 97.0 F SBP/DBP: 149/67 Pulse: 70 Resp: 14 MEDICATION ALLERGIES: No Known Drug Allergies (NKDA) ENVIRONMENTAL ALLERGIES: None Known - Substance Allergies None Known - Other Allergies None Known NURSING: - Shower allowing shower ACTIVITIES OOB only with supervision THERAPIES: - Dietary and Nutrition Adequate Nutrition. Nutritional Education. Nutritional Supplements. PHYSICAL EXAM - Gen Alert and awake Lying in bed No apparent distress Oriented to: person, time, and place - Skin Right and left medial leg vein harvest sites have good hemostasis without drainage. Will apply wet to dry dressing changes 2-3 times daily as needed. Normacephalic - Eyes No abnormalities - ENMT No abnormalities - Neck No abnormalities - CVS RRR - Chest Chest incision is healing with good hemostasis. - Resp Clear to auscultation - Abd Soft - GI Non distended Deferred - No abnormalities - Ext No significant edema - MSK 4+/5 weakness in both lower extremities. - Neuro 4/5 strength bilaterally lower extremities. - Psych No abnormalities ASSESSMENT: Pt. is a 69 yo Right-handed black female.On 02/15/2020 she was admitted to [facility] with diagnosis CABG x 4.Her impairment category is Cardiac 09 - Cardiac Disorders (09).Pre-morbidly, Pt. was independent/m od-I in Transfers Control, Locomotion, and Self-Care; and she had good Balance, Social Cognition, Sph incter Control, and Communication.Currently, she has deficits of Transfers Control, Balance, Locomoti on, Safety Awareness, and Self-Care.Pt. is now referred to [facility] for acut e in-patient rehabilitation in order to maximize patient's functional independence in activities of d aily living, strength, ROM, and mobility.- Rehab Goal Patient has realistic goal of being discharged at assistance level 6-Geo to reside at Home with Nickolas katie. MDM/PLAN: - Physical Therapy Gait dysfunction - to improve, our physical therapists will perform initial evaluation of pt's statu s upon admission and devise an individualized program for Gait Training, and Wheel Chair mobility Inability to transfer - to improve, our physical therapists will perform initial evaluation of pt's status upon admission and devise an individualized program for Bed mobility Need for home safety evaluation - to improve, our physical therapists will perform initial evaluatio n of pt's status upon admission and devise an individualized program for Home Evaluation Need in caregiver upon discharge - to improve, our physical therapists will perform initial evaluati on of pt's status upon admission and devise an individualized program for Caregiver Training Edema - to improve, our physical therapists will perform initial evaluation of pt's status upon admis jo and devise an individualized program for Elevation Training, and Lymphedema Therapy New precaution - to improve, our physical therapists will perform initial evaluation of pt's status upon admission and devise an individualized program for Patient precaution education Poor balance - to improve, our physical therapists will perform initial evaluation of pt's status up on admission and devise an individualized program for Balance Training Weakness - to improve, our physical therapists will perform initial evaluation of pt's status upon a dmission and devise an individualized program for Aquatic Therapy, Neuromuscular Reeducation, and Str engthening Achieving independence - to improve, our physical therapists will perform initial evaluation of pt's status upon admission and devise an individualized program for Community Reintegration Activities - Occupational Therapy ADL deficits - to improve, our occupation therapists will perform initial evaluation of pt's status upon admission and devise an individualized program for Bathing, Bed mobility, Community Reintegratio n, Cooking, Dressing, Eating, Fine Motor Skills, Grooming, Homemaking, Kitchen Mobility, Laundry, Pat ient Education, Safety Awareness, Splinting - Positioning, Transfers(Toilet, Tub, Shower), and Wheel Chair Management Need for child care giver - to improve, our occupation therapists will perform initial evaluation of pt's status upon admission and devise an individualized program for Caregiver Training Weakness - to improve, our occupation therapists will perform initial evaluation of pt's status upon admission and devise an individualized program for Aquatic Therapy, Balance, Endurance, UE ROM, and UE strengthening - Other See attached MAR (Medication Administration Record) - Diet Type Continue Regular - Diet - Liquid Texture Continue Regular - Tube Feed Continue N/A - Diet - Solid Texture Continue Regular - Shower allowing shower FUNCTIONAL STATUS: UPDATED AT WEEKLY TEAM CONFERENCE - Walking Same score based on distance walked: 1(<=50ft) - Wheelchair Same FUNCTIONAL STATUS: - Self-Care A. Eating Geo B. Grooming Geo C. Bathing sup D. Dressing - Upper Geo E. Dressing - Lower sup F. Toileting sup - Sphincter Control G. Bladder control Geo H. Bowel control sup - Transfers Control I. Bed/Chair/Wheelchair sup J. Toilet sup K. Tub/Shower Camila - Locomotion L. Walk/Wheelchair (B) sup M. Stairs modA - Communication N. Comprehension (B) sup O. Expression (B) sup - Social Cognition P. Social Interaction sup Q. Problem Solving Camila R. Memory Camila - Endurance Good - Balance Good - Safety Awareness Fair QI SCORES: - Self-Care A. Eating 05-Setup or clean-up assistance B. Oral hygiene 05-Setup or clean-up assistance C. Toileting hygiene 03-Partial/moderate assistance E. Shower/bathe self 10-Not attempted due to environmental limitations F. Upper body dressing 02-Substantial/maximal assistance G. Lower body dressing 01-Dependent H. Putting on/taking off footwear 01-Dependent - Mobility A. Roll left and right 02-Substantial/maximal assistance B. Sit to lying 02-Substantial/maximal assistance C. Lying to sitting on side of bed 02-Substantial/maximal assistance D. Sit to stand 04-Supervision or touching assistance E. Chair/bda-jv-awlds transfer 04-Supervision or touching assistance F. Toilet transfer 04-Supervision or touching assistance G. Car transfer 88-Not attempted due to medical condition or safety concerns I. Walk 10 feet 02-Substantial/maximal assistance J. Walk 50 feet with two turns 88-Not attempted due to medical condition or safety concerns K. Walk 150 feet 88-Not attempted due to medical condition or safety concerns L. Walking 10 feet on uneven surfaces 88-Not attempted due to medical condition or safety concerns M. 1 step (curb) 88-Not attempted due to medical condition or safety concerns N. 4 steps 88-Not attempted due to medical condition or safety concerns O. 12 steps 88-Not attempted due to medical condition or safety concerns P. Picking up object 88-Not attempted due to medical condition or safety concerns R. Wheel 50 feet with two turns S. Wheel 150 feet - Bladder and Bowel Bladder continence 0-Always continent Bowel continence 0-Always continent - Endurance Poor - Balance Poor - Safety Awareness Poor CURRENT FUNC. DEFICITS: Self-Care, Mobility, Endurance, Balance, and Safety Awareness SIGNATURE PANEL: (CDT)
[2020-03-10] MEDS: ATORVASTATIN 40 MG TAB PO SCH (20:29)
[2020-03-10] MEDS: HYDROCODONE/APAP 5/325 MG TAB PO PRN (20:30)
[2020-03-10] MEDS: SMZ./TMP. 800/160 MG TABLET PO SCH (20:32)
[2020-03-11] MEDS: TRAMADOL HCL 50 MG TAB PO PRN ×2 (00:11→08:24)
[2020-03-11] MEDS: cloNIDine HCL 0.1 MG TAB PO SCH ×3 (05:14→21:00)
[2020-03-11] MEDS: ENOXAPARIN 30 MG/0.3 ML SQ SCH (08:15)
[2020-03-11] MEDS: NYSTATIN PWDR 100000 UNIT/GM TOP SCH ×2 (08:16→20:50)
[2020-03-11] MEDS: LIDOCAINE 4% PATCH TOP SCH (08:16)
[2020-03-11] MEDS: LOSARTAN POTASSIUM 50 MG TABLET PO SCH ×2 (08:17→20:53)
[2020-03-11] MEDS: VITAMIN D 5,000 UNIT CAP PO SCH (08:21)
[2020-03-11] MEDS: NIFEDIPINE XL 30 MG TABLET PO SCH (08:22)
[2020-03-11] MEDS: GABAPENTIN 300 MG CAP PO SCH ×2 (08:22→20:51)
[2020-03-11] MEDS: CLOPIDOGREL 75 MG TABLET PO SCH (08:22)
[2020-03-11] MEDS: FAMOTIDINE 20 MG TAB PO SCH (08:22)
[2020-03-11] MEDS: FUROSEMIDE 20 MG TABLET PO SCH (08:23)
[2020-03-11] MEDS: ASPIRIN EC 81 MG TAB PO SCH (08:23)
[2020-03-11] MEDS: FERROUS SULFATE 325 MG TAB PO SCH (08:23)
[2020-03-11] MEDS: FE SULF/FA/VIT B COMP & C TAB PO SCH (08:23)
[2020-03-11] MEDS: SMZ./TMP. 800/160 MG TABLET PO SCH ×2 (08:23→20:53)
[2020-03-11] MEDS: CRANBERRY FRUIT EXTRACT 200 MG CAP PO SCH ×2 (08:24→20:51)
[2020-03-11] MEDS: INSULIN -REGULAR HUMAN 50 UNIT/0.5 ML ML SQ SCH ×4 (08:29→20:54)
[2020-03-11] MEDS: INSULIN GLARGINE 100 UNITS/ML SQ SCH (08:29)
[2020-03-11] MEDS: DOCUSATE NA 100 MG CAP PO SCH ×2 (11:21→20:53)
[2020-03-11] MEDS: carvediloL 12.5 MG TAB PO SCH ×2 (11:21→20:52)
[2020-03-11] MEDS: PROMOD 30 ML DOSE PO SCH ×2 (11:22→20:51)
[2020-03-11 12:09] LABS: Absolute Lymphocytes (CBC) 1.2 K/uL (0.7-4.9); Hematocrit 25.4 % (36.0-45.0); Lymphocytes % 15.2 % (15.3-44.8); RBC Red Blood Cell Count 3.02 M/uL (3.86-4.86)
[2020-03-11 12:24] LABS: Potassium 4.3 mmol/L (3.5-5.1)
--- NOTE | 2020-03-11 17:07 | R.PN ---
ENCOUNTER DATE AND TIME: 03/11/2020 16:58 (CDT) NAME SALINA SERRATO DATE OF : 1950 DATE OF ADMISSION: 03/06/2020 18:55 (CDT) CABG x 4CHIEF COMPLAINT: Cardiac debility, status post 4 vessel CABG. SUBJECTIVE: Pt denied any Shortness of Breath. Pt denied any depression. She ambulated 250' with contact guard assistance without an assistive device. Therapeutic exercises d one with minimum assistance. WBC 8.0, Hgb 8.5, PLT 471. She is on hemocyte plus. Will do guaiac for blood in the stool. Glucose 16 6 to 219. Lantus insulin 25 units in the morning. 5 VITAL SIGNS Temperature: 97.6 F SBP/DBP: 137/64 Pulse: 66 Resp: 16 MEDICATION ALLERGIES: No Known Drug Allergies (NKDA) ENVIRONMENTAL ALLERGIES: None Known - Substance Allergies None Known - Other Allergies None Known NURSING: - Shower allowing shower ACTIVITIES OOB only with supervision THERAPIES: - Dietary and Nutrition Adequate Nutrition. Nutritional Education. Nutritional Supplements. PHYSICAL EXAM - Gen Alert and awake Lying in bed No apparent distress Oriented to: person, time, and place - Skin Right and left medial leg vein harvest sites have good hemostasis without drainage. Will apply wet to dry dressing changes 2-3 times daily as needed. Normacephalic - Eyes No abnormalities - ENMT No abnormalities - Neck No abnormalities - CVS RRR - Chest Chest incision is healing with good hemostasis. - Resp Clear to auscultation - Abd Soft - GI Non distended Deferred - No abnormalities - Ext No significant edema - MSK 4+/5 weakness in both lower extremities. - Neuro 4/5 strength bilaterally lower extremities. - Psych No abnormalities ASSESSMENT: Pt. is a 69 yo Right-handed black female.On 02/15/2020 she was admitted to [facility] with diagnosis CABG x 4.Her impairment category is Cardiac 09 - Cardiac Disorders ().Pre-morbidly, Pt. was independent/m od-I in Transfers Control, Locomotion, and Self-Care; and she had good Balance, Social Cognition, Sph incter Control, and Communication.Currently, she has deficits of Transfers Control, Balance, Locomoti on, Safety Awareness, and Self-Care.Pt. is now referred to [facility] for acut e in-patient rehabilitation in order to maximize patient's functional independence in activities of d aily living, strength, ROM, and mobility.- Rehab Goal Patient has realistic goal of being discharged at assistance level 6-Geo to reside at Home with Nickolasmaria del carmen wilson. MDM/PLAN: - Physical Therapy Gait dysfunction - to improve, our physical therapists will perform initial evaluation of pt's statu s upon admission and devise an individualized program for Gait Training, and Wheel Chair mobility Inability to transfer - to improve, our physical therapists will perform initial evaluation of pt's status upon admission and devise an individualized program for Bed mobility Need for home safety evaluation - to improve, our physical therapists will perform initial evaluatio n of pt's status upon admission and devise an individualized program for Home Evaluation Need in caregiver upon discharge - to improve, our physical therapists will perform initial evaluati on of pt's status upon admission and devise an individualized program for Caregiver Training Edema - to improve, our physical therapists will perform initial evaluation of pt's status upon admi ssion and devise an individualized program for Elevation Training, and Lymphedema Therapy New precaution - to improve, our physical therapists will perform initial evaluation of pt's status upon admission and devise an individualized program for Patient precaution education Poor balance - to improve, our physical therapists will perform initial evaluation of pt's status up on admission and devise an individualized program for Balance Training Weakness - to improve, our physical therapists will perform initial evaluation of pt's status upon a dmission and devise an individualized program for Aquatic Therapy, Neuromuscular Reeducation, and Str engthening Achieving independence - to improve, our physical therapists will perform initial evaluation of pt's status upon admission and devise an individualized program for Community Reintegration Activities - Occupational Therapy ADL deficits - to improve, our occupation therapists will perform initial evaluation of pt's status upon admission and devise an individualized program for Bathing, Bed mobility, Community Reintegratio n, Cooking, Dressing, Eating, Fine Motor Skills, Grooming, Homemaking, Kitchen Mobility, Laundry, Pat ient Education, Safety Awareness, Splinting - Positioning, Transfers(Toilet, Tub, Shower), and Wheel Chair Management Need for manager home healthcare - to improve, our occupation therapists will perform initial evaluation of pt's status upon admission and devise an individualized program for Caregiver Training Weakness - to improve, our occupation therapists will perform initial evaluation of pt's status upon admission and devise an individualized program for Aquatic Therapy, Balance, Endurance, UE ROM, and UE strengthening - Other See attached MAR (Medication Administration Record) - Diet Type Continue Regular - Diet - Liquid Texture Continue Regular - Tube Feed Continue N/A - Diet - Solid Texture Continue Regular - Shower allowing shower FUNCTIONAL STATUS: UPDATED AT WEEKLY TEAM CONFERENCE - Walking Same score based on distance walked: 1(<=50ft) - Wheelchair Same FUNCTIONAL STATUS: - Self-Care A. Eating Geo B. Grooming Geo C. Bathing sup D. Dressing - Upper Geo E. Dressing - Lower sup F. Toileting sup - Sphincter Control G. Bladder control Geo H. Bowel control sup - Transfers Control I. Bed/Chair/Wheelchair sup J. Toilet sup K. Tub/Shower Camila - Locomotion L. Walk/Wheelchair (B) sup M. Stairs modA - Communication N. Comprehension (B) sup O. Expression (B) sup - Social Cognition P. Social Interaction sup Q. Problem Solving Camila R. Memory Camila - Endurance Good - Balance Good - Safety Awareness Fair QI SCORES: - Self-Care A. Eating 05-Setup or clean-up assistance B. Oral hygiene 05-Setup or clean-up assistance C. Toileting hygiene 03-Partial/moderate assistance E. Shower/bathe self 10-Not attempted due to environmental limitations F. Upper body dressing 02-Substantial/maximal assistance G. Lower body dressing 01-Dependent H. Putting on/taking off footwear 01-Dependent - Mobility A. Roll left and right 02-Substantial/maximal assistance B. Sit to lying 02-Substantial/maximal assistance C. Lying to sitting on side of bed 02-Substantial/maximal assistance D. Sit to stand 04-Supervision or touching assistance E. Chair/wrm-fn-ajysu transfer 04-Supervision or touching assistance F. Toilet transfer 04-Supervision or touching assistance G. Car transfer 88-Not attempted due to medical condition or safety concerns I. Walk 10 feet 02-Substantial/maximal assistance J. Walk 50 feet with two turns 88-Not attempted due to medical condition or safety concerns K. Walk 150 feet 88-Not attempted due to medical condition or safety concerns L. Walking 10 feet on uneven surfaces 88-Not attempted due to medical condition or safety concerns M. 1 step (curb) 88-Not attempted due to medical condition or safety concerns N. 4 steps 88-Not attempted due to medical condition or safety concerns O. 12 steps 88-Not attempted due to medical condition or safety concerns P. Picking up object 88-Not attempted due to medical condition or safety concerns R. Wheel 50 feet with two turns S. Wheel 150 feet - Bladder and Bowel Bladder continence 0-Always continent Bowel continence 0-Always continent - Endurance Poor - Balance Poor - Safety Awareness Poor CURRENT FUNC. DEFICITS: Self-Care, Mobility, Endurance, Balance, and Safety Awareness SIGNATURE PANEL: (CDT)
[2020-03-11] MEDS: ATORVASTATIN 40 MG TAB PO SCH (20:50)
[2020-03-11] MEDS: MELATONIN 3 MG TABLET PO PRN (20:51)
[2020-03-11] MEDS: HYDROCODONE/APAP 5/325 MG TAB PO PRN (20:54)
[2020-03-12] MEDS: cloNIDine HCL 0.1 MG TAB PO SCH ×3 (05:38→20:07)
[2020-03-12] MEDS: ENOXAPARIN 30 MG/0.3 ML SQ SCH (07:25)
[2020-03-12] MEDS: INSULIN -REGULAR HUMAN 50 UNIT/0.5 ML ML SQ SCH ×4 (07:30→20:09)
[2020-03-12] MEDS: NYSTATIN PWDR 100000 UNIT/GM TOP SCH ×2 (08:00→20:07)
[2020-03-12] MEDS: PROMOD 30 ML DOSE PO SCH ×2 (08:00→20:09)
[2020-03-12] MEDS: INSULIN GLARGINE 100 UNITS/ML SQ SCH (08:31)
[2020-03-12] MEDS: TRAMADOL HCL 50 MG TAB PO PRN ×3 (08:33→23:23)
[2020-03-12] MEDS: CRANBERRY FRUIT EXTRACT 200 MG CAP PO SCH ×2 (08:34→20:06)
[2020-03-12] MEDS: FERROUS SULFATE 325 MG TAB PO SCH (08:34)
[2020-03-12] MEDS: VITAMIN D 5,000 UNIT CAP PO SCH (08:34)
[2020-03-12] MEDS: DOCUSATE NA 100 MG CAP PO SCH ×2 (08:34→20:07)
[2020-03-12] MEDS: FE SULF/FA/VIT B COMP & C TAB PO SCH (08:35)
[2020-03-12] MEDS: FAMOTIDINE 20 MG TAB PO SCH (08:35)
[2020-03-12] MEDS: ASPIRIN EC 81 MG TAB PO SCH (08:35)
[2020-03-12] MEDS: GABAPENTIN 300 MG CAP PO SCH ×2 (08:36→20:08)
[2020-03-12] MEDS: NIFEDIPINE XL 30 MG TABLET PO SCH (08:36)
[2020-03-12] MEDS: LOSARTAN POTASSIUM 50 MG TABLET PO SCH ×2 (08:36→20:07)
[2020-03-12] MEDS: CLOPIDOGREL 75 MG TABLET PO SCH (08:37)
[2020-03-12] MEDS: SMZ./TMP. 800/160 MG TABLET PO SCH ×2 (08:37→20:05)
[2020-03-12] MEDS: FUROSEMIDE 20 MG TABLET PO SCH (08:37)
[2020-03-12] MEDS: LIDOCAINE 4% PATCH TOP SCH (09:59)
[2020-03-12] MEDS: carvediloL 12.5 MG TAB PO SCH ×2 (09:59→20:08)
--- NOTE | 2020-03-12 17:28 | R.PN ---
ENCOUNTER DATE AND TIME: 03/12/2020 17:20 (CDT) NAME SALINA SERRATO DATE OF : 1950 DATE OF ADMISSION: 03/06/2020 18:55 (CDT) CABG x 4CHIEF COMPLAINT: Cardiac debility, status post 4 vessel CABG. SUBJECTIVE: Pt denied any Shortness of Breath. Pt denied any depression. She ambulated 380' with contact guard assistance without an assistive device. Therapeutic exercises d one with minimum assistance. WBC 8.0, Hgb 8.5, PLT 471, Manager Database 1.77. She is on hemocyte plus. Will do guaiac for blood in the stool. Glucose 119 to 189. Lantus insulin 25 units in the morning. Doppler studies of the lower extremities are negative for DVTs. VITAL SIGNS Temperature: 98.4 F SBP/DBP: 119/58 Pulse: 71 Resp: 16 MEDICATION ALLERGIES: No Known Drug Allergies (NKDA) ENVIRONMENTAL ALLERGIES: None Known - Substance Allergies None Known - Other Allergies None Known NURSING: - Shower allowing shower ACTIVITIES OOB only with supervision THERAPIES: - Dietary and Nutrition Adequate Nutrition. Nutritional Education. Nutritional Supplements. PHYSICAL EXAM - Gen Alert and awake Lying in bed No apparent distress Oriented to: person, time, and place - Skin Right and left medial leg vein harvest sites have good hemostasis without drainage. Will apply wet to dry dressing changes 2-3 times daily as needed. Normacephalic - Eyes No abnormalities - ENMT No abnormalities - Neck No abnormalities - CVS RRR - Chest Chest incision is healing with good hemostasis. - Resp Clear to auscultation - Abd Soft - GI Non distended Deferred - No abnormalities - Ext No significant edema - MSK 4+/5 weakness in both lower extremities. - Neuro 4/5 strength bilaterally lower extremities. - Psych No abnormalities ASSESSMENT: Pt. is a 69 yo Right-handed black female.On 02/15/2020 she was admitted to [facility] with diagnosis CABG x 4.Her impairment category is Cardiac 09 - Cardiac Disorders (09).Pre-morbidly, Pt. was independent/m od-I in Transfers Control, Locomotion, and Self-Care; and she had good Balance, Social Cognition, Sph incter Control, and Communication.Currently, she has deficits of Transfers Control, Balance, Locomoti on, Safety Awareness, and Self-Care.Pt. is now referred to [facility] for acut e in-patient rehabilitation in order to maximize patient's functional independence in activities of d aily living, strength, ROM, and mobility.- Rehab Goal Patient has realistic goal of being discharged at assistance level 6-Geo to reside at Home with Nickolas wilson. MDM/PLAN: - Physical Therapy Gait dysfunction - to improve, our physical therapists will perform initial evaluation of pt's statu s upon admission and devise an individualized program for Gait Training, and Wheel Chair mobility Inability to transfer - to improve, our physical therapists will perform initial evaluation of pt's status upon admission and devise an individualized program for Bed mobility Need for home safety evaluation - to improve, our physical therapists will perform initial evaluatio n of pt's status upon admission and devise an individualized program for Home Evaluation Need in caregiver upon discharge - to improve, our physical therapists will perform initial evaluati on of pt's status upon admission and devise an individualized program for Caregiver Training Edema - to improve, our physical therapists will perform initial evaluation of pt's status upon admi ssion and devise an individualized program for Elevation Training, and Lymphedema Therapy New precaution - to improve, our physical therapists will perform initial evaluation of pt's status upon admission and devise an individualized program for Patient precaution education Poor balance - to improve, our physical therapists will perform initial evaluation of pt's status up on admission and devise an individualized program for Balance Training Weakness - to improve, our physical therapists will perform initial evaluation of pt's status upon a dmission and devise an individualized program for Aquatic Therapy, Neuromuscular Reeducation, and Str engthening Achieving independence - to improve, our physical therapists will perform initial evaluation of pt's status upon admission and devise an individualized program for Community Reintegration Activities - Occupational Therapy ADL deficits - to improve, our occupation therapists will perform initial evaluation of pt's status upon admission and devise an individualized program for Bathing, Bed mobility, Community Reintegratio n, Cooking, Dressing, Eating, Fine Motor Skills, Grooming, Homemaking, Kitchen Mobility, Laundry, Pat ient Education, Safety Awareness, Splinting - Positioning, Transfers(Toilet, Tub, Shower), and Wheel Chair Management Need for geriatric care manager - to improve, our occupation therapists will perform initial evaluation of pt's status upon admission and devise an individualized program for Caregiver Training Weakness - to improve, our occupation therapists will perform initial evaluation of pt's status upon admission and devise an individualized program for Aquatic Therapy, Balance, Endurance, UE ROM, and UE strengthening - Other See attached MAR (Medication Administration Record) - Diet Type Continue Regular - Diet - Liquid Texture Continue Regular - Tube Feed Continue N/A - Diet - Solid Texture Continue Regular - Shower allowing shower FUNCTIONAL STATUS: UPDATED AT WEEKLY TEAM CONFERENCE - Walking Same score based on distance walked: 1(<=50ft) - Wheelchair Same FUNCTIONAL STATUS: - Self-Care A. Eating Geo B. Grooming Geo C. Bathing sup D. Dressing - Upper Geo E. Dressing - Lower sup F. Toileting sup - Sphincter Control G. Bladder control Geo H. Bowel control sup - Transfers Control I. Bed/Chair/Wheelchair sup J. Toilet sup K. Tub/Shower Camila - Locomotion L. Walk/Wheelchair (B) sup M. Stairs modA - Communication N. Comprehension (B) sup O. Expression (B) sup - Social Cognition P. Social Interaction sup Q. Problem Solving Camila R. Memory Camila - Endurance Good - Balance Good - Safety Awareness Fair QI SCORES: - Self-Care A. Eating 05-Setup or clean-up assistance B. Oral hygiene 05-Setup or clean-up assistance C. Toileting hygiene 03-Partial/moderate assistance E. Shower/bathe self 10-Not attempted due to environmental limitations F. Upper body dressing 02-Substantial/maximal assistance G. Lower body dressing 01-Dependent H. Putting on/taking off footwear 01-Dependent - Mobility A. Roll left and right 02-Substantial/maximal assistance B. Sit to lying 02-Substantial/maximal assistance C. Lying to sitting on side of bed 02-Substantial/maximal assistance D. Sit to stand 04-Supervision or touching assistance E. Chair/ccn-so-jglwq transfer 04-Supervision or touching assistance F. Toilet transfer 04-Supervision or touching assistance G. Car transfer 88-Not attempted due to medical condition or safety concerns I. Walk 10 feet 02-Substantial/maximal assistance J. Walk 50 feet with two turns 88-Not attempted due to medical condition or safety concerns K. Walk 150 feet 88-Not attempted due to medical condition or safety concerns L. Walking 10 feet on uneven surfaces 88-Not attempted due to medical condition or safety concerns M. 1 step (curb) 88-Not attempted due to medical condition or safety concerns N. 4 steps 88-Not attempted due to medical condition or safety concerns O. 12 steps 88-Not attempted due to medical condition or safety concerns P. Picking up object 88-Not attempted due to medical condition or safety concerns R. Wheel 50 feet with two turns S. Wheel 150 feet - Bladder and Bowel Bladder continence 0-Always continent Bowel continence 0-Always continent - Endurance Poor - Balance Poor - Safety Awareness Poor CURRENT FUNC. DEFICITS: Self-Care, Mobility, Endurance, Balance, and Safety Awareness SIGNATURE PANEL: (CDT)
[2020-03-12] MEDS: DOCUSATE NA/SENNA CONC 1 TAB PO PRN (20:05)
[2020-03-12] MEDS: ATORVASTATIN 40 MG TAB PO SCH (20:07)
[2020-03-12] MEDS: MAGNESIUM OXIDE 400 MG TAB PO SCH (20:08)
[2020-03-12] MEDS: TRAZODONE 50 MG TABLET PO PRN (20:08)
[2020-03-12] MEDS: HYDROCODONE/APAP 5/325 MG TAB PO PRN (20:09)
[2020-03-13] MEDS: cloNIDine HCL 0.1 MG TAB PO SCH ×3 (04:08→20:07)
[2020-03-13 07:20] LABS: Absolute Lymphocytes (CBC) 1.5 K/uL (0.7-4.9); Basophils % 0.9 % (0-1.3); Hematocrit 26.9 % (36.0-45.0); Lymphocytes % 21.1 % (15.3-44.8); MPV 6.9 fL (7.6-11.3)
[2020-03-13] MEDS: INSULIN -REGULAR HUMAN 50 UNIT/0.5 ML ML SQ SCH ×4 (07:30→20:07)
[2020-03-13 07:46] LABS: Albumin 2.7 g/dL (3.4-5.0); Potassium 4.5 mmol/L (3.5-5.1); Prealbumin 15.6 mg/dL (20-40)
[2020-03-13] MEDS: INSULIN GLARGINE 100 UNITS/ML SQ SCH (07:50)
[2020-03-13] MEDS: ENOXAPARIN 30 MG/0.3 ML SQ SCH (07:51)
[2020-03-13] MEDS: ASPIRIN EC 81 MG TAB PO SCH (07:51)
[2020-03-13] MEDS: NIFEDIPINE XL 30 MG TABLET PO SCH (07:52)
[2020-03-13] MEDS: GABAPENTIN 300 MG CAP PO SCH ×2 (07:52→19:44)
[2020-03-13] MEDS: carvediloL 12.5 MG TAB PO SCH ×2 (07:52→19:45)
[2020-03-13] MEDS: FAMOTIDINE 20 MG TAB PO SCH (07:52)
[2020-03-13] MEDS: CRANBERRY FRUIT EXTRACT 200 MG CAP PO SCH ×2 (07:53→19:42)
[2020-03-13] MEDS: CLOPIDOGREL 75 MG TABLET PO SCH (07:53)
[2020-03-13] MEDS: FERROUS SULFATE 325 MG TAB PO SCH (07:53)
[2020-03-13] MEDS: VITAMIN D 5,000 UNIT CAP PO SCH (07:53)
[2020-03-13] MEDS: FUROSEMIDE 20 MG TABLET PO SCH (07:53)
[2020-03-13] MEDS: DOCUSATE NA 100 MG CAP PO SCH ×2 (07:53→19:41)
[2020-03-13] MEDS: SMZ./TMP. 800/160 MG TABLET PO SCH ×2 (07:54→19:40)
[2020-03-13] MEDS: LOSARTAN POTASSIUM 50 MG TABLET PO SCH ×2 (07:54→19:41)
[2020-03-13] MEDS: FE SULF/FA/VIT B COMP & C TAB PO SCH (07:55)
[2020-03-13] MEDS: LIDOCAINE 4% PATCH TOP SCH (07:55)
[2020-03-13] MEDS: MAGNESIUM OXIDE 400 MG TAB PO SCH ×2 (07:55→19:44)
[2020-03-13] MEDS: NYSTATIN PWDR 100000 UNIT/GM TOP SCH ×2 (07:57→19:40)
[2020-03-13] MEDS: PROMOD 30 ML DOSE PO SCH ×2 (07:57→19:43)
--- NOTE | 2020-03-13 17:51 | R.PN ---
ENCOUNTER DATE AND TIME: 03/13/2020 17:44 (CDT) NAME SALINA SERRATO DATE OF : 1950 DATE OF ADMISSION: 03/06/2020 18:55 (CDT) CABG x [id number] COMPLAINT: Cardiac debility, status post 4 vessel CABG. SUBJECTIVE: Pt denied any Shortness of Breath. Pt denied any depression. She ambulated 380' with contact guard assistance without an assistive device. Therapeutic exercises d one with minimum assistance. WBC 7.3 Hgb 8.8, Plt 466, Embroidery Assistant 1.84. Encourage 8 glasses of water daily. She is on hemocyte plus. Will do guaiac for blood in the stool. Glucose 142 to 198. Lantus insulin 25 units in the morning. Doppler studies of the lower extremities are negative for DVTs. VITAL SIGNS Temperature: 98.7 F SBP/DBP: 129/60 Pulse: 73 Resp: 16 MEDICATION ALLERGIES: No Known Drug Allergies (NKDA) ENVIRONMENTAL ALLERGIES: None Known - Substance Allergies None Known - Other Allergies None Known NURSING: - Shower allowing shower ACTIVITIES OOB only with supervision THERAPIES: - Dietary and Nutrition Adequate Nutrition. Nutritional Education. Nutritional Supplements. PHYSICAL EXAM - Gen Alert and awake Lying in bed No apparent distress Oriented to: person, time, and place - Skin Right and left medial leg vein harvest sites have good hemostasis without drainage. Will apply wet to dry dressing changes 2-3 times daily as needed. Normacephalic - Eyes No abnormalities - ENMT No abnormalities - Neck No abnormalities - CVS RRR - Chest Chest incision is healing with good hemostasis. - Resp Clear to auscultation - Abd Soft - GI Non distended Deferred - No abnormalities - Ext No significant edema - MSK 4+/5 weakness in both lower extremities. - Neuro 4/5 strength bilaterally lower extremities. - Psych No abnormalities ASSESSMENT: Pt. is a 69 yo Right-handed black female.On 02/15/2020 she was admitted to [facility] with diagnosis CABG x 4.Her impairment category is Cardiac 09 - Cardiac Disorders (09).Pre-morbidly, Pt. was independent/m od-I in Transfers Control, Locomotion, and Self-Care; and she had good Balance, Social Cognition, Sph incter Control, and Communication.Currently, she has deficits of Transfers Control, Balance, Locomoti on, Safety Awareness, and Self-Care.Pt. is now referred to [facility] for acut e in-patient rehabilitation in order to maximize patient's functional independence in activities of d aily living, strength, ROM, and mobility.- Rehab Goal Patient has realistic goal of being discharged at assistance level 6-Geo to reside at Home with Nickolas wilson. MDM/PLAN: - Physical Therapy Gait dysfunction - to improve, our physical therapists will perform initial evaluation of pt's statu s upon admission and devise an individualized program for Gait Training, and Wheel Chair mobility Inability to transfer - to improve, our physical therapists will perform initial evaluation of pt's status upon admission and devise an individualized program for Bed mobility Need for home safety evaluation - to improve, our physical therapists will perform initial evaluatio n of pt's status upon admission and devise an individualized program for Home Evaluation Need in caregiver upon discharge - to improve, our physical therapists will perform initial evaluati on of pt's status upon admission and devise an individualized program for Caregiver Training Edema - to improve, our physical therapists will perform initial evaluation of pt's status upon admi ssion and devise an individualized program for Elevation Training, and Lymphedema Therapy New precaution - to improve, our physical therapists will perform initial evaluation of pt's status upon admission and devise an individualized program for Patient precaution education Poor balance - to improve, our physical therapists will perform initial evaluation of pt's status up on admission and devise an individualized program for Balance Training Weakness - to improve, our physical therapists will perform initial evaluation of pt's status upon a dmission and devise an individualized program for Aquatic Therapy, Neuromuscular Reeducation, and Str engthening Achieving independence - to improve, our physical therapists will perform initial evaluation of pt's status upon admission and devise an individualized program for Community Reintegration Activities - Occupational Therapy ADL deficits - to improve, our occupation therapists will perform initial evaluation of pt's status upon admission and devise an individualized program for Bathing, Bed mobility, Community Reintegratio n, Cooking, Dressing, Eating, Fine Motor Skills, Grooming, Homemaking, Kitchen Mobility, Laundry, Pat ient Education, Safety Awareness, Splinting - Positioning, Transfers(Toilet, Tub, Shower), and Wheel Chair Management Need for resident care supervisor - to improve, our occupation therapists will perform initial evaluation of pt's status upon admission and devise an individualized program for Caregiver Training Weakness - to improve, our occupation therapists will perform initial evaluation of pt's status upon admission and devise an individualized program for Aquatic Therapy, Balance, Endurance, UE ROM, and UE strengthening - Other See attached MAR (Medication Administration Record) - Diet Type Continue Regular - Diet - Liquid Texture Continue Regular - Tube Feed Continue N/A - Diet - Solid Texture Continue Regular - Shower allowing shower FUNCTIONAL STATUS: UPDATED AT WEEKLY TEAM CONFERENCE - Walking Same score based on distance walked: 1(<=50ft) - Wheelchair Same FUNCTIONAL STATUS: - Self-Care A. Eating Geo B. Grooming Geo C. Bathing sup D. Dressing - Upper Geo E. Dressing - Lower sup F. Toileting sup - Sphincter Control G. Bladder control Geo H. Bowel control sup - Transfers Control I. Bed/Chair/Wheelchair sup J. Toilet sup K. Tub/Shower Camila - Locomotion L. Walk/Wheelchair (B) sup M. Stairs modA - Communication N. Comprehension (B) sup O. Expression (B) sup - Social Cognition P. Social Interaction sup Q. Problem Solving Camila R. Memory Camila - Endurance Good - Balance Good - Safety Awareness Fair QI SCORES: - Self-Care A. Eating 05-Setup or clean-up assistance B. Oral hygiene 05-Setup or clean-up assistance C. Toileting hygiene 03-Partial/moderate assistance E. Shower/bathe self 10-Not attempted due to environmental limitations F. Upper body dressing 02-Substantial/maximal assistance G. Lower body dressing 01-Dependent H. Putting on/taking off footwear 01-Dependent - Mobility A. Roll left and right 02-Substantial/maximal assistance B. Sit to lying 02-Substantial/maximal assistance C. Lying to sitting on side of bed 02-Substantial/maximal assistance D. Sit to stand 04-Supervision or touching assistance E. Chair/jbb-er-ojrtj transfer 04-Supervision or touching assistance F. Toilet transfer 04-Supervision or touching assistance G. Car transfer 88-Not attempted due to medical condition or safety concerns I. Walk 10 feet 02-Substantial/maximal assistance J. Walk 50 feet with two turns 88-Not attempted due to medical condition or safety concerns K. Walk 150 feet 88-Not attempted due to medical condition or safety concerns L. Walking 10 feet on uneven surfaces 88-Not attempted due to medical condition or safety concerns M. 1 step (curb) 88-Not attempted due to medical condition or safety concerns N. 4 steps 88-Not attempted due to medical condition or safety concerns O. 12 steps 88-Not attempted due to medical condition or safety concerns P. Picking up object 88-Not attempted due to medical condition or safety concerns R. Wheel 50 feet with two turns S. Wheel 150 feet - Bladder and Bowel Bladder continence 0-Always continent Bowel continence 0-Always continent - Endurance Poor - Balance Poor - Safety Awareness Poor CURRENT FUNC. DEFICITS: Self-Care, Mobility, Endurance, Balance, and Safety Awareness SIGNATURE PANEL: (CDT)
[2020-03-13] MEDS: DOCUSATE NA/SENNA CONC 1 TAB PO PRN (19:42)
[2020-03-13] MEDS: TRAMADOL HCL 50 MG TAB PO PRN (19:42)
[2020-03-13] MEDS: BACLOFEN 10 MG TAB PO SCH (20:06)
[2020-03-13] MEDS: TRAZODONE 50 MG TABLET PO PRN (20:06)
[2020-03-13] MEDS: ATORVASTATIN 40 MG TAB PO SCH (20:06)
[2020-03-13] MEDS: HYDROCODONE/APAP 5/325 MG TAB PO PRN (22:08)
[2020-03-14] MEDS: cloNIDine HCL 0.1 MG TAB PO SCH ×2 (05:08→20:32)
[2020-03-14] MEDS: ENOXAPARIN 30 MG/0.3 ML SQ SCH (07:13)
[2020-03-14] MEDS: LIDOCAINE 4% PATCH TOP SCH (07:14)
[2020-03-14] MEDS: NYSTATIN PWDR 100000 UNIT/GM TOP SCH ×2 (07:15→20:35)
[2020-03-14] MEDS: CLOPIDOGREL 75 MG TABLET PO SCH (07:15)
[2020-03-14] MEDS: FERROUS SULFATE 325 MG TAB PO SCH (07:15)
[2020-03-14] MEDS: FAMOTIDINE 20 MG TAB PO SCH (07:15)
[2020-03-14] MEDS: FE SULF/FA/VIT B COMP & C TAB PO SCH (07:15)
[2020-03-14] MEDS: GABAPENTIN 300 MG CAP PO SCH ×2 (07:16→20:34)
[2020-03-14] MEDS: LOSARTAN POTASSIUM 50 MG TABLET PO SCH ×2 (07:16→20:34)
[2020-03-14] MEDS: NIFEDIPINE XL 30 MG TABLET PO SCH (07:17)
[2020-03-14] MEDS: ASPIRIN EC 81 MG TAB PO SCH (07:17)
[2020-03-14] MEDS: CRANBERRY FRUIT EXTRACT 200 MG CAP PO SCH ×2 (07:17→20:31)
[2020-03-14] MEDS: TRAMADOL HCL 50 MG TAB PO PRN ×2 (07:18→12:20)
[2020-03-14] MEDS: MAGNESIUM OXIDE 400 MG TAB PO SCH ×2 (07:18→20:32)
[2020-03-14] MEDS: VITAMIN D 5,000 UNIT CAP PO SCH (07:18)
[2020-03-14] MEDS: DOCUSATE NA 100 MG CAP PO SCH (07:19)
[2020-03-14] MEDS: FUROSEMIDE 20 MG TABLET PO SCH (07:19)
[2020-03-14] MEDS: SMZ./TMP. 800/160 MG TABLET PO SCH ×2 (07:21→20:32)
[2020-03-14] MEDS: INSULIN -REGULAR HUMAN 50 UNIT/0.5 ML ML SQ SCH ×4 (07:30→20:36)
[2020-03-14] MEDS: PROMOD 30 ML DOSE PO SCH ×2 (08:00→20:00)
[2020-03-14] MEDS: carvediloL 12.5 MG TAB PO SCH ×2 (08:00→20:35)
[2020-03-14] MEDS: INSULIN GLARGINE 100 UNITS/ML SQ SCH (08:30)
--- NOTE | 2020-03-14 09:34 | P.RH.PN ---
Estimated Length of Stay: 15 Expected Discharge Date: 03/20/20 Discharge Disposition Plan: Home Family Support: Yes Correction Goal: Mobility, Transfers, Self Care Vital Signs: Last Vital Signs Temp 97.7 F 03/14/20 06:26 Pulse 68 03/14/20 07:19 Resp 12 03/14/20 08:18 BP 126/60 03/14/20 07:19 Pulse Ox 91 03/14/20 08:18 Laboratory: Laboratory Last Values WBC 7.3 K/uL (4.3-10.9) 03/13/20 06:40 RBC 3.20 M/uL (3.86-4.86) L 03/13/20 06:40 Hgb 8.8 g/dL (12.0-15.0) L 03/13/20 06:40 Hct 26.9 % (36.0-45.0) L 03/13/20 06:40 MCV 84.0 fL (80-100) 03/13/20 06:40 MCH 27.4 pg (27.0-35.0) 03/13/20 06:40 MCHC 32.6 g/dL (32.0-36.0) 03/13/20 06:40 RDW 15.1 % (12.1-15.2) 03/13/20 06:40 Plt Count 466 K/uL (152-406) H 03/13/20 06:40 MPV 6.9 fL (7.6-11.3) L 03/13/20 06:40 Neutrophils % 67.9 % (41.7-73.7) 03/13/20 06:40 Lymphocytes % 21.1 % (15.3-44.8) 03/13/20 06:40 Monocytes % 8.4 % (3.3-12.3) 03/13/20 06:40 Eosinophils % 1.7 % (0-4.4) 03/13/20 06:40 Basophils % 0.9 % (0-1.3) 03/13/20 06:40 Absolute Neutrophils 4.9 K/uL (1.8-8.0) 03/13/20 06:40 Absolute Lymphocytes 1.5 K/uL (0.7-4.9) 03/13/20 06:40 Absolute Monocytes 0.6 K/uL (0.1-1.3) 03/13/20 06:40 Absolute Eosinophils 0.1 K/uL (0-0.5) 03/13/20 06:40 Absolute Basophils 0.1 K/uL (0-0.5) 03/13/20 06:40 Sodium 141 mmol/L (136-145) 03/13/20 06:40 Potassium 4.5 mmol/L (3.5-5.1) 03/13/20 06:40 Chloride 107 mmol/L (98-107) 03/13/20 06:40 Carbon Dioxide 29 mmol/L (21-32) 03/13/20 06:40 BUN 23 mg/dL (7-18) H 03/13/20 06:40 Creatinine 1.84 mg/dL (0.55-1.3) H 03/13/20 06:40 Estimated GFR 33 mL/min (=/>90) L 03/13/20 06:40 Glucose 146 mg/dL (74-106) H 03/13/20 06:40 POC Glucose 119 mg/dL (65-120) 03/14/20 06:44 Calcium 8.8 mg/dL (8.5-10.1) 03/13/20 06:40 Magnesium 2.1 mg/dL (1.8-2.4) 03/07/20 05:39 Albumin 2.7 g/dL (3.4-5.0) L 03/13/20 06:40 Prealbumin 15.6 mg/dL (20-40) L 03/13/20 06:40 Urine Color Yellow 03/07/20 01:07 Urine Appearance Cloudy 03/07/20 01:07 Urine pH 6.5 (5.0-7.0) 03/07/20 01:07 Ur Specific [place] 1.020 (1.005-1.030) 03/07/20 01:07 Glucose (UA)(Auto) Negative (NEG) 03/07/20 01:07 Urine Ketones Negative (NEG) 03/07/20 01:07 Urine Blood Negative (NEG) 03/07/20 01:07 Urine Nitrite Negative (NEG) 03/07/20 01:07 Urine Bilirubin Negative (NEG) 03/07/20 01:07 Urine Urobilinogen 1.0 mg/dL (0.2-1.0) 03/07/20 01:07 Ur Leukocyte Esterase Negative (NEG) 03/07/20 01:07 Urine RBC 5-10 /HPF (NONE SEEN) H 03/07/20 01:07 Urine WBC 10-20 /HPF (<5) H 03/07/20 01:07 Ur Squamous Epith Cells 10-20 /HPF (NONE SEEN) H 03/07/20 01:07 Urine Bacteria 20-50 /HPF (<20) H 03/07/20 01:07 Urine Mucus 1+ /HPF (NONE SEEN) 03/07/20 01:07 Urine Culture Reflexed Not needed 03/07/20 01:07 Urine Total Protein 3+ (NEG) H 03/07/20 01:07 Weight: 215 lb 12.8 oz Wound Present: No Closed Surgical Incision Present: Yes Negative Pressure Wound Therapy Present: No Physician Update: Her right graft harvest sight is still draining and will have wound care consult. Her blood sugar 142 to 198. Will add lantus 5 units in the AM to 30 units. She is walking 250' and up an down 10 steps with contact guard assistance, minimum assistance for transfers. Last BM is 4 days ago with add Senakote and miralax. Functional Improvement: pt presents wth mild <-> moderate strength deficits globally. pt demonstrates poor balance and stability during ambulation and functional transfers. pt exhibits reduced trunk strength. pt does not adhere to sternal precautions without extensive verbal cues. pt experiences poor tolerance to functional activity due to pain, fear, weakness, fatigue, and SoB. Skilled PT services are necessary to address the above mentioned impairments and functional limitations. Summary: Patient's care plan and residential goals have been reviewed and revised as necessary. Please see the Rehabilitation Signature page for all necessary signatures.
--- NOTE | 2020-03-14 15:38 | FAST ---
ENCOUNTER DATE AND TIME: 03/14/2020 08:00 (CDT) NAME SALINA SERRATO DATE OF : 1950 DATE OF ADMISSION: 03/06/2020 18:55 (CDT) PHONE: AGE: 69 N# [id number] GENDER: Female ENCOUNTER PHYSICIAN: Dr. José Miguel Brennan M.D. ADMISSION DIAGNOSIS: - Cardiac 09 - Cardiac Disorders (09) CABG x 4. EATING: Not assessed/no information CODE: - ORAL HYGIENE: ORAL HYGIENE - STEP 1: Does the patient complete the activity by him/herself with no assistance (physical, verbal/nonverbal cueing, setup/clean-up)? Yes. 1. [id number] ADMISSION PERFORMANCE: Independent CODE: 06 TOILETING HYGIENE: Not assessed/no information CODE: - BATHING: SHOWER/BATHE SELF - STEP 1: Does the patient complete the activity by him/herself with no assistance (physical, verbal/nonverbal cueing, setup/clean-up)? No. SHOWER/BATHE SELF - STEP 2: Does the patient need only setup/clean-up assistance from one helper? No. SHOWER/BATHE SELF - STEP 3: Does the patient need only verbal/nonverbal cueing or touching/steadying/contact guard assistance fro m one helper? Yes. 1. [id number] ADMISSION PERFORMANCE: Supervision or touching assistance CODE: 04 DRESSING - UPPER BODY: DRESSING - UPPER BODY - STEP 1: Does the patient complete the activity by him/herself with no assistance (physical, verbal/nonverbal cueing, setup/clean-up)? No. DRESSING - UPPER BODY - STEP 2: Does the patient need only setup/clean-up assistance from one helper? No. DRESSING - UPPER BODY - STEP 3: Does the patient need only verbal/nonverbal cueing or touching/steadying/contact guard assistance fro m one helper? Yes. 1. [id number] ADMISSION PERFORMANCE: Supervision or touching assistance CODE: 04 DRESSING - LOWER BODY: DRESSING - LOWER BODY - STEP 1: Does the patient complete the activity by him/herself with no assistance (physical, verbal/nonverbal cueing, setup/clean-up)? No. DRESSING - LOWER BODY - STEP 2: Does the patient need only setup/clean-up assistance from one helper? No. DRESSING - LOWER BODY - STEP 3: Does the patient need only verbal/nonverbal cueing or touching/steadying/contact guard assistance fro m one helper? Yes. 1. [id number] ADMISSION PERFORMANCE: Supervision or touching assistance CODE: 04 PUTTING ON/TAKING OFF FOOTWEAR: FOOTWEAR - STEP 1: Does the patient complete the activity by him/herself with no assistance (physical, verbal/nonverbal cueing, setup/clean-up)? No. FOOTWEAR - STEP 2: Does the patient need only setup/clean-up assistance from one helper? No. FOOTWEAR - STEP 3: Does the patient need only verbal/nonverbal cueing or touching/steadying/contact guard assistance fro m one helper? Yes. 1. [id number] ADMISSION PERFORMANCE: Supervision or touching assistance CODE: 04 DOES THE PATIENT USE A WHEELCHAIR/SCOOTER? CODE: EXPR INDICATE THE TYPE OF WHEELCHAIR/SCOOTER USED: CODE: EXPR INDICATE THE TYPE OF WHEELCHAIR/SCOOTER USED: CODE: EXPR BLADDER AND BOWEL: CODE: EXPR CODE: EXPR SIGNATURE PANEL: The following modified sections: 1. [id number] Admission Performance, 1. [id number] Admission Performance, 1. [id number] Admission Performance, 1. [id number] Admission Performance, 1. [id number] Admission Performance were [electronically] signed by LUPE Posada on TueMar 14 2020 15:37:32 GMT-0500 (Central Daylight Time)
[2020-03-14] MEDS: MAGNESIUM HYDROXIDE 8% 30 ML PO PRN (16:56)
[2020-03-14] MEDS: DOCUSATE NA/SENNA CONC 1 TAB PO SCH (20:31)
[2020-03-14] MEDS: ATORVASTATIN 40 MG TAB PO SCH (20:33)
[2020-03-14] MEDS: BACLOFEN 10 MG TAB PO SCH (20:36)
[2020-03-14] MEDS: MELATONIN 3 MG TABLET PO PRN (22:33)
[2020-03-15] MEDS: TRAMADOL HCL 50 MG TAB PO PRN ×3 (01:15→22:03)
--- NOTE | 2020-03-15 02:08 | FAST ---
SHIFT START DATE/TIME: 03/14/2020 19:00 (CDT) SHIFT END DATE/TIME: 03/15/2020 07:00 (CDT) NAME SALINA SERRATO DATE OF : 1950 DATE OF ADMISSION: 03/06/2020 18:55 (CDT) PHONE: AGE: 69 N# [id number] GENDER: Female ENCOUNTER PHYSICIAN: Dr. José Miguel Brennan M.D. ADMISSION DIAGNOSIS: - Cardiac 09 - Cardiac Disorders (09) CABG x 4. EATING: Not assessed/no information CODE: - ORAL HYGIENE: Not assessed/no information CODE: - TOILETING HYGIENE: TOILETING HYGIENE - STEP 1: Does the patient complete the activity by him/herself with no assistance (physical, verbal/nonverbal cueing, setup/clean-up)? No. TOILETING HYGIENE - STEP 2: Does the patient need only setup/clean-up assistance from one helper? No. TOILETING HYGIENE - STEP 3: Does the patient need only verbal/nonverbal cueing or touching/steadying/contact guard assistance fro m one helper? Yes. 1. [id number] ADMISSION PERFORMANCE: Supervision or touching assistance CODE: 04 BATHING: Not assessed/no information CODE: - DRESSING - UPPER BODY: Not assessed/no information CODE: - DRESSING - LOWER BODY: Not assessed/no information CODE: - PUTTING ON/TAKING OFF FOOTWEAR: Not assessed/no information CODE: - ROLL LEFT AND RIGHT: Not assessed/no information CODE: - SIT TO LYING: SIT TO LYING - STEP 1: Does the patient complete the activity by him/herself with no assistance (physical, verbal/nonverbal cueing, setup/clean-up)? No. SIT TO LYING - STEP 2: Does the patient need only setup/clean-up assistance from one helper? No. SIT TO LYING - STEP 3: Does the patient need only verbal/nonverbal cueing or touching/steadying/contact guard assistance fro m one helper? Yes. 1. [id number] ADMISSION PERFORMANCE: Supervision or touching assistance CODE: 04 LYING TO SITTING: LYING TO SITTING ON SIDE OF BED - STEP 1: Does the patient complete the activity by him/herself with no assistance (physical, verbal/nonverbal cueing, setup/clean-up)? No. LYING TO SITTING ON SIDE OF BED - STEP 2: Does the patient need only setup/clean-up assistance from one helper? No. LYING TO SITTING ON SIDE OF BED - STEP 3: Does the patient need only verbal/nonverbal cueing or touching/steadying/contact guard assistance fro m one helper? Yes. 1. [id number] ADMISSION PERFORMANCE: Supervision or touching assistance CODE: 04 SIT TO STAND: SIT TO STAND - STEP 1: Does the patient complete the activity by him/herself with no assistance (physical, verbal/nonverbal cueing, setup/clean-up)? No. SIT TO STAND - STEP 2: Does the patient need only setup/clean-up assistance from one helper? No. SIT TO STAND - STEP 3: Does the patient need only verbal/nonverbal cueing or touching/steadying/contact guard assistance fro m one helper? Yes. 1. [id number] ADMISSION PERFORMANCE: Supervision or touching assistance CODE: 04 TRANSFERS: BED, CHAIR: CHAIR/[id number] TRANSFER - STEP 1: Does the patient complete the activity by him/herself with no assistance (physical, verbal/nonverbal cueing, setup/clean-up)? No. CHAIR/[id number] TRANSFER - STEP 2: Does the patient need only setup/clean-up assistance from one helper? No. CHAIR/[id number] TRANSFER - STEP 3: Does the patient need only verbal/nonverbal cueing or touching/steadying/contact guard assistance fro m one helper? Yes. 1. [id number] ADMISSION PERFORMANCE: Supervision or touching assistance CODE: 04 TRANSFER TOILET: TOILET TRANSFER - STEP 1: Does the patient complete the activity by him/herself with no assistance (physical, verbal/nonverbal cueing, setup/clean-up)? No. TOILET TRANSFER - STEP 2: Does the patient need only setup/clean-up assistance from one helper? No. TOILET TRANSFER - STEP 3: Does the patient need only verbal/nonverbal cueing or touching/steadying/contact guard assistance fro m one helper? Yes. 1. [id number] ADMISSION PERFORMANCE: Supervision or touching assistance CODE: 04 TRANSFERS: CAR: Not assessed/no information CODE: - WALK 10 FEET: Not assessed/no information CODE: - 1 STEP (CURB): Not assessed/no information CODE: - PICKING UP OBJECT: Not assessed/no information CODE: - DOES THE PATIENT USE A WHEELCHAIR/SCOOTER? CODE: EXPR WHEEL 50 FEET WITH TWO TURNS: Not assessed/no information CODE: - INDICATE THE TYPE OF WHEELCHAIR/SCOOTER USED: CODE: EXPR WHEEL 150 FEET: Not assessed/no information CODE: - INDICATE THE TYPE OF WHEELCHAIR/SCOOTER USED: CODE: EXPR BLADDER AND BOWEL: H350. BLADDER CONTINENCE (3-DAY ASSESSMENT PERIOD): Always continent (no documented incontinence) CODE: 0 H400. BOWEL CONTINENCE (3-DAY ASSESSMENT PERIOD): Always continent CODE: 0
[2020-03-15] MEDS: ENOXAPARIN 30 MG/0.3 ML SQ SCH (07:10)
[2020-03-15] MEDS: carvediloL 12.5 MG TAB PO SCH ×2 (07:12→19:58)
[2020-03-15] MEDS: LOSARTAN POTASSIUM 50 MG TABLET PO SCH ×2 (07:13→19:59)
[2020-03-15] MEDS: FUROSEMIDE 20 MG TABLET PO SCH (08:00)
[2020-03-15] MEDS: NIFEDIPINE XL 30 MG TABLET PO SCH (08:06)
[2020-03-15] MEDS: LIDOCAINE 4% PATCH TOP SCH (08:06)
[2020-03-15] MEDS: NYSTATIN PWDR 100000 UNIT/GM TOP SCH ×2 (08:06→20:00)
[2020-03-15] MEDS: CRANBERRY FRUIT EXTRACT 200 MG CAP PO SCH ×2 (08:06→19:57)
[2020-03-15] MEDS: CLOPIDOGREL 75 MG TABLET PO SCH (08:07)
[2020-03-15] MEDS: ASPIRIN EC 81 MG TAB PO SCH (08:07)
[2020-03-15] MEDS: FERROUS SULFATE 325 MG TAB PO SCH (08:07)
[2020-03-15] MEDS: VITAMIN D 5,000 UNIT CAP PO SCH (08:07)
[2020-03-15] MEDS: FAMOTIDINE 20 MG TAB PO SCH (08:07)
[2020-03-15] MEDS: GABAPENTIN 300 MG CAP PO SCH ×2 (08:08→19:57)
[2020-03-15] MEDS: FE SULF/FA/VIT B COMP & C TAB PO SCH (08:10)
[2020-03-15] MEDS: MAGNESIUM OXIDE 400 MG TAB PO SCH ×2 (08:11→20:00)
[2020-03-15] MEDS: SMZ./TMP. 800/160 MG TABLET PO SCH (08:12)
[2020-03-15] MEDS: INSULIN -REGULAR HUMAN 50 UNIT/0.5 ML ML SQ SCH ×4 (09:02→20:45)
[2020-03-15] MEDS: PROMOD 30 ML DOSE PO SCH ×2 (09:03→20:00)
[2020-03-15] MEDS: INSULIN GLARGINE 100 UNITS/ML SQ SCH (09:06)
[2020-03-15] MEDS: cloNIDine HCL 0.1 MG TAB PO SCH ×2 (12:08→20:00)
[2020-03-15] MEDS: ATORVASTATIN 40 MG TAB PO SCH (19:57)
[2020-03-15] MEDS: DOCUSATE NA/SENNA CONC 1 TAB PO SCH (19:57)
[2020-03-15] MEDS: MELATONIN 3 MG TABLET PO PRN (19:57)
[2020-03-15] MEDS: BACLOFEN 10 MG TAB PO SCH (19:58)
[2020-03-16] MEDS: PANTOPRAZOLE 40MG TABLET PO SCH (07:30)
[2020-03-16] MEDS: FUROSEMIDE 20 MG TABLET PO SCH ×2 (08:00→12:23)
[2020-03-16] MEDS: NIFEDIPINE XL 30 MG TABLET PO SCH ×2 (08:00→12:23)
[2020-03-16] MEDS: FE SULF/FA/VIT B COMP & C TAB PO SCH (08:00)
[2020-03-16] MEDS: LIDOCAINE 4% PATCH TOP SCH (08:04)
[2020-03-16] MEDS: ENOXAPARIN 30 MG/0.3 ML SQ SCH (08:04)
[2020-03-16] MEDS: CLOPIDOGREL 75 MG TABLET PO SCH (08:05)
[2020-03-16] MEDS: FERROUS SULFATE 325 MG TAB PO SCH (08:05)
[2020-03-16] MEDS: FAMOTIDINE 20 MG TAB PO SCH (08:06)
[2020-03-16] MEDS: cloNIDine HCL 0.1 MG TAB PO SCH ×2 (08:06→19:38)
[2020-03-16] MEDS: CRANBERRY FRUIT EXTRACT 200 MG CAP PO SCH ×2 (08:07→19:37)
[2020-03-16] MEDS: VITAMIN D 5,000 UNIT CAP PO SCH (08:08)
[2020-03-16] MEDS: ASPIRIN EC 81 MG TAB PO SCH (08:08)
[2020-03-16] MEDS: GABAPENTIN 300 MG CAP PO SCH ×2 (08:09→19:37)
[2020-03-16] MEDS: MAGNESIUM OXIDE 400 MG TAB PO SCH ×2 (08:09→19:39)
[2020-03-16] MEDS: INSULIN GLARGINE 100 UNITS/ML SQ SCH (08:13)
[2020-03-16] MEDS: INSULIN -REGULAR HUMAN 50 UNIT/0.5 ML ML SQ SCH ×4 (08:14→20:02)
[2020-03-16] MEDS: PROMOD 30 ML DOSE PO SCH ×2 (09:06→19:39)
[2020-03-16] MEDS: NYSTATIN PWDR 100000 UNIT/GM TOP SCH ×2 (09:07→19:38)
[2020-03-16] MEDS: carvediloL 12.5 MG TAB PO SCH ×2 (10:00→19:38)
[2020-03-16] MEDS: LOSARTAN POTASSIUM 50 MG TABLET PO SCH ×2 (12:24→19:37)
[2020-03-16] MEDS: TRAMADOL HCL 50 MG TAB PO PRN (19:35)
[2020-03-16] MEDS: ATORVASTATIN 40 MG TAB PO SCH (20:01)
[2020-03-16] MEDS: BACLOFEN 10 MG TAB PO SCH (20:02)
[2020-03-16] MEDS: DOCUSATE NA/SENNA CONC 1 TAB PO SCH (20:02)
[2020-03-17] MEDS: PANTOPRAZOLE 40MG TABLET PO SCH (06:21)
[2020-03-17] MEDS: ENOXAPARIN 30 MG/0.3 ML SQ SCH (06:22)
[2020-03-17] MEDS: cloNIDine HCL 0.1 MG TAB PO SCH ×2 (06:22→20:10)
[2020-03-17] MEDS: CRANBERRY FRUIT EXTRACT 200 MG CAP PO SCH ×2 (08:01→20:09)
[2020-03-17] MEDS: FE SULF/FA/VIT B COMP & C TAB PO SCH (08:03)
[2020-03-17] MEDS: GABAPENTIN 300 MG CAP PO SCH ×2 (08:03→20:09)
[2020-03-17] MEDS: FERROUS SULFATE 325 MG TAB PO SCH (08:03)
[2020-03-17] MEDS: ASPIRIN EC 81 MG TAB PO SCH (08:04)
[2020-03-17] MEDS: CLOPIDOGREL 75 MG TABLET PO SCH (08:04)
[2020-03-17] MEDS: MAGNESIUM OXIDE 400 MG TAB PO SCH ×2 (08:05→20:09)
[2020-03-17] MEDS: carvediloL 12.5 MG TAB PO SCH ×2 (08:05→20:10)
[2020-03-17] MEDS: VITAMIN D 5,000 UNIT CAP PO SCH (08:05)
[2020-03-17] MEDS: INSULIN -REGULAR HUMAN 50 UNIT/0.5 ML ML SQ SCH ×4 (08:06→20:12)
[2020-03-17] MEDS: LIDOCAINE 4% PATCH TOP SCH (08:08)
[2020-03-17] MEDS: INSULIN GLARGINE 100 UNITS/ML SQ SCH (08:08)
[2020-03-17] MEDS: NYSTATIN PWDR 100000 UNIT/GM TOP SCH ×2 (08:09→20:08)
[2020-03-17] MEDS: TRAMADOL HCL 50 MG TAB PO PRN (08:12)
[2020-03-17] MEDS: PROMOD 30 ML DOSE PO SCH ×2 (10:27→20:12)
[2020-03-17] MEDS: FUROSEMIDE 20 MG TABLET PO SCH (12:24)
[2020-03-17] MEDS: NIFEDIPINE XL 30 MG TABLET PO SCH (12:25)
[2020-03-17] MEDS: LOSARTAN POTASSIUM 50 MG TABLET PO SCH ×2 (12:25→20:09)
--- NOTE | 2020-03-17 14:43 | FAST ---
ENCOUNTER DATE AND TIME: 03/17/2020 08:00 (CDT) NAME SALINA SERRATO DATE OF : 1950 DATE OF ADMISSION: 03/06/2020 18:55 (CDT) PHONE: AGE: 69 N# [id number] GENDER: Female ENCOUNTER PHYSICIAN: Dr. José Miguel Brennan M.D. ADMISSION DIAGNOSIS: - Cardiac 09 - Cardiac Disorders (09) CABG x 4. EATING: Not assessed/no information CODE: - ORAL HYGIENE: ORAL HYGIENE - STEP 1: Does the patient complete the activity by him/herself with no assistance (physical, verbal/nonverbal cueing, setup/clean-up)? Yes. 1. [id number] ADMISSION PERFORMANCE: Independent CODE: 06 TOILETING HYGIENE: Not assessed/no information CODE: - BATHING: SHOWER/BATHE SELF - STEP 1: Does the patient complete the activity by him/herself with no assistance (physical, verbal/nonverbal cueing, setup/clean-up)? No. SHOWER/BATHE SELF - STEP 2: Does the patient need only setup/clean-up assistance from one helper? No. SHOWER/BATHE SELF - STEP 3: Does the patient need only verbal/nonverbal cueing or touching/steadying/contact guard assistance fro m one helper? Yes. 1. [id number] ADMISSION PERFORMANCE: Supervision or touching assistance CODE: 04 DRESSING - UPPER BODY: Not assessed/no information CODE: - DRESSING - LOWER BODY: DRESSING - LOWER BODY - STEP 1: Does the patient complete the activity by him/herself with no assistance (physical, verbal/nonverbal cueing, setup/clean-up)? No. DRESSING - LOWER BODY - STEP 2: Does the patient need only setup/clean-up assistance from one helper? No. DRESSING - LOWER BODY - STEP 3: Does the patient need only verbal/nonverbal cueing or touching/steadying/contact guard assistance fro m one helper? Yes. 1. [id number] ADMISSION PERFORMANCE: Supervision or touching assistance CODE: 04 PUTTING ON/TAKING OFF FOOTWEAR: FOOTWEAR - STEP 1: Does the patient complete the activity by him/herself with no assistance (physical, verbal/nonverbal cueing, setup/clean-up)? Yes. 1. [id number] ADMISSION PERFORMANCE: Independent CODE: 06 DOES THE PATIENT USE A WHEELCHAIR/SCOOTER? CODE: EXPR INDICATE THE TYPE OF WHEELCHAIR/SCOOTER USED: CODE: EXPR INDICATE THE TYPE OF WHEELCHAIR/SCOOTER USED: CODE: EXPR BLADDER AND BOWEL: CODE: EXPR CODE: EXPR SIGNATURE PANEL: The following modified sections: 1. [id number] Admission Performance, 1. [id number] Admission Performance, 1. [id number] Admission Performance, 1. [id number] Admission Performance were [electronically] signed by LUPE Akhtar on TueMar 17 2020 14:43:08 GMT-0500 (Central Daylight Time)
--- NOTE | 2020-03-17 17:45 | R.PN ---
ENCOUNTER DATE AND TIME: 03/17/2020 17:39 (CDT) NAME SALINA SERRATO DATE OF : 1950 DATE OF ADMISSION: 03/06/2020 18:55 (CDT) CABG x 4CHIEF COMPLAINT: Cardiac debility, status post 4 vessel CABG. SUBJECTIVE: Pt denied any Shortness of Breath. Pt denied any depression. She ambulated 250' with contact guard assistance without an assistive device. Therapeutic exercises d one with minimum assistance. Up and down 12 steps with standby assistance. 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 Encourage 8 glasses of water daily. She is on hemocyte plus. Will do guaiac for blood in the stool. Glucose 158 to 194. Lantus insulin increased to 30 units in the mo rning. Doppler studies of the lower extremities are negative for DVTs. VITAL SIGNS Temperature: 98.0 F SBP/DBP: 140/68 Pulse: 76 Resp: 16 MEDICATION ALLERGIES: No Known Drug Allergies (NKDA) ENVIRONMENTAL ALLERGIES: None Known - Substance Allergies None Known - Other Allergies None Known NURSING: - Shower allowing shower ACTIVITIES OOB only with supervision THERAPIES: - Dietary and Nutrition Adequate Nutrition. Nutritional Education. Nutritional Supplements. PHYSICAL EXAM - Gen Alert and awake Lying in bed No apparent distress Oriented to: person, time, and place - Skin Right and left medial leg vein harvest sites have good hemostasis without drainage. Will apply wet to dry dressing changes 2-3 times daily as needed. Normacephalic - Eyes No abnormalities - ENMT No abnormalities - Neck No abnormalities - CVS RRR - Chest Chest incision is healing with good hemostasis. - Resp Clear to auscultation - Abd Soft - GI Non distended Deferred - No abnormalities - Ext No significant edema - MSK 4+/5 weakness in both lower extremities. - Neuro 4/5 strength bilaterally lower extremities. - Psych No abnormalities ASSESSMENT: Pt. is a 69 yo Right-handed black female.On 02/15/2020 she was admitted to [facility] with diagnosis CABG x 4.Her impairment category is Cardiac 09 - Cardiac Disorders (09).Pre-morbidly, Pt. was independent/m od-I in Transfers Control, Locomotion, and Self-Care; and she had good Balance, Social Cognition, Sph incter Control, and Communication.Currently, she has deficits of Transfers Control, Balance, Locomoti on, Safety Awareness, and Self-Care.Pt. is now referred to [facility] for acut e in-patient rehabilitation in order to maximize patient's functional independence in activities of d aily living, strength, ROM, and mobility.- Rehab Goal Patient has realistic goal of being discharged at assistance level 6-Geo to reside at Home with Nickolas wilson. MDM/PLAN: - Physical Therapy Gait dysfunction - to improve, our physical therapists will perform initial evaluation of pt's statu s upon admission and devise an individualized program for Gait Training, and Wheel Chair mobility Inability to transfer - to improve, our physical therapists will perform initial evaluation of pt's status upon admission and devise an individualized program for Bed mobility Need for home safety evaluation - to improve, our physical therapists will perform initial evaluatio n of pt's status upon admission and devise an individualized program for Home Evaluation Need in caregiver upon discharge - to improve, our physical therapists will perform initial evaluati on of pt's status upon admission and devise an individualized program for Caregiver Training Edema - to improve, our physical therapists will perform initial evaluation of pt's status upon admi ssion and devise an individualized program for Elevation Training, and Lymphedema Therapy New precaution - to improve, our physical therapists will perform initial evaluation of pt's status upon admission and devise an individualized program for Patient precaution education Poor balance - to improve, our physical therapists will perform initial evaluation of pt's status up on admission and devise an individualized program for Balance Training Weakness - to improve, our physical therapists will perform initial evaluation of pt's status upon a dmission and devise an individualized program for Aquatic Therapy, Neuromuscular Reeducation, and Str engthening Achieving independence - to improve, our physical therapists will perform initial evaluation of pt's status upon admission and devise an individualized program for Community Reintegration Activities - Occupational Therapy ADL deficits - to improve, our occupation therapists will perform initial evaluation of pt's status upon admission and devise an individualized program for Bathing, Bed mobility, Community Reintegratio n, Cooking, Dressing, Eating, Fine Motor Skills, Grooming, Homemaking, Kitchen Mobility, Laundry, Pat ient Education, Safety Awareness, Splinting - Positioning, Transfers(Toilet, Tub, Shower), and Wheel Chair Management Need for care taker - to improve, our occupation therapists will perform initial evaluation of pt's status upon admission and devise an individualized program for Caregiver Training Weakness - to improve, our occupation therapists will perform initial evaluation of pt's status upon admission and devise an individualized program for Aquatic Therapy, Balance, Endurance, UE ROM, and UE strengthening - Other See attached MAR (Medication Administration Record) - Diet Type Continue Regular - Diet - Liquid Texture Continue Regular - Tube Feed Continue N/A - Diet - Solid Texture Continue Regular - Shower allowing shower FUNCTIONAL STATUS: UPDATED AT WEEKLY TEAM CONFERENCE - Walking Same score based on distance walked: 1(<=50ft) - Wheelchair Same FUNCTIONAL STATUS: - Self-Care A. Eating Geo B. Grooming Geo C. Bathing sup D. Dressing - Upper Geo E. Dressing - Lower sup F. Toileting sup - Sphincter Control G. Bladder control Geo H. Bowel control sup - Transfers Control I. Bed/Chair/Wheelchair sup J. Toilet sup K. Tub/Shower Camila - Locomotion L. Walk/Wheelchair (B) sup M. Stairs modA - Communication N. Comprehension (B) sup O. Expression (B) sup - Social Cognition P. Social Interaction sup Q. Problem Solving Camila R. Memory Camila - Endurance Good - Balance Good - Safety Awareness Fair QI SCORES: - Self-Care A. Eating 05-Setup or clean-up assistance B. Oral hygiene 05-Setup or clean-up assistance C. Toileting hygiene 03-Partial/moderate assistance E. Shower/bathe self 10-Not attempted due to environmental limitations F. Upper body dressing 02-Substantial/maximal assistance G. Lower body dressing 01-Dependent H. Putting on/taking off footwear 01-Dependent - Mobility A. Roll left and right 02-Substantial/maximal assistance B. Sit to lying 02-Substantial/maximal assistance C. Lying to sitting on side of bed 02-Substantial/maximal assistance D. Sit to stand 04-Supervision or touching assistance E. Chair/abv-ap-htfpd transfer 04-Supervision or touching assistance F. Toilet transfer 04-Supervision or touching assistance G. Car transfer 88-Not attempted due to medical condition or safety concerns I. Walk 10 feet 02-Substantial/maximal assistance J. Walk 50 feet with two turns 88-Not attempted due to medical condition or safety concerns K. Walk 150 feet 88-Not attempted due to medical condition or safety concerns L. Walking 10 feet on uneven surfaces 88-Not attempted due to medical condition or safety concerns M. 1 step (curb) 88-Not attempted due to medical condition or safety concerns N. 4 steps 88-Not attempted due to medical condition or safety concerns O. 12 steps 88-Not attempted due to medical condition or safety concerns P. Picking up object 88-Not attempted due to medical condition or safety concerns R. Wheel 50 feet with two turns S. Wheel 150 feet - Bladder and Bowel Bladder continence 0-Always continent Bowel continence 0-Always continent - Endurance Poor - Balance Poor - Safety Awareness Poor CURRENT FUNC. DEFICITS: Self-Care, Mobility, Endurance, Balance, and Safety Awareness SIGNATURE PANEL: (CDT)
[2020-03-17] MEDS: DOCUSATE NA/SENNA CONC 1 TAB PO SCH (20:09)
[2020-03-17] MEDS: ATORVASTATIN 40 MG TAB PO SCH (20:09)
[2020-03-17] MEDS: MELATONIN 3 MG TABLET PO PRN (20:09)
[2020-03-17] MEDS: BACLOFEN 10 MG TAB PO SCH (20:10)
[2020-03-17] MEDS: HYDROCODONE/APAP 5/325 MG TAB PO PRN (20:11)
[2020-03-18] MEDS: TRAZODONE 50 MG TABLET PO PRN (00:12)
[2020-03-18] MEDS: HYDROCODONE/APAP 5/325 MG TAB PO PRN (00:13)
[2020-03-18] MEDS: ENOXAPARIN 30 MG/0.3 ML SQ SCH (06:58)
[2020-03-18] MEDS: PANTOPRAZOLE 40MG TABLET PO SCH (06:58)
[2020-03-18] MEDS: LIDOCAINE 4% PATCH TOP SCH (06:58)
[2020-03-18] MEDS: INSULIN -REGULAR HUMAN 50 UNIT/0.5 ML ML SQ SCH ×4 (07:22→20:09)
[2020-03-18] MEDS: TRAMADOL HCL 50 MG TAB PO PRN ×2 (07:34→20:07)
[2020-03-18] MEDS: LOSARTAN POTASSIUM 50 MG TABLET PO SCH ×2 (07:35→20:03)
[2020-03-18] MEDS: CLOPIDOGREL 75 MG TABLET PO SCH (07:36)
[2020-03-18] MEDS: CRANBERRY FRUIT EXTRACT 200 MG CAP PO SCH ×2 (07:36→20:07)
[2020-03-18] MEDS: ASPIRIN EC 81 MG TAB PO SCH (07:36)
[2020-03-18] MEDS: VITAMIN D 5,000 UNIT CAP PO SCH (07:36)
[2020-03-18] MEDS: FERROUS SULFATE 325 MG TAB PO SCH (07:36)
[2020-03-18] MEDS: cloNIDine HCL 0.1 MG TAB PO SCH ×2 (07:36→20:07)
[2020-03-18] MEDS: INSULIN GLARGINE 100 UNITS/ML SQ SCH (07:37)
[2020-03-18] MEDS: NYSTATIN PWDR 100000 UNIT/GM TOP SCH ×2 (07:38→20:03)
[2020-03-18] MEDS: MAGNESIUM OXIDE 400 MG TAB PO SCH ×2 (07:38→20:07)
[2020-03-18] MEDS: FE SULF/FA/VIT B COMP & C TAB PO SCH (07:38)
[2020-03-18] MEDS: GABAPENTIN 300 MG CAP PO SCH ×2 (07:39→20:03)
[2020-03-18] MEDS: PROMOD 30 ML DOSE PO SCH ×2 (07:40→20:09)
[2020-03-18] MEDS: carvediloL 12.5 MG TAB PO SCH ×2 (09:02→20:08)
[2020-03-18] MEDS: NIFEDIPINE XL 30 MG TABLET PO SCH (12:14)
[2020-03-18] MEDS: FUROSEMIDE 20 MG TABLET PO SCH (12:15)
--- NOTE | 2020-03-18 17:19 | R.PN ---
ENCOUNTER DATE AND TIME: 03/18/2020 17:13 (CDT) NAME SALINA SERRATO DATE OF : 1950 DATE OF ADMISSION: 03/06/2020 18:55 (CDT) CABG x 4CHIEF COMPLAINT: Cardiac debility, status post 4 vessel CABG. SUBJECTIVE: Pt denied any Shortness of Breath. Pt denied any depression. She ambulated 500' with standby assistance and a rolling walker. Therapeutic exercises done with mini mum assistance. Up and down 15 steps with standby assistance. WBC 7.3 Hgb 8.8, Plt 466, Clinical Athletic Instructor 1.84. Encourage 8 glasses of water daily. She is on hemocyte plus. Will do guaiac for blood in the stool. Glucose 138 to 243. Lantus insulin increased to 30 units in the mo rning. Doppler studies of the lower extremities are negative for DVTs. VITAL SIGNS Temperature: 97.7 F SBP/DBP: 134/66 Pulse: 64 Resp: 16 MEDICATION ALLERGIES: No Known Drug Allergies (NKDA) ENVIRONMENTAL ALLERGIES: None Known - Substance Allergies None Known - Other Allergies None Known NURSING: - Shower allowing shower ACTIVITIES OOB only with supervision THERAPIES: - Dietary and Nutrition Adequate Nutrition. Nutritional Education. Nutritional Supplements. PHYSICAL EXAM - Gen Alert and awake Lying in bed No apparent distress Oriented to: person, time, and place - Skin Right and left medial leg vein harvest sites have good hemostasis without drainage. Will apply wet to dry dressing changes 2-3 times daily as needed. Normacephalic - Eyes No abnormalities - ENMT No abnormalities - Neck No abnormalities - CVS RRR - Chest Chest incision is healing with good hemostasis. - Resp Clear to auscultation - Abd Soft - GI Non distended Deferred - No abnormalities - Ext No significant edema - MSK 4+/5 weakness in both lower extremities. - Neuro 4/5 strength bilaterally lower extremities. - Psych No abnormalities ASSESSMENT: Pt. is a 69 yo Right-handed black female.On 02/15/2020 she was admitted to [facility] with diagnosis CABG x 4.Her impairment category is Cardiac 09 - Cardiac Disorders (09).Pre-morbidly, Pt. was independent/m od-I in Transfers Control, Locomotion, and Self-Care; and she had good Balance, Social Cognition, Sph incter Control, and Communication.Currently, she has deficits of Transfers Control, Balance, Locomoti on, Safety Awareness, and Self-Care.Pt. is now referred to [facility] for acut e in-patient rehabilitation in order to maximize patient's functional independence in activities of d aily living, strength, ROM, and mobility.- Rehab Goal Patient has realistic goal of being discharged at assistance level 6-Geo to reside at Home with Nickolas wilson. MDM/PLAN: - Physical Therapy Gait dysfunction - to improve, our physical therapists will perform initial evaluation of pt's statu s upon admission and devise an individualized program for Gait Training, and Wheel Chair mobility Inability to transfer - to improve, our physical therapists will perform initial evaluation of pt's status upon admission and devise an individualized program for Bed mobility Need for home safety evaluation - to improve, our physical therapists will perform initial evaluatio n of pt's status upon admission and devise an individualized program for Home Evaluation Need in caregiver upon discharge - to improve, our physical therapists will perform initial evaluati on of pt's status upon admission and devise an individualized program for Caregiver Training Edema - to improve, our physical therapists will perform initial evaluation of pt's status upon admi ssion and devise an individualized program for Elevation Training, and Lymphedema Therapy New precaution - to improve, our physical therapists will perform initial evaluation of pt's status upon admission and devise an individualized program for Patient precaution education Poor balance - to improve, our physical therapists will perform initial evaluation of pt's status up on admission and devise an individualized program for Balance Training Weakness - to improve, our physical therapists will perform initial evaluation of pt's status upon a dmission and devise an individualized program for Aquatic Therapy, Neuromuscular Reeducation, and Str engthening Achieving independence - to improve, our physical therapists will perform initial evaluation of pt's status upon admission and devise an individualized program for Community Reintegration Activities - Occupational Therapy ADL deficits - to improve, our occupation therapists will perform initial evaluation of pt's status upon admission and devise an individualized program for Bathing, Bed mobility, Community Reintegratio n, Cooking, Dressing, Eating, Fine Motor Skills, Grooming, Homemaking, Kitchen Mobility, Laundry, Pat ient Education, Safety Awareness, Splinting - Positioning, Transfers(Toilet, Tub, Shower), and Wheel Chair Management Need for patient centered care specialist - to improve, our occupation therapists will perform initial evaluation of pt's status upon admission and devise an individualized program for Caregiver Training Weakness - to improve, our occupation therapists will perform initial evaluation of pt's status upon admission and devise an individualized program for Aquatic Therapy, Balance, Endurance, UE ROM, and UE strengthening - Other See attached MAR (Medication Administration Record) - Diet Type Continue Regular - Diet - Liquid Texture Continue Regular - Tube Feed Continue N/A - Diet - Solid Texture Continue Regular - Shower allowing shower FUNCTIONAL STATUS: UPDATED AT WEEKLY TEAM CONFERENCE - Walking Same score based on distance walked: 1(<=50ft) - Wheelchair Same FUNCTIONAL STATUS: - Self-Care A. Eating Geo B. Grooming Geo C. Bathing sup D. Dressing - Upper Geo E. Dressing - Lower sup F. Toileting sup - Sphincter Control G. Bladder control Geo H. Bowel control sup - Transfers Control I. Bed/Chair/Wheelchair sup J. Toilet sup K. Tub/Shower Camila - Locomotion L. Walk/Wheelchair (B) sup M. Stairs modA - Communication N. Comprehension (B) sup O. Expression (B) sup - Social Cognition P. Social Interaction sup Q. Problem Solving Camila R. Memory Camila - Endurance Good - Balance Good - Safety Awareness Fair QI SCORES: - Self-Care A. Eating 05-Setup or clean-up assistance B. Oral hygiene 05-Setup or clean-up assistance C. Toileting hygiene 03-Partial/moderate assistance E. Shower/bathe self 10-Not attempted due to environmental limitations F. Upper body dressing 02-Substantial/maximal assistance G. Lower body dressing 01-Dependent H. Putting on/taking off footwear 01-Dependent - Mobility A. Roll left and right 02-Substantial/maximal assistance B. Sit to lying 02-Substantial/maximal assistance C. Lying to sitting on side of bed 02-Substantial/maximal assistance D. Sit to stand 04-Supervision or touching assistance E. Chair/qax-tj-oivet transfer 04-Supervision or touching assistance F. Toilet transfer 04-Supervision or touching assistance G. Car transfer 88-Not attempted due to medical condition or safety concerns I. Walk 10 feet 02-Substantial/maximal assistance J. Walk 50 feet with two turns 88-Not attempted due to medical condition or safety concerns K. Walk 150 feet 88-Not attempted due to medical condition or safety concerns L. Walking 10 feet on uneven surfaces 88-Not attempted due to medical condition or safety concerns M. 1 step (curb) 88-Not attempted due to medical condition or safety concerns N. 4 steps 88-Not attempted due to medical condition or safety concerns O. 12 steps 88-Not attempted due to medical condition or safety concerns P. Picking up object 88-Not attempted due to medical condition or safety concerns R. Wheel 50 feet with two turns S. Wheel 150 feet - Bladder and Bowel Bladder continence 0-Always continent Bowel continence 0-Always continent - Endurance Poor - Balance Poor - Safety Awareness Poor CURRENT FUNC. DEFICITS: Self-Care, Mobility, Endurance, Balance, and Safety Awareness SIGNATURE PANEL: (CDT)
[2020-03-18] MEDS: DOCUSATE NA/SENNA CONC 1 TAB PO SCH (20:02)
[2020-03-18] MEDS: ATORVASTATIN 40 MG TAB PO SCH (20:03)
[2020-03-18] MEDS: BACLOFEN 10 MG TAB PO SCH (20:07)
[2020-03-19] MEDS: ENOXAPARIN 30 MG/0.3 ML SQ SCH (06:34)
[2020-03-19] MEDS: cloNIDine HCL 0.1 MG TAB PO SCH ×2 (06:42→20:09)
[2020-03-19] MEDS: VITAMIN D 5,000 UNIT CAP PO SCH (07:49)
[2020-03-19] MEDS: ASPIRIN EC 81 MG TAB PO SCH (07:49)
[2020-03-19] MEDS: CRANBERRY FRUIT EXTRACT 200 MG CAP PO SCH ×2 (07:49→20:08)
[2020-03-19] MEDS: PANTOPRAZOLE 40MG TABLET PO SCH (07:50)
[2020-03-19] MEDS: FE SULF/FA/VIT B COMP & C TAB PO SCH (07:50)
[2020-03-19] MEDS: FERROUS SULFATE 325 MG TAB PO SCH (07:50)
[2020-03-19] MEDS: LOSARTAN POTASSIUM 50 MG TABLET PO SCH ×2 (07:50→20:10)
[2020-03-19] MEDS: TRAMADOL HCL 50 MG TAB PO PRN ×2 (07:51→20:08)
[2020-03-19] MEDS: MAGNESIUM OXIDE 400 MG TAB PO SCH ×2 (07:51→20:09)
[2020-03-19] MEDS: CLOPIDOGREL 75 MG TABLET PO SCH (07:51)
[2020-03-19] MEDS: INSULIN -REGULAR HUMAN 50 UNIT/0.5 ML ML SQ SCH ×4 (07:52→20:20)
[2020-03-19] MEDS: INSULIN GLARGINE 100 UNITS/ML SQ SCH (07:52)
[2020-03-19] MEDS: NYSTATIN PWDR 100000 UNIT/GM TOP SCH ×2 (07:53→20:08)
[2020-03-19] MEDS: GABAPENTIN 300 MG CAP PO SCH ×2 (07:57→20:08)
[2020-03-19] MEDS: PROMOD 30 ML DOSE PO SCH ×2 (07:57→20:10)
[2020-03-19] MEDS: carvediloL 12.5 MG TAB PO SCH ×2 (09:42→20:10)
[2020-03-19] MEDS: LIDOCAINE 4% PATCH TOP SCH (09:45)
[2020-03-19] MEDS: NIFEDIPINE XL 30 MG TABLET PO SCH (12:40)
[2020-03-19] MEDS: FUROSEMIDE 20 MG TABLET PO SCH (12:41)
[2020-03-19] MEDS: levoFLOXacin 500 MG TAB PO SCH (14:22)
--- NOTE | 2020-03-19 14:46 | FAST ---
ENCOUNTER DATE AND TIME: 03/19/2020 08:00 (CDT) NAME SALINA SERRATO DATE OF : 1950 DATE OF ADMISSION: 03/06/2020 18:55 (CDT) PHONE: AGE: 69 N# [id number] GENDER: Female ENCOUNTER PHYSICIAN: Dr. José Miguel Brennan M.D. ADMISSION DIAGNOSIS: - Cardiac 09 - Cardiac Disorders (09) CABG x 4. EATING: Not assessed/no information CODE: - ORAL HYGIENE: ORAL HYGIENE - STEP 1: Does the patient complete the activity by him/herself with no assistance (physical, verbal/nonverbal cueing, setup/clean-up)? Yes. 1. [id number] ADMISSION PERFORMANCE: Independent CODE: 06 TOILETING HYGIENE: Not assessed/no information CODE: - BATHING: SHOWER/BATHE SELF - STEP 1: Does the patient complete the activity by him/herself with no assistance (physical, verbal/nonverbal cueing, setup/clean-up)? Yes. 1. [id number] ADMISSION PERFORMANCE: Independent CODE: 06 DRESSING - UPPER BODY: Not assessed/no information CODE: - DRESSING - LOWER BODY: Not assessed/no information CODE: - PUTTING ON/TAKING OFF FOOTWEAR: FOOTWEAR - STEP 1: Does the patient complete the activity by him/herself with no assistance (physical, verbal/nonverbal cueing, setup/clean-up)? Yes. 1. [id number] ADMISSION PERFORMANCE: Independent CODE: 06 DOES THE PATIENT USE A WHEELCHAIR/SCOOTER? CODE: EXPR INDICATE THE TYPE OF WHEELCHAIR/SCOOTER USED: CODE: EXPR INDICATE THE TYPE OF WHEELCHAIR/SCOOTER USED: CODE: EXPR BLADDER AND BOWEL: CODE: EXPR CODE: EXPR SIGNATURE PANEL: The following modified sections: 1. [id number] Admission Performance, 1. [id number] Admission Performance, 1. [id number] Admission Performance were [electronically] signed by LUPE Posada on TueMar 102019 14:45:04 GMT-0500 (Central Daylight Time)
--- NOTE | 2020-03-19 14:58 | FAST ---
SHIFT START DATE/TIME: 03/19/2020 07:00 (CDT) SHIFT END DATE/TIME: 03/19/2020 19:00 (CDT) NAME SALINA SERRATO DATE OF : 1950 DATE OF ADMISSION: 03/06/2020 18:55 (CDT) PHONE: AGE: 69 N# [id number] GENDER: Female ENCOUNTER PHYSICIAN: Dr. José Miguel Brennan M.D. ADMISSION DIAGNOSIS: - Cardiac 09 - Cardiac Disorders (09) CABG x 4. EATING: EATING - STEP 1: Does the patient complete the activity by him/herself with no assistance (physical, verbal/nonverbal cueing, setup/clean-up)? No. EATING - STEP 2: Does the patient need only setup/clean-up assistance from one helper? Yes. 1. [id number] ADMISSION PERFORMANCE: Setup or clean-up assistance CODE: 05 ORAL HYGIENE: ORAL HYGIENE - STEP 1: Does the patient complete the activity by him/herself with no assistance (physical, verbal/nonverbal cueing, setup/clean-up)? Yes. 1. [id number] ADMISSION PERFORMANCE: Independent CODE: 06 TOILETING HYGIENE: TOILETING HYGIENE - STEP 1: Does the patient complete the activity by him/herself with no assistance (physical, verbal/nonverbal cueing, setup/clean-up)? No. TOILETING HYGIENE - STEP 2: Does the patient need only setup/clean-up assistance from one helper? Yes. 1. [id number] ADMISSION PERFORMANCE: Setup or clean-up assistance CODE: 05 BATHING: Not assessed/no information CODE: - DRESSING - UPPER BODY: Not assessed/no information CODE: - [id number] - COMMENTS: Pt prefers to wear hospital gowns DRESSING - LOWER BODY: Not assessed/no information CODE: - [id number] - COMMENTS: Pt prefers to wear hospital gowns PUTTING ON/TAKING OFF FOOTWEAR: FOOTWEAR - STEP 1: Does the patient complete the activity by him/herself with no assistance (physical, verbal/nonverbal cueing, setup/clean-up)? No. FOOTWEAR - STEP 2: Does the patient need only setup/clean-up assistance from one helper? No. FOOTWEAR - STEP 3: Does the patient need only verbal/nonverbal cueing or touching/steadying/contact guard assistance fro m one helper? No. FOOTWEAR - STEP 4: Does the patient need physical assistance - for example lifting or trunk support from one helper - wi th the helper providing less than half of the effort? No. FOOTWEAR - STEP 5: Does the patient need physical assistance - for example lifting or trunk support from one helper - wi th the helper providing more than half of the effort? No. FOOTWEAR - STEP 6: Does the helper provide all of the effort? OR Is the assistance of two or more helpers required to co mplete the activity? Yes. 1. [id number] ADMISSION PERFORMANCE: Dependent CODE: 01 ROLL LEFT AND RIGHT: ROLL LEFT AND RIGHT - STEP 1: Does the patient complete the activity by him/herself with no assistance (physical, verbal/nonverbal cueing, setup/clean-up)? Yes. 1. [id number] ADMISSION PERFORMANCE: Independent CODE: 06 SIT TO LYING: SIT TO LYING - STEP 1: Does the patient complete the activity by him/herself with no assistance (physical, verbal/nonverbal cueing, setup/clean-up)? No. SIT TO LYING - STEP 2: Does the patient need only setup/clean-up assistance from one helper? Yes. 1. [id number] ADMISSION PERFORMANCE: Setup or clean-up assistance CODE: 05 LYING TO SITTING: LYING TO SITTING ON SIDE OF BED - STEP 1: Does the patient complete the activity by him/herself with no assistance (physical, verbal/nonverbal cueing, setup/clean-up)? No. LYING TO SITTING ON SIDE OF BED - STEP 2: Does the patient need only setup/clean-up assistance from one helper? Yes. 1. [id number] ADMISSION PERFORMANCE: Setup or clean-up assistance CODE: 05 SIT TO STAND: SIT TO STAND - STEP 1: Does the patient complete the activity by him/herself with no assistance (physical, verbal/nonverbal cueing, setup/clean-up)? No. SIT TO STAND - STEP 2: Does the patient need only setup/clean-up assistance from one helper? Yes. 1. [id number] ADMISSION PERFORMANCE: Setup or clean-up assistance CODE: 05 TRANSFERS: BED, CHAIR: CHAIR/[id number] TRANSFER - STEP 1: Does the patient complete the activity by him/herself with no assistance (physical, verbal/nonverbal cueing, setup/clean-up)? No. CHAIR/[id number] TRANSFER - STEP 2: Does the patient need only setup/clean-up assistance from one helper? Yes. 1. [id number] ADMISSION PERFORMANCE: Setup or clean-up assistance CODE: 05 TRANSFER TOILET: TOILET TRANSFER - STEP 1: Does the patient complete the activity by him/herself with no assistance (physical, verbal/nonverbal cueing, setup/clean-up)? No. TOILET TRANSFER - STEP 2: Does the patient need only setup/clean-up assistance from one helper? Yes. 1. [id number] ADMISSION PERFORMANCE: Setup or clean-up assistance CODE: 05 TRANSFERS: CAR: Not assessed/no information CODE: - WALK 10 FEET: Not assessed/no information CODE: - 1 STEP (CURB): Not assessed/no information CODE: - PICKING UP OBJECT: Not assessed/no information CODE: - DOES THE PATIENT USE A WHEELCHAIR/SCOOTER? Q1. DOES THE PATIENT USE A WHEELCHAIR/SCOOTER?: No CODE: 0 INDICATE THE TYPE OF WHEELCHAIR/SCOOTER USED: CODE: EXPR INDICATE THE TYPE OF WHEELCHAIR/SCOOTER USED: CODE: EXPR BLADDER AND BOWEL: H350. BLADDER CONTINENCE (3-DAY ASSESSMENT PERIOD): Always continent (no documented incontinence) CODE: 0 H400. BOWEL CONTINENCE (3-DAY ASSESSMENT PERIOD): Always continent CODE: 0 SIGNATURE PANEL: The following modified sections: 1. [id number] Admission Performance, 1. [id number] Admission Performance, 1. [id number] Admission Performance, [id number] - Comments:, [id number] - Comments:, 1. [id number] Admission Perf ormance, 1. [id number] Admission Performance, 1. [id number] Admission Performance, 1. [id number] Admission Per formance, 1. [id number] Admission Performance, 1. [id number] Admission Performance, 1. [id number] Admission Pe rformance, Q1. Does the patient use a wheelchair/scooter?, H350. Bladder Continence (3-day assessment period), H400. Bowel Continence (3-day assessment period), 1. [id number] Admission Performance were [el ectronically] signed by Joelle Carl C.N.A. on TueMar 19 2020 14:58:24 GMT-0500 (Central Daylight T [place])
--- NOTE | 2020-03-19 18:03 | R.PN ---
ENCOUNTER DATE AND TIME: 03/19/2020 17:57 (CDT) NAME SALINA SERRATO DATE OF : 1950 DATE OF ADMISSION: 03/06/2020 18:55 (CDT) CABG x 4CHIEF COMPLAINT: Cardiac debility, status post 4 vessel CABG. SUBJECTIVE: Pt denied any Shortness of Breath. Pt denied any depression. She ambulated 500' with independence using a rolling walker. Therapeutic exercises done with independ ence. Up and down 15 steps with independence. WBC 7.3 Hgb 8.8, Plt 466, Heater Helper 1.84. Encourage 8 glasses of water daily. She is on hemocyte plus. Will do guaiac for blood in the stool. Glucose 156 to 231. Lantus insulin increased to 35 units in the mo rning. Doppler studies of the lower extremities are negative for DVTs. VITAL SIGNS Temperature: 98.0 F SBP/DBP: 139/87 Pulse: 71 Resp: 16 MEDICATION ALLERGIES: No Known Drug Allergies (NKDA) ENVIRONMENTAL ALLERGIES: None Known - Substance Allergies None Known - Other Allergies None Known NURSING: - Shower allowing shower ACTIVITIES OOB only with supervision THERAPIES: - Dietary and Nutrition Adequate Nutrition. Nutritional Education. Nutritional Supplements. PHYSICAL EXAM - Gen Alert and awake Lying in bed No apparent distress Oriented to: person, time, and place - Skin Right and left medial leg vein harvest sites have good hemostasis without drainage. Will apply wet to dry dressing changes 2-3 times daily as needed. Normacephalic - Eyes No abnormalities - ENMT No abnormalities - Neck No abnormalities - CVS RRR - Chest Chest incision is healing with good hemostasis. - Resp Clear to auscultation - Abd Soft - GI Non distended Deferred - No abnormalities - Ext No significant edema - MSK 4+/5 weakness in both lower extremities. - Neuro 4/5 strength bilaterally lower extremities. - Psych No abnormalities ASSESSMENT: Pt. is a 69 yo Right-handed black female.On 02/15/2020 [facility] CABG x 4.Her impairment category is Cardiac 09 - Cardiac Disorders (09).Pre-morbidly, Pt. was independent/m od-I in Transfers Control, Locomotion, and Self-Care; and she had good Balance, Social Cognition, Sph incter Control, and Communication.Currently, she has deficits of Transfers Control, Balance, Locomoti on, Safety Awareness, and Self-Care.Pt. is now referred to [facility] for acut e in-patient rehabilitation in order to maximize patient's functional independence in activities of d aily living, strength, ROM, and mobility.- Rehab Goal Patient has realistic goal of being discharged at assistance level 6-Geo to reside at Home with Nickolas wilson. MDM/PLAN: - Physical Therapy Gait dysfunction - to improve, our physical therapists will perform initial evaluation of pt's statu s upon admission and devise an individualized program for Gait Training, and Wheel Chair mobility Inability to transfer - to improve, our physical therapists will perform initial evaluation of pt's status upon admission and devise an individualized program for Bed mobility Need for home safety evaluation - to improve, our physical therapists will perform initial evaluatio n of pt's status upon admission and devise an individualized program for Home Evaluation Need in caregiver upon discharge - to improve, our physical therapists will perform initial evaluati on of pt's status upon admission and devise an individualized program for Caregiver Training Edema - to improve, our physical therapists will perform initial evaluation of pt's status upon admi ssion and devise an individualized program for Elevation Training, and Lymphedema Therapy New precaution - to improve, our physical therapists will perform initial evaluation of pt's status upon admission and devise an individualized program for Patient precaution education Poor balance - to improve, our physical therapists will perform initial evaluation of pt's status up on admission and devise an individualized program for Balance Training Weakness - to improve, our physical therapists will perform initial evaluation of pt's status upon a dmission and devise an individualized program for Aquatic Therapy, Neuromuscular Reeducation, and Str engthening Achieving independence - to improve, our physical therapists will perform initial evaluation of pt's status upon admission and devise an individualized program for Community Reintegration Activities - Occupational Therapy ADL deficits - to improve, our occupation therapists will perform initial evaluation of pt's status upon admission and devise an individualized program for Bathing, Bed mobility, Community Reintegratio n, Cooking, Dressing, Eating, Fine Motor Skills, Grooming, Homemaking, Kitchen Mobility, Laundry, Pat ient Education, Safety Awareness, Splinting - Positioning, Transfers(Toilet, Tub, Shower), and Wheel Chair Management Need for managed care nurse - to improve, our occupation therapists will perform initial evaluation of pt's status upon admission and devise an individualized program for Caregiver Training Weakness - to improve, our occupation therapists will perform initial evaluation of pt's status upon admission and devise an individualized program for Aquatic Therapy, Balance, Endurance, UE ROM, and UE strengthening - Other See attached MAR (Medication Administration Record) - Diet Type Continue Regular - Diet - Liquid Texture Continue Regular - Tube Feed Continue N/A - Diet - Solid Texture Continue Regular - Shower allowing shower FUNCTIONAL STATUS: UPDATED AT WEEKLY TEAM CONFERENCE - Walking Same score based on distance walked: 1(<=50ft) - Wheelchair Same FUNCTIONAL STATUS: - Self-Care A. Eating Geo B. Grooming Geo C. Bathing sup D. Dressing - Upper Geo E. Dressing - Lower sup F. Toileting sup - Sphincter Control G. Bladder control Geo H. Bowel control sup - Transfers Control I. Bed/Chair/Wheelchair sup J. Toilet sup K. Tub/Shower Camila - Locomotion L. Walk/Wheelchair (B) sup M. Stairs modA - Communication N. Comprehension (B) sup O. Expression (B) sup - Social Cognition P. Social Interaction sup Q. Problem Solving Camila R. Memory Camila - Endurance Good - Balance Good - Safety Awareness Fair QI SCORES: - Self-Care A. Eating 05-Setup or clean-up assistance B. Oral hygiene 05-Setup or clean-up assistance C. Toileting hygiene 03-Partial/moderate assistance E. Shower/bathe self 10-Not attempted due to environmental limitations F. Upper body dressing 02-Substantial/maximal assistance G. Lower body dressing 01-Dependent H. Putting on/taking off footwear 01-Dependent - Mobility A. Roll left and right 02-Substantial/maximal assistance B. Sit to lying 02-Substantial/maximal assistance C. Lying to sitting on side of bed 02-Substantial/maximal assistance D. Sit to stand 04-Supervision or touching assistance E. Chair/[id number]-ln-lfddp transfer 04-Supervision or touching assistance F. Toilet transfer 04-Supervision or touching assistance G. Car transfer 88-Not attempted due to medical condition or safety concerns I. Walk 10 feet 02-Substantial/maximal assistance J. Walk 50 feet with two turns 88-Not attempted due to medical condition or safety concerns K. Walk 150 feet 88-Not attempted due to medical condition or safety concerns L. Walking 10 feet on uneven surfaces 88-Not attempted due to medical condition or safety concerns M. 1 step (curb) 88-Not attempted due to medical condition or safety concerns N. 4 steps 88-Not attempted due to medical condition or safety concerns O. 12 steps 88-Not attempted due to medical condition or safety concerns P. Picking up object 88-Not attempted due to medical condition or safety concerns R. Wheel 50 feet with two turns S. Wheel 150 feet - Bladder and Bowel Bladder continence 0-Always continent Bowel continence 0-Always continent - Endurance Poor - Balance Poor - Safety Awareness Poor CURRENT FUNC. DEFICITS: Self-Care, Mobility, Endurance, Balance, and Safety Awareness SIGNATURE PANEL: (CDT)
[2020-03-19] MEDS: MELATONIN 3 MG TABLET PO PRN (20:08)
[2020-03-19] MEDS: ATORVASTATIN 40 MG TAB PO SCH (20:08)
[2020-03-19] MEDS: DOCUSATE NA/SENNA CONC 1 TAB PO SCH (20:08)
[2020-03-19] MEDS: TRAZODONE 50 MG TABLET PO PRN (20:09)
[2020-03-19] MEDS: BACLOFEN 10 MG TAB PO SCH (20:11)
[2020-03-20 04:42] VITALS: BMI 38.5
[2020-03-20 06:06] LABS: Absolute Lymphocytes (CBC) 1.7 K/uL (0.7-4.9); Basophils % 0.8 % (0-1.3); Lymphocytes % 24.1 % (15.3-44.8); MPV 6.9 fL (7.6-11.3)
[2020-03-20 06:10] LABS: Albumin 2.8 g/dL (3.4-5.0); Potassium 4.6 mmol/L (3.5-5.1)
[2020-03-20] MEDS: cloNIDine HCL 0.1 MG TAB PO SCH (06:52)
[2020-03-20] MEDS: ENOXAPARIN 30 MG/0.3 ML SQ SCH (06:52)
[2020-03-20 07:12] VITALS: BP 131/62; TEMP 97.5
[2020-03-20] MEDS: INSULIN -REGULAR HUMAN 50 UNIT/0.5 ML ML SQ SCH (07:30)
[2020-03-20] MEDS: NYSTATIN PWDR 100000 UNIT/GM TOP SCH (08:00)
[2020-03-20] MEDS ORDERED: INSULIN GLARGINE 100 UNITS/ML SQ SCH (08:00)
[2020-03-20] MEDS: carvediloL 12.5 MG TAB PO SCH (08:30)
[2020-03-20] MEDS: GABAPENTIN 300 MG CAP PO SCH (08:46)
[2020-03-20] MEDS: CLOPIDOGREL 75 MG TABLET PO SCH (08:47)
[2020-03-20] MEDS: CRANBERRY FRUIT EXTRACT 200 MG CAP PO SCH (08:47)
[2020-03-20] MEDS: VITAMIN D 5,000 UNIT CAP PO SCH (08:47)
[2020-03-20] MEDS: levoFLOXacin 500 MG TAB PO SCH (08:47)
[2020-03-20] MEDS: ASPIRIN EC 81 MG TAB PO SCH (08:47)
[2020-03-20] MEDS: FERROUS SULFATE 325 MG TAB PO SCH (08:48)
[2020-03-20] MEDS: LOSARTAN POTASSIUM 50 MG TABLET PO SCH (08:48)
[2020-03-20] MEDS: MAGNESIUM OXIDE 400 MG TAB PO SCH (08:48)
[2020-03-20] MEDS: FE SULF/FA/VIT B COMP & C TAB PO SCH (08:49)
[2020-03-20] MEDS: LIDOCAINE 4% PATCH TOP SCH (08:50)
[2020-03-20] MEDS: PANTOPRAZOLE 40MG TABLET PO SCH (08:51)
[2020-03-20] MEDS: TRAMADOL HCL 50 MG TAB PO PRN (08:55)
[2020-03-20] MEDS: PROMOD 30 ML DOSE PO SCH (08:59)
--- NOTE | 2020-03-20 12:15 | FAST ---
SHIFT START DATE/TIME: 03/20/2020 07:00 (CDT) SHIFT END DATE/TIME: 03/20/2020 19:00 (CDT) NAME SALINA SERRATO DATE OF : 1950 DATE OF ADMISSION: 03/06/2020 18:55 (CDT) PHONE: AGE: 69 N# [id number] GENDER: Female ENCOUNTER PHYSICIAN: Dr. José Miguel Brennan M.D. ADMISSION DIAGNOSIS: - Cardiac 09 - Cardiac Disorders (09) CABG x 4. EATING: EATING - STEP 1: Does the patient complete the activity by him/herself with no assistance (physical, verbal/nonverbal cueing, setup/clean-up)? No. EATING - STEP 2: Does the patient need only setup/clean-up assistance from one helper? Yes. 1. [id number] ADMISSION PERFORMANCE: Setup or clean-up assistance CODE: 05 ORAL HYGIENE: ORAL HYGIENE - STEP 1: Does the patient complete the activity by him/herself with no assistance (physical, verbal/nonverbal cueing, setup/clean-up)? Yes. 1. [id number] ADMISSION PERFORMANCE: Independent CODE: 06 TOILETING HYGIENE: TOILETING HYGIENE - STEP 1: Does the patient complete the activity by him/herself with no assistance (physical, verbal/nonverbal cueing, setup/clean-up)? Yes. 1. [id number] ADMISSION PERFORMANCE: Independent CODE: 06 BATHING: Not assessed/no information CODE: - DRESSING - UPPER BODY: DRESSING - UPPER BODY - STEP 1: Does the patient complete the activity by him/herself with no assistance (physical, verbal/nonverbal cueing, setup/clean-up)? No. DRESSING - UPPER BODY - STEP 2: Does the patient need only setup/clean-up assistance from one helper? Yes. 1. [id number] ADMISSION PERFORMANCE: Setup or clean-up assistance CODE: 05 DRESSING - LOWER BODY: DRESSING - LOWER BODY - STEP 1: Does the patient complete the activity by him/herself with no assistance (physical, verbal/nonverbal cueing, setup/clean-up)? No. DRESSING - LOWER BODY - STEP 2: Does the patient need only setup/clean-up assistance from one helper? Yes. 1. [id number] ADMISSION PERFORMANCE: Setup or clean-up assistance CODE: 05 PUTTING ON/TAKING OFF FOOTWEAR: FOOTWEAR - STEP 1: Does the patient complete the activity by him/herself with no assistance (physical, verbal/nonverbal cueing, setup/clean-up)? No. FOOTWEAR - STEP 2: Does the patient need only setup/clean-up assistance from one helper? Yes. 1. [id number] ADMISSION PERFORMANCE: Setup or clean-up assistance CODE: 05 ROLL LEFT AND RIGHT: ROLL LEFT AND RIGHT - STEP 1: Does the patient complete the activity by him/herself with no assistance (physical, verbal/nonverbal cueing, setup/clean-up)? Yes. 1. [id number] ADMISSION PERFORMANCE: Independent CODE: 06 SIT TO LYING: SIT TO LYING - STEP 1: Does the patient complete the activity by him/herself with no assistance (physical, verbal/nonverbal cueing, setup/clean-up)? No. SIT TO LYING - STEP 2: Does the patient need only setup/clean-up assistance from one helper? Yes. 1. [id number] ADMISSION PERFORMANCE: Setup or clean-up assistance CODE: 05 LYING TO SITTING: LYING TO SITTING ON SIDE OF BED - STEP 1: Does the patient complete the activity by him/herself with no assistance (physical, verbal/nonverbal cueing, setup/clean-up)? No. LYING TO SITTING ON SIDE OF BED - STEP 2: Does the patient need only setup/clean-up assistance from one helper? Yes. 1. [id number] ADMISSION PERFORMANCE: Setup or clean-up assistance CODE: 05 SIT TO STAND: SIT TO STAND - STEP 1: Does the patient complete the activity by him/herself with no assistance (physical, verbal/nonverbal cueing, setup/clean-up)? No. SIT TO STAND - STEP 2: Does the patient need only setup/clean-up assistance from one helper? Yes. 1. [id number] ADMISSION PERFORMANCE: Setup or clean-up assistance CODE: 05 TRANSFERS: BED, CHAIR: CHAIR/[id number] TRANSFER - STEP 1: Does the patient complete the activity by him/herself with no assistance (physical, verbal/nonverbal cueing, setup/clean-up)? No. CHAIR/[id number] TRANSFER - STEP 2: Does the patient need only setup/clean-up assistance from one helper? Yes. 1. [id number] ADMISSION PERFORMANCE: Setup or clean-up assistance CODE: 05 TRANSFER TOILET: TOILET TRANSFER - STEP 1: Does the patient complete the activity by him/herself with no assistance (physical, verbal/nonverbal cueing, setup/clean-up)? No. TOILET TRANSFER - STEP 2: Does the patient need only setup/clean-up assistance from one helper? Yes. 1. [id number] ADMISSION PERFORMANCE: Setup or clean-up assistance CODE: 05 TRANSFERS: CAR: Not assessed/no information CODE: - WALK 10 FEET: Not assessed/no information CODE: - 1 STEP (CURB): Not assessed/no information CODE: - PICKING UP OBJECT: Not assessed/no information CODE: - DOES THE PATIENT USE A WHEELCHAIR/SCOOTER? Q1. DOES THE PATIENT USE A WHEELCHAIR/SCOOTER?: No CODE: 0 INDICATE THE TYPE OF WHEELCHAIR/SCOOTER USED: CODE: EXPR INDICATE THE TYPE OF WHEELCHAIR/SCOOTER USED: CODE: EXPR BLADDER AND BOWEL: H350. BLADDER CONTINENCE (3-DAY ASSESSMENT PERIOD): Always continent (no documented incontinence) CODE: 0 H400. BOWEL CONTINENCE (3-DAY ASSESSMENT PERIOD): Always continent CODE: 0 SIGNATURE PANEL: The following modified sections: 1. [id number] Admission Performance, 1. AK5538D Admission Performance, 1. [id number] Admission Performance, 1. YE3511e Admission Performance, 1. TA1193n Admission Performance, 1. UF5471m Admission Performance, 1. VW6228X Admission Performance, 1. [id number] Admission Performance , 1. WQ6041F Admission Performance, 1. LV4451V Admission Performance, 1. OP7654G Admission Performanc e, 1. LF2234E Admission Performance, 1. TP4150Z Admission Performance, 1. QS1758K Admission Performan ce, 1. PV7114Z Admission Performance, 1. XZ2742L Admission Performance, 1. QR6561V Admission Performa nce, Q1. Does the patient use a wheelchair/scooter?, H350. Bladder Continence (3-day assessment perio d), H400. Bowel Continence (3-day assessment period), H350. Bladder Continence (3-day assessment ivana od) were [electronically] signed by Joelle Carl C.N.A. on TueMar 20 2020 12:14:09 [facility]-0500 (Centra l Daylight Time)
--- NOTE | 2020-03-20 13:21 | FAST ---
ENCOUNTER DATE AND TIME: 03/20/2020 08:00 (CDT) NAME SALINA SERRATO DATE OF : 1950 DATE OF ADMISSION: 03/06/2020 18:55 (CDT) PHONE: AGE: 69 N# [id number] GENDER: Female ENCOUNTER PHYSICIAN: Dr. José Miguel Brennan M.D. ADMISSION DIAGNOSIS: - Cardiac 09 - Cardiac Disorders (09) CABG x 4. EATING: Not assessed/no information CODE: - ORAL HYGIENE: ORAL HYGIENE - STEP 1: Does the patient complete the activity by him/herself with no assistance (physical, verbal/nonverbal cueing, setup/clean-up)? Yes. 1. [id number] ADMISSION PERFORMANCE: Independent CODE: 06 TOILETING HYGIENE: TOILETING HYGIENE - STEP 1: Does the patient complete the activity by him/herself with no assistance (physical, verbal/nonverbal cueing, setup/clean-up)? Yes. 1. [id number] ADMISSION PERFORMANCE: Independent CODE: 06 BATHING: Not assessed/no information CODE: - DRESSING - UPPER BODY: DRESSING - UPPER BODY - STEP 1: Does the patient complete the activity by him/herself with no assistance (physical, verbal/nonverbal cueing, setup/clean-up)? Yes. 1. [id number] ADMISSION PERFORMANCE: Independent CODE: 06 DRESSING - LOWER BODY: DRESSING - LOWER BODY - STEP 1: Does the patient complete the activity by him/herself with no assistance (physical, verbal/nonverbal cueing, setup/clean-up)? Yes. 1. [id number] ADMISSION PERFORMANCE: Independent CODE: 06 PUTTING ON/TAKING OFF FOOTWEAR: FOOTWEAR - STEP 1: Does the patient complete the activity by him/herself with no assistance (physical, verbal/nonverbal cueing, setup/clean-up)? Yes. 1. [id number] ADMISSION PERFORMANCE: Independent CODE: 06 DOES THE PATIENT USE A WHEELCHAIR/SCOOTER? CODE: EXPR INDICATE THE TYPE OF WHEELCHAIR/SCOOTER USED: CODE: EXPR INDICATE THE TYPE OF WHEELCHAIR/SCOOTER USED: CODE: EXPR BLADDER AND BOWEL: CODE: EXPR CODE: EXPR SIGNATURE PANEL: The following modified sections: 1. [id number] Admission Performance, 1. HF2000D Admission Performance, 1. PD4478y Admission Performance, 1. RT9289x Admission Performance, 1. OR4248q Admission Performance were [electronically] signed by LUPE Posada on TueMar 20 2020 13:20:48 GMT-0500 (Central Daylight Time)
== END 2020-03-20 10:25 | disposition home health service (06) | DRG 950 ==
LOC: 5TH 03-06 18:55
PROVIDERS: ADMIT Psychiatry & Neurology Neurology with Special Qualifications in Child Neurology; ATTEND Psychiatry & Neurology Neurology with Special Qualifications in Child Neurology
DX: Z48.812 Encounter for surgical aftercare following surgery on the circulatory system (principal); I25.10 Atherosclerotic heart disease of native coronary artery without angina pectoris; I12.9 Hypertensive chronic kidney disease with stage 1 through stage 4 chronic kidney disease, or unspecified chronic kidney disease; E11.22 Type 2 diabetes mellitus with diabetic chronic kidney disease; N18.9 Chronic kidney disease, unspecified; R53.81 Other malaise; Z95.1 Presence of aortocoronary bypass graft
CPT/HCPCS: 36415; 80048; 81001; 82040; 82274; 82947; 83735; 84134; 85025; 87070; 87075; 87077; 87086; 87088; 87186; 87205; 93970; 97110; 97112; 97116; 97161; 97530; 97542; 99251; J1650; J1815; J1940

== ENCOUNTER 2020-08-13 06:00 | Day surgery (SDC) | payer MEDICARE ==
--- NOTE | 2020-08-08 10:52 | RAD REPORT ---
EXAM DESCRIPTION: RAD - Chest Pa And Lat (2 Views) - 08/08/2020 10:39 am CLINICAL HISTORY: Preop, pending groin mass removal COMPARISON: None TECHNIQUE: Frontal and lateral views of the chest were obtained. FINDINGS: The lungs are clear. Sternotomy wires are in place. Heart size is normal and central vasc ulature is within normal limits. No pleural effusion or pneumothorax seen. No acute bony finding no amelie. No aortic abnormality. IMPRESSION: No acute cardiopulmonary process.
[2020-08-08 11:50] LABS: Absolute Lymphocytes (CBC) 1.8 K/uL (0.7-4.9); Basophils % 0.7 % (0-1.3); Hematocrit 36.6 % (36.0-45.0); MPV 7.1 fL (7.6-11.3); RBC Red Blood Cell Count 4.53 M/uL (3.86-4.86)
[2020-08-08 11:59] LABS: Potassium 3.9 mmol/L (3.5-5.1)
--- NOTE | 2020-08-08 17:51 | EKG ---
Test Date: 2020-08-08 Test Time: 10:41:56 Strategic Account Director: MEASUREMENT RESULTS: Intervals: Rate: 63 AR: 172 QRSD: 130 QT: 480 QTc: 491 [place]: P: 64 AR: 172 QRS: -68 T: 69 INTERPRETIVE STATEMENTS: Normal sinus rhythm Right bundle branch block Left anterior fascicular block Bifascicular block Abnormal ECG Compared to ECG 11/02/2005 06:37:00 Right bundle-branch block now present Left anterior fascicular block now present Bifascicular block now present Prolonged QT interval no longer present Electronically Signed On 08-08-20 17:49:55 CDT by Oliver Iraheta
--- OUTSIDE RECORDS SUMMARY | 2020-08-13 06:02 | XMS REPORT | Summary of Care ---
:1950 Author Organization [facility] Address [address] [place] [address] Care Team Providers Name Role Phone MD Johnny Primary Care Provider Patricia Horan DO Religious Educator MD Allan Religious Educator Reason for Visit Reason Comments LAB WORK Encounter Details Date Type Department Care Team Description 07/24/2020 Miniature Model Maker Visit [facility] Rafa Lemus M D [address] [place] [address] [address] [place] [address] Laboratory Professional Office Margaux Quezada Lab Main examination ordered Building Phlebotomy as part of a Lab routine general Professional Office medical examination Building [address] [place] [address] , [address] [place] [address] Allergies Active Allergy Reactions Severity Noted Date Comments Influenza Virus Vaccine [facility] 2011- Other - See comments Medium 04/23/2015 Blisters (18+) Cell Micky Penicillins Hives 06/02/2015 documented as of this encounter (statuses as of 07/24/2020) Medications Medication Sig Dispensed Refills Start Date End Date Status CLOPIDOGREL 75 MG ORAL TAB 1 Tab Oral 30 2 02/16/2006 Active DAILY HYDROCHLOROTHIAZIDE 25 MG 1 Tab Oral 30 2 02/16/2006 Active ORAL TAB DAILY ASPIRIN 81 MG ORAL CHEW 1 Tab Oral 30 2 02/16/2006 Active DAILY amitriptyline (ELAVIL) 50 Take 50 mg by 0 Active mg tablet mouth at bedtime. baclofen (LIORESAL) 10 mg Take 10 mg by 0 Active tablet mouth daily. carvedilol (COREG) 25 mg Take 25 mg by 0 Active tablet mouth 2 (two) times daily. cloniDINE (CATAPRES) 0.1 mg Take 0.1 mg 0 Active tablet by mouth 3 (three) times daily. insulin lispro (HUMALOG inject 5 0 Active KWIKPEN) 100 unit/mL pen Units under injector the skin 3 (three) times daily. hydralAZINE (APRESOLINE) 25 Take 25 mg by 0 Active mg tablet mouth 3 (three) times daily. Insulin Glargine (LANTUS inject 40 0 Active SOLOSTAR) 100 unit/mL (3 Units under mL) InPn the skin at bedtime. LORazepam (ATIVAN) 1 mg Take 1 mg by 0 Active tablet mouth daily. losartan (COZAAR) 100 mg Take 100 mg 0 Active tablet by mouth daily. pravastatin (PRAVACHOL) 40 Take 40 mg by 0 Active mg tablet mouth daily. linagliptin (TRADJENTA) 5 Take 5 mg by 0 Active mg Tab mouth daily. zolpidem (AMBIEN) 10 mg Take 10 mg by 0 Active tablet mouth at bedtime. famotidine (PEPCID) 20 mg Take 1 Tab by 30 Tab 2 06/04/2015 Active tablet mouth at bedtime. isosorbide dinitrate Take 1 Tab by 60 Tab 2 06/04/2015 Active (ISORDIL) 20 mg tablet mouth 2 (two) times daily. documented as of this encounter (statuses as of 07/24/2020) Active Problems Problem Noted Date STAHL (dyspnea on exertion) 03/28/2020 Coronary artery disease involving coronary bypass ed t of [place] heart 03/28/2020 without angina pectoris S/P CABG (coronary artery bypass graft) 03/28/2020 Essential hypertension 03/28/2020 Dyslipidemia 03/28/2020 Stage 3 chronic kidney disease 03/28/2020 Myocardial infarction type 2 03/28/2020 Elevated brain natriuretic peptide (BNP) level 020 Altered mental status 11/11/2019 Morbid obesity with body mass index of 40.0-49.9 11/11 Morbid obesity with body mass index of 50 or higher Diabetes 11/11/2016 Chest pain at rest 06/03/2015 documented as of this encounter (statuses as of 07/24/2020) Social History Tobacco Use Types Packs/Day Years Used Date Passive Smoke Exposure - Never Smoker Smokeless Tobacco: Never Used Alcohol Use Drinks/Week oz/Week Comments No Sex Assigned at Date Recorded Not on file COVID-19 Exposure Response Date Recorded In the last month, have you been in contact with No / Unsure 07/24/2020 11:03 AM CDT someone who was confirmed or suspected to have Coronavirus / COVID-19? documented as of this encounter Last Filed Vital Signs Not on filedocumented in this encounter Nursing Notes Martha Bill - 07/24/2020 11:00 AM CDT Venipuncture collection performed by clean technique on the left anticubitus. Total of 1 attempts were made. Slight pressure and a bandage/dressing were applied to the site(s). The patient experienced no complications. The following specimens were processed according to instructions and [facility] per lab order on today: LT BLUE SST 1 RED LAV PPT DK GREEN (LiHep) DK GREEN (SodH) MORAN DK BLUE (K2) DK BLUE (S) ACD Blood Culture NIPT/NTD documented in this encounter Plan of Treatment Name Type Priority Associated Diagnoses Date/Ti me BASIC METABOLIC PANEL LAB Routine Laboratory examinat ion 07/24/2020 11:21 AM CDT (NA, K, CL, CO2, ordered as part of a GLUCOSE, BUN, routine general medical CREATININE, CA) examination Name Type Priority Associated Diagnoses Order S chedule BASIC METABOLIC PANEL LAB Routine Laboratory examinat ion Expected: 07/24/2020, (NA, K, CL, CO2, ordered as part of a Exp ires: 07/24/2021 GLUCOSE, BUN, routine general medical CREATININE, CA) examination Health Maintenance Due Date Last Done Comments HEPATITIS C (HCV) SCREEN 1950 EYE EXAM 1962 Depression Screening 1964 FOOT EXAM 1970 DTaP,Tdap,and Td Vaccines ( - 1971 Tdap) COLON CANCER SCREENING ANNUAL 2002 FIT/FOBT COLON CANCER SCREENING FIT DNA 2002 EVERY 3 YEARS COLON CANCER SCREENING 2002 SIGMOIDOSCOPY EVERY 5 YEARS COLONOSCOPY 2002 Colorectal Cancer Screening 2002 Zoster Recombinant Vaccine 2002 (SHINGRIX) (1 of 2) URINE MICROALBUMIN 05/13/2005 05/13/2004 Medicare Wellness Visit 2017 PNEUMOCOCCAL VACCINES 65+ (1 of 1 2017 - PPSV23) Breast Cancer Screening 04/09/2020 04/09/2019 (MAMMOGRAM) INFLUENZA VACCINE (#1) 2020 HgA1C 09/26/2020 03/27/2020, 11/11/2019, 05/29/2015, Additional history exists CREATININE (SERUM) 03/27/2021 03/27/2020, 02/14/2020, 12/13/2019, Additional history exists LDL-C 03/27/2021 03/27/2020, 05/29/2015, 02/21/2006, Additional history exists Osteoporosis Screening 04/09/2029 04/09/2019 documented as of this encounter Implants Implanted Type Area Embedded Software Test Engineer Device Shelf Model / Serial Identifier Expiration / Lot Date Lens LENS Right: Javier 09/08/2019 [id number] / Implanted: Qty: 1 on 05/01/2015 by Hugo Laguerre MD at [facility] Eye 9 [id number] / [id number] Lens LENS Left: Eye Javier 02/07/2019 [id number] / Implanted: Qty: 1 on 07/24/2015 by Hugo Laguerre MD at [facility] 6 [id number] / [id number] documented as of this encounter Results Not on filedocumented in this encounter Visit Diagnoses Diagnosis Laboratory examination ordered as part o f a routine general medical examination documented in this encounter Insurance Payer Benefit Plan / Subscriber ID Effective Phone Address T ype Group Dates [place] [employer]/J[place]UA [id number] 2019-Sofy huerta [facility] - MEDICARE HMO MANAGED MEDICARE ADVANTAGE [phone] [id number] (Work) documented as of this encounter
--- OUTSIDE RECORDS SUMMARY | 2020-08-13 06:02 | XMS REPORT | Summary of Care ---
:1950 Author Organization [facility] Address [address] [place] [address] Care Team Providers Name Role Phone MD Johnny Primary Care Provider Patricia Horan DO [place] MD Allan Oreman Encounter Details Date Type Department Care Team Description 07/24/2020 Orders Only [facility] Doctor Unassigned, No [address] [facility] [place] [address] [address] [place] [address] Allergies Active Allergy Reactions Severity Noted Date [...] disease involving coronary bypass ed t of [place] heart 03/28/2020 without angina pectoris S/P CABG [...] Assigned at Date Recorded Not on file documented as of this encounter Last Filed Vital Signs Not on filedocumented in this encounter Plan of Treatment Health Maintenance Due Date Last Done Comments HEPATITIS C (HCV) SCREEN 1950 EYE EXAM 1962 Depression Screening 1964 FOOT EXAM 1970 DTaP,Tdap,and Td Vaccines (1 - 1971 Tdap) COLON CANCER SCREENING ANNUAL [...] of this encounter Implants Implanted Type Area Grain Oilseed Or Pasture Grower Device Shelf Model / Serial Identifier Expiration / Lot Date Lens LENS Right: Javier 09/08/2019 [id number] / Implanted: Qty: 1 on 05/01/2015 by Hugo Laguerre MD at [facility] Eye 5 [id number] / [id number] Lens LENS Left: Eye Javier 02/07/2019 [id number] / Implanted: Qty: 1 on 07/24/2015 by Hugo Laguerre MD at [facility] 1 [id number] / [id number] documented as of this encounter Procedures Procedure Name Priority Date/Time Associated Diagnosis Comme nts ASSIGNMENT OF BENEFITS Routine 07/24/2020 10:59 AM CDT documented in this encounter Results Not on filedocumented in this encounter Insurance Payer Benefit Plan / Subscriber ID Effective Phone Address T ype Group [facility]ates [id number] - MEDICARE nt O MANAGED MEDICARE ADVANTAGE documented as of this encounter
--- OUTSIDE RECORDS SUMMARY | 2020-08-13 06:09 | XMS REPORT | Continuity of Care Document ---
:1950 Author Organization [facility] t Address [address] [place] [address] Care Team Providers Name Role Phone Pob, Lab Main Attending Clinician Unavailable Doctor Unassigned, Name Attending Clinician Unavailable Junior KERR M Attending Clinician Miguel MACDONALD Attending Clinician Bart MACDONALD Attending Clinician Srinivas MACDONALD, S Attending Clinician Singer VELAZQUEZ Attending Clinician Aftab MACDONALD Attending Clinician Bart MACDONALD Admitting Clinician Aftab MACDONALD Admitting Clinician Payers Payer Name Policy Type Policy Number Effective Date Expiration Date S ource Problems This patient has no known problems. Allergies, Adverse Reactions, Alerts Allergy Allergy Status Severity Reaction(s) Onset Inactive Treating Comm ents Source Name Type Date Date Clinician [place] DA Active SV 2019-0 [facility] [facility] Active SV 2020-0 [facility] ins 5-11 Clear 00:00: Caba 00 [facility] Penic[place] DA Active SV 2015-10 [facility] ins - Clear 00:00: [place] 00 [facility] ELECTROD DA Active U 2015-10 [facility] ES 10-12 Clear 00:00: Caba 00 [facility] FLU DA Active SV 2015-10 [facility] VACCINE 10-12 Clear 00:00: Caba 00 [facility] Medications This patient has no known medications. Procedures This patient has no known procedures. 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 Margaux Quezada [facility] 1.2.840.114 [id number] 13:20:41 13:35:41 Visit Lab Main [place] 350.1.13.10 [place] 4.2.7.2.686 [facility] [id number] [address] 2019-12-13 2019-12-13 Orders Doctor JONY 1.2.840.114 [id number] 00:00:00 00:00:00 Only Unassigned, KRISTINA 350.1.13.10 [place] [facility] 4.2.7.2.686 [id number] 009 2019-11-13 2019-11-13 Transition Bernardo Pacheco 1.2.840.114 [id number] 00:00:00 00:00:00 of Care Delphine Vidal 350.1.13.10 [place] 4.2.7.2.686 [id number] 2019-11-11 2019-11-11 Emergency Slade Sykes [facility] 1.2.840. 114 [id number] 01:24:32 17:40:00 Pratima Ugalde 350.1.13.10 [place] 4.2.7.2.686 [place] [id number] 081 Results Test Description Test Time Test Comments Results Result Comments Source GLUCOSE BEDSIDE TESTING 2020-03-06 16:36:00 Test Item Value Reference Range Interpretation Comme nts GLUCOSE BEDSIDE TESTING (test code = GLUBED) 158 MG/DL 60-99 H HGB [id number] 15:25:00 Test Item Value Reference Range Interpretation Comments HEMOGLOBIN (test code = HGB) 9.1 G/DL 11.2-14.9 L HEMATOCRIT (test code = HCT) 29.2 % 33.2-43.5 L Is this a LINE draw? NGLUCOSE BEDSIDE [id number] 12:18:00 Test Item Value Reference Range Interpretation Comments GLUCOSE BEDSIDE TESTING (test code 151 MG/DL 60-99 H = GLUBED) GLUCOSE BEDSIDE [id number] 12:18:00 Test Item Value Reference Range Interpretation Comments GLUCOSE BEDSIDE TESTING (test code 155 MG/DL 60-99 H = GLUBED) CBC W/AUTO [id number] 09:19:00 Test Item Value Reference Range Interpretation [...] STAFF: TEJA 03/06/20 AT 0742 BY Dee Dee.LAB.MYJBASISL8Z | [employer] METABOLIC [id number] 09:06:00 Test Item Value Reference Range Interpretation [...] SAMPLE.NOTIFIED PATIENT CARE STAFF: TEJA 03/06/20 AT BY Dee Dee.LAB.[id number] 09:06:00 Test Item Value Reference Range Interpretation Comments MAGNESIUM (test code = MAG) 1.9 MG/DL 1.6-2.3 N PATIENT IS A HARD STICK. UNABLE TO GET BLOOD SAMPLE.NOTIFIED PATIENT CARE STAFF: TEJA 03/06/20 AT 07 BY Dee Dee.LAB.MYJBASIC METABOLIC [id number] 09:05:00 Test Item Value Reference Range Interpretation [...] TO GET BLOOD SAMPLE.NOTIFIED PATIENT CARE STAFF: SUMISamra 03/06/20 AT [facility] BY Z.LAB.[id number] 09:05:00 Test Item Value Reference Range Interpretation Comments MAGNESIUM (test code = MAG) MG/DL 1.6-2.3 PATIENT IS A HARD STICK. UNABLE TO GET BLOOD SAMPLE.NOTIFIED PATIENT CARE STAFF: SUMISamra 03/06/20 AT 741 BY Z.LAB.MYJBASIC METABOLIC [id number] 09:03:00 Test Item Value Reference Range Interpretation [...] SAMPLE.NOTIFIED PATIENT CARE STAFF: TEJA 03/06/20 AT 741 BY Z.LAB.[id number] 09:03:00 Test Item Value Reference Range Interpretation Comments MAGNESIUM (test code = MAG) MG/DL 1.6-2.3 PATIENT IS A HARD STICK. UNABLE TO GET BLOOD SAMPLE.NOTIFIED PATIENT CARE STAFF: TEJA 03/06/20 AT BY Z.LAB.MYJGLUCOSE BEDSIDE [id number] 07:52:00 Test Item Value Reference Range Interpretation Comments GLUCOSE BEDSIDE TESTING (test code 156 MG/DL 60-99 H = GLUBED) GLUCOSE BEDSIDE [id number] 07:52:00 Test Item Value Reference Range Interpretation Comments GLUCOSE BEDSIDE TESTING (test code 258 MG/DL 60-99 H = GLUBED) GLUCOSE BEDSIDE [id number] 07:52:00 Test Item Value Reference Range Interpretation Comments GLUCOSE BEDSIDE TESTING (test code 169 MG/DL 60-99 H = GLUBED) GLUCOSE BEDSIDE [id number] 16:36:00 Test Item Value Reference Range Interpretation Comments GLUCOSE BEDSIDE TESTING (test code 169 MG/DL 60-99 H = GLUBED) GLUCOSE BEDSIDE [id number] 16:36:00 Test Item Value Reference Range Interpretation Comments GLUCOSE BEDSIDE TESTING (test code 137 MG/DL 60-99 H = GLUBED) COMPREHENSIVE METABOLIC [id number] 09:53:00 Test Item Value Reference Range Interpretation [...] BLOOD SAMPLE.NOTIFIED PATIENT CARE STAFF: ATILIO 03/05/20 [id number] BY Z.LAB.[id number] 09:53:00 Test Item Value Reference Range Interpretation Comments MAGNESIUM (test code = MAG) 2.0 MG/DL 1.6-2.3 N PATIENT IS A HARD STICK. UNABLE TO GET BLOOD SAMPLE.NOTIFIED PATIENT CARE STAFF: [facility] 03/05/20 [id number] BY Z.LAB.MYJCOMPREHENSIVE METABOLIC [id number] 09:30:00 Test Item Value Reference Range Interpretation [...] TO GET BLOOD SAMPLE.NOTIFIED PATIENT CARE STAFF: [facility] 03/05/20 [id number] BY Z.LAB.[id number] 09:30:00 Test Item Value Reference Range Interpretation Comments MAGNESIUM (test code = MAG) MG/DL 1.6-2.3 PATIENT IS A HARD STICK. UNABLE TO GET BLOOD SAMPLE.NOTIFIED PATIENT CARE STAFF: [facility] 03/05/20 UC3855 BY Z.LAB.MYJCOMPJAM TechnologiesENSIVE METABOLIC [id number] 09:28:00 Test Item Value Reference Range Interpretation [...] TO GET BLOOD SAMPLE.NOTIFIED PATIENT CARE STAFF: [facility] 03/05/20 BY1854 BY Z.LAB.[id number] 09:28:00 Test Item Value Reference Range Interpretation Comments MAGNESIUM (test code = MAG) MG/DL 1.6-2.3 PATIENT IS A HARD STICK. UNABLE TO GET BLOOD SAMPLE.NOTIFIED PATIENT CARE STAFF: [facility] 03/05/20 SB4640 BY Z.LAB.MYJCOMPUC [facility]ITAL[facility] METABOLIC [id number] 09:27:00 Test Item Value Reference Range Interpretation [...] TO GET BLOOD SAMPLE.NOTIFIED PATIENT CARE STAFF: [facility] 03/05/20 GE3302 BY Z.LAB.[id number] 09:27:00 Test Item Value Reference Range Interpretation Comments MAGNESIUM (test code = MAG) MG/DL 1.6-2.3 PATIENT IS A HARD STICK. UNABLE TO GET BLOOD SAMPLE.NOTIFIED [facility]20 [id number] BY Z.LAB.MYJCBC W/AUTO [id number] 09:20:00 Test Item Value Reference Range Interpretation [...] BLOOD SAMPLE.NOTIFIED PATIENT CARE STAFF: ATILIO 03/05/20 [id number] BY SAIMAMYJGLUCOSE BEDSIDE [id number] 00:23:00 Test Item Value Reference Range Interpretation Comments GLUCOSE BEDSIDE TESTING (test code 195 MG/DL 60-99 H = GLUBED) GLUCOSE BEDSIDE [id number] 18:13:00 Test Item Value Reference Range Interpretation Comments GLUCOSE BEDSIDE TESTING (test code 164 MG/DL 60-99 H = GLUBED) GLUCOSE BEDSIDE [id number] 18:13:00 Test Item Value Reference Range Interpretation Comments GLUCOSE BEDSIDE TESTING (test code 150 MG/DL 60-99 H = GLUBED) GLUCOSE BEDSIDE [id number] 18:13:00 Test Item Value Reference Range Interpretation Comments GLUCOSE BEDSIDE TESTING (test code 148 MG/DL 60-99 H = GLUBED) - XR CHEST [id number] 08:19:00 Patient Name: SALINA SERRATO Unit No: [id number] EXAMS: CPT CODE: [id number] XR CHEST 1V 25389 REASON FOR EXAM: CABG. COMPARISON: February 28, [...] Pulmonary vessels appear to be intact. Location: U19 at 0819 Reported and signed by: ANURADHA NUÑEZ M.D. CC: Russel Hines; Sherri Ceja MD Technologist: Cecily Bill, RT(R) Transcrpt Date/Tm/Trnsp: 03/04/2020 (818) t.SDR.RCM1 Orig Print D/T: S: 03/04/2020 (821) [facility] NAME: SALINA SERRATO [address] [place] PHYS: [place] [address] : 1950 AGE: 69 SEX: F LOC: Z.SI02 A PHONE #: [phone] EXAM DATE: 03/04/2020 STATUS: ADM IN FAX #: [phone] RADIOLOGY NO: PAGE 1 Signed ReportBASIC METABOLIC [id number] 06:39:00 Test Item Value Reference Range Interpretation [...] code = 8.3 MG/DL 8.4-10.2 L CA) [id number] 06:39:00 Test Item Value Reference Range Interpretation Comments MAGNESIUM (test code = MAG) 1.9 MG/DL 1.6-2.3 N BASIC METABOLIC [id number] 06:31:00 Test Item Value Reference Range Interpretation [...] CALCIUM (test code = MG/DL 8.7-9.7 CA) [id number] 06:31:00 Test Item Value Reference Range Interpretation Comments MAGNESIUM (test code = MAG) MG/DL 1.6-2.3 BASIC METABOLIC [id number] 06:29:00 Test Item Value Reference Range Interpretation [...] CALCIUM (test code = CA) MG/DL 8.7-9.7 [id number] 06:29:00 Test Item Value Reference Range Interpretation Comments MAGNESIUM (test code = MAG) MG/DL 1.6-2.3 BASIC METABOLIC [id number] 06:28:00 Test Item Value Reference Range Interpretation [...] CALCIUM (test code = CA) MG/DL 8.7-9.7 [id number] 06:28:00 Test Item Value Reference Range Interpretation Comments MAGNESIUM (test code = MAG) MG/DL 1.6-2.3 CBC W/AUTO [id number] 06:17:00 Test Item Value Reference Range Interpretation [...] 0.00 K/mm3 0.0-0.1 N NRBC#) GLUCOSE BEDSIDE [id number] 21:14:00 Test Item Value Reference Range Interpretation Comments GLUCOSE BEDSIDE TESTING (test code 172 MG/DL 60-99 H = GLUBED) GLUCOSE BEDSIDE [id number] 18:28:00 Test Item Value Reference Range Interpretation Comments GLUCOSE BEDSIDE TESTING (test code 196 MG/DL 60-99 H = GLUBED) GLUCOSE BEDSIDE [id number] 11:50:00 Test Item Value Reference Range Interpretation Comments GLUCOSE BEDSIDE TESTING (test code 176 MG/DL 60-99 H = GLUBED) GLUCOSE BEDSIDE [id number] 11:37:00 Test Item Value Reference Range Interpretation Comments GLUCOSE BEDSIDE TESTING (test code 137 MG/DL 60-99 H = GLUBED) GLUCOSE BEDSIDE [id number] 11:37:00 Test Item Value Reference Range Interpretation Comments GLUCOSE BEDSIDE TESTING (test code 132 MG/DL 60-99 H = GLUBED) GLUCOSE BEDSIDE [id number] 11:37:00 Test Item Value Reference Range Interpretation Comments GLUCOSE BEDSIDE TESTING (test code 123 MG/DL 60-99 H = GLUBED) GLUCOSE BEDSIDE [id number] 07:24:00 Test Item Value Reference Range Interpretation Comments GLUCOSE BEDSIDE TESTING (test code 127 MG/DL 60-99 H = GLUBED) GLUCOSE BEDSIDE [id number] 07:24:00 Test Item Value Reference Range Interpretation Comments GLUCOSE BEDSIDE TESTING (test code 147 MG/DL 60-99 H = GLUBED) GLUCOSE BEDSIDE [id number] 07:24:00 Test Item Value Reference Range Interpretation Comments GLUCOSE BEDSIDE TESTING (test code 122 MG/DL 60-99 H = GLUBED) GLUCOSE BEDSIDE [id number] 17:48:00 Test Item Value Reference Range Interpretation Comments GLUCOSE BEDSIDE TESTING (test code 224 MG/DL 60-99 H = GLUBED) GLUCOSE BEDSIDE [id number] 17:48:00 Test Item Value Reference Range Interpretation Comments GLUCOSE BEDSIDE TESTING (test code 159 MG/DL 60-99 H = GLUBED) BASIC METABOLIC [id number] 06:24:00 Test Item Value Reference Range Interpretation [...] code = 8.6 MG/DL 8.4-10.2 N CA) [id number] 06:24:00 Test Item Value Reference Range Interpretation Comments MAGNESIUM (test code = MAG) 1.9 MG/DL 1.6-2.3 N CBC W/AUTO [id number] 06:00:00 Test Item Value Reference Range Interpretation [...] 0.00 K/mm3 0.0-0.1 N NRBC#) GLUCOSE BEDSIDE [id number] 21:30:00 Test Item Value Reference Range Interpretation Comments GLUCOSE BEDSIDE TESTING (test code 148 MG/DL 60-99 H = GLUBED) GLUCOSE BEDSIDE [id number] 17:30:00 Test Item Value Reference Range Interpretation Comments GLUCOSE BEDSIDE TESTING (test code 247 MG/DL 60-99 H = GLUBED) GLUCOSE BEDSIDE [id number] 21:14:00 Test Item Value Reference Range Interpretation Comments GLUCOSE BEDSIDE TESTING (test code 116 MG/DL 60-99 H = GLUBED) GLUCOSE BEDSIDE [id number] 13:31:00 Test Item Value Reference Range Interpretation Comments GLUCOSE BEDSIDE TESTING (test code 179 MG/DL 60-99 H = GLUBED) GLUCOSE BEDSIDE [id number] 07:38:00 Test Item Value Reference Range Interpretation Comments GLUCOSE BEDSIDE TESTING (test code = 66 MG/DL 60-99 N GLUBED) BASIC METABOLIC [id number] 07:12:00 Test Item Value Reference Range Interpretation [...] 8.7 MG/DL 8.4-10.2 N CA) BASIC METABOLIC [id number] 07:11:00 Test Item Value Reference Range Interpretation [...] code = MG/DL 8.7-9.7 CA) BASIC METABOLIC [id number] 07:09:00 Test Item Value Reference Range Interpretation [...] code = CA) MG/DL 8.7-9.7 BASIC METABOLIC [id number] 07:08:00 Test Item Value Reference Range Interpretation [...] code = CA) MG/DL 8.7-9.7 CBC W/AUTO [id number] 06:30:00 Test Item Value Reference Range Interpretation [...] 0.00 K/mm3 0.0-0.1 N NRBC#) GLUCOSE BEDSIDE [id number] 00:02:00 Test Item Value Reference Range Interpretation Comments GLUCOSE BEDSIDE TESTING (test code = 94 MG/DL 60-99 N GLUBED) GLUCOSE BEDSIDE [id number] 00:02:00 Test Item Value Reference Range Interpretation Comments GLUCOSE BEDSIDE TESTING (test code 110 MG/DL 60-99 H = GLUBED) - XR CHEST [id number] 07:57:00 Patient Name: SALINA SERRATO Unit No: [id number] EXAMS: CPT CODE: [id number] XR CHEST 1V 79519 EXAMINATION: - XR CHEST 1V LOCATION: T18 [...] Technologist: Cecily Bill RT(R) Transcrpt Date/Tm/Trnsp: 02/28/2020 (0757) t.NATIR.JGANESH Orig Print D/T: S: 02/28/2020 (0800) [facility] NAME: SALINA SERRATO [address] [place] PHYS: [place] [address] : 1950 AGE: 69 SEX: F LOC: Z.SI02 A PHONE #: [phone] EXAM DATE: 02/28/2020 STATUS: ADM IN FAX #: [phone] RADIOLOGY NO: PAGE 1 Signed ReportGLUCOSE BEDSIDE [id number] 07:37:00 Test Item Value Reference Range Interpretation Comments GLUCOSE BEDSIDE TESTING (test code = 95 MG/DL 60-99 N GLUBED) BASIC METABOLIC [id number] 05:11:00 Test Item Value Reference Range Interpretation [...] code = 8.5 MG/DL 8.4-10.2 N CA) [id number] 05:11:00 Test Item Value Reference Range Interpretation Comments MAGNESIUM (test code = MAG) 1.8 MG/DL 1.6-2.3 N BASIC METABOLIC [id number] 05:10:00 Test Item Value Reference Range Interpretation [...] CALCIUM (test code = MG/DL 8.7-9.7 CA) [id number] 05:10:00 Test Item Value Reference Range Interpretation Comments MAGNESIUM (test code = MAG) MG/DL 1.6-2.3 BASIC METABOLIC [id number] 05:07:00 Test Item Value Reference Range Interpretation [...] CALCIUM (test code = CA) MG/DL 8.7-9.7 [id number] 05:07:00 Test Item Value Reference Range Interpretation Comments MAGNESIUM (test code = MAG) MG/DL 1.6-2.3 CBC W/AUTO [id number] 04:58:00 Test Item Value Reference Range Interpretation [...] 0.00 K/mm3 0.0-0.1 N NRBC#) GLUCOSE BEDSIDE [id number] 21:14:00 Test Item Value Reference Range Interpretation Comments GLUCOSE BEDSIDE TESTING (test code 158 MG/DL 60-99 H = GLUBED) GLUCOSE BEDSIDE [id number] 16:49:00 Test Item Value Reference Range Interpretation Comments GLUCOSE BEDSIDE TESTING (test code 210 MG/DL 60-99 H = GLUBED) BASIC METABOLIC [id number] 12:16:00 Test Item Value Reference Range Interpretation [...] 8.9 MG/DL 8.4-10.2 N CA) GLUCOSE BEDSIDE [id number] 12:11:00 Test Item Value Reference Range Interpretation Comments GLUCOSE BEDSIDE TESTING (test code 113 MG/DL 60-99 H = GLUBED) BASIC METABOLIC [id number] 12:10:00 Test Item Value Reference Range Interpretation [...] code = CA) MG/DL 8.7-9.7 CBC W/AUTO [id number] 12:03:00 Test Item Value Reference Range Interpretation [...] 0.03 K/mm3 0.0-0.1 N NRBC#) GLUCOSE BEDSIDE [id number] 08:53:00 Test Item Value Reference Range Interpretation Comments GLUCOSE BEDSIDE TESTING (test code 121 MG/DL 60-99 H = GLUBED) - XR CHEST [id number] 06:10:00 Patient Name: SALINA SERRATO Unit No: [id number] EXAMS: CPT CODE: [id number] XR CHEST 1V 41479 EXAMINATION: - XR CHEST 1V LOCATION: H61 [...] Technologist: Cecily Bill, RT(R) Transcrpt Date/Tm/Trnsp: 02/27/2020 (609) t.SDR.TH15 Orig Print D/T: S: 02/27/2020 (612) [facility] NAME: SALINA SERRATO [address] [place] PHYS: [place] [address] : 1950 AGE: 69 SEX: F LOC: Z.SI02 A PHONE #: [phone] EXAM DATE: 02/27/2020 STATUS: ADM IN FAX #: [phone] RADIOLOGY NO: PAGE 1 Signed ReportGLUCOSE BEDSIDE [id number] 20:55:00 Test Item Value Reference Range Interpretation Comments GLUCOSE BEDSIDE TESTING (test code 291 MG/DL 60-99 H = GLUBED) GLUCOSE BEDSIDE [id number] 17:45:00 Test Item Value Reference Range Interpretation Comments GLUCOSE BEDSIDE TESTING (test code 162 MG/DL 60-99 H = GLUBED) GLUCOSE BEDSIDE [id number] 17:45:00 Test Item Value Reference Range Interpretation Comments GLUCOSE BEDSIDE TESTING (test code 145 MG/DL 60-99 H = GLUBED) GLUCOSE BEDSIDE [id number] 17:45:00 Test Item Value Reference Range Interpretation Comments GLUCOSE BEDSIDE TESTING (test code 154 MG/DL 60-99 H = GLUBED) GLUCOSE BEDSIDE [id number] 11:22:00 Test Item Value Reference Range Interpretation Comments GLUCOSE BEDSIDE TESTING (test code 222 MG/DL 60-99 H = GLUBED) - XR CHEST [id number] 08:02:00 Patient Name: SALINA SERRATO Unit No: [id number] EXAMS: CPT CODE: [id number] XR CHEST 1V 45851 EXAMINATION: - XR CHEST 1V. LOCATION: B2. [...] Technologist: Cecily Bill, RT(R) Transcrpt Date/Tm/Trnsp: 02/26/2020 (0802) tARIELLEKW9 Orig Print D/T: S: 02/26/2020 (0805) [facility] NAME: SALINA SERRATO [address] [place] PHYS: Anuradha Shelley MD [place], [place] [address]DVB: 1950 AGE: 69 SEX: F LOC:Z.SI02 A PHONE #: [phone] EXAM DATE: 02/26/2020 STATUS: ADM IN FAX #: [phone] RADIOLOGY NO: PAGE 1 Signed ReportCOMPREHENSIVE METABOLIC [...] N (test code = ALKP) COMPREHENSIVE METABOLIC [id number] 06:00:00 Test Item Value Reference Range Interpretation [...] N (test code = ALKP) COMPREHENSIVE METABOLIC [id number] 05:58:00 Test Item Value Reference Range Interpretation [...] code = UNITS/L 38-126 ALKP) COMPREHENSIVE METABOLIC [id number] 05:57:00 Test Item Value Reference Range Interpretation [...] code = UNITS/L 38-126 ALKP) CBC W/AUTO [id number] 05:46:00 Test Item Value Reference Range Interpretation [...] 0.05 K/mm3 0.0-0.1 N NRBC#) GLUCOSE BEDSIDE [id number] 18:10:00 Test Item Value Reference Range Interpretation Comments GLUCOSE BEDSIDE TESTING (test code 148 MG/DL 60-99 H = GLUBED) GLUCOSE BEDSIDE [id number] 17:13:00 Test Item Value Reference Range Interpretation Comments GLUCOSE BEDSIDE TESTING (test code 186 MG/DL 60-99 H = GLUBED) ARTERIAL BLOOD [id number] 15:48:00 Test Item Value Reference Range Interpretation [...] Previousl y reported code = JOHN) result: VM/NC E dited by: CHRISTOPHEBGG o n 02/25/20:212806 0 1548: DELIVE RY previously repo rted as: VM/NC ABG TEMPERATURE (test 37.0 C >37 code = TEMPA) ABG SITE (test code = AL SITEA) ALLENS TEST (test code NA CHECK = ALLENS) FIO2 (test code = 28 % COHBGFFIO2) - XR CHEST [id number] 13:14:00 Patient Name: SALINA SERRATO Unit No: [id number] EXAMS: CPT CODE: [id number] XR CHEST 1V 00633 EXAMINATION: - XR CHEST 1V. LOCATION: B2. [...] MD Technologist: Cinthya Carbajal, RT(R) Transcrpt Date/Tm/Trnsp: 02/25/2020(1314) t.NATIR.PR7 Orig Print D/T: S: 02/25/2020 (1318) [facility] NAME: SALINA SERRATO [address] [place] PHYS: [place] [address] : 1950 AGE: 69 SEX: F LOC: ZDenisseSI02 A PHONE #: [phone] EXAM DATE: 02/25/2020 STATUS: ADM IN FAX #: [phone] RADIOLOGY NO: PAGE 1 Signed ReportGLUCOSE BEDSIDE [id number] 11:20:00 Test Item Value Reference Range Interpretation Comments GLUCOSE BEDSIDE TESTING (test code 342 MG/DL 60-99 HH = GLUBED) GLUCOSE BEDSIDE [id number] 11:20:00 Test Item Value Reference Range Interpretation Comments GLUCOSE BEDSIDE TESTING (test code 369 MG/DL 60-99 HH = GLUBED) ARTERY,[id number] 11:19:00 RUN DATE: 02/25/20 [facility] PAGE 1 RUN TIME: 1119 Specimen Inquiry RUN USER: INTERFACE PATIENT: SALINA SERRATO LOC: DESIRAE U #: [id number] AGE/SX: 69/F ROOM: ODALIS RE02/15/20REG DR: Russel Hines MD : 54 BED: A DIS: STATUS: ADM IN TLOC: SPEC #: [id number] RECD: 02/22/20 STATUS: PASCUAL ROBLEDO #: [id number] JARAD: 02/21/20 [facility] DR: Vanna Lockhart MD ENTERED: 02/22/20 SP TYPE: ARTERY, PL OTHR DR: Russel Hines MD, Salim F MD Garrett, Brett MD R1 Sabrina Rojas MD, Hazem M MD McKowen,Anuradha [place],Brody MACDONALD R1 Fred Griggs MDORDERED: DECAL, SURG PATH LVL 3 CODES: [id number] - ARTERY, NOS [id number] - ARTERY, NOS PLAQUE, NOS [id number] - ARTERY, NOS ATHEROSCLEROSIS COPIES TO: Russel Hines [place] [id number] [place] [address]. [place] [address] [email or web address] Sherri Ceja MD [address] [place] [address] [address] [place] [address] [email or web address] Sravan Cook MD R1 [address] [place] [address] Sabrina Rojas MD [address] [place] [address] [place] [address] [place] [address] Chandler Espinoza MD [address] [facility] [address] [place] [address] CONTINUED ON NEXT PAGE RUN DATE: 02/25/20 [facility] LAB PAGE 2 RUN TIME: 1119 Specimen Inquiry RUN USER: INTERFACE SPEC #: [id number] PATIENT: SALINA SERRATO #[id number] (Continued)------- ----- COPIES TO: (Continued) [place] [address] [facility] [place] [address] Brody Larry MD R1 [address] [place] [address] [place] [address] [facility] [address] [place] [address] ICD CODES: 440 - PROCEDURES: DECAL (02/22/20) SURG PATH LVL 3 (02/22/20) TISSUES: A. ARTERY, NOS - RC PLAQUE CLINICAL HISTORY UNSTABLE ANGINA, MILD TROP LEAK CPT CODES CPT CODE(S): 88162 , 85948 , , , , , FINAL DIAGNOSIS [...] ON NEXT PAGE --------- ---RUN DATE: 02/25/20 [facility] PAGE 3 RUN TIME: 1119 Specimen Inquiry RUN USER: INTERFACE SPEC #: [id number] PATIENT: SALINA SERRATO #[id number] ( Continued) Signed SIGNATURE ON FILE [facility]a[employer]onis salvadorprince 02/25/20 1119 END OF REPORT - XR CHEST [id number] 08:01:00 Patient Name: SALINA SERRATO Unit No: [id number] EXAMS: CPT CODE: [id number] XR CHEST 1V [id number] Clinical Information: Chest tube placement. CABG. Dictation Location: J9 COMPARISON: I 2019 reported as stable. FINDINGS: [...] Fran Ambrose, RT(R) Transcrpt Date/Tm/Trnsp: 02/25/2020 (800) [email or web address] Orig Print D/T: S: 02/25/2020 (0804) [facility] NAME: SALINA SERRATO [id number] [address] [place] PHYS:[place] [address] : 1950 AGE: 69 SEX: F LOC: Z.SI02 A PHONE #: [phone] EXAM DATE: 02/25/2020 STATUS: ADM IN FAX #: [phone] RADIOLOGY NO: PAGE 1 Signed ReportGLUCOSE BEDSIDE [id number] 07:40:00 Test Item Value Reference Range Interpretation Comments GLUCOSE BEDSIDE TESTING (test code 175 MG/DL 60-99 H = GLUBED) BASIC METABOLIC [id number] 06:42:00 Test Item Value Reference Range Interpretation [...] CALCIUM (test code = MG/DL 8.7-9.7 CA) [id number] 06:42:00 Test Item Value Reference Range Interpretation Comments MAGNESIUM (test code = MAG) MG/DL 1.6-2.3 BASIC METABOLIC [id number] 06:42:00 Test Item Value Reference Range Interpretation [...] code = 8.2 MG/DL 8.4-10.2 L CA) [id number] 06:42:00 Test Item Value Reference Range Interpretation Comments MAGNESIUM (test code = MAG) 2.6 MG/DL 1.6-2.3 H BASIC METABOLIC [id number] 06:39:00 Test Item Value Reference Range Interpretation [...] CALCIUM (test code = CA) MG/DL 8.7-9.7 [id number] 06:39:00 Test Item Value Reference Range Interpretation Comments MAGNESIUM (test code = MAG) MG/DL 1.6-2.3 BASIC METABOLIC [id number] 06:39:00 Test Item Value Reference Range Interpretation [...] CALCIUM (test code = CA) MG/DL 8.7-9.7 [id number] 06:39:00 Test Item Value Reference Range Interpretation Comments MAGNESIUM (test code = MAG) MG/DL 1.6-2.3 PROTHROMBIN [id number] 05:49:00 Test Item Value Reference Range Interpretation [...] syste rodriguez embolism. 3.0 - 4.5 PTT [id number] 05:49:00 Test Item Value Reference Range Interpretation Comments PTT ACTIVATED (test code = APTT) 29.6 SECONDS 25.1-36.5 N CBC W/AUTO [id number] 05:40:00 Test Item Value Reference Range Interpretation [...] 0.08 K/mm3 0.0-0.1 N NRBC#) GLUCOSE BEDSIDE [id number] 17:32:00 Test Item Value Reference Range Interpretation Comments GLUCOSE BEDSIDE TESTING (test code 270 MG/DL 60-99 H = GLUBED) GLUCOSE BEDSIDE [id number] 12:25:00 Test Item Value Reference Range Interpretation Comments GLUCOSE BEDSIDE TESTING (test code 185 MG/DL 60-99 H = GLUBED) GLUCOSE BEDSIDE [id number] 08:15:00 Test Item Value Reference Range Interpretation Comments GLUCOSE BEDSIDE TESTING (test code 151 MG/DL 60-99 H = GLUBED) GLUCOSE BEDSIDE [id number] 08:12:00 Test Item Value Reference Range Interpretation Comments GLUCOSE BEDSIDE TESTING 325 MG/DL 60-99 HH Noti fied Physician~ (test code = GLUBED) - XR CHEST [id number] 07:50:00 Patient Name: SALINA SERRATO Unit No: [id number] EXAMS: CPT CODE: [id number] XR CHEST 1V 55536 Single View Chest. Location: Clinical Indication: 69-year-old with CABG Comparison: February [...] Sherri Ceja MD; Berta Tapia NP Technologist: Fran Ambrose, RT(R) Transcrpt Date/Tm/Trnsp: 02/24/2020 (0750) t.[email or web address].RB24 Orig Print D/T: S: 02/24/2020 (0754) [facility] NAME: SALINA SERRATO [address] [address] [place] PHYS: JASON.Flaco [place] [address] [birth year] AGE: 69 SEX: F LOC: Z.SI02 A PHONE #: [phone] EXAM DATE: 02/24/2020 STATUS: ADM IN FAX #: [phone] RADIOLOGY NO: PAGE 1 Signed ReportBASIC METABOLIC [...] code = 8.5 MG/DL 8.4-10.2 N CA) [id number] 06:02:00 Test Item Value Reference Range Interpretation Comments MAGNESIUM (test code = MAG) 2.6 MG/DL 1.6-2.3 H BASIC METABOLIC [id number] 05:52:00 Test Item Value Reference Range Interpretation [...] CALCIUM (test code = CA) MG/DL 8.7-9.7 [id number] 05:52:00 Test Item Value Reference Range Interpretation Comments MAGNESIUM (test code = MAG) MG/DL 1.6-2.3 BASIC METABOLIC [id number] 05:52:00 Test Item Value Reference Range Interpretation [...] CALCIUM (test code = CA) MG/DL 8.7-9.7 [id number] 05:52:00 Test Item Value Reference Range Interpretation Comments MAGNESIUM (test code = MAG) MG/DL 1.6-2.3 PROTHROMBIN [id number] 05:48:00 Test Item Value Reference Range Interpretation [...] syste rodriguez embolism. 3.0 - 4.5 PTT [id number] 05:48:00 Test Item Value Reference Range Interpretation Comments PTT ACTIVATED (test code = APTT) 26.9 SECONDS 25.1-36.5 N CBC W/AUTO [id number] 05:29:00 Test Item Value Reference Range Interpretation [...] = 0.03 K/mm3 0.0-0.1 N NRBC#) HGB [id number] 19:36:00 Test Item Value Reference Range Interpretation Comments HEMOGLOBIN (test code = HGB) 9.1 G/DL 11.2-14.9 L HEMATOCRIT (test code = HCT) 28.0 % 33.2-43.5 L GLUCOSE BEDSIDE [id number] 11:21:00 Test Item Value Reference Range Interpretation Comments GLUCOSE BEDSIDE TESTING 365 MG/DL 60-99 HH Noti fied Physician~ (test code = GLUBED) - XR CHEST [id number] 09:21:00 Patient Name: SALINA SERRATO Unit No: [id number] EXAMS: CPT CODE: [id number] XR CHEST 1V 73634 Single View Chest. Location: Clinical Indication: 69-year-old with CABG Comparison: Prior day Findings: An AP view of the chest was obtained. The Plevna-Zuly catheter has been removed. Right subclavian central lineremains. Prior sternotomy. Enlargement of the cardiac silhouette is stable. There is p rominence of the central vasculature and there is some atelectasis of the right midlung, stable. No pneumothorax. No acute osseous abnormality. Mediastinal and left chest drains remain. Impression: Interval removal of the Plevna-Zuly catheter. Exam is otherwise unchanged. at 0921 Reported and signed by: Anuradha Combs M.D. CC: Russel Hines; Sherri Ceja MD; Berta Tapia NP Technologist: RT Alban(R) Transcrpt Date/Tm/Trnsp: 02/23/2020 (0921) Hansel.RB24 Orig Print D/T: S: 02/23/2020 (5887) [facility] NAME: SALINA SERRATO [address] [place] PHYS: [place] [address] : 1950 AGE: 69 SEX: F LOC: Z.SI02 A PHONE #: [phone] EXAM DATE: 02/23/2020 STATUS: ADM IN FAX #: [phone] RADIOLOGY NO: PAGE 1 Signed Report GLUCOSE BEDSIDE [id number] 07:57:00 Test Item Value Reference Range Interpretation Comments GLUCOSE BEDSIDE TESTING (test code 205 MG/DL 60-99 H = GLUBED) GLUCOSE BEDSIDE [id number] 07:56:00 Test Item Value Reference Range Interpretation Comments GLUCOSE BEDSIDE TESTING (test code 253 MG/DL 60-99 H = GLUBED) BASIC METABOLIC [id number] 06:54:00 Test Item Value Reference Range Interpretation [...] code = 8.6 MG/DL 8.4-10.2 N CA) [id number] 06:54:00 Test Item Value Reference Range Interpretation Comments MAGNESIUM (test code = MAG) 2.7 MG/DL 1.6-2.3 H PROTHROMBIN [id number] 06:45:00 Test Item Value Reference Range Interpretation [...] syste rodriguez embolism. 3.0 - 4.5 PTT [id number] 06:45:00 Test Item Value Reference Range Interpretation Comments PTT ACTIVATED (test code = APTT) 27.2 SECONDS 25.1-36.5 N BASIC METABOLIC [id number] 06:38:00 Test Item Value Reference Range Interpretation [...] CALCIUM (test code = MG/DL 8.7-9.7 CA) [id number] 06:38:00 Test Item Value Reference Range Interpretation Comments MAGNESIUM (test code = MAG) MG/DL 1.6-2.3 BASIC METABOLIC [id number] 06:36:00 Test Item Value Reference Range Interpretation [...] CALCIUM (test code = CA) MG/DL 8.7-9.7 [id number] 06:36:00 Test Item Value Reference Range Interpretation Comments MAGNESIUM (test code = MAG) MG/DL 1.6-2.3 CBC W/AUTO [id number] 06:29:00 Test Item Value Reference Range Interpretation [...] 0.02 K/mm3 0.0-0.1 N NRBC#) GLUCOSE BEDSIDE [id number] 18:42:00 Test Item Value Reference Range Interpretation Comments GLUCOSE BEDSIDE TESTING 318 MG/DL 60-99 HH Noti fied Nurse~ (test code = GLUBED) ARTERIAL BLOOD [id number] 18:10:00 Test Item Value Reference Range Interpretation [...] code = COHBGFFIO2) 50 % GLUCOSE BEDSIDE [id number] 17:41:00 Test Item Value Reference Range Interpretation Comments GLUCOSE BEDSIDE TESTING (test code 206 MG/DL 60-99 H = GLUBED) GLUCOSE BEDSIDE [id number] 14:25:00 Test Item Value Reference Range Interpretation Comments GLUCOSE BEDSIDE TESTING (test code 101 MG/DL 60-99 H = GLUBED) GLUCOSE BEDSIDE [id number] 14:25:00 Test Item Value Reference Range Interpretation Comments GLUCOSE BEDSIDE TESTING (test code 186 MG/DL 60-99 H = GLUBED) GLUCOSE BEDSIDE [id number] 14:25:00 Test Item Value Reference Range Interpretation Comments GLUCOSE BEDSIDE TESTING (test code 148 MG/DL 60-99 H = GLUBED) GLUCOSE BEDSIDE [id number] 12:16:00 Test Item Value Reference Range Interpretation Comments GLUCOSE BEDSIDE TESTING (test code 314 MG/DL 60-99 HH = GLUBED) GLUCOSE BEDSIDE [id number] 12:14:00 Test Item Value Reference Range Interpretation Comments GLUCOSE BEDSIDE TESTING (test code 136 MG/DL 60-99 H = GLUBED) GLUCOSE BEDSIDE [id number] 12:14:00 Test Item Value Reference Range Interpretation Comments GLUCOSE BEDSIDE TESTING (test code 145 MG/DL 60-99 H = GLUBED) GLUCOSE BEDSIDE [id number] 12:13:00 Test Item Value Reference Range Interpretation Comments GLUCOSE BEDSIDE TESTING (test code 130 MG/DL 60-99 H = GLUBED) GLUCOSE BEDSIDE [id number] 12:13:00 Test Item Value Reference Range Interpretation Comments GLUCOSE BEDSIDE TESTING (test code 263 MG/DL 60-99 H = GLUBED) ARTERIAL BLOOD [id number] 08:42:00 Test Item Value Reference Range Interpretation [...] = COHBGFFIO2) 28 % - XR CHEST [id number] 07:57:00 Patient Name: SALINA SERRATO Unit No: [id number] EXAMS: CPT CODE: [id number] XR CHEST 1V 48929 Clinical Information: Status post CABG. Unstable angina Dictation Location: COMPARISON: 02/21/2020 reported pulmonary vascular congestion. FINDINGS: [...] Russel Hines; Sherri Ceja MD; Berta Tapia MEASUREMENT DEPARTMENT CHIEF CLERK Technologist: Jewel Fontanez, RT(R) Transcrpt Date/Tm/Trnsp: 02/22/2020 (0757) t.NATIR.AGV Orig Print D/T: S: 02/22/2020 (0801) [facility] NAME: SALINA SERRATO [address] [place] PHYS: JASON.Flaco [place] [address] : 1950 AGE: 69 SEX: F LOC: Z.SI02 A PHONE #: [phone] EXAM DATE: 02/22/2020 STATUS: ADM IN FAX #: [phone] RADIOLOGY NO: PAGE 1 Signed ReportGLUCOSE BEDSIDE [id number] 07:55:00 Test Item Value Reference Range Interpretation Comments GLUCOSE BEDSIDE TESTING (test code 118 MG/DL 60-99 H = GLUBED) ARTERIAL BLOOD [id number] 05:15:00 Test Item Value Reference Range Interpretation [...] (test code = 44 % COHBGFFIO2) PROTHROMBIN [id number] 04:56:00 Test Item Value Reference Range Interpretation [...] syste rodriguez embolism. 3.0 - 4.5 PTT [id number] 04:56:00 Test Item Value Reference Range Interpretation Comments PTT ACTIVATED (test code = APTT) 28.1 SECONDS 25.1-36.5 N GLUCOSE BEDSIDE [id number] 04:50:00 Test Item Value Reference Range Interpretation Comments GLUCOSE BEDSIDE TESTING (test code 130 MG/DL 60-99 H = GLUBED) BASIC METABOLIC [id number] 04:50:00 Test Item Value Reference Range Interpretation [...] code = 8.4 MG/DL 8.4-10.2 N CA) [id number] 04:50:00 Test Item Value Reference Range Interpretation Comments MAGNESIUM (test code = MAG) 2.9 MG/DL 1.6-2.3 H GLUCOSE BEDSIDE [id number] 04:50:00 Test Item Value Reference Range Interpretation Comments GLUCOSE BEDSIDE TESTING (test code 149 MG/DL 60-99 H = GLUBED) GLUCOSE BEDSIDE [id number] 04:50:00 Test Item Value Reference Range Interpretation Comments GLUCOSE BEDSIDE TESTING (test code 194 MG/DL 60-99 H = GLUBED) GLUCOSE BEDSIDE [id number] 04:50:00 Test Item Value Reference Range Interpretation Comments GLUCOSE BEDSIDE TESTING (test code 264 MG/DL 60-99 H = GLUBED) GLUCOSE BEDSIDE [id number] 04:50:00 Test Item Value Reference Range Interpretation Comments GLUCOSE BEDSIDE TESTING (test code 278 MG/DL 60-99 H = GLUBED) GLUCOSE BEDSIDE [id number] 04:50:00 Test Item Value Reference Range Interpretation Comments GLUCOSE BEDSIDE TESTING 322 MG/DL 60-99 HH Noti fied Nurse~ (test code = GLUBED) BASIC METABOLIC [id number] 04:49:00 Test Item Value Reference Range Interpretation [...] CALCIUM (test code = MG/DL 8.7-9.7 CA) [id number] 04:49:00 Test Item Value Reference Range Interpretation Comments MAGNESIUM (test code = MAG) MG/DL 1.6-2.3 BASIC METABOLIC [id number] 04:47:00 Test Item Value Reference Range Interpretation [...] CALCIUM (test code = CA) MG/DL 8.7-9.7 [id number] 04:47:00 Test Item Value Reference Range Interpretation Comments MAGNESIUM (test code = MAG) MG/DL 1.6-2.3 BASIC METABOLIC [id number] 04:46:00 Test Item Value Reference Range Interpretation [...] CALCIUM (test code = CA) MG/DL 8.7-9.7 [id number] 04:46:00 Test Item Value Reference Range Interpretation Comments MAGNESIUM (test code = MAG) MG/DL 1.6-2.3 CBC W/AUTO [id number] 04:45:00 Test Item Value Reference Range Interpretation [...] 0.00 K/mm3 0.0-0.1 N NRBC#) ARTERIAL BLOOD [id number] 04:44:00 Test Item Value Reference Range Interpretation [...] code = 36 % COHBGFFIO2) BASIC METABOLIC [id number] 20:31:00 Test Item Value Reference Range Interpretation [...] (test code = 9.0 MG/DL 8.4-10.2 CA) [id number] 20:31:00 Test Item Value Reference Range Interpretation Comments MAGNESIUM (test code = MAG) 3.2 MG/DL 1.6-2.3 H BASIC METABOLIC [id number] 20:25:00 Test Item Value Reference Range Interpretation [...] CALCIUM (test code = CA) MG/DL 8.7-9.7 [id number] 20:25:00 Test Item Value Reference Range Interpretation Comments MAGNESIUM (test code = MAG) MG/DL 1.6-2.3 PLATELET [id number] 19:05:00 Test Item Value Reference Range Interpretation Comments PLATELET COUNT (test code = PLT) 86 K/MM3 129-368 L PROTHROMBIN [id number] 18:24:00 Test Item Value Reference Range Interpretation [...] syste rodriguez embolism. 3.0 - 4.5 PTT [id number] 18:24:00 Test Item Value Reference Range Interpretation Comments PTT ACTIVATED (test code = APTT) 31.1 SECONDS 25.1-36.5 N HGB [id number] 18:15:00 Test Item Value Reference Range Interpretation Comments HEMOGLOBIN (test code = HGB) 8.5 G/DL 11.2-14.9 L HEMATOCRIT (test code = HCT) 25.8 % 33.2-43.5 L CBC W/AUTO [id number] 17:39:00 Test Item Value Reference Range Interpretation [...] H CELL (test code = NRBC) DIFFERENTIAL [id number] 17:39:00 Test Item Value Reference Range Interpretation Comments RBC MORPHOLOGY REQUIRED (test code NORMAL = RBCM) POIKILOCYTOSIS (test code = POIK) FEW NONE PLATELET ESTIMATE (test code = DECREASED ADEQUATE PLTEST) PLATELET MORPHOLOGY (test code = NORMAL NORMAL PLTMORPH) PROTHROMBIN [id number] 17:21:00 Test Item Value Reference Range Interpretation [...] syste rodriguez embolism. 3.0 - 4.5 PTT [id number] 17:21:00 Test Item Value Reference Range Interpretation Comments PTT ACTIVATED (test code = APTT) 60.3 SECONDS 25.1-36.5 H BASIC METABOLIC [id number] 17:16:00 Test Item Value Reference Range Interpretation [...] 312 MG/DL 74-106 HH CALLED TO ROZ DIEHL) READBACK ON AT 1716 BY Vianey Briseno BLOOD UREA NITROGEN 25 MG/DL 7-17 H (test code = BUN) GLOMERULAR FILTRATION 60 Report ing units: RATE (test code = GFR) ml/mi n/1.73 m2 (Modified MDRD Formula)Referen ce Range: > or = 6 0 ml/min/1.73 m2 CREATININE (test code 1.10 MG/DL 0.52-1.04 H = CREAT) CALCIUM (test code = 7.8 MG/DL 8.4-10.2 L CA) [id number] 17:16:00 Test Item Value Reference Range Interpretation Comments MAGNESIUM (test code = MAG) MG/DL 1.6-2.3 BASIC METABOLIC [id number] 17:16:00 Test Item Value Reference Range Interpretation [...] 312 MG/DL 74-106 HH CALLED TO ROZ DIEHL) READBACK ON AT 1716 BY Vianey Briseno BLOOD UREA NITROGEN 25 MG/DL 7-17 H (test code = BUN) GLOMERULAR FILTRATION 60 Report ing units: RATE (test code = GFR) ml/mi n/1.73 m2 (Modified MDRD Formula)Referen ce Range: > or = 6 0 ml/min/1.73 m2 CREATININE (test code 1.10 MG/DL 0.52-1.04 H = CREAT) CALCIUM (test code = 7.8 MG/DL 8.4-10.2 L CA) [id number] 17:16:00 Test Item Value Reference Range Interpretation Comments MAGNESIUM (test code = MAG) 3.2 MG/DL 1.6-2.3 H BASIC METABOLIC [id number] 17:15:00 Test Item Value Reference Range Interpretation [...] code = CA) 7.8 MG/DL 8.4-10.2 L [id number] 17:15:00 Test Item Value Reference Range Interpretation Comments MAGNESIUM (test code = MAG) MG/DL 1.6-2.3 CBC W/AUTO [id number] 17:15:00 Test Item Value Reference Range Interpretation [...] 0.0-0.1 N code = NRBC#) BASIC METABOLIC [id number] 17:12:00 Test Item Value Reference Range Interpretation [...] CALCIUM (test code = CA) MG/DL 8.7-9.7 [id number] 17:12:00 Test Item Value Reference Range Interpretation Comments MAGNESIUM (test code = MAG) MG/DL 1.6-2.3 - XR CHEST [id number] 16:59:00 Patient Name: SALINA SERRATO Unit No: [id number] EXAMS: CPT CODE: [id number] XR CHEST 1V 07838 EXAM: - XR CHEST 1V Location code:B2 HISTORY: Sta tus post CABG COMPARISON: 02/21/2020 FINDINGS: Frontal viewof the chest is submitted. Patient is rotated to the left, thus limiting evaluation. Lines and tubes: An ET tube is present with tip approximately 1 centimeter above the level of the chris. A right IJ CVC is present with tip overlying the cavoatrial junction. Right approach Plevna-Zuly catheter is present with tip overlying the [...] Sherri Ceja MD; Berta Tapia NP Technologist: Deanna Gallego RT(R) Transcrpt Date/Tm/Trnsp: 02/21/2020 (4908) TabathaR.KW9 Orig Print D/T: S: 02/21/2020 (7954) [facility] NAME: SALINA SERRATO [address] [address] PHYS: [email or web address],[place] [address] : 1950 AGE: 69 SEX: F LOC: Z.SI02 A PHONE #: [phone] EXAM DATE: 02/21/2020 STATUS: ADM IN FAX #: [phone] RADIOLOGY NO: PAGE 1 Signed ReportCBC W/AUTO [id number] 16:29:00 Test Item Value Reference Range Interpretation [...] K/mm3 0.0-0.1 N code = NRBC#) DIFFERENTIAL [id number] 16:29:00 Test Item Value Reference Range Interpretation Comments RBC MORPHOLOGY REQUIRED (test code = RBCM) PLATELET ESTIMATE (test code = PLTEST) ADEQUATE PLATELET MORPHOLOGY (test code = NORMAL PLTMORPH) CBC W/AUTO [id number] 16:29:00 Test Item Value Reference Range Interpretation [...] 28 K/MM3 129-368 LL CALLED TO ROZ E code = PLT) & READBACK ON 02/21/20 AT 162 7 BY Isacc Galleog MEAN PLATELET VOLUME 9.3 fl 7.4-10.4 N [...] K/mm3 0.0-0.1 N code = NRBC#) DIFFERENTIAL [id number] 16:29:00 Test Item Value Reference Range Interpretation Comments RBC MORPHOLOGY REQUIRED (test code = RBCM) PLATELET ESTIMATE (test code = PLTEST) ADEQUATE PLATELET MORPHOLOGY (test code = NORMAL PLTMORPH) PROTHROMBIN [id number] 16:22:00 Test Item Value Reference Range Interpretation [...] syste rodriguez embolism. 3.0 - 4.5 PTT [id number] 16:22:00 Test Item Value Reference Range Interpretation Comments PTT ACTIVATED (test 64.5 SECONDS 25.1-36.5 HH CALLED Ofe COURTNEY E & code = APTT) READBACK ON AT 1620 BY Fede Gallego ARTERIAL BLOOD [id number] 16:20:00 Test Item Value Reference Range Interpretation [...] code = COHBGFFIO2) 50 % BASIC METABOLIC [id number] 15:52:00 Test Item Value Reference Range Interpretation [...] 6.8 MG/DL 8.4-10.2 L CA) BASIC METABOLIC [id number] 15:49:00 Test Item Value Reference Range Interpretation [...] code = MG/DL 8.7-9.7 CA) BASIC METABOLIC [id number] 15:49:00 Test Item Value Reference Range Interpretation [...] code = MG/DL 8.7-9.7 CA) BASIC METABOLIC [id number] 15:47:00 Test Item Value Reference Range Interpretation [...] code = CA) MG/DL 8.7-9.7 BASIC METABOLIC [id number] 15:46:00 Test Item Value Reference Range Interpretation [...] CALCIUM (test code = CA) MG/DL 8.7-9.7 [id number] 13:59:00 Test Item Value Reference Range Interpretation Comments POTASSIUM (test code = K) 5.6 MMOL/L 3.5-5.1 H PLEASE CALL RESULTS TO PHONE #: [id number] 13:59:00 Test Item Value Reference Range Interpretation Comments GLUCOSE (test code = GLU) 265 MG/DL 74-106 H PLEASE CALL RESULTS TO PHONE #: [id number] 13:56:00 Test Item Value Reference Range Interpretation Comments POTASSIUM (test code = K) 5.6 MMOL/L 3.5-5.1 H PLEASE CALL RESULTS TO PHONE #: [id number] 13:56:00 Test Item Value Reference Range Interpretation Comments GLUCOSE (test code = GLU) MG/DL 74-106 PLEASE CALL RESULTS TO PHONE #: [id number] STATHGB [id number] 13:42:00 Test Item Value Reference Range Interpretation Comments HEMOGLOBIN (test code = 6.4 G/DL 11.2-14.9 LL CALL ED TO [facility] H & HGB) READBACK ON AT 1342 BY Fede Gallego carmen HEMATOCRIT (test code = 20.1 % 33.2-43.5 L CALL ED TO [facility] H & HCT) READBACK ON AT 1342 BY Fede Gallego carmen PLEASE CALL RESULTS TO PHONE #: [id number] 13:09:00 Test Item Value Reference Range Interpretation Comments POTASSIUM (test code = K) 4.9 MMOL/L 3.5-5.1 N [place] X [address] [id number] 13:09:00 Test Item Value Reference Range Interpretation Comments GLUCOSE (test code = GLU) 257 MG/DL 74-106 [place] [address] ASAPDIFFERENTIAL [id number] 13:06:00 Test Item Value Reference Range Interpretation Comments RBC MORPHOLOGY REQUIRED (test code = RBCM) PLATELET ESTIMATE (test code = PLTEST) ADEQUATE PLATELET MORPHOLOGY (test code = NORMAL PLTMORPH) [place] [address] ASAPHGB [id number] 13:06:00 Test Item Value Reference Range Interpretation Comments HEMOGLOBIN (test code = 4.3 G/DL 11.2-14.9 LL CALL ED TO [place] S & B) READBACK ON AT 1302 BY Fede Gallego carmen HEMATOCRIT (test code = 14.2 % 33.2-43.5 LL CALL ED TO [place] S & HCT) READBACK ON AT 1302 BY Fede Gallego [place] [address] ASAPDIFFERENTIAL [id number] 13:06:00 Test Item Value Reference Range Interpretation Comments RBC MORPHOLOGY REQUIRED (test code = RBCM) PLATELET ESTIMATE (test code = PLTEST) ADEQUATE PLATELET MORPHOLOGY (test code = NORMAL PLTMORPH) [place] [address] ASAPHGB [id number] 13:06:00 Test Item Value Reference Range Interpretation Comments HEMOGLOBIN (test code = 4.3 G/DL 11.2-14.9 LL CALL ED TO [place] S & HGB) READBACK ON AT 1302 BY Fede Gallego carmen HEMATOCRIT (test code = 14.2 % 33.2-43.5 LL CALL ED TO [place] S & HCT) READBACK ON AT 1302 BY Fede Gallego [place] [address] [id number] 13:01:00 Test Item Value Reference Range Interpretation Comments POTASSIUM (test code = K) 4.9 MMOL/L 3.5-5.1 N [place] X [address] [id number] 13:01:00 Test Item Value Reference Range Interpretation Comments GLUCOSE (test code = GLU) MG/DL 74-106 [place] X [address] ASAPGLUCOSE BEDSIDE [id number] 12:17:00 Test Item Value Reference Range Interpretation Comments GLUCOSE BEDSIDE TESTING (test code 185 MG/DL 60-99 H = GLUBED) BASIC METABOLIC [id number] 10:13:00 Test Item Value Reference Range Interpretation [...] CA) 10.2 MG/DL 8.4-10.2 N BASIC METABOLIC [id number] 10:13:00 Test Item Value Reference Range Interpretation [...] 10.2 MG/DL 8.4-10.2 N CA) CBC W/AUTO [id number] 10:12:00 Test Item Value Reference Range Interpretation [...] 0.04 K/mm3 0.0-0.1 N NRBC#) BASIC METABOLIC [id number] 10:10:00 Test Item Value Reference Range Interpretation [...] = CA) MG/DL 8.7-9.7 - XR CHEST [id number] 07:22:00 Patient Name: SALINA SERRATO Unit No: [id number] EXAMS: CPT CODE: [id number] XR CHEST 1V [id number] HISTORY: Cardiac surgery Location: C3 COMPARISON:02/19/2020 FINDINGS: Aortic calcifications are noted. Heart size and vascularity are within normal limits. The lungs are clear of focal consolidation. No effusion, pneumothorax, or acute osseous abnormality. IMPRESSION: 1. No focal consolidation. No other acute abnormalities. at 0722 Reported and signed by: Anuradha Portillo MD CC: Russel Hines; Sherri Ceja MD; Berta Tapia MEASUREMENT DEPARTMENT CHIEF CLERK Technologist: Mary Page RT(R) Transcrpt Date/Tm/Trnsp: 02/21/2020 (0722) [id number] Print D/T: S: 02/21/2020 (4702) [facility] NAME: SALINA SERRATO [address] [place] PHYS: [place] [address] : 1950 AGE: 69 SEX: F LOC: [id number].SI07 A PHONE #: [phone] EXAM DATE: 02/21/2020 STATUS: ADM IN FAX #: [phone] RADIOLOGY NO: PAGE 1 Signed Report PROTHROMBIN [id number] 04:55:00 Test Item Value Reference Range Interpretation [...] syste rodriguez embolism. 3.0 - 4.5 PTT [id number] 04:55:00 Test Item Value Reference Range Interpretation Comments PTT ACTIVATED (test code = APTT) 33.8 SECONDS 25.1-36.5 N CBC W/AUTO [id number] 04:53:00 Test Item Value Reference Range Interpretation [...] 0.04 K/mm3 0.0-0.1 N NRBC#) BASIC METABOLIC [id number] 04:52:00 Test Item Value Reference Range Interpretation [...] code = 9.4 MG/DL 8.4-10.2 N CA) [id number] 04:52:00 Test Item Value Reference Range Interpretation Comments MAGNESIUM (test code = MAG) 2.1 MG/DL 1.6-2.3 N BASIC METABOLIC [id number] 04:51:00 Test Item Value Reference Range Interpretation [...] CALCIUM (test code = MG/DL 8.7-9.7 CA) [id number] 04:51:00 Test Item Value Reference Range Interpretation Comments MAGNESIUM (test code = MAG) MG/DL 1.6-2.3 BASIC METABOLIC [id number] 04:49:00 Test Item Value Reference Range Interpretation [...] CALCIUM (test code = CA) MG/DL 8.7-9.7 [id number] 04:49:00 Test Item Value Reference Range Interpretation Comments MAGNESIUM (test code = MAG) MG/DL 1.6-2.3 BASIC METABOLIC [id number] 04:48:00 Test Item Value Reference Range Interpretation [...] CALCIUM (test code = CA) MG/DL 8.7-9.7 [id number] 04:48:00 Test Item Value Reference Range Interpretation Comments MAGNESIUM (test code = MAG) MG/DL 1.6-2.3 GLUCOSE BEDSIDE [id number] 22:40:00 Test Item Value Reference Range Interpretation Comments GLUCOSE BEDSIDE TESTING (test code 214 MG/DL 60-99 H = GLUBED) PROTHROMBIN [id number] 22:34:00 Test Item Value Reference Range Interpretation [...] rodriguez embolism. 3.0 - 4.[address] Monkey:HGB [id number] 21:00:00 Test Item Value Reference Range Interpretation Comments HEMOGLOBIN (test code = HGB) 8.8 G/DL 11.2-14.9 L HEMATOCRIT (test code = HCT) 29.0 % 33.2-43.5 L GLUCOSE BEDSIDE [id number] 17:08:00 Test Item Value Reference Range Interpretation Comments GLUCOSE BEDSIDE TESTING (test code 239 MG/DL 60-99 H = GLUBED) CBC W/AUTO [id number] 16:40:00 Test Item Value Reference Range Interpretation [...] 0.00 K/mm3 0.0-0.1 N NRBC#) GLUCOSE BEDSIDE [id number] 15:34:00 Test Item Value Reference Range Interpretation Comments GLUCOSE BEDSIDE TESTING (test code 258 MG/DL 60-99 H = GLUBED) GLUCOSE BEDSIDE [id number] 12:15:00 Test Item Value Reference Range Interpretation Comments GLUCOSE BEDSIDE TESTING (test code 256 MG/DL 60-99 H = GLUBED) PROTHROMBIN [id number] 11:06:00 Test Item Value Reference Range Interpretation [...] rodriguez embolism. 3.0 - 4.[address]key: ALREADY COLLECTED BY LABARTERIAL BLOOD [id number] 08:13:00 Test Item Value Reference Range Interpretation [...] 26 % COHBGFFIO2) - CT HEAD/BRAIN W/O [id number] 07:17:00 Patient Name: SALINA SERRATO Unit No: [id number] EXAMS: CPT CODE: [id number] CT HEAD/BRAIN W/O CONT 09417 EXAM: - CT HEAD/BRAIN W/O CONT Location [...] MD CC: Russel Hines; Sherri corral MD; Brody Larry MD Technologist: Librado Rosales, RT(R)(CT) CTDI: DLP: Trnscrpt: 02/20/2020 (0717) t.SDR.RXC2 [facility] NAME: SALINA SERRATO [address] [address] [place] PHYS: PATLU99 - Brody Larry MD [address] [place] [address] : 1950 AGE: 69 SEX: F LOC: Z.SI07 A PHONE #: [phone] EXAM DATE: 02/20/2020 STATUS: ADM IN FAX #: [phone] RAD #: D/C DT PAGE 1 Signed Report Patient Name: SALINA SERRATO Unit No: [id number] EXAMS: CPT CODE: [id number] CT HEAD/BRAIN W/O CONT 63296 <Continued> Orig Print D/T: S: 02/20/2020 (0720) [facility] Quez[facility] NAME: SALINA SERRATO [address] PHYS: Brody Leary MD [address] [place] [address] : 1950 AGE: 69 SEX: F LOC: Z.SI07 A PHONE #: [phone] EXAM DATE: 02/20/2020 STATUS: ADM IN FAX #: [phone] RAD #: D/C DT PAGE 2 Signed ReportPROTHROMBIN [id number] 06:42:00 Test Item Value Reference Range Interpretation [...] rodriguez embolism. 3.0 - 4.[address]key: ALREADY COLLECTED BY LABCOMPREHENSIVE METABOLIC PANEL 2020-02-20 [...] done in the last 72 hoursCOMPREHENSIVE METABOLIC [id number] 06:19:00 Test Item Value Reference Range Interpretation [...] done in the last 72 hoursCOMPREHENSIVE METABOLIC [id number] 06:17:00 Test Item Value Reference Range Interpretation [...] if not done in the last 72 hoursCBC W/AUTO [id number] 06:12:00 Test Item Value Reference Range Interpretation [...] rodriguez embolism. 3.0 - 4.5 GLUCOSE BEDSIDE [id number] 19:55:00 Test Item Value Reference Range Interpretation Comments GLUCOSE BEDSIDE TESTING (test code 281 MG/DL 60-99 H = GLUBED) URINALYSIS [id number] 19:06:00 Test Item Value Reference Range Interpretation [...] UACULT) Criteria SOURCE OF URINE: CLEAN CATCHUA [id number] 19:06:00 Test Item Value Reference Range Interpretation [...] NONE OFBU) SOURCE OF URINE: CLEAN CATCHURINALYSIS [id number] 18:33:00 Test Item Value Reference Range Interpretation [...] = UACULT) SOURCE OF URINE: CLEAN CATCHUA [id number] 18:33:00 Test Item Value Reference Range Interpretation Comments UA RBC (test code = RBCU) RBC/HPF 0-3 UA WBC (test code = XWBCU) WBC/HPF 0-5 UA EPITHELIAL CELLS (test code = EPI/HPF FEW EPIU) UA BACTERIA (test code = XBACU) NONE SOURCE OF URINE: CLEAN CATCHURINALYSIS [id number] 18:33:00 Test Item Value Reference Range Interpretation [...] = UACULT) SOURCE OF URINE: CLEAN CATCHUA [id number] 18:33:00 Test Item Value Reference Range Interpretation Comments UA RBC (test code = RBCU) RBC/HPF 0-3 UA WBC (test code = XWBCU) WBC/HPF 0-5 UA EPITHELIAL CELLS (test code = EPI/HPF FEW EPIU) UA BACTERIA (test code = XBACU) NONE SOURCE OF URINE: CLEAN CATCHPROTHROMBIN [id number] 17:16:00 Test Item Value Reference Range Interpretation [...] rodriguez embolism. 3.0 - 4.[address]key: ALREADY COLLECTED BY LABPLT RESPONSE TO PLAVIX [...] STAFF: CAMILLA 02/19/20 AT 1407 BY Amna Nowak RETROPERITONEAL [facility] 2020-02-19 15:08:00 Patient Name: SALINA SERRATO Unit No: [id number] EXAMS: CPT CODE: [id number] US RETROPERITONEAL COM [id number] EXAMINATION: - US RETROPERITONEAL COM. LOCATION: B2. [...] Adrienne Claros RDMS(AB) Transcrpt Date/Tm/Trnsp: 02/19/2020 (1508) t.NATIR.PR7 Orig Print D/T: S: 02/19/2020 (0820) [facility] NAME: SALINA SERRATO [id number] [address] [place] PHYS: [place] [address] : 1949 AGE: 69 SEX: F LOC: Z.SI07 A PHONE #: [phone] EXAM DATE: 02/19/2020 STATUS: ADM IN FAX #: [phone] RADIOLOGY NO: PAGE 1 Signed ReportHIV 12 AB DIFFERENTIATION 2020-02-19 12:59:00 Test Item Value Reference Range Interpretation Comments HIV 1 2 COMBO AG/AB SCREEN AB/AG NON REACTIVE NONREACTIVE (test code = [id number]) GLUCOSE BEDSIDE [id number] 12:46:00 Test Item Value Reference Range Interpretation [...] VERY HIGH...... ...>/= 190 mg/dL GLYCOSYLATED HEMOGLOBIN [id number] 12:17:00 Test Item Value Reference Range Interpretation [...] H (test code = MBG) GLUCOSE BEDSIDE [id number] 12:10:00 Test Item Value Reference Range Interpretation Comments GLUCOSE BEDSIDE TESTING (test code 307 MG/DL 60-99 HH = GLUBED) GLUCOSE BEDSIDE [id number] 12:09:00 Test Item Value Reference Range Interpretation [...] MG/DL 0-99 code = LDL) GLUCOSE BEDSIDE [id number] 12:09:00 Test Item Value Reference Range Interpretation Comments GLUCOSE BEDSIDE TESTING (test code 275 MG/DL 60-99 H = GLUBED) - XR CHEST [id number] 10:49:00 Patient Name: SALINA SERRATO Unit No: [id number] EXAMS: CPT CODE: [id number] XR CHEST 1V 27994 Location of dictation: B2 Portable chest one [...] signed by: Meagan Potter M.D. CC: Russel Hnies; Sherri Ceja MD; Berta Tapia NP Technologist: RT Louann (R) Transcrpt Date/Tm/Trnsp: 02/19/2020 (1049) La[facility] Orig Print D/T: S: 02/19/2020 (2762) [facility] NAME: SALINA SERRATO [address] [place] [address] PHYS: [place] [address] : 1950 AGE: 69 SEX: F LOC: Z.SI07 A PHONE #: [phone] EXAM DATE: 02/19/2020 STATUS: ADM IN FAX #: [phone] RADIOLOGY NO: PAGE 1 Signed ReportPTT [id number] 08:34:00 Test Item Value Reference Range Interpretation Comments PTT ACTIVATED (test 93.7 SECONDS 25.1-36.5 HH CALLED T O JOHN B& code = APTT) READBACK ON 09/28 AT 0834 BY James Nash not sent. informed babita. of lab - rb PATIENT IS A HARD STICK. UNABLE TO GET BLOOD SAMPLE.NOTIFIED PATIENT CARE STAFF: DOMINGO 02/19/20 AT 0706 BY SAIMAMYJBASIC METABOLIC [id number] 06:13:00 Test Item Value Reference Range Interpretation [...] code = 8.5 MG/DL 8.4-10.2 N CA) [id number] 06:13:00 Test Item Value Reference Range Interpretation Comments PHOSPHOROUS (test code = PHOS) 3.6 MG/DL 2.5-4.5 N [id number] 06:13:00 Test Item Value Reference Range Interpretation Comments MAGNESIUM (test code = MAG) 2.0 MG/DL 1.6-2.3 N BASIC METABOLIC [id number] 06:12:00 Test Item Value Reference Range Interpretation [...] code = 8.5 MG/DL 8.4-10.2 N CA) [id number] 06:12:00 Test Item Value Reference Range Interpretation Comments PHOSPHOROUS (test code = PHOS) 3.6 MG/DL 2.5-4.5 N [id number] 06:12:00 Test Item Value Reference Range Interpretation Comments MAGNESIUM (test code = MAG) MG/DL 1.6-2.3 BASIC METABOLIC [id number] 06:11:00 Test Item Value Reference Range Interpretation [...] CALCIUM (test code = MG/DL 8.7-9.7 CA) [id number] 06:11:00 Test Item Value Reference Range Interpretation Comments PHOSPHOROUS (test code = PHOS) MG/DL 2.5-4.5 [id number] 06:11:00 Test Item Value Reference Range Interpretation Comments MAGNESIUM (test code = MAG) MG/DL 1.6-2.3 BASIC METABOLIC [id number] 06:09:00 Test Item Value Reference Range Interpretation [...] CALCIUM (test code = CA) MG/DL 8.7-9.7 [id number] 06:09:00 Test Item Value Reference Range Interpretation Comments PHOSPHOROUS (test code = PHOS) MG/DL 2.5-4.5 [id number] 06:09:00 Test Item Value Reference Range Interpretation Comments MAGNESIUM (test code = MAG) MG/DL 1.6-2.3 CBC W/AUTO [id number] 06:01:00 Test Item Value Reference Range Interpretation [...] 0.00 K/mm3 0.0-0.1 N NRBC#) GLUCOSE BEDSIDE [id number] 05:27:00 Test Item Value Reference Range Interpretation Comments GLUCOSE BEDSIDE TESTING (test code 232 MG/DL 60-99 H = GLUBED) PTT [id number] 23:14:00 Test Item Value Reference Range Interpretation Comments PTT ACTIVATED (test 94.5 SECONDS 25.1-36.5 HH CALLED Ofe LEYVA code = APTT) B.& READBACK ON 02/18/20 AT 231 4 BY Mildred Caldera Comments to Road Monkey: USE RIGHT HANDUNABLE TO DRAW BLOOD, REASON: HARDSTICKNOTIFIED PATIENT CARESTAFF: SATHYA 02/18/20 AT 1934 BY Amna Nowak AnGLYCOSYLATED HEMOGLOBIN [id number] 16:54:00 Test Item Value Reference Range Interpretation [...] H (test code = MBG) Comments to Road Monkey: on blood in labPLT RESPONSE TO [id number] 14:00:00 Test Item Value Reference Range Interpretation [...] syste rodriguez embolism. 3.0 - 4.5 PTT [id number] 13:35:00 Test Item Value Reference Range Interpretation Comments PTT ACTIVATED (test 127.5 SECONDS 25.1-36.5 HH CALLED TO MUMTAZ B& code = APTT) READBACK ON 02/18/20 AT 133 5 BY Isacc Gallego BASIC METABOLIC [id number] 13:34:00 Test Item Value Reference Range Interpretation [...] code = 8.5 MG/DL 8.4-10.2 N CA) [id number] 13:34:00 Test Item Value Reference Range Interpretation Comments MAGNESIUM (test code = MAG) 2.1 MG/DL 1.6-2.3 N BASIC METABOLIC [id number] 13:24:00 Test Item Value Reference Range Interpretation [...] CALCIUM (test code = MG/DL 8.7-9.7 CA) [id number] 13:24:00 Test Item Value Reference Range Interpretation Comments MAGNESIUM (test code = MAG) MG/DL 1.6-2.3 BASIC METABOLIC [id number] 13:22:00 Test Item Value Reference Range Interpretation [...] CALCIUM (test code = CA) MG/DL 8.7-9.7 [id number] 13:22:00 Test Item Value Reference Range Interpretation Comments MAGNESIUM (test code = MAG) MG/DL 1.6-2.3 BASIC METABOLIC [id number] 13:21:00 Test Item Value Reference Range Interpretation [...] CALCIUM (test code = CA) MG/DL 8.7-9.7 [id number] 13:21:00 Test Item Value Reference Range Interpretation Comments MAGNESIUM (test code = MAG) MG/DL 1.6-2.3 CBC W/AUTO [id number] 13:05:00 Test Item Value Reference Range Interpretation [...] (test code = 0.00 K/mm3 0.0-0.1 N NR#) - XR CHEST [id number] 12:38:00 Patient Name: SALINA SERRATO Unit No: [id number] EXAMS: CPT CODE: [id number] XR CHEST 1V 81804 EXAM: Portable chest one view. Location code:J9 HI STORY: CABG preoperative COMPARISON: None available. COMMENT: [...] Technologist: Hugo Rodrigez, RT(R) Transcrpt Date/Tm/Trnsp: 02/18/2020 (3729) t.NATIR.BT89Crvq Print D/T: S: 02/18/2020 (0162) [facility] NAME: SALINA SERRATO [address] [place] PHYS: [place] [address] : 1950 AGE: 69 SEX: F LOC: Z.SI06 A PHONE #: [phone] EXAM DATE: 02/18/2020 STATUS: ADM IN FAX #: [phone] RADIOLOGY NO: PAGE 1 Signed ReportGLUCOSE BEDSIDE [id number] 12:37:00 Test Item Value Reference Range Interpretation Comments GLUCOSE BEDSIDE TESTING (test code 234 MG/DL 60-99 H = GLUBED) GLUCOSE BEDSIDE [id number] 12:37:00 Test Item Value Reference Range Interpretation Comments GLUCOSE BEDSIDE TESTING (test code 247 MG/DL 60-99 H = GLUBED) GLUCOSE BEDSIDE [id number] 12:36:00 Test Item Value Reference Range Interpretation Comments GLUCOSE BEDSIDE TESTING (test code 201 MG/DL 60-99 H = GLUBED) GLUCOSE BEDSIDE [id number] 12:36:00 Test Item Value Reference Range Interpretation Comments GLUCOSE BEDSIDE TESTING (test code 288 MG/DL 60-99 H = GLUBED) GLUCOSE BEDSIDE [id number] 12:36:00 Test Item Value Reference Range Interpretation Comments GLUCOSE BEDSIDE TESTING (test code 130 MG/DL 60-99 H = GLUBED) GLUCOSE BEDSIDE [id number] 11:27:00 Test Item Value Reference Range Interpretation Comments GLUCOSE BEDSIDE TESTING (test code 215 MG/DL 60-99 H = GLUBED) GLUCOSE BEDSIDE [id number] 11:27:00 Test Item Value Reference Range Interpretation Comments GLUCOSE BEDSIDE TESTING 335 MG/DL 60-99 HH Noti fied Nurse~ (test code = GLUBED) GLUCOSE BEDSIDE [id number] 11:27:00 Test Item Value Reference Range Interpretation Comments GLUCOSE BEDSIDE TESTING (test code 243 MG/DL 60-99 H = GLUBED) Novel Coronavirus 2019 [id number] 06:26:00 Test Item Value Reference Range Interpretation Comments Novel Coronavirus 2019 Inhouse (test Negative Negative code = COVNONPUI) Novel Coronavirus 2019 [id number] 06:25:00 Test Item Value Reference Range Interpretation Comments Novel Coronavirus 2019 Inhouse (test Negative Negative code = COVNONPUI) PTT [id number] 02:44:00 Test Item Value Reference Range Interpretation Comments PTT ACTIVATED (test 135.0 SECONDS 25.1-36.5 HH CALLED TO CHERRIE Hyman& code = APTT) READBACK ON 02/18/20 AT 024 4 BY Roberto Lindquist [id number] 16:24:00 Test Item Value Reference Range Interpretation Comments TROPONIN-I (test 0.748 NG/ML 0.012-0.033 HH CALLED TO Patricia Gonzalez& code = TROPI) READBACK ON AT 1624 BY Nghia Caldera [id number] 16:24:00 Test Item Value Reference Range Interpretation Comments TROPONIN-I (test 0.625 NG/ML 0.012-0.033 HH CALLED TO Patricia Gonzalez& code = TROPI) READBACK ON AT 1624 BY Nghia Caldera PTT [id number] 15:57:00 Test Item Value Reference Range Interpretation Comments PTT ACTIVATED (test code = APTT) 56.2 SECONDS 25.1-36.5 H [id number] 14:11:00 Test Item Value Reference Range Interpretation Comments TROPONIN-I (test 0.614 NG/ML 0.012-0.033 HH CALLED TO ISELA Flowers& code = TROPI) READBACK ON AT 1411 BY Tiny Morrison BASIC METABOLIC [id number] 09:19:00 Test Item Value Reference Range Interpretation [...] 321 MG/DL 74-106 HH CALLED TO ISAAC B& GLU) READBACK ON 07/29 AT 0919 BY [...] MG/DL 8.4-10.2 N CA) PLT RESPONSE TO [id number] 08:27:00 Test Item Value Reference Range Interpretation [...] events. IS PATIENT ON ANTICOAGULANTS: YCBC W/AUTO [id number] 08:03:00 Test Item Value Reference Range Interpretation [...] 0.00 K/mm3 0.0-0.1 N NRBC#) BASIC METABOLIC [id number] 07:57:00 Test Item Value Reference Range Interpretation [...] code = MG/DL 8.7-9.7 CA) GLUCOSE BEDSIDE [id number] 22:32:00 Test Item Value Reference Range Interpretation Comments GLUCOSE BEDSIDE TESTING (test code 227 MG/DL 60-99 H = GLUBED) PTT [id number] 21:50:00 Test Item Value Reference Range Interpretation Comments PTT ACTIVATED (test code = APTT) 36.9 SECONDS 25.1-36.5 H PROTHROMBIN [id number] 14:26:00 Test Item Value Reference Range Interpretation [...] STAFF: ISELA STEWART 02/16/20 AT 1113 BY Dee Dee.LAB.DHPTT [id number] 14:26:00 Test Item Value Reference Range Interpretation Comments PTT ACTIVATED (test code = APTT) 36.6 SECONDS 25.1-36.5 H PATIENT IS A HARD STICK. UNABLE TO GET BLOOD SAMPLE.NOTIFIED PATIENT CARE STAFF: ISELA STEWART 02/16/20 AT 1113 BY Z.LAB.[id number] 14:26:00 Test Item Value Reference Range Interpretation Comments FIBRINOGEN (test code = FIB) 532 mg/dL 200-393 H PATIENT IS A HARD STICK. UNABLE TO GET BLOOD SAMPLE.NOTIFIED PATIENT CARE STAFF: ISELA STEWART 02/16/20 AT 1113 BY Z.LAB.LBG-[id number] 14:26:00 Test Item Value Reference Range Interpretation [...] PATIENT CARE STAFF: ISELA PAT 02/16/20 AT 1113 BY Z.LAB.CBC W/O [id number] 14:21:00 Test Item Value Reference Range Interpretation [...] code = 0.00 K/mm3 0.0-0.1 N NRBC#) [id number] 13:10:00 Test Item Value Reference Range Interpretation Comments TROPONIN-I (test 1.240 NG/ML 0.012-0.033 HH CALLED TO Patricia Gonzalez & code = TROPI) READBACK ON AT 1309 Jaky Lopez PATIENT IS A HARD STICK. UNABLE TO GET BLOOD SAMPLE.NOTIFIED PATIENT CARE STAFF: ISELA STEWART 02/16/20 AT 1112 BY SAIMACOMPREHENSIVE METABOLIC [id number] 12:24:00 Test Item Value Reference Range Interpretation [...] STAFF: ISELA STEWART 02/16/20 AT 1112 BY Z.LAB.[id number] 12:24:00 Test Item Value Reference Range Interpretation Comments PHOSPHOROUS (test code = PHOS) 5.7 MG/DL 2.5-4.5 H PATIENT IS A HARD STICK. UNABLE TO GET BLOOD SAMPLE.NOTIFIED PATIENT CARE STAFF: ISELA STEWART 02/16/20 AT 1112 BY Z.LAB.[id number] 12:24:00 Test Item Value Reference Range Interpretation Comments MAGNESIUM (test code = MAG) 1.7 MG/DL 1.6-2.3 N PATIENT IS A HARD STICK. UNABLE TO GET BLOOD SAMPLE.NOTIFIED PATIENT CARE STAFF: ISELA STEWART 02/16/20 AT 1112 BY Z.LAB.COMPREHENSIVE METABOLIC [id number] 12:12:00 Test Item Value Reference Range Interpretation [...] STAFF: ISELA STEWART 02/16/20 AT 1112 BY Z.LAB.[id number] 12:12:00 Test Item Value Reference Range Interpretation Comments PHOSPHOROUS (test code = PHOS) MG/DL 2.5-4.5 PATIENT IS A HARD STICK. UNABLE TO GET BLOOD SAMPLE.NOTIFIED PATIENT CARE STAFF: ISELA STEWART 02/16/20 AT 1112 BY Z.LAB.[id number] 12:12:00 Test Item Value Reference Range Interpretation Comments MAGNESIUM (test code = MAG) MG/DL 1.6-2.3 PATIENT IS A HARD STICK. UNABLE TO GET BLOOD SAMPLE.NOTIFIED PATIENT CARE STAFF: ISELA STEWART 02/16/20 AT 1112 BY Z.LAB.COMPREHENSIVE METABOLIC [id number] 12:10:00 Test Item Value Reference Range Interpretation [...] STAFF: ISELA STEWART 02/16/20 AT 1112 BY Z.LAB.[id number] 12:10:00 Test Item Value Reference Range Interpretation Comments PHOSPHOROUS (test code = PHOS) MG/DL 2.5-4.5 PATIENT IS A HARD STICK. UNABLE TO GET BLOOD SAMPLE.NOTIFIED PATIENT CARE STAFF: ISELA STEWART 02/16/20 AT 1112 BY Z.LAB.[id number] 12:10:00 Test Item Value Reference Range Interpretation Comments MAGNESIUM (test code = MAG) MG/DL 1.6-2.3 PATIENT IS A HARD STICK. UNABLE TO GET BLOOD SAMPLE.NOTIFIED PATIENT CARE STAFF: ISELA STEWART 02/16/20 AT 1112 BY Z.LAB.COMPREHENSIVE METABOLIC [id number] 12:09:00 Test Item Value Reference Range Interpretation [...] STAFF: ISELA STEWART 02/16/20 AT 1112 BY Z.LAB.[id number] 12:09:00 Test Item Value Reference Range Interpretation Comments PHOSPHOROUS (test code = PHOS) MG/DL 2.5-4.5 PATIENT IS A HARD STICK. UNABLE TO GET BLOOD SAMPLE.NOTIFIED PATIENT CARE STAFF: ISELA STEWART 02/16/20 AT 1112 BY Z.LAB.[id number] 12:09:00 Test Item Value Reference Range Interpretation Comments MAGNESIUM (test code = MAG) MG/DL 1.6-2.3 PATIENT IS A HARD STICK. UNABLE TO GET BLOOD SAMPLE.NOTIFIED PATIENT CARE STAFF: ISELA STEWART 02/16/20 AT 1112 BY Z.LAB.DHCREATINE KINASE (CK)2020-02-16 10:49:00 Test Item Value Reference Range Interpretation Comments CREATINE KINASE (CK) (test code = 114 UNITS/L 30-135 N CK) ADD ONBASIC METABOLIC [id number] 09:15:00 Test Item Value Reference Range Interpretation [...] & GLU) READBACK ON 06/29 AT 0906 BYJayk Alas BLOOD UREA NITROGEN 31 MG/DL 7-17 [...] FAREED.CKREASON: SPECIMEN HEMOLYZEDNOTIFIED PATIENT CARE STAFF: NARGIS HymanLIPID [...] FAREED.CKREASON: SPECIMEN HEMOLYZEDNOTIFIED PATIENT CARE STAFF: NARGIS HymanJDZNPAQO-[id number] 09:15:00 Test Item Value Reference Range Interpretation Comments TROPONIN-I (test 1.380 NG/ML 0.012-0.033 HH CALLED TO Patricia Gonzalez & code = TROPI) READBACK ON AT 0914 Jaky Lopez RECOLLECTION NEEDED ON 02/16/20 AT 0648 BY FAREED.CKREASON: SPECIMEN HEMOLYZEDNOTIFIED PATIENT CARE STAFF: NARGIS HymanBASIC METABOLIC [id number] 09:09:00 Test Item Value Reference Range Interpretation [...] FAREED.CKREASON: SPECIMEN HEMOLYZEDNOTIFIED PATIENT CARE STAFF: NARGIS HymanLIPID [...] RECOLLECTION NEEDED ON 02/16/20 AT 0648 BY Dee Dee.LAB.CKREASON: SPECIMEN HEMOLYZEDNOTIFIED PATIENT CARE STAFF: NARGIS HymanKCKUWNNI-[id number] 09:09:00 Test Item Value Reference Range Interpretation Comments TROPONIN-I (test code = TROPI) NG/ML 0.0-0.045 RECOLLECTION NEEDED ON 02/16/20 AT 0648 BY Dee Dee.LAB.CKREASON: SPECIMEN HEMOLYZEDNOTIFIED PATIENT CARE STAFF: NARGIS HymanBASIC METABOLIC [id number] 09:07:00 Test Item Value Reference Range Interpretation [...] RECOLLECTION NEEDED ON 02/16/20 AT 0648 BY Dee Dee.LAB.CKREASON: SPECIMEN HEMOLYZEDNOTIFIED PATIENT CARE STAFF: NARGIS HymanLIPID [...] SAIMACKREASON: SPECIMEN HEMOLYZEDNOTIFIED PATIENT CARE STAFF: NARGIS [id number] 09:07:00 Test Item Value Reference Range Interpretation Comments TROPONIN-I (test code = TROPI) NG/ML 0.0-0.045 RECOLLECTION NEEDED ON 02/16/20 AT 0648 BY SAIMACKREASON: SPECIMEN HEMOLYZEDNOTIFIED PATIENT CARE STAFF: NARGIS HymanBASIC METABOLIC [id number] 08:58:00 Test Item Value Reference Range Interpretation [...] SAIMACKREASON: SPECIMEN HEMOLYZEDNOTIFIED PATIENT CARE STAFF: NARGIS HymanLIPID PROFILE (CORONARY RISK) 2020-02-16 08:58:00 Test Item Value Reference Range Interpretation Comments TRIGLYCERIDES (test code = TRIG) MG/DL CHOLESTEROL (test code = CHOL) 210 MG/DL <200 HDL CHOLESTEROL (test code = HDL) MG/DL 40-59 LIPOPROTEIN LDL (test code = LDL) MG/DL 0-99 RECOLLECTION NEEDED ON 02/16/20 AT 0648 BY Z.LAB.CKREASON: SPECIMEN HEMOLYZEDNOTIFIED PATIENT CARE STAFF: NARGIS [id number]-[id number] 08:58:00 Test Item Value Reference Range Interpretation Comments TROPONIN-I (test code = TROPI) NG/ML 0.0-0.045 RECOLLECTION NEEDED ON 02/16/20 AT 0648 BY Z.LAB.CKREASON: SPECIMEN HEMOLYZEDNOTIFIED PATIENT CARE STAFF: NARGIS FungDenisseBASIC METABOLIC [id number] 08:55:00 Test Item Value Reference Range Interpretation [...] Z.LAB.CKREASON: SPECIMEN HEMOLYZEDNOTIFIED PATIENT CARE STAFF: NARGIS FungDenisseLIPID PROFILE (CORONARY RISK) 2020-02-16 08:55:00 Test Item Value Reference Range Interpretation Comments TRIGLYCERIDES (test code = TRIG) MG/DL CHOLESTEROL (test code = CHOL) MG/DL <200 HDL CHOLESTEROL (test code = HDL) MG/DL 40-59 LIPOPROTEIN LDL (test code = LDL) MG/DL 0-99 RECOLLECTION NEEDED ON 02/16/20 AT 0648 BY Z.LAB.CKREASON: SPECIMEN HEMOLYZEDNOTIFIED PATIENT CARE STAFF: NARGIS [id number] 08:55:00 Test Item Value Reference Range Interpretation Comments TROPONIN-I (test code = TROPI) NG/ML 0.0-0.045 RECOLLECTION NEEDED ON 02/16/20 AT 0648 BY Z.LAB.CKREASON: SPECIMEN HEMOLYZEDNOTIFIED PATIENT CARE STAFF: NARGIS HymanBASIC METABOLIC [id number] 01:23:00 Test Item Value Reference Range Interpretation [...] code = 9.4 MG/DL 8.4-10.2 N CA) [id number] 01:23:00 Test Item Value Reference Range Interpretation Comments MAGNESIUM (test code = MAG) 1.6 MG/DL 1.6-2.3 N [id number] 01:23:00 Test Item Value Reference Range Interpretation Comments TROPONIN-I (test 1.460 NG/ML 0.012-0.033 HH CALLED TO Samra Hyman& code = TROPI) READBACK ON AT 0123 BY Adonis Matos BASIC METABOLIC [id number] 01:15:00 Test Item Value Reference Range Interpretation [...] 337 MG/DL 74-106 HH CALLED TO NARGIS Yenni& GLU) READBACK ON 06/29 AT 0115 BY Adonis Matos BLOOD UREA NITROGEN 28 MG/DL 7-17 H (test code = BUN) GLOMERULAR FILTRATION 34 Report ing units: RATE (test code = GFR) ml/mi n/1.73 m2 (Modified MDRD Formula)Referen ce Range: > or = 6 0 ml/min/1.73 m2 CREATININE (test code 1.80 MG/DL 0.52-1.04 H = CREAT) CALCIUM (test code = 9.4 MG/DL 8.4-10.2 N CA) [id number] 01:15:00 Test Item Value Reference Range Interpretation Comments MAGNESIUM (test code = MAG) 1.6 MG/DL 1.6-2.3 N [id number] 01:15:00 Test Item Value Reference Range Interpretation Comments TROPONIN-I (test code = TROPI) NG/ML 0.0-0.045 PTT [id number] 01:15:00 Test Item Value Reference Range Interpretation Comments PTT ACTIVATED (test 66.0 SECONDS 25.1-36.5 HH CALLED T O NARGIS Hyman & code = APTT) READBACK ON 06/29 AT 0114 BY Roberto Covington CBC W/AUTO [id number] 01:02:00 Test Item Value Reference Range Interpretation [...] 0.00 K/mm3 0.0-0.1 N NRBC#) BASIC METABOLIC [id number] 01:01:00 Test Item Value Reference Range Interpretation [...] CALCIUM (test code = CA) MG/DL 8.7-9.7 [id number] 01:01:00 Test Item Value Reference Range Interpretation Comments MAGNESIUM (test code = MAG) MG/DL 1.6-2.3 [id number] 01:01:00 Test Item Value Reference Range Interpretation Comments TROPONIN-I (test code = TROPI) NG/ML 0.0-0.045 GLUCOSE BEDSIDE [id number] 21:29:00 Test Item Value Reference Range Interpretation Comments GLUCOSE BEDSIDE TESTING (test code 255 MG/DL 60-99 H = GLUBED) [id number] 19:17:00 Test Item Value Reference Range Interpretation Comments TROPONIN-I (test 3.080 NG/ML 0.012-0.033 CALLED TO Yari Sanchez& code = TROPI) READBACK ON AT 1917 BY Nghia Caldera PTT [id number] 19:04:00 Test Item Value Reference Range Interpretation Comments PTT ACTIVATED (test code = APTT) 59.1 SECONDS 25.1-36.5 H [id number] 15:25:00 Test Item Value Reference Range Interpretation Comments TROPONIN-I (test 3.080 NG/ML 0.012-0.033 HH CALLED TO Yari PIMENTEL& code = TROPI) READBACK ON AT 1525 BY Lynnette Tam LIPOPROTEIN LDL [id number] 13:05:00 Test Item Value Reference Range Interpretation Comments LIPOPROTEIN LDL DIRECT 141 mg/dL 100-129 H ===== (test code = LDLDIR) ======= ====R eference Interv al: mg/dL mmol/L-------- ----- ----- ----- ------Optimal < 100 <2.6Near/above optimal 100-129 2.6-3.3Borderli ne High 130-159 3.4-4.1High 160-189 4.1-4.9Very Hig h >=190 >=4.9========= This LDL result is a direct measurement.=== ===== = [id number] 13:05:00 Test Item Value Reference Range Interpretation Comments TROPONIN-I (test 2.370 NG/ML 0.012-0.033 HH CALLED TO Patricia VILLAR& code = TROPI) READBACK ON AT 1228 BY Mohinder Wilkinson GLUCOSE BEDSIDE [id number] 12:46:00 Test Item Value Reference Range Interpretation Comments GLUCOSE BEDSIDE TESTING (test code 285 MG/DL 60-99 H = GLUBED) LIPOPROTEIN LDL [id number] 12:28:00 Test Item Value Reference Range Interpretation Comments LIPOPROTEIN LDL DIRECT (test code = mg/dL 100-129 LDLDIR) [id number] 12:28:00 Test Item Value Reference Range Interpretation Comments TROPONIN-I (test 2.370 NG/ML 0.012-0.033 HH CALLED TO Patricia VILLAR& code = TROPI) READBACK ON AT 1228 BY Mohinder Wilkinson BASIC METABOLIC [id number] 07:31:00 Test Item Value Reference Range Interpretation [...] 9.2 MG/DL 8.4-10.2 N CA) BASIC METABOLIC [id number] 07:30:00 Test Item Value Reference Range Interpretation [...] code = MG/DL 8.7-9.7 CA) BASIC METABOLIC [id number] 07:27:00 Test Item Value Reference Range Interpretation [...] (test code = CA) MG/DL 8.7-9.7 PROTHROMBIN [id number] 06:44:00 Test Item Value Reference Range Interpretation [...] syste rodriguez embolism. 3.0 - 4.5 PTT [id number] 06:44:00 Test Item Value Reference Range Interpretation Comments PTT ACTIVATED (test code = APTT) 35.7 SECONDS 25.1-36.5 N CBC W/AUTO [id number] 06:38:00 Test Item Value Reference Range Interpretation [...] 0.00 K/mm3 0.0-0.1 N NRBC#) GLUCOSE BEDSIDE [id number] 04:03:00 Test Item Value Reference Range Interpretation Comments GLUCOSE BEDSIDE TESTING (test code 201 MG/DL 60-99 H = GLUBED)
[2020-08-13] MEDS ORDERED: NA CHLORIDE 0.9% 1,000 ML ONE (06:44)
[2020-08-13] MEDS ORDERED: MIDAZOLAM HCL 2 MG/2 ML INJ ONE (07:20)
[2020-08-13] MEDS ORDERED: LIDOCAINE 2% MPF 5 ML VIAL ONE (07:20)
[2020-08-13] MEDS ORDERED: propofoL 200 MG/20 ML VIAL IV ONE (07:20)
[2020-08-13] MEDS ORDERED: FENTANYL CITR 100 MCG/2 ML ONE (07:20)
[2020-08-13] MEDS ORDERED: dexAMETHasone 4 MG/ML VIAL ONE (07:21)
[2020-08-13] MEDS ORDERED: CIPROFLOXACIN 400mg IV 400 MG/200 ML BAG IV ONE (07:37)
--- NOTE | 2020-08-13 07:59 | P.BOP ---
Preoperative diagnosis: Infected perineal mass with abscess Postoperative diagnosis: same` Primary procedure: Excision of subQ infected perineal mass with abscess drainage Estimated blood loss: <10cc Specimen: culture, mass Findings: as above Anesthesia: General Transferred to: Recovery Room Condition: Fair
[2020-08-13 09:13] VITALS: TEMP 96; O2SAT 98
[2020-08-13 09:43] VITALS: BP 165/91
--- NOTE | 2020-08-13 10:28 | DS ---
Date of Discharge: 08/13/2020 Diagnosis: Infected perineal mass with abscess. Procedure: Excisional biopsy of infected perineal mass with abscess drainage. Disposition: Home. Plan: May remove outer dressing tomorrow and take a shower and then use Bactroban ointment and packi ng over the area twice a day. Follow up in my office in 1 week. Call for appointment at [phone]. Medications: Include Tylenol No.3 q.4 hours p.r.n. pain. VIRGEN/DANIEL Voice ID: [id number] Report ID: [id number]
--- NOTE | 2020-08-13 10:28 | OP ---
Date of Procedure: 08/13/2020 Surgeon: Thee Connolly MD Preoperative Diagnosis: Infected perineal mass with abscess. Postoperative Diagnosis: Infected perineal mass with abscess. Procedure: Excisional biopsy of infected perineal subcutaneous mass with abscess drainage. Anesthesia: General plus local. Indications: This is the case of a female, who comes to us with a mass coming from the perineum with a purulent discharge coming from it. She has been treating this previously with primary doctor, but was still happening tender, erythematosus, increased temperature. The benefits, alternatives, and r isks of an excisional biopsy of perineal mass fully explained which include, but not limited to infec tion, bleeding, damage to adjacent structures, anesthesia complication, recurrence, CO and even . She also understands this may not relieve any symptoms. She might need more than one surgical int ervention. She also understands this may require wound care. She signed a consent. Procedure In Detail: The patient was brought to the operating room and placed in supine position. A nesthesia was done without complication. The patient was placed in lithotomy position with proper pr otection. The area of concern was marked previously by me and the patient in the holding room. So, we have a hedy in that area. We prepped and draped in the usual sterile fashion and then we proceede d to time-out and then make an incision in that area. Immediately, we obtained purulent discharge fr om an abscess near the mass, so the mass was removed and that area does not seem to be going into the anal region or into the genitalia at this moment. The mass was excised. Pus and loculations were e xplored. Open area was irrigated and then the area was packed with a dry dressing after hemostasis and local anesthetic. The patient tolerated the procedure well. The patient was sent to recovery in stable condition. VIRGEN/DANIEL Voice ID: [id number] Report ID: [id number]
== END 2020-08-13 09:35 | disposition home or self-care (01) ==
LOC: OR 06:00
PROVIDERS: ATTEND Surgery
PROC: 0HB9XZZ Excision of Perineum Skin, External Approach (ICD-10-PCS; principal; 2020-08-13 07:30)
DX: L72.0 Epidermal cyst (principal); L02.215 Cutaneous abscess of perineum; Z20.828 Contact with and (suspected) exposure to other viral communicable diseases
CPT/HCPCS: 93005; 87070; 85025; 80048; 36415; 87205; 82947 ×2; 88304; 87075; 71046; 11403; U0002; J2704; J1100; J2250; J3010; J7030; J0744; 88305